=== PATIENT | male | born 1950 | race Caucasian/White ===

== ENCOUNTER 2020-02-23 13:26 | Emergency (ER) | payer MEDICARE, MEDICAID, SELFPAY ==
--- NOTE | 2020-02-23 13:36 | ECG_ITS ---
Test Reason : CHEST PAIN Blood Pressure : / mmHG Vent. Rate : 083 BPM Atrial Rate : 083 BPM P-R Int : 124 ms QRS Dur : 090 ms QT Int : 372 ms P-R-T Axes : 046 048 051 degrees QTc Int : 437 ms Normal sinus rhythm Minimal voltage criteria for LVH, may be normal variant Borderline ECG When compared with ECG of 23-OCT-2017 10:01, Aberrant conduction is no longer Present ST no longer elevated in Lateral leads T wave inversion no longer evident in Inferior leads T wave amplitude has increased in Anterior leads Referred By: Laura Parsons Electronically Signed By:MITCH PAREDES MD
[2020-02-23 13:47] VITALS: BP 125/81; PULSE 81; RESP 25; TEMP 36.5; O2SAT 96; BMI 25.4
--- NOTE | 2020-02-23 14:37 | XR_ITS ---
EXAMINATION: XR CHEST CLINICAL INFORMATION: Right PICC chest pain. COMPARISON: None TECHNIQUE: 2 views of the chest were obtained. FINDINGS: No significant abnormality is noted involving the heart, lungs, mediastinum, bony thorax or soft tissues. XR/XR chest 2V IMPRESSION: Unremarkable chest exam.
[2020-02-23 14:48] LABS: MANUAL DIFF FLAG NO
[2020-02-23] MEDS: Ketorolac Tromethamine 15 MG/ML VIAL IV (14:58)
[2020-02-23 15:03] LABS: Basophils Absolute Auto 0.1 X10*3/uL (0.0-0.2); Basophils Percent Auto 0.6 % (0-2); Eosinophils Absolute Auto 0.1 X10*3/uL (0.0-0.4); Eosinophils Percent Auto 0.9 % (0-4); Hematocrit 50.2 % (42-52); Hemoglobin 16.9 g/dl (14.0-18.0); Imm Gran Abs Auto 0.04 X10*3/uL (0.00-0.03); Imm Gran Pct Auto 0.4 % (0.0-0.4); Lymphocytes Absolute Auto 1.3 X10*3/uL (1.2-4.9); Lymphocytes Percent Auto 14.4 % (20-40); Mean Corpuscular HGB Conc 33.7 g/dl (31.0-36.0); Mean Corpuscular Hemoglobin 31.5 pg (27.0-33.0); Mean Corpuscular Volume 93.5 fL (80-98); Mean Platelet Volume 12.9 fL (9.4-12.4); Monocytes Absolute Auto 0.6 X10*3/uL (0.1-1.2); Monocytes Percent Auto 6.7 % (2-11); Neutrophils Absolute Auto 6.9 X10*3/uL (2.0-8.3); Platelet Count 182 X10*3/uL (160-400); Red Blood Count 5.37 X10*6/uL (4.60-5.80); Red Cell Distribution Width 13.2 % (11.0-16.0); White Blood Count 8.9 X10*3/uL (4.8-10.8)
[2020-02-23 15:10] LABS: Anion Gap 15 (12-20); Blood Urea Nitrogen 19 mg/dL (9-16); Calcium 8.6 mg/dL (8.4-10.2); Carbon Dioxide 23 mmol/L (22-29); Chloride 108 mmol/L (96-108); Creatinine Clr Calc Pharmacy 69.8; Estimated Glomerular Filt Rate > 60; Glucose Random 109 mg/dL (60-115); Magnesium 2.5 mg/dL (1.6-2.6); Potassium 4.2 mmol/l (3.3-5.1); Sodium 142 mmol/L (135-145)
[2020-02-23 15:13] LABS: Troponin-I High Sensitivity 3.9 ng/L (<3.5-35.0)
--- NOTE | 2020-02-23 15:47 | ED_ITS ---
HPI - Chest Pain General Chief Complaint: Chest Pain Stated Complaint: Chest pain Time Seen by Provider: 02/23/20 14:16 Source: patient and educational interpreter Mode of arrival: ambulatory Limitations: no limitations History of Present Illness HPI narrative: patient is a 69-year-old male with no significant past medical history presents complaining of a chest pain and pain with inspiration x2 days. Did admit to moving some cabinets with some friends 2 days ago. States his pain is worse with movement. Did not try any medications or ice or heat to make it better. Denied radiation of pain. denies abdominal pain. Related Data Previous Rx's Medication Instructions Recorded ibuprofen 600 mg PO Q8H PRN #30 tab 02/23/20 Allergies Allergy/AdvReac Type Severity Reaction Status Date / Time No Known Allergies Allergy Unverified 01/19/20 18:01 [No Known Allergies*] Review of Systems Review of Systems: Yes all other systems are reviewed and are negative PMFSH Past Medical History Attestation statement: The following information was validated with the patient. Social History Social History Alcohol intake: never Smoking Status: Former smoker Use of substances other than those prescribed or required for medical reasons: No Advance Directives: No Advance Directives Information Provided: Yes Physical Exam Vital Signs: Vital Signs: Vital Signs Temp Pulse Resp BP Pulse Ox 02/23/20 13:47 97.7 F 81 25 H 125/81 96 Body Mass Index 25.4 Const: General: cooperative, healthy appearing, comfortable and no acute distress Orientation/consciousness: patient oriented x3 HENMT: Head: Yes normal to inspection Eyes: General: appearance normal, both eyes and all related structures Neck: Neck: Yes normal visual inspection, Yes full ROM and Yes supple Chest: Chest palpation & inspection: tenderness ( throughout) Resp: Effort & Inspection: normal respiratory effort and able to speak in complete sentences Auscultation: clear to auscultation bilaterally Cardio: Rate: regular rate Rhythm: regular rhythm Heart sounds: S1 normal heart sound present and S2 normal heart sound present GI: Inspection: Yes normal to inspection Palpation (GI): Soft to palpation and nontender Auscultation: normal bowel sounds Skin: General skin exam: no rashes or lesions noted and other (no diaphore sis) Neuro: General: patient oriented x3 Extrem: Other: right biceps is tender to palpation, left bicep is as well General: Yes normal to inspection Course Course Course Narrative: 69-year-old male with past medical history of hypertension and hyperlipidemia complaining of chest pain and pain with inspiration x2 days. admits to helping friends move some very heavy cabinets 2 days ago. Gave Toradol for relief, will do labs, EKG and chest x-ray. MDM - Chest Pain MDM Narrative Medical decision making narrative: EKG negative, troponin negative, patient's chest pain is reproducible and he was helping a neighbor move cabinets 2 days ago. Gave patient Toradol, he states he feels much relief from it. Will discharge with his prescription for Advil Differential Diagnosis Differential diagnosis: Likely fracture of rib, pneumothorax, stable angina, unstable angina pectoris, st elevation myocardial infarction, costochondritis and biliary colic Medical Records Data Attestation: I reviewed the patient's medical records. Lab Data Attestation: I reviewed the patient's lab results. Result diagrams: 02/23/20 14:41 02/23/20 14:41 Labs: Lab Results 02/23/20 02/23/20 02/23/20 Range/Units 14:41 14:41 14:41 WBC 8.9 (4.8-10.8) X10*3/uL RBC 5.37 (4.60-5.80) X10*6/uL Hgb 16.9 (14.0-18.0) g/dl Hct 50.2 (42-52) % MCV 93.5 (80-98) fL MCH 31.5 (27.0-33.0) pg MCHC 33.7 (31.0-36.0) g/dl RDW 13.2 (11.0-16.0) % Plt Count 182 (160-400) X10*3/uL MPV 12.9 H (9.4-12.4) fL Immature Gran % (Auto) 0.4 (0.0-0.4) % Neut % (Auto) 77.0 H (45-73) % Lymph % (Auto) 14.4 L (20-40) % [place] % (Auto) 6.7 (2-11) % Eos % (Auto) 0.9 (0-4) % Baso % (Auto) 0.6 (0-2) % Lymph # (Auto) 1.3 (1.2-4.9) X10*3/uL [place] # (Auto) 0.6 (0.1-1.2) X10*3/uL Eos # (Auto) 0.1 (0.0-0.4) X10*3/uL Baso # (Auto) 0.1 (0.0-0.2) X10*3/uL Abs Immat Gran (auto) 0.04 H (0.00-0.03) X10*3/uL Absolute Neuts (auto) 6.9 (2.0-8.3) X10*3/uL Absolute Nucleated RBC 0.000 (0.0-0.012) X10*3/uL Nucleated RBC % (auto) 0.0 (0.0-0.2) /100WBC Sodium 142 (135-145) mmol/L Potassium 4.2 (3.3-5.1) mmol/l Chloride 108 (96-108) mmol/L Carbon Dioxide 23 (22-29) mmol/L Anion Gap 15 (12-20) BUN 19 H (9-16) mg/dL Creatinine 1.06 (0.5-1.4) mg/dL Estim Creat Clear Calc 69.8 Estimated GFR > 60 Random Glucose 109 (60-115) mg/dL Calcium 8.6 (8.4-10.2) mg/dL Magnesium 2.5 (1.6-2.6) mg/dL Troponin I High Sens 3.9 (<3.5-35.0) ng/L ECG Data ECG #1: Attestation: I personally reviewed and interpreted this ECG as follows: ECG interpretation date: 02/23/20 Interpretation: NSR Rate 83bpm QTc 437 Discharge Plan Discharge Clinical Impression: Acute costochondritis Patient Disposition: Home, Self-Care Instructions: Costochondritis (ED) Prescriptions: New ibuprofen 600 mg tablet 600 mg PO Q8H PRN (Reason: pain) Qty: 30 RF: 0
[2020-02-23 16:23] VITALS: BP 138/78; PULSE 64; RESP 24; TEMP 36.3; O2SAT 97
== END 2020-02-23 17:09 | disposition home or self-care (01) ==
PROVIDERS: Physician Assistant; Emergency Provider Emergency Medicine
DX: M94.0 Chondrocostal junction syndrome [Tietze] (principal); Z87.891 Personal history of nicotine dependence; Z79.899 Other long term (current) drug therapy
CPT/HCPCS: 36415; 71046; 80048; 83735; 84484; 85025; 93005; 96374; 99284; J1885

== ENCOUNTER 2020-08-15 14:41 | Emergency (ER) | payer MEDICARE, MEDICAID, SELFPAY ==
--- NOTE | ~2020-08-15 | US_ITS ---
EXAMINATION: US VENOUS ULTRASOUND WITH DOPPLER LOWER EXTREMITY, RIGHT CLINICAL INFORMATION: Right leg swelling and numbness COMPARISON: None TECHNIQUE: Ultrasound of the deep veins is performed from the hip to the calf with compression sonography and color and pulse Doppler assessment. Spectral analysis with color-flow imaging is performed. FINDINGS: There is normal venous compression and respiratory variation and augmented flow. The visualized common femoral vein, superficial femoral vein, profunda femoral vein, popliteal vein, and the trifurcation region shows no evidence of deep venous thrombosis. There is no significant popliteal fossa cyst. US/US venous duplex LE RT IMPRESSION: No DVT demonstrated in the right lower extremity.
--- NOTE | ~2020-08-15 | XR_ITS ---
EXAMINATION: XR FOOT, RIGHT CLINICAL INFORMATION: Pain COMPARISON: None TECHNIQUE: AP, lateral, and oblique views of the right foot. FINDINGS: No significant degenerative changes and I do not appreciate any acute fracture or dislocation. No bony destructive lesions or periosteal reaction. No radiopaque foreign body. No significant soft tissue swelling. XR/XR foot RT min 3V IMPRESSION: No acute fracture or dislocation.
[2020-08-15 15:56] VITALS: BP 149/85; PULSE 70; RESP 15; TEMP 36.6; O2SAT 99; BMI 25.8
--- NOTE | 2020-08-15 17:10 | ED.LOWEXIN ---
HPI - Extremity Injury (Lower) General Chief Complaint: Extremity Injury, Lower Stated Complaint: LEG PAIN Time Seen by Provider: 08/15/20 15:58 Source: patient Mode of arrival: ambulatory Limitations: no limitations History of Present Illness HPI Narrative: Right foot pain more the great toe and also callus on the bottom of the left foot. Week prior to that did not receive maderna COVID vaccination otherwise no complain of chest pain, headache, neck pain, shortness of breath. Onset (ago): day(s) Severity: moderate Context: fall Other symptoms: none Related Data Previous Rx's Medication Instructions Recorded ibuprofen 600 mg PO Q8H PRN #30 tab 02/23/20 tamsulosin 0.4 mg capsule 0.4 mg PO DAILY 90 Days #90 cap 07/30/20 naproxen 500 mg PO BID PRN #14 tab 08/15/20 prednisone 40 mg PO DAILY #10 tab 08/15/20 Allergies Allergy/AdvReac Type Severity Reaction Status Date / Time No Known Allergies Allergy Unverified 01/19/20 18:01 [No Known Allergies*] Review of Systems Review of Systems: Constitutional: No Weight loss, No Fever, No Chills, No Night Sweats, No Fatigue, No Malaise ENT/Mouth: No Hearing loss, No Ear Pain, No Nasal Congestion, No Sinus Pain, No Hoarseness, No sore throat, No Rhinorrhea, No Swallowing Difficulty Eyes: No Eye Pain, No Swelling, No Redness, No Foreign Body, No Discharge, No Vision Changes Cardiovascular: No Chest Pain, No SOB, No Dyspnea on Exertion, No Orthopnea, No Edema, No Palpitations Respiratory: No Cough, No Sputum, No Wheezing, No Smoke Exposure, No Dyspnea Gastrointestinal: No Nausea, No Vomiting, No Diarrhea, No Constipation, No abdominal Pain, No Hematochezia, No Melena Genitourinary: no irregular bleeding, No Dysuria, No Urinary Frequency, No Hematuria, No Urinary Incontinence, No Urgency, No Flank Pain, No Urinary Flow Changes, No Hesitancy Musculoskeletal: No joint pain, No Myalgias, No Joint Swelling Skin: No Skin Lesions, No rash Neuro: No Weakness, No Numbness, No Paresthesias, No Loss of Consciousness, No Dizziness, No Headache Psych: No Social Issues Heme/Lymph: No Bruising, No Bleeding,No Lymphadenopathy Endocrine: No Polyuria, No Polydipsia, No Temperature Intolerance Yes all other systems are reviewed and are negative [facility] Past Medical History Medical History High cholesterol HTN (hypertension) Surgical History History of prostate surgery Social History Social History Alcohol intake: never Smoking Status: Former smoker Smoked in Last 30 Days: No Use of substances other than those prescribed or required for medical reasons: No Advance Directives: No Advance Directives Information Provided: No Physical Exam Vital Signs: Vital Signs: Last Vital Signs Temp 97.7 F 08/15/20 18:58 Pulse 61 08/15/20 18:58 Resp 16 08/15/20 18:58 BP 147/83 H 08/15/20 18:58 Pulse Ox 98 08/15/20 18:58 Body Mass Index 25.8 Reviewed Const: General: cooperative and healthy appearing; No acute distress or intoxicated appearing Nutritional Appearance: average body habitus Orientation/consciousness: patient oriented x3 HENMT: Head: Yes normal to inspection Ears: hearing grossly normal bilaterally Eyes: General: appearance normal, both eyes and all related structures Visual Correia: normal visual correia by confrontation Neck: Neck: Yes normal visual inspection, No positive Brudzinski's sign, No positive Kernig's sign and No tender Thyroid: Thyroid normal Chest: Chest palpation & inspection: normal inspection of the chest Resp: Effort & Inspection: normal respiratory effort Auscultation: clear to auscultation bilaterally Cardio: Jugular venous distension: no JVD Rhythm: regular rhythm Heart sounds: S1 normal heart sound present and S2 normal heart sound present GI: Inspection: Yes normal to inspection Percussion: Yes normal to percussion Auscultation: normal bowel sounds : General: Yes no CVA tenderness Back/Spine/Pelvis: Back: no CVA tenderness Skin: General skin exam: no rashes or lesions noted Neuro: General: patient oriented x3 Extrem: Other: Slightly erythematous at the great toe no signs of infection otherwise, tender palpation over the great toe and dorsum foot. Consistent with gout. General: Yes normal to inspection Ankle/foot/toe images: 1. Skin callus, no signs of infection. MDM - Extremity Injury (Lower) Medical Records Attestation: I reviewed the patient's medical records. Lab Data Attestation: I reviewed the patient's lab results. Imaging Data Right lower extremity ultrasound: Radiologist's impression: [address] [id number] ReportSigned Patient: Quincy Aviles AM[facility]#: [id number]: 1950cct:[id number]/Sex: 70 / MADM Date: 08/15/20Loc: HO.EDAttending Dr: Ordering Physician: DAMIÁN MAYEN Date of Service: 08/15/20 Procedure(s): US venous duplex LE RT Accession Number(s): [id number] cc: DAMIÁN MAYEN~ EXAMINATION: US VENOUS ULTRASOUND WITH DOPPLER LOWER EXTREMITY, RIGHT CLINICAL INFORMATION: Right leg swelling and numbness COMPARISON: None TECHNIQUE: Ultrasound of the deep veins is performed from the hip to the calf with compression sonography and color and pulse Doppler assessment. Spectral analysis with color-flow imaging is performed. FINDINGS: There is normal venous compression and respiratory variation and augmented flow. The visualized common femoral vein, superficial femoral vein, profunda femoral vein, popliteal vein, and the trifurcation region shows no evidence of deep venous thrombosis. There is no significant popliteal fossa cyst. US/US venous duplex LE RT IMPRESSION: No DVT demonstrated in the right lower extremity. Dictated By:LANG LOWRY MDSigned By:<Electronically signed by LANG LOWRY MD in OV>08/15/20 1704 DD/ 1613TD/TT: Sound Art Instructor: DEVIN Right foot x-ray: Radiologist's impression: [address] [id number] ReportSigned Patient: Quincy Aviles [facility]#: [id number]: 1950cct:[id number]/Sex: 70 / MADM Date: 08/15/20Loc: HO.EDAttending Dr: Ordering Physician: Jassi Goff NP Date of Service: 08/15/20 Procedure(s): XR foot RT min 3V Accession Number(s): [id number] cc: Jassi Goff ACCOUNT EXECUTIVE~ EXAMINATION: XR FOOT, RIGHT CLINICAL INFORMATION: Pain COMPARISON: None TECHNIQUE: AP, lateral, and oblique views of the right foot. FINDINGS: No significant degenerative changes and I do not appreciate any acute fracture or dislocation. No bony destructive lesions or periosteal reaction. No radiopaque foreign body. No significant soft tissue swelling. XR/XR foot RT min 3V IMPRESSION: No acute fracture or dislocation. Dictated By:WILIAM GORDON MDSigned By:<Electronically signed by WILIAM GORDON MD in OV>08/15/205 DD/ 1722TD/TT: Sound Art Instructor: MO Discharge Plan Discharge Clinical Impression: Arthralgia, Callus of foot Patient Disposition: Home, Self-Care Instructions: Arthralgia (ED) Additional Instructions: Supportive cares discussed Return if any concerns or symptoms including worsening foot pain, swelling, chest pain, shortness of breath, abdominal pain, nausea, vomiting, headache, neck pain Otherwise follow up with her primary care doctor/sound effects person as discussed Thank you Prescriptions: New naproxen 500 mg tablet 500 mg PO BID PRN (Reason: pain) Qty: 14 RF: 0 prednisone 20 mg tablet 40 mg PO DAILY Qty: 10 RF: 0 No Action tamsulosin 0.4 mg capsule 0.4 mg PO DAILY 90 Days Qty: 90 RF: 1 ibuprofen 600 mg tablet 600 mg PO Q8H PRN (Reason: pain) Qty: 30 RF: 0 Referrals: Jose Alba [Physician] - 1 week Interventions: ED Discharge Assessment Last Done: 08/15/20 19:26 Discharge Date/Time: 08/15/20 19:28
[2020-08-15 18:58] VITALS: BP 147/83; PULSE 61; RESP 16; TEMP 36.5; O2SAT 98
== END 2020-08-15 19:28 | disposition home or self-care (01) ==
PROVIDERS: Emergency Provider Emergency Medicine; PCP Family Medicine
DX: M79.671 Pain in right foot (principal); L84 Corns and callosities; I10 Essential (primary) hypertension; E78.5 Hyperlipidemia, unspecified
CPT/HCPCS: 73630; 93971; 99284

== ENCOUNTER 2021-02-26 23:37 | Inpatient (IN) | payer MEDICARE, MEDICAID, SELFPAY ==
--- NOTE | ~2021-02-26 | CT_ITS ---
EXAMINATION: CT ANGIOGRAM ABDOMEN AND PELVIS CLINICAL INFORMATION: Severe abdominal pain COMPARISON: CT abdomen pelvis 04/11/2019 TECHNIQUE: Multiple axial images were obtained through the abdomen and pelvis following the administration of 85 mL of Omnipaque 350 intravenous contrast. Images were reviewed on a dedicated 3-D workstation. This CT examination was performed using dose optimization techniques as appropriate, variously including the following: *Automated exposure control *Adjustment of mA and/or kV according to patient size (this includes techniques or standardized protocols for targeted exams where dose is matched to indication/reason for exam; i.e. extremities or head) *Use of iterative reconstruction technique DLP: 418 mGy-cm VASCULAR FINDINGS: The distal descending thoracic aorta appears normal. The abdominal aorta is unremarkable. Aortic bifurcation is patent. Common iliac arteries appear unremarkable aside from some calcified and noncalcified plaque. Iliac bifurcations are patent. Internal iliac arteries are diseased but patent. The external iliac arteries are free of significant disease. Common femoral arteries are widely patent as are the femoral bifurcations. The profunda femoris and superficial femoral arteries appear patent proximally. A tight celiac arcuate stenosis is present. The SMA is widely patent. A mild ostial ROGRE stenosis is present. There is a single widely patent renal artery on the right and 2 widely patent renal arteries on the left with a small accessory upper pole branch. No mesenteric emboli are seen. NONVASCULAR FINDINGS: LUNG BASES: Nonspecific groundglass changes present at the lung bases. No pleural effusions, consolidations or lung masses seen. LIVER, GALLBLADDER, AND BILIARY TREE: The liver is normal in size, shape, and attenuation. A cluster of calcifications is present in the right lobe of the liver. No focal hepatic lesion or biliary ductal dilatation is present. The gallbladder is unremarkable with no evidence of radiopaque gallstones, gallbladder wall thickening, or obvious pericholecystic inflammatory changes. PANCREAS: Unremarkable. SPLEEN: Unremarkable. ADRENAL GLANDS: Unremarkable. KIDNEYS AND URETERS: The kidneys are normal in size, shape, and attenuation. A 1.4 cm right Bosniak class I renal cyst is present with a smaller 0.9 cm cyst on the left. No solid renal masses are seen. No hydronephrosis, hydroureter, or calculi seen. No perinephric stranding. BLADDER: Unremarkable. GASTROINTESTINAL TRACT: The descending colon is markedly abnormal with a thickened wall and pericolonic inflammatory changes extending towards the lateral conal fascia and anterior pararenal fascia. No pneumatosis is seen. Findings are highly suspicious for colitis, possibly due to ischemia. No diverticula are seen. The small and large bowel are otherwise unremarkable. The appendix is unremarkable. ABDOMINAL WALL: No significant hernia is appreciated. LYMPH NODES: Normal. VASCULAR: Unremarkable. PELVIC VISCERA: The prostate is mildly enlarged. Seminal vesicles are generous in size but symmetric. A small free pelvic fluid is present. OSSEOUS STRUCTURES: Degenerative changes in the spine most marked at L4-L5 and L5-S1. No bony destructive lesions. CT/CT angio abdomen pelvis IMPRESSION: 1. 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 2. Grossly abnormal descending colon mucosal thickening and pericolonic inflammatory changes suspicious for colitis, possibly ischemic. 3. Incidental note made of hepatic granulomas, benign renal cysts, mildly enlarged prostate, degenerative changes in the spine
[2021-02-26 23:45] VITALS: BMI 26.6
--- NOTE | 2021-02-26 23:51 | ECG_ITS ---
Test Reason : ABD PAIN Blood Pressure : / mmHG Vent. Rate : 088 BPM Atrial Rate : 088 BPM P-R Int : 134 ms QRS Dur : 088 ms QT Int : 366 ms P-R-T Axes : 047 052 032 degrees QTc Int : 442 ms Normal sinus rhythm Nonspecific ST abnormality Abnormal ECG When compared with ECG of 23-FEB-2020 13:36, No significant change was found Referred By: Chanda Martinez Electronically Signed By:MITCH PAREDES MD
--- NOTE | 2021-02-26 23:58 | ED.ABDPAIN ---
HPI - Abdominal Pain General Chief Complaint: Abdominal Pain Stated Complaint: lower abd pain Time Seen by Provider: 02/26/21 23:39 Source: patient and public housing interviewer Mode of arrival: EMS Limitations: other (poor historian) History of Present Illness MD elicited complaint: abdominal pain Pertinent past history: none Onset (ago): day(s) (yesterday 6pm) Pain Consistency: constant Location: periumbilical Severity: severe Quality: stabbing Radiation: none Migration to: no migration Exacerbating factors: movement Relieving factors: nothing Associated symptoms: nausea and vomiting Related Data Previous Rx's Medication Instructions Recorded ibuprofen 600 mg tablet 600 mg PO Q8H PRN #30 tab 02/23/20 tamsulosin 0.4 mg capsule 0.4 mg PO DAILY 90 Days #90 cap 07/30/20 naproxen 500 mg tablet 500 mg PO BID PRN #14 tab 08/15/20 prednisone 20 mg tablet 40 mg PO DAILY #10 tab 08/15/20 Allergies Allergy/AdvReac Type Severity Reaction Status Date / Time No Known Allergies Allergy Verified 02/27/21 00:02 [No Known Allergies*] Review of Systems Review of Systems Constitutional : No Weight loss, No Fever, No Chills ENT/Mouth : No sore throat, No Rhinorrhea Eyes: No Swelling, No Redness Cardiovascular : No Chest Pain, No SOB, NoEdema Respiratory : No Cough, No Sputum, No Wheezing Gastrointestinal : Positive Nausea, Positive Vomiting, no Diarrhea, positive abdominal Pain, No Hematochezia, No Melena Genitourinary : No Dysuria, No Urinary Frequency, No Hematuria, No Urgency Musculoskeletal : No joint pain, No Myalgias, No Joint Swelling Skin : No Skin Lesions, No rash Neuro : No Weakness, No Numbness, No Dizziness, No Headache Psych : No Anxiety/Panic, No Depression Heme/Lymph: No Bruising, No Lymphadenopathy Endocrine : No Polyuria, No Polydipsia All other systems reviewed and are negative. Physical Exam Vital Signs: Vital Signs: Last Vital Signs Temp 97.6 F 02/27/21 00:47 Pulse 89 02/27/21 02:27 Resp 16 02/27/21 03:25 BP 134/78 02/27/21 02:27 Pulse Ox 98 02/27/21 02:27 Body Mass Index 26.6 Appearance: Alert. Oriented X3. in pain moderate acute distress. Eyes: Pupils equal, round and reactive to light. ENT: Pharynx dry MM Neck: Normal inspection. Neck supple. CVS: Normal heart rate and rhythm. Pulses normal. Respiratory: No respiratory distress. Breath sounds normal. Abdomen: Soft distended with severe ttp diffusely pos guarding Skin: Skin warm and dry. pale skin color. Normal skin turgor. Extremities: No lower extremity edema. No calf ttp Neuro: Oriented X 3. No motor deficit. No sensory deficit. Course Course Course Narrative: message sent to Dr. Riddle 1am given findings on CT Scan for ischemic colitis and concerning exam with significant pain, empiric zosyn ordered plan to admit, discussed degree of pain the patient is in and need for repeat narcotics with surgery MDM - Abdominal Pain MDM Narrative Medical decision making narrative: 70 yo male with hx of HTN, BPH, HLD takes NSAIDs frequently for abdominal pain - at this time c/o severe periumbilical pain starting yesterday given his degree of pain and presentation STAT CTA for aneurysm/dissection ordered along with 2 IVF, IVF, IV fentanyl for pain. Possible SBO, aneurysm, dissection or perforation given his chronic NSAID use. Dispo per results and findings. Lab Data Result diagrams: 02/27/21 00:32 02/27/21 00:32 Labs: Lab Results 02/26/21 02/27/21 02/27/21 Range/Units 23:54 00:32 00:32 WBC 25.7 H (4.8-10.8) X10*3/uL RBC 5.44 (4.60-5.80) X10*6/uL Hgb 17.1 (14.0-18.0) g/dl Hct 51.9 (42-52) % MCV 95.4 (80-98) fL MCH 31.4 (27.0-33.0) pg MCHC 32.9 (31.0-36.0) g/dl RDW 13.5 (11.0-16.0) % Plt Count 49 L D (160-400) X10*3/uL MPV 12.9 H (9.4-12.4) fL Immature Gran % (Auto) 0.5 H (0.0-0.4) % Neut % (Auto) 93.2 H (45-73) % Lymph % (Auto) 1.4 L (20-40) % [place] % (Auto) 4.7 (2-11) % Eos % (Auto) 0.0 (0-4) % Baso % (Auto) 0.2 (0-2) % Lymph # (Auto) 0.4 L (1.2-4.9) X10*3/uL [place] # (Auto) 1.2 (0.1-1.2) X10*3/uL Eos # (Auto) 0.0 (0.0-0.4) X10*3/uL Baso # (Auto) 0.1 (0.0-0.2) X10*3/uL Abs Immat Gran (auto) 0.14 H (0.00-0.03) X10*3/uL Absolute Neuts (auto) 24.0 H (2.0-8.3) X10*3/uL Absolute Nucleated RBC 0.000 (0.0-0.012) X10*3/uL Nucleated RBC % (auto) 0.0 (0.0-0.2) /100WBC Smear Tech's Comments VERIFIED PT (9.9-13.0) SEC INR (0.9-1.1) APTT (24.1-38.0) SEC Sodium 141 (135-145) mmol/L Potassium 3.8 (3.3-5.1) mmol/L Chloride 112 H (96-108) mmol/L Carbon Dioxide 16 L (22-29) mmol/L Anion Gap 17 (12-20) BUN 31 H D (9-16) mg/dL Creatinine 0.99 (0.5-1.4) mg/dL Estim Creat Clear Calc 64.4 Estimated GFR > 60 Random Glucose 124 H (60-115) mg/dL Lactic Acid (0.5-2.0) mmol/L Calcium 7.9 L D (8.4-10.2) mg/dL Magnesium 2.1 (1.6-2.6) mg/dL Total Bilirubin 1.4 H (0.0-1.0) mg/dL Direct Bilirubin 0.7 H (0.0-0.5) mg/dL AST 15 (5-37) U/L ALT 12 (0-40) U/L Alkaline Phosphatase 113 (39-117) U/L Troponin I High Sens (<3.5-35.0) ng/L Total Protein 5.8 L (6.5-8.0) g/dL Albumin 3.6 (3.5-5.0) g/dL Lipase 8 (8-78) U/L Urine Color Urine Appearance Urine pH (5.0-8.0) Ur Specific [place] (1.005-1.025) Urine Protein (NEG-TRACE) MG/DL Urine Glucose (UA) (NEG) MG/DL Urine Ketones (NEG) MG/DL Urine Blood (NEG) Urine Nitrite (NEG) Ur Leukocyte Esterase (NEG) Urine RBC (0) /HPF Urine WBC (0-4) /HPF Ur Squamous Epith Cells /LPF Urine Bacteria /LPF Urine Mucus /LPF COVID-19 ([facility]) Negative (Negative) COVID-19 Clin Com See Note Blood Type Antibody Screen 02/27/21 02/27/21 02/27/21 Range/Units 00:42 00:45 00:45 WBC (4.8-10.8) X10*3/uL RBC (4.60-5.80) X10*6/uL Hgb (14.0-18.0) g/dl Hct (42-52) % MCV (80-98) fL MCH (27.0-33.0) pg MCHC (31.0-36.0) g/dl RDW (11.0-16.0) % Plt Count (160-400) X10*3/uL MPV (9.4-12.4) fL Immature Gran % (Auto) (0.0-0.4) % Neut % (Auto) (45-73) % Lymph % (Auto) (20-40) % [place] % (Auto) (2-11) % Eos % (Auto) (0-4) % Baso % (Auto) (0-2) % Lymph # (Auto) (1.2-4.9) X10*3/uL [place] # (Auto) (0.1-1.2) X10*3/uL Eos # (Auto) (0.0-0.4) X10*3/uL Baso # (Auto) (0.0-0.2) X10*3/uL Abs Immat Gran (auto) (0.00-0.03) X10*3/uL Absolute Neuts (auto) (2.0-8.3) X10*3/uL Absolute Nucleated RBC (0.0-0.012) X10*3/uL Nucleated RBC % (auto) (0.0-0.2) /100WBC Smear Tech's Comments PT 11.3 (9.9-13.0) SEC INR 1.0 (0.9-1.1) APTT 34.2 (24.1-38.0) SEC Sodium (135-145) mmol/L Potassium (3.3-5.1) mmol/L Chloride (96-108) mmol/L Carbon Dioxide (22-29) mmol/L Anion Gap (12-20) BUN (9-16) mg/dL Creatinine (0.5-1.4) mg/dL Estim Creat Clear Calc Estimated GFR Random Glucose (60-115) mg/dL Lactic Acid 1.8 (0.5-2.0) mmol/L Calcium (8.4-10.2) mg/dL Magnesium (1.6-2.6) mg/dL Total Bilirubin (0.0-1.0) mg/dL Direct Bilirubin (0.0-0.5) mg/dL AST (5-37) U/L ALT (0-40) U/L Alkaline Phosphatase (39-117) U/L Troponin I High Sens (<3.5-35.0) ng/L Total Protein (6.5-8.0) g/dL Albumin (3.5-5.0) g/dL Lipase (8-78) U/L Urine Color Urine Appearance Urine pH (5.0-8.0) Ur Specific [place] (1.005-1.025) Urine Protein (NEG-TRACE) MG/DL Urine Glucose (UA) (NEG) MG/DL Urine Ketones (NEG) MG/DL Urine Blood (NEG) Urine Nitrite (NEG) Ur Leukocyte Esterase (NEG) Urine RBC (0) /HPF Urine WBC (0-4) /HPF Ur Squamous Epith Cells /LPF Urine Bacteria /LPF Urine Mucus /LPF COVID-19 ([facility]) (Negative) COVID-19 Clin Com Blood Type O Positive Antibody Screen NEGATIVE 02/27/21 02/27/21 Range/Units 01:18 01:25 WBC (4.8-10.8) X10*3/uL RBC (4.60-5.80) X10*6/uL Hgb (14.0-18.0) g/dl Hct (42-52) % MCV (80-98) fL MCH (27.0-33.0) pg MCHC (31.0-36.0) g/dl RDW (11.0-16.0) % Plt Count (160-400) X10*3/uL MPV (9.4-12.4) fL Immature Gran % (Auto) (0.0-0.4) % Neut % (Auto) (45-73) % Lymph % (Auto) (20-40) % [place] % (Auto) (2-11) % Eos % (Auto) (0-4) % Baso % (Auto) (0-2) % Lymph # (Auto) (1.2-4.9) X10*3/uL [place] # (Auto) (0.1-1.2) X10*3/uL Eos # (Auto) (0.0-0.4) X10*3/uL Baso # (Auto) (0.0-0.2) X10*3/uL Abs Immat Gran (auto) (0.00-0.03) X10*3/uL Absolute Neuts (auto) (2.0-8.3) X10*3/uL Absolute Nucleated RBC (0.0-0.012) X10*3/uL Nucleated RBC % (auto) (0.0-0.2) /100WBC Smear Tech's Comments PT (9.9-13.0) SEC INR (0.9-1.1) APTT (24.1-38.0) SEC Sodium (135-145) mmol/L Potassium (3.3-5.1) mmol/L Chloride (96-108) mmol/L Carbon Dioxide (22-29) mmol/L Anion Gap (12-20) BUN (9-16) mg/dL Creatinine (0.5-1.4) mg/dL Estim Creat Clear Calc Estimated GFR Random Glucose (60-115) mg/dL Lactic Acid (0.5-2.0) mmol/L Calcium (8.4-10.2) mg/dL Magnesium (1.6-2.6) mg/dL Total Bilirubin (0.0-1.0) mg/dL Direct Bilirubin (0.0-0.5) mg/dL AST (5-37) U/L ALT (0-40) U/L Alkaline Phosphatase (39-117) U/L Troponin I High Sens < 3.5 (<3.5-35.0) ng/L Total Protein (6.5-8.0) g/dL Albumin (3.5-5.0) g/dL Lipase (8-78) U/L Urine Color YELLOW Urine Appearance CLEAR Urine pH 5.0 (5.0-8.0) Ur Specific [place] <= 1.005 (1.005-1.025) Urine Protein NEG (NEG-TRACE) MG/DL Urine Glucose (UA) NEG (NEG) MG/DL Urine Ketones NEG (NEG) MG/DL Urine Blood 1+ H (NEG) Urine Nitrite NEG (NEG) Ur Leukocyte Esterase NEG (NEG) Urine RBC 0-2 (0) /HPF Urine WBC 0-2 (0-4) /HPF Ur Squamous Epith Cells 1+ /LPF Urine Bacteria NONE /LPF Urine Mucus TRACE /LPF COVID-19 ([facility]) (Negative) COVID-19 Clin Com Blood Type Antibody Screen ECG Data Attestation: I personally reviewed and interpreted this ECG as follows: ECG interpretation date: 02/27/21 ECG interpretation time: 00:18 Interpretation: Rate:88 Rhythm: NSR [place]: normal Normal P waves. Normal [place]OB[place]. Normal QRS complex. ST T wave : nonspecific, no CRYSTAL qTC: normal prior studies: no acute ischemia The study has been interpreted contemporaneously by me. . Critical Care Time Critical Care Time Critical Care Time: Yes Total Critical Care Time: 60 Attestation: repeat bedside assessments, medical consult, repeat IV narcotics, IVF x 2L Discharge Plan Discharge Clinical Impression: Colitis Abdominal pain Qualifiers: Abdominal location: periumbilical Qualified Code(s): R10.33 - Periumbilical pain Leukocytosis Qualifiers: Leukocytosis type: unspecified Qualified Code(s): D72.829 - Elevated white blood cell count, unspecified Patient Disposition: Admitted As Inpatient [facility] Past Medical History Attestation statement: The following information was validated with the patient. Medical History High cholesterol HTN (hypertension) Surgical History History of prostate surgery Social History Social History (Updated 02/26/21 @ 23:58 by Chanda Martinez DO) Alcohol intake: never Patient Tobacco Use Status: Never used Tobacco Advance Directives: No Advance Directives Information Provided: No
[2021-02-27] VITALS (25 sets, daily range): BP systolic 98–134; BP diastolic 57–79; PULSE 83–101; RESP 12–28; TEMP 36.3–37.9; O2SAT 91–99
[2021-02-27] MEDS: 0.9 % Sodium Chloride 1,000 ML 999 ML IVCONT (00:02)
[2021-02-27] MEDS: fentaNYL citrate/PF 100 MCG/2 ML VIAL 50 MCG IVPUSH (00:02)
[2021-02-27] MEDS: ondansetron HCL 4 MG/2 ML VIAL IVPUSH (00:04)
[2021-02-27 00:23] LABS: COVID-19 Test Negative (Negative); IDNOW Serial# 08D9AD1C
[2021-02-27] MEDS: iohexoL 350 MG/ML 100 ML INFUS..BTL 85 ML IV (00:23)
[2021-02-27 00:38] LABS: Basophils Absolute Auto 0.1 X10*3/uL (0.0-0.2); Basophils Percent Auto 0.2 % (0-2); Hemoglobin 17.1 g/dl (14.0-18.0); Imm Gran Pct Auto 0.5 % (0.0-0.4); Lymphocytes Percent Auto 1.4 % (20-40); MANUAL DIFF FLAG SCAN; Monocytes Percent Auto 4.7 % (2-11); Neutrophils Percent Auto 93.2 % (45-73); PLT ABN DIST 1; PLT CLUMP 1; SCAN SMEAR FLAG 1
[2021-02-27 00:39] LABS: Hematocrit 51.9 % (42-52); Imm Gran Abs Auto 0.14 X10*3/uL (0.00-0.03); Lymphocytes Absolute Auto 0.4 X10*3/uL (1.2-4.9); Mean Corpuscular HGB Conc 32.9 g/dl (31.0-36.0); Mean Corpuscular Hemoglobin 31.4 pg (27.0-33.0); Mean Corpuscular Volume 95.4 fL (80-98); Mean Platelet Volume 12.9 fL (9.4-12.4); Monocytes Absolute Auto 1.2 X10*3/uL (0.1-1.2); Red Blood Count 5.44 X10*6/uL (4.60-5.80); Red Cell Distribution Width 13.5 % (11.0-16.0); White Blood Count 25.7 X10*3/uL (4.8-10.8)
[2021-02-27] MEDS: Piperacillin Sodium/Tazobactam 3.375 GM in 0.9 % Sodium Chloride 50 ML IV ×4 (01:01→23:14)
[2021-02-27 01:02] LABS: Lactic Acid 1.8 mmol/L (0.5-2.0)
[2021-02-27] MEDS: 0.9 % Sodium Chloride 1,000 ML 999 ML IV (01:02)
[2021-02-27 01:07] LABS: Alanine Aminotransferase 12 U/L (0-40); Albumin Level 3.6 g/dL (3.5-5.0); Alkaline Phosphatase 113 U/L (39-117); Anion Gap 17 (12-20); Aspartate Amino Transferase 15 U/L (5-37); Bilirubin Direct 0.7 mg/dL (0.0-0.5); Bilirubin Total 1.4 mg/dL (0.0-1.0); Blood Urea Nitrogen 31 mg/dL (9-16); Calcium 7.9 mg/dL (8.4-10.2); Carbon Dioxide 16 mmol/L (22-29); Chloride 112 mmol/L (96-108); Creatinine Clr Calc Pharmacy 64.4; Estimated Glomerular Filt Rate > 60; Glucose Random 124 mg/dL (60-115); Lipase 8 U/L (8-78); Magnesium 2.1 mg/dL (1.6-2.6); Potassium 3.8 mmol/L (3.3-5.1); Sodium 141 mmol/L (135-145); Total Protein 5.8 g/dL (6.5-8.0)
[2021-02-27] MEDS: HYDROmorphone HCl 0.5 MG/0.5 ML SYRINGE IVPUSH ×6 (01:10→23:13)
[2021-02-27 01:13] LABS: Platelet Count 49 X10*3/uL (160-400); SLIDE REVIEW VERIFIED
[2021-02-27 01:13] LABS: Prothrombin Time 11.3 SEC (9.9-13.0)
[2021-02-27 01:16] LABS: Partial Thromboplastin Time 34.2 SEC (24.1-38.0)
[2021-02-27 01:29] LABS: Appearance Urine CLEAR; Color Urine YELLOW; Glucose Urine UA NEG (NEG); Leukocyte Esterase Urine NEG (NEG); Nitrite Urine NEG (NEG); Specific Gravity - Urine <= 1.005 (1.005-1.025); UACC Culture Trigger NO; Urine Blood 1+ (NEG); Urine Ketones NEG (NEG); Urine Protein NEG (NEG-TRACE)
[2021-02-27 01:44] LABS: Troponin-I High Sensitivity < 3.5 ng/L (<3.5-35.0)
[2021-02-27 01:54] LABS: Mucus Urine TRACE /LPF; RBC Urine 0-2 /HPF (0); Squamous Epithelial Cell Urine 1+ /LPF; WBC Urine 0-2 /HPF (0-4)
[2021-02-27] MEDS: Heparin Sodium,Porcine 5,000 UNIT/ML VIAL 5000 UNIT SUBCUT (02:36)
[2021-02-27] MEDS: Dextrose 5 % and Lactated Ring 1,000 ML 125 ML IVCONT ×3 (03:55→23:55)
--- NOTE | 2021-02-27 06:33 | PC.NURSE ---
pt has voided 300 ml tea colored urine.
--- NOTE | 2021-02-27 06:36 | PC.NURSE ---
urine similar im color to sample still sitting at bedside.
--- NOTE | 2021-02-27 06:39 | PC.NURSE ---
report from Ariana DOW at 03:00. pt has firm distended abdomen, tender to touch.pt belarusian speaking, awake and alert. pt was able to get some rest following IV tylenol administration. while awake, pt moans in pain with each exhalation.
--- NOTE | 2021-02-27 07:35 | PM.HPGS ---
History of Present Illness History of Present Illness Date of Service: 02/27/21 Chief complaint: Ischemic colitis Narrative: Quincy Harris is a 70 year old male presenting with complaints of diffuse abdominal pain beginning yesterday afternoon. The pain began in the periumbilical region became more diffuse throughout today. Pain is described as sharp stabbing increased with motion. Denies fever, chills, but does report nausea and vomiting. He denies a previous history of similar pain. Presented to the emergency department was noted to be diffusely tender. CT of the abdomen and pelvis revealed evidence of colitis specially on the left side suggestive of ischemic colitis. There is no evidence of free air or pneumatosis coli. Revealed a markedly elevated WBC. Lactic acid was normal at 1.8. He is admitted to the surgical service for management of probable ischemic colitis. Review of Systems Review of Systems: Yes all other systems are reviewed and are negative Constitutional: Constitutional: Denies chills, Denies fever(s) and Reports poor appetite Cardiovascular: Cardiovascular: Denies chest pain, Denies irregular heart rhythm, Denies palpitations and Reports dyspnea Respiratory: Respiratory: Denies chest congestion, Denies cough and Reports dyspnea Gastrointestinal: Gastrointestinal: Reports as per HPI, Reports abdominal pain, Reports bloating, Reports GI cramping, Reports nausea and Reports vomiting Endocrine: Endocrine: Denies palpitations Hematologic/Lymphatic: Hematologic/Lymphatic: Reports lymphadenopathy PMFSH Past Medical History Medical History High cholesterol HTN (hypertension) Surgical History Surgical History History of prostate surgery Social History Social History Alcohol intake: never Patient Tobacco Use Status: Former Tobacco user Use of substances other than those prescribed or required for medical reasons: No Advance Directives: No Advance Directives Information Provided: No Meds Allergies Allergy/AdvReac Type Severity Reaction Status Date / Time No Known Allergies Allergy Verified 02/27/21 00:02 [No Known Allergies*] Active Medications: Current Medications Heparin Sodium (Porcine) (Heparin Sodium,Porcine 5,000 Unit/Ml Vial) 5,000 unit SUBCUT Q12H PETRONA Last Admin: 02/27/21 02:36 Dose: 5,000 unit Documented by: Hydromorphone HCl (Hydromorphone Hcl 0.5 Mg/0.5 Ml Syringe) 0.5 mg IVPUSH Q2H PRN; Protocol PRN Reason: abdominal pain Last Admin: 02/27/21 06:35 Dose: 0.5 mg Documented by: Acetaminophen (Ofirmev) 1,000 mg in 100 mls @ 400 mls/hr IV Q6H [facility] Last Infusion: 02/27/21 04:42 Dose: Infused Documented by: Dextrose/Lactated Ringer's ([email or web address]) 1,000 mls @ 125 mls/hr IVCONT .Q8H [facility] Last Admin: 02/27/21 03:55 Dose: 125 mls/hr Documented by: Piperacillin Sod/Tazobactam (Sod 3.375 gm/ Sodium Chloride) 50 mls @ 100 mls/hr IV Q6H [facility] Last Admin: 02/27/21 06:35 Dose: 100 mls/hr Documented by: Ondansetron HCl (Ondansetron Hcl 4 Mg/2 Ml Vial) 4 mg IVPUSH QID PRN PRN Reason: Nausea Pharmacy Consult (Consult Rx Perform Med Rec) 1 each MISCELLANE ONCE PRN PRN Reason: Consult order Home Medications Medication Instructions Recorded Confirmed Last Taken Type amlodipine 10 mg tablet 1 tab PO DAILY 02/27/21 02/27/21 Unknown History omeprazole 40 mg capsule,delayed 1 cap PO DAILY 02/27/21 02/27/21 Unknown History release Physical Exam Vital Signs: Vital Signs: Last Vital Signs Temp 97.4 F 02/27/21 04:09 Pulse 95 02/27/21 04:09 Resp 21 H 02/27/21 04:09 BP 129/76 02/27/21 04:09 Pulse Ox 91 L 02/27/21 04:09 Body Mass Index 26.6 Const: General: well developed, acute distress and ill appearing Nutritional Appearance: well nourished Orientation/consciousness: patient oriented x3 Limitations: no limitations HENMT: Head: Yes normocephalic and Yes atraumatic Resp: Effort & Inspection: normal respiratory effort, no cough and no stridor Auscultation: clear to auscultation bilaterally Cardio: Rate: regular rate Rhythm: regular rhythm GI: Inspection: Yes distended Palpation (GI): Tenderness to palpation present (GI) in the LLQ, in the RLQ, in the LUQ and in the RUQ Percussion: Yes dullness to percussion Auscultation: Absent bowel sounds Rectal Exam - Male: Yes deferred Skin: General skin exam: no rashes or lesions noted and dry skin Neuro: General: patient oriented x3 Extrem: General: Yes no clubbing, cyanosis or edema Results Results Labs: Short CBC 02/27/21 Range/Units 00:32 WBC 25.7 H (4.8-10.8) X10*3/uL Hgb 17.1 (14.0-18.0) g/dl Hct 51.9 (42-52) % Plt Count 49 L D (160-400) X10*3/uL BMP 02/27/21 00:32 Sodium 141 Potassium 3.8 Chloride 112 H Carbon Dioxide 16 L BUN 31 H D Creatinine 0.99 Calcium 7.9 L D Liver Function 02/27/21 Range/Units 00:32 Total Bilirubin 1.4 H (0.0-1.0) mg/dL Direct Bilirubin 0.7 H (0.0-0.5) mg/dL AST 15 (5-37) U/L ALT 12 (0-40) U/L Alkaline Phosphatase 113 (39-117) U/L Albumin 3.6 (3.5-5.0) g/dL Urine 02/27/21 Range/Units 01:25 Urine Color YELLOW Urine Appearance CLEAR Urine pH 5.0 (5.0-8.0) Ur Specific [place] <= 1.005 (1.005-1.025) Urine Protein NEG (NEG-TRACE) MG/DL Urine Glucose (UA) NEG (NEG) MG/DL Abdomen CT scan report/results: image reviewed CT scan - pelvis: image reviewed Assessment and Plan (1) Ischemic colitis: Status: Acute 70-year-old male patient presenting with severe abdominal pain unrelated with pain medication and fluid hydration. Findings are suggestive of ischemic colitis possibly bowel. Lactate level is also increasing instead of improving with hydration. I recommended exploratory laparoscopy possible exploratory laparotomy possible small bowel resection. I reviewed the findings in detail with the patient through a medical data entry clerk. After discussion of the procedure, risks, and alternatives, he consents to the procedure. He has been added onto the operative schedule for today. Quality Stroke Does the patient have a stroke diagnosis?: No VTE Prior VTE?: No VTE Risk Level:: Surgical - high VTE Device Contraindication: N/A - Device Ordered VTE Drug Contraindication: N/A - Med Ordered Procedures Date of Service Date of Service: 02/27/21
--- NOTE | 2021-02-27 07:48 | PC.NURSE ---
pt resting in the stretcher, respirations slightly increased anywhere from 22-28 due to pain sating 93% on room air, pain in the left side of the abd, especially left lower, abd is hard on the left side, unable to hear bowel sounds on the left as well. regulated program manager at bedside
--- NOTE | 2021-02-27 08:04 | PC.NURSE ---
this rn reached out to dr lambert in regards to this pts pain level and lack of abd sounds on the left side
--- NOTE | 2021-02-27 08:22 | PC.NURSE ---
surgical pa at bedside, plan to go to the surgery soon
[2021-02-27 08:42] LABS: Hematocrit 48.6 % (42-52); Hemoglobin 16.3 g/dl (14.0-18.0); Mean Corpuscular HGB Conc 33.5 g/dl (31.0-36.0); Mean Corpuscular Hemoglobin 30.9 pg (27.0-33.0); Mean Platelet Volume 12.6 fL (9.4-12.4); Platelet Count 150 X10*3/uL (160-400); Red Blood Count 5.28 X10*6/uL (4.60-5.80); Red Cell Distribution Width 13.8 % (11.0-16.0)
[2021-02-27 08:47] LABS: Lactic Acid 2.5 mmol/L (0.5-2.0)
[2021-02-27 08:52] LABS: Alanine Aminotransferase 23 U/L (0-40); Albumin Level 3.4 g/dL (3.5-5.0); Alkaline Phosphatase 107 U/L (39-117); Anion Gap 14 (12-20); Aspartate Amino Transferase 29 U/L (5-37); Bilirubin Total 3.1 mg/dL (0.0-1.0); Blood Urea Nitrogen 33 mg/dL (9-16); Calcium 8.1 mg/dL (8.4-10.2); Carbon Dioxide 19 mmol/L (22-29); Chloride 113 mmol/L (96-108); Creatinine Clr Calc Pharmacy 55.4; Estimated Glomerular Filt Rate > 60; Glucose Fasting 132 mg/dL (60-99); Sodium 142 mmol/L (135-145); Total Protein 5.6 g/dL (6.5-8.0)
[2021-02-27 09:07] LABS: Band Neutrophils Percent 15 % (3-5); Lymphocytes Percent Manual 4 % (20-40); Monocytes Absolute Manual 0.8 X10*3/uL (0.0-1.2); Monocytes Percent Manual 3 % (2-11); Neutrophils Absolute Manual 23.3 X10*3/uL (2.2-7.9); Neutrophils Percent Manual 78 % (45-73)
[2021-02-27 09:08] LABS: Burr Cells 2+ (3-5) /OIF; Platelet Estimate SLIGHTLY DECREASED (NORMAL); Platelet Morphology Comment NORMAL; RBC Morphology NOTED
[2021-02-27 09:09] LABS: Acanthocytes 1+ (0-2) /OIF; Ovalocytes 1+ (5-14) /OIF
--- NOTE | 2021-02-27 09:21 | PC.NURSE ---
report given to aníbal mohan
--- NOTE | 2021-02-27 09:47 | HO.ANESPROP2 ---
[facility] Active Problems Active Problems: All Active Problems (Updated 02/27/21 @ 07:40 by Jose Riddle MD) Ischemic colitis (Acute) Abdominal pain (Acute) Colitis (Acute) Leukocytosis (Acute) Past Medical History Medical History High cholesterol HTN (hypertension) Family History Family history of problems with anesthesia: No Surgical History Surgical History History of prostate surgery History of Problems with Anesthesia: No Social History Social History Alcohol intake: never Patient Tobacco Use Status: Former Tobacco user Quit Date: 4 YRS AGO Tobacco use type: Cigarette Use of substances other than those prescribed or required for medical reasons: No Are you DNR?: No Advance Directives: No Advance Directives Information Provided: No Meds Allergies Allergy/AdvReac Type Severity Reaction Status Date / Time No Known Allergies Allergy Verified 02/27/21 00:02 [No Known Allergies*] Active Medications: Current Medications Heparin Sodium (Porcine) (Heparin Sodium,Porcine 5,000 Unit/Ml Vial) 5,000 unit SUBCUT Q12H [facility] Last Admin: 02/27/21 02:36 Dose: 5,000 unit Documented by: Hydromorphone HCl (Hydromorphone Hcl 0.5 Mg/0.5 Ml Syringe) 0.5 mg IVPUSH Q2H PRN; Protocol PRN Reason: abdominal pain Last Admin: 02/27/21 08:34 Dose: 0.5 mg Documented by: Acetaminophen (Ofirmev) 1,000 mg in 100 mls @ 400 mls/hr IV Q6H [facility] Last Infusion: 02/27/21 08:15 Dose: Infused Documented by: Dextrose/Lactated Ringer's ([email or web address]) 1,000 mls @ 125 mls/hr IVCONT .Q8H [facility] Last Admin: 02/27/21 03:55 Dose: 125 mls/hr Documented by: Piperacillin Sod/Tazobactam (Sod 3.375 gm/ Sodium Chloride) 50 mls @ 100 mls/hr IV Q6H [facility] Last Infusion: 02/27/21 07:05 Dose: Infused Documented by: Ondansetron HCl (Ondansetron Hcl 4 Mg/2 Ml Vial) 4 mg IVPUSH QID PRN PRN Reason: Nausea Pharmacy Consult (Consult Rx Perform Med Rec) 1 each MISCELLANE ONCE PRN PRN Reason: Consult order Home Medications Medication Instructions Recorded Confirmed Last Taken Type amlodipine 10 mg tablet 1 tab PO DAILY 02/27/21 02/27/21 Unknown History aspirin 81 mg tablet,delayed 1 tab PO DAILY 02/27/21 02/27/21 02/26/21 History release omeprazole 40 mg capsule,delayed 1 cap PO DAILY 02/27/21 02/27/21 Unknown History release Exam Exam Date and Time: February 27, 2021 0947 Height,Weight and Vital Signs: Height 5 ft 6 in Weight 74.9 kg Last Vital Signs Temp 97.4 F 02/27/21 04:09 Pulse 83 02/27/21 08:32 Resp 28 H 02/27/21 08:32 BP 107/66 02/27/21 08:32 Pulse Ox 95 02/27/21 08:32 Vital Signs Temp Pulse Resp BP Pulse Ox 02/27/21 10:01 98.1 F 91 20 100/68 94 02/27/21 08:32 83 28 H 107/66 95 02/27/21 07:45 91 25 H 119/71 93 02/27/21 04:09 97.4 F 95 21 H 129/76 91 L 02/27/21 03:25 16 02/27/21 02:27 89 20 134/78 98 02/27/21 00:47 97.6 F 84 24 H 117/69 98 02/27/21 00:02 15 Pertinent Lab Results Pertinent Lab Results: Laboratory Tests 02/26/21 02/27/21 02/27/21 23:54 00:32 00:32 WBC 25.7 H RBC 5.44 Hgb 17.1 Hct 51.9 MCV 95.4 MCH 31.4 MCHC 32.9 RDW 13.5 Plt Count 49 L D MPV 12.9 H Immature Gran % (Auto) 0.5 H Neut % (Auto) 93.2 H Lymph % (Auto) 1.4 L Casey % (Auto) 4.7 Eos % (Auto) 0.0 Baso % (Auto) 0.2 o Lymph # (Auto) 0.4 L Casey # (Auto) 1.2 Eos # (Auto) 0.0 Baso # (Auto) 0.1 Abs Immat Gran (auto) 0.14 H Absolute Neuts (auto) 24.0 H Absolute Nucleated RBC 0.000 Nucleated RBC % (auto) 0.0 Neutrophils % (Manual) Band Neutrophils % Lymphocytes % (Manual) Monocytes % (Manual) Abs Neuts (Manual) Lymphocytes # (Manual) Monocytes # (Manual) Platelet Estimate Plt Morphology Comment RBC Morphology Ovalocytes Dillon Cells Acanthocytes (Spur) Smear Tech's Comments VERIFIED PT INR APTT Sodium 141 Potassium 3.8 Chloride 112 H Carbon Dioxide 16 L Anion Gap 17 BUN 31 H D Creatinine 0.99 Estim Creat Clear Calc 64.4 Estimated GFR > 60 Random Glucose 124 H Fasting Glucose Lactic Acid Calcium 7.9 L D Magnesium 2.1 Total Bilirubin 1.4 H Direct Bilirubin 0.7 H AST 15 ALT 12 Alkaline Phosphatase 113 Troponin I High Sens Total Protein 5.8 L Albumin 3.6 Lipase 8 Urine Color Urine Appearance Urine pH Ur Specific Ayr Urine Protein Urine Glucose (UA) Urine Ketones Urine Blood Urine Nitrite Ur Leukocyte Esterase Urine RBC Urine WBC Ur Squamous Epith Cells Urine Bacteria Urine Mucus COVID-19 ([facility]) Negative COVID-19 Clin Com See Note Blood Type Antibody Screen 02/27/21 02/27/21 02/27/21 00:42 00:45 00:45 WBC RBC Hgb Hct MCV MCH MCHC RDW Plt Count MPV Immature Gran % (Auto) Neut % (Auto) Lymph % (Auto) Casey % (Auto) Eos % (Auto) Baso % (Auto) Lymph # (Auto) Casey # (Auto) Eos # (Auto) Baso # (Auto) Abs Immat Gran (auto) Absolute Neuts (auto) Absolute Nucleated RBC Nucleated RBC % (auto) Neutrophils % (Manual) Band Neutrophils % Lymphocytes % (Manual) Monocytes % (Manual) Abs Neuts (Manual) Lymphocytes # (Manual) Monocytes # (Manual) Platelet Estimate Plt Morphology Comment RBC Morphology Ovalocytes Dillon Cells Acanthocytes (Spur) Smear Tech's Comments PT 11.3 INR 1.0 APTT 34.2 Sodium Potassium Chloride Carbon Dioxide Anion Gap BUN Creatinine Estim Creat Clear Calc Estimated GFR Random Glucose Fasting Glucose Lactic Acid 1.8 Calcium Magnesium Total Bilirubin Direct Bilirubin AST ALT Alkaline Phosphatase Troponin I High Sens Total Protein Albumin Lipase Urine Color Urine Appearance Urine pH Ur Specific Ayr Urine Protein Urine Glucose (UA) Urine Ketones Urine Blood Urine Nitrite Ur Leukocyte Esterase Urine RBC Urine WBC Ur Squamous Epith Cells Urine Bacteria Urine Mucus COVID-19 ([facility]) COVID-19 Clin Com Blood Type O Positive Antibody Screen NEGATIVE 02/27/21 02/27/21 02/27/21 01:18 01:25 08:25 WBC 25.0 H RBC 5.28 Hgb 16.3 Hct 48.6 MCV 92.0 MCH 30.9 MCHC 33.5 RDW 13.8 Plt Count 150 L D MPV 12.6 H Immature Gran % (Auto) Cancelled Neut % (Auto) Cancelled Lymph % (Auto) Cancelled Casey % (Auto) Cancelled Eos % (Auto) Cancelled Baso % (Auto) Cancelled Lymph # (Auto) Cancelled Casey # (Auto) Cancelled Eos # (Auto) Cancelled Baso # (Auto) Cancelled Abs Immat Gran (auto) Cancelled Absolute Neuts (auto) Cancelled Absolute Nucleated RBC 0.000 Nucleated RBC % (auto) 0.0 Neutrophils % (Manual) 78 H Band Neutrophils % 15 H Lymphocytes % (Manual) 4 L Monocytes % (Manual) 3 Abs Neuts (Manual) 23.3 H Lymphocytes # (Manual) 1.0 Monocytes # (Manual) 0.8 Platelet Estimate SLIGHTLY DECREASED Plt Morphology Comment NORMAL RBC Morphology NOTED Ovalocytes 1+ (5-14) Dillon Cells 2+ (3-5) Acanthocytes (Spur) 1+ (0-2) Smear Tech's Comments PT INR APTT Sodium Potassium Chloride Carbon Dioxide Anion Gap BUN Creatinine Estim Creat Clear Calc Estimated GFR Random Glucose Fasting Glucose Lactic Acid Calcium Magnesium Total Bilirubin Direct Bilirubin AST ALT Alkaline Phosphatase Troponin I High Sens < 3.5 Total Protein Albumin Lipase Urine Color YELLOW Urine Appearance CLEAR Urine pH 5.0 Ur Specific Ayr <= 1.005 Urine Protein NEG Urine Glucose (UA) NEG Urine Ketones NEG Urine Blood 1+ H Urine Nitrite NEG Ur Leukocyte Esterase NEG Urine RBC 0-2 Urine WBC 0-2 Ur Squamous Epith Cells 1+ Urine Bacteria NONE Urine Mucus TRACE COVID-19 ([facility]) COVID-19 Clin Com Blood Type Antibody Screen 02/27/21 02/27/21 08:25 08:25 WBC RBC Hgb Hct MCV MCH MCHC RDW Plt Count MPV Immature Gran % (Auto) Neut % (Auto) Lymph % (Auto) Casey % (Auto) Eos % (Auto) Baso % (Auto) Lymph # (Auto) Casey # (Auto) Eos # (Auto) Baso # (Auto) Abs Immat Gran (auto) Absolute Neuts (auto) Absolute Nucleated RBC Nucleated RBC % (auto) Neutrophils % (Manual) Band Neutrophils % Lymphocytes % (Manual) Monocytes % (Manual) Abs Neuts (Manual) Lymphocytes # (Manual) Monocytes # (Manual) Platelet Estimate Plt Morphology Comment RBC Morphology Ovalocytes Dillon Cells Acanthocytes (Spur) Smear Tech's Comments PT INR APTT Sodium 142 Potassium 4.0 Chloride 113 H Carbon Dioxide 19 L Anion Gap 14 BUN 33 H Creatinine 1.15 Estim Creat Clear Calc 55.4 Estimated GFR > 60 Random Glucose Fasting Glucose 132 H Lactic Acid 2.5 H* Calcium 8.1 L Magnesium Total Bilirubin 3.1 H Direct Bilirubin AST 29 D ALT 23 Alkaline Phosphatase 107 Troponin I High Sens Total Protein 5.6 L Albumin 3.4 L Lipase Urine Color Urine Appearance Urine pH Ur Specific Ayr Urine Protein Urine Glucose (UA) Urine Ketones Urine Blood Urine Nitrite Ur Leukocyte Esterase Urine RBC Urine WBC Ur Squamous Epith Cells Urine Bacteria Urine Mucus COVID-19 ([facility]) COVID-19 Clin Com Blood Type Antibody Screen Airway Mallampati Class: II TM Dist: >3cm Neck ROM: Full Loose/Missing/Broken Teeth: Yes (Some missing) Heart: RRR Lungs: CTAB Assessment and Plan Assessment Anesthesia Assessment: Anesthesia Plan Discussed and Chart Reviewed Final Anesthetic Review Family History of Problems with Anesthesia: No History of Problems with Anesthesia: No NPO: Yes ASA Class: IV and Emergency Final Preanesthetic Review: No Changes in Pt Med Stat, Meds/Allgs Chart Reviewed, Consent Obtained/Reviewed and Anes Risks/Benef Reviewed Patient Risk: High Procedure Risk: High Assessment/Block/Sedation in SS: Assess/Block/Sedation-SS Anesthetic Plan Anesthetic Plan: GA, Agree w/ Assess. and Plan and Other (Arterial line) Disposition: Standard PACU and Inp. Admit - ICU
[2021-02-27 10:29] LABS: Reflex Lactate? Lactic Acid Added
[2021-02-27] MEDS: Lactated Ringers 1,000 ML 100 ML IVCONT (10:44)
--- NOTE | 2021-02-27 13:37 | W.PM.OPN ---
Operative Note Operative Note Date of Service: 02/27/21 Narrative: Preoperative diagnosis: Ischemic colitis left colon Postoperative diagnosis: Left colon gangrenous bowel without perforation Procedure: Exploratory laparotomy, left colectomy with transverse end colostomy Surgeon: Jose Riddle MD Farm Machinery Assembler: Marlee Mixon PA-C Anesthesia: General endotracheal Indications for procedure: 70-year-old male patient presenting with diffuse abdominal pain found on CT to have thickened left colon suggestive of colitis. [place] [id number]. Initial lactate was normal however repeat lactate after several hours increased to abnormal level. Patient presents for exploratory laparotomy and possible bowel resection Operative findings: bowel involving the proximal sigmoid colon and distal descending colon. No perforation was identified although there was turbid fluid throughout the abdomen. No abscess appreciated. Remaining bowel was viable. Specimen: Left colon Estimated blood loss: 400 mL Complications: Small tear in the splenic capsule noted during mobilization of splenic flexure. Procedure details: Patient was brought to the OR placed in a supine position. After administering general anesthesia the patient's abdomen was prepped with ChloraPrep and draped in a sterile fashion. A surgical time-out was called the consent confirmed. Patient received preoperative antibiotics and Venodyne boots were in place. Local anesthesia consisting of 0.5% Sensorcaine plain was infiltrated in a periumbilical region. A 5 mm incision was then made and a Veress needle inserted while elevating the abdominal cavity with towel clips. Aspiration after insertion of the Veress needle produced a thin brownish colored turbid fluid suggestive of abscess fluid. Incision was made to convert to an open procedure rather than laparoscopy. A generous midline incision was then made with a 10. Blade. Incision was carried down through subcutaneous tissue and through linea alba. Peritoneum was then entered. The abdomen was explored and the above findings noted. Mild necrosis was noted from the proximal sigmoid colon and extending up the left colon. Transverse and splenic flexure appeared to be spared. No definite any etiology for the bowel necrosis could be identified. Beginning at the sigmoid colon the bowel was mobilized from the abdominal sidewall. This continued up along the white line of Toldt to the splenic flexure. Transverse colon was then mobilized of by elevating the omentum off the bowel and the lesser sac entered. Dissection was continued proximally up towards the splenic flexure. There was a high splenic flexure densely adherent to the splenic capsule. During the mobilization a small tear was made in the splenic capsule. This was controlled using hemostatic agents including Snow and Tisseal. An area of viable bowel was noted in the distal sigmoid colon. Mesentery was then opened using a right angle clamp just below the bowel wall. A DAWN stapler was then used to divide the bowel at this level. LigaSure was then used to divide the mesentery from distal to proximal. A similar area in the transverse colon was identified and the bowel divided using the DAWN stapler. Mesentery was then divided going from proximal to distal and around the splenic flexure. When the bowel was completely mobilized was sent to pathology for further examination. The abdomen was then irrigated thoroughly and suctioned dry. No further bleeding was noted from the splenic capsule. No undrained collections could be identified. The transverse colon was then mobilized using LigaSure to create a end-colostomy. A circular incision was made in the right lower quadrant carried down through subcutaneous tissue. A cruciate incision was made in the anterior rectus sheath. Endoclips were then used to divide the posterior sheath and peritoneum. Two fingers were used to dilate the as a colostomy incision. A protector was then placed through this incision and the transverse colon brought up as a end-colostomy. Fascia was then closed at the midline incision using a running 1 Maxon suture. Skin was then closed using skin mary. The colostomy was then matured to the skin using interrupted 4-0 Polysorb sutures this was not in a solomon fashion circumferentially. Sterile dressings were then applied an ostomy appliance applied. The patient tolerated the procedure well. Sponge, instrument, needle counts reported as correct. The patient was transferred to PACU in stable condition.
[2021-02-27] MEDS: HYDROmorphone HCl 0.5 MG/0.5 ML SYRINGE 0.25 MG IVPUSH ×2 (14:40→14:45)
[2021-02-27 15:45] LABS: ~Lactic Acid-LAB USE ONLY 3.7 mmol/L (0.5-2.0)
--- NOTE | 2021-02-27 15:58 | PM.EVENT ---
Event Note Date of Service: 02/27/21 Event Note: Patient with a Lactate of 3.7 after manipulation of the bowel during surgery. BP 102/64, HR 92, Resp 18 Awake and talking, still sleepy from anesthesia. Ostomy is pink and viable Dressings clean and intact Skin warm and dry Brisk cap refill. IV fluids running Continue Zosyn Recheck CBC in AM.
--- NOTE | 2021-02-27 16:26 | P.CONHOSP_ITS ---
History of Present Illness Data of Consult Service Date: 02/27/21 Requesting physician: Jose Riddle Primary Care Provider: DO MARK Calvillo Reason for consult: Medical management/sepsis with ischemic bowel 70-year-old gentleman with past medical history significant for hypertension presented to [facility] with diffuse abdominal pain associated with nausea,and vomiting, no fevers, no chills symptoms started day prior to presentation, denies any outside food, no recent history of travel no similar episode in the past in the emergency room CT of abdomen and pelvis revealed evidence of left-sided colitis with differential of ischemic colitis labs revealed elevated WBC count of 25,000 initial lactic acid was normal but later noted to have worsening lactic acidosis, patient underwent exploratory laparotomy by Dr. Riddle this afternoon with left colectomy and transverse end colostomy, postprocedure patient is awake feels his pain has resolved, denies nausea vomiting lightheadedness or dizziness, Peñaloza catheter draining yellow urine blood pressure is soft. Review of Systems Review of Systems: General no headache, no dizziness, no fever chills. CVS no chest pain, no palpitation. Respiratory no cough, no sob. Gastrointestinal no nausea ,no vomiting, no abdominal pain Yes all other systems are reviewed and are negative [facility] Medical History GERD (gastroesophageal reflux disease) High cholesterol HTN (hypertension) Pertinent family history: Patient denies family history of premature coronary disease Surgical History History of prostate surgery Social History Alcohol intake: never Patient Tobacco Use Status: Former Tobacco user Quit Date: 4 YRS AGO Tobacco use type: Cigarette Use of substances other than those prescribed or required for medical reasons: No Are you DNR?: No Advance Directives: No Advance Directives Information Provided: No Meds Allergies Allergy/AdvReac Type Severity Reaction Status Date / Time No Known Allergies Allergy Verified 02/27/21 00:02 [No Known Allergies*] Active Medications: Current Medications Heparin Sodium (Porcine) (Heparin Sodium,Porcine 5,000 Unit/Ml Vial) 5,000 unit SUBCUT Q12H [facility] Last Admin: 02/27/21 16:11 Dose: Not Given Documented by: Hydromorphone HCl (Hydromorphone Hcl 0.5 Mg/0.5 Ml Syringe) 0.5 mg IVPUSH Q2H PRN; Protocol PRN Reason: abdominal pain Last Admin: 02/27/21 14:31 Dose: 0.5 mg Documented by: Acetaminophen (Ofirmev) 1,000 mg in 100 mls @ 400 mls/hr IV Q6H [facility] Last Admin: 02/27/21 16:11 Dose: Not Given Documented by: Dextrose/Lactated Ringer's (D5lr) 1,000 mls @ 125 mls/hr IVCONT .Q8H [facility] Last Admin: 02/27/21 16:17 Dose: 125 mls/hr Documented by: Piperacillin Sod/Tazobactam (Sod 3.375 gm/ Sodium Chloride) 50 mls @ 100 mls/hr IV Q6H [facility] Last Admin: 02/27/21 16:10 Dose: Not Given Documented by: Sodium Chloride (Ns) 2,247 mls @ 2,247 mls/hr 30 ml/kg infuse over 1 hr (2247 ml) IV .Q1H ONE Stop: 02/27/21 16:43 Last Admin: 02/27/21 16:12 Dose: Not Given Documented by: Ondansetron HCl (Ondansetron Hcl 4 Mg/2 Ml Vial) 4 mg IVPUSH QID PRN PRN Reason: Nausea Pharmacy Consult (Consult Rx Perform Med Rec) 1 each MISCELLANE ONCE PRN PRN Reason: Consult order Home Medications Medication Instructions Recorded Confirmed Last Taken Type amlodipine 10 mg tablet 1 tab PO DAILY 02/27/21 02/27/21 Unknown History aspirin 81 mg tablet,delayed 1 tab PO DAILY 02/27/21 02/27/21 02/26/21 History release omeprazole 40 mg capsule,delayed 1 cap PO DAILY 02/27/21 02/27/21 Unknown History release Physical Exam Vital Signs and Narrative: Vital Signs: Last Vital Signs Temp 98.2 F 02/27/21 16:16 Pulse 91 02/27/21 16:16 Resp 14 02/27/21 16:16 BP 98/59 L 02/27/21 16:16 Pulse Ox 96 02/27/21 16:16 Body Mass Index 26.6 General awake alert, no acute distress. Neck supple no JVD. CVS regular rate rhythm, Respiratory lungs clear to auscultation, no respiratory distress, no wheeze, no rhonchi. Gastrointestinal abdomen soft, midline incision with dressing in place, colostomy with serosanguineous drainage, stoma pink Extremities no edema. Neuro nonfocal , speech clear. Skin no rash Psych appropriate affect Peñaloza clear urine Results Labs CBC and Chem 7: 02/27/21 08:25 02/27/21 08:25 Labs: Laboratory Results - last 24 hr 02/26/21 02/27/21 02/27/21 23:54 00:32 00:32 MCV 95.4 MCH 31.4 MCHC 32.9 RDW 13.5 Plt Count 49 L D MPV 12.9 H Immature Gran % (Auto) 0.5 H Neut % (Auto) 93.2 H Lymph % (Auto) 1.4 L [place] % (Auto) 4.7 Eos % (Auto) 0.0 Baso % (Auto) 0.2 Lymph # (Auto) 0.4 L [place] # (Auto) 1.2 Eos # (Auto) 0.0 Baso # (Auto) 0.1 Abs Immat Gran (auto) 0.14 H Absolute Neuts (auto) 24.0 H Absolute Nucleated RBC 0.000 Nucleated RBC % (auto) 0.0 Neutrophils % (Manual) Band Neutrophils % Lymphocytes % (Manual) Monocytes % (Manual) Abs Neuts (Manual) Lymphocytes # (Manual) Monocytes # (Manual) Platelet Estimate Plt Morphology Comment RBC Morphology Ovalocytes Hardy Cells Acanthocytes (Spur) Smear Tech's Comments VERIFIED PT INR APTT Anion Gap 17 Estim Creat Clear Calc 64.4 Estimated GFR > 60 Random Glucose 124 H Fasting Glucose Lactic Acid Lactic Acid Fup @ 2Hr Calcium 7.9 L D Magnesium 2.1 Total Bilirubin 1.4 H Direct Bilirubin 0.7 H AST 15 ALT 12 Alkaline Phosphatase 113 Troponin I High Sens Total Protein 5.8 L Albumin 3.6 Lipase 8 Urine Color Urine Appearance Urine pH Ur Specific [place] Urine Protein Urine Glucose (UA) Urine Ketones Urine Blood Urine Nitrite Ur Leukocyte Esterase Urine RBC Urine WBC Ur Squamous Epith Cells Urine Bacteria Urine Mucus COVID-19 ([facility]SON) Negative COVID-19 Clin Com See Note Blood Type Antibody Screen 02/27/21 02/27/21 02/27/21 00:42 00:45 00:45 MCV MCH MCHC RDW Plt Count MPV Immature Gran % (Auto) Neut % (Auto) Lymph % (Auto) [place] % (Auto) Eos % (Auto) Baso % (Auto) Lymph # (Auto) [place] # (Auto) Eos # (Auto) Baso # (Auto) Abs Immat Gran (auto) Absolute Neuts (auto) Absolute Nucleated RBC Nucleated RBC % (auto) Neutrophils % (Manual) Band Neutrophils % Lymphocytes % (Manual) Monocytes % (Manual) Abs Neuts (Manual) Lymphocytes # (Manual) Monocytes # (Manual) Platelet Estimate Plt Morphology Comment RBC Morphology Ovalocytes Hardy Cells Acanthocytes (Spur) Smear Tech's Comments PT 11.3 INR 1.0 APTT 34.2 Anion Gap Estim Creat Clear Calc Estimated GFR Random Glucose Fasting Glucose Lactic Acid 1.8 Lactic Acid Fup @ 2Hr Calcium Magnesium Total Bilirubin Direct Bilirubin AST ALT Alkaline Phosphatase Troponin I High Sens Total Protein Albumin Lipase Urine Color Urine Appearance Urine pH Ur Specific [place] Urine Protein Urine Glucose (UA) Urine Ketones Urine Blood Urine Nitrite Ur Leukocyte Esterase Urine RBC Urine WBC Ur Squamous Epith Cells Urine Bacteria Urine Mucus COVID-19 ([facility]) COVID-19 Clin Com Blood Type O Positive Antibody Screen NEGATIVE 02/27/21 02/27/21 02/27/21 01:18 01:25 08:25 MCV 92.0 MCH 30.9 MCHC 33.5 RDW 13.8 Plt Count 150 L D MPV 12.6 H Immature Gran % (Auto) Cancelled Neut % (Auto) Cancelled Lymph % (Auto) Cancelled [place] % (Auto) Cancelled Eos % (Auto) Cancelled Baso % (Auto) Cancelled Lymph # (Auto) Cancelled [place] # (Auto) Cancelled Eos # (Auto) Cancelled Baso # (Auto) Cancelled Abs Immat Gran (auto) Cancelled Absolute Neuts (auto) Cancelled Absolute Nucleated RBC 0.000 Nucleated RBC % (auto) 0.0 Neutrophils % (Manual) 78 H Band Neutrophils % 15 H Lymphocytes % (Manual) 4 L Monocytes % (Manual) 3 Abs Neuts (Manual) 23.3 H Lymphocytes # (Manual) 1.0 Monocytes # (Manual) 0.8 Platelet Estimate SLIGHTLY DECREASED Plt Morphology Comment NORMAL RBC Morphology NOTED Ovalocytes 1+ (5-14) Ada Cells 2+ (3-5) Acanthocytes (Spur) 1+ (0-2) Smear Tech's Comments PT INR APTT Anion Gap Estim Creat Clear Calc Estimated GFR Random Glucose Fasting Glucose Lactic Acid Lactic Acid Fup @ 2Hr Calcium Magnesium Total Bilirubin Direct Bilirubin AST ALT Alkaline Phosphatase Troponin I High Sens < 3.5 Total Protein Albumin Lipase Urine Color YELLOW Urine Appearance CLEAR Urine pH 5.0 Ur Specific [place] <= 1.005 Urine Protein NEG Urine Glucose (UA) NEG Urine Ketones NEG Urine Blood 1+ H Urine Nitrite NEG Ur Leukocyte Esterase NEG Urine RBC 0-2 Urine WBC 0-2 Ur Squamous Epith Cells 1+ Urine Bacteria NONE Urine Mucus TRACE COVID-19 ([facility]) COVID-19 [employer] Blood Type Antibody Screen 02/27/21 02/27/21 02/27/21 08:25 08:25 15:08 MCV MCH MCHC RDW Plt Count MPV Immature Gran % (Auto) Neut % (Auto) Lymph % (Auto) [place] % (Auto) Eos % (Auto) Baso % (Auto) Lymph # (Auto) [place] # (Auto) Eos # (Auto) Baso # (Auto) Abs Immat Gran (auto) Absolute Neuts (auto) Absolute Nucleated RBC Nucleated RBC % (auto) Neutrophils % (Manual) Band Neutrophils % Lymphocytes % (Manual) Monocytes % (Manual) Abs Neuts (Manual) Lymphocytes # (Manual) Monocytes # (Manual) Platelet Estimate Plt Morphology Comment RBC Morphology Ovalocytes Hardy Cells Acanthocytes (Spur) Smear Tech's Comments PT INR APTT Anion Gap 14 Estim Creat Clear Calc 55.4 Estimated GFR > 60 Random Glucose Fasting Glucose 132 H Lactic Acid 2.5 H* Lactic Acid Fup @ 2Hr 3.7 H* Calcium 8.1 L Magnesium Total Bilirubin 3.1 H Direct Bilirubin AST 29 D ALT 23 Alkaline Phosphatase 107 Troponin I High Sens Total Protein 5.6 L Albumin 3.4 L Lipase Urine Color Urine Appearance Urine pH Ur Specific [place] Urine Protein Urine Glucose (UA) Urine Ketones Urine Blood Urine Nitrite Ur Leukocyte Esterase Urine RBC Urine WBC Ur Squamous Epith Cells Urine Bacteria Urine Mucus COVID-19 ([facility]) COVID-19 [facility] Com Blood Type Antibody Screen Imaging Radiologist's Impressions: Impressions Abdomen/Pelvis CTA 02/26/21 23:50 IMPRESSION: 1. 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 2. Grossly abnormal descending colon mucosal thickening and pericolonic inflammatory changes suspicious for colitis, possibly ischemic. 3. Incidental note made of hepatic granulomas, benign renal cysts, mildly enlarged prostate, degenerative changes in the spine Assessment and Plan (1) Leukocytosis: Qualifiers: Leukocytosis type: unspecified Qualified Code(s): D72.829 - Elevated white blood cell count, unspecified Status: Acute (2) Ischemic colitis: Status: Acute (3) Severe sepsis: Status: Acute 70-year-old gentleman with past medical history of hypertension, hypercholesterolemia presented to [facility] 1 day history of abdominal pain and diagnosed to have ischemic colitis underwent exploratory laparotomy with left colectomy and transferred colostomy patient noted to be in severe sepsis with rising lactic acid, low platelets tachycardia and leukocytosis BP borderline low. Severe sepsis due to ischemic colitis Will treat patient with IV Zosyn, IV fluid sepsis focused examination done Follow CBC, electrolytes and renal function closely Continue NPO, Peñaloza catheter for fluid management IV morphine for pain, supportive care with antiemetics, analgesics, encourage out of bed and incentive spirometry Case discussed with general surgeon Dr. Riddel History of hypertension hold Norvasc due to low blood pressure follow BP closely Code status full code DVT prophylaxis
[2021-02-27 17:12] LABS: Reflex Lactate? 2 Y
[2021-02-27 18:07] LABS: ~Lactic Acid-LAB USE ONLY 2.9 mmol/L (0.5-2.0)
[2021-02-28] VITALS (12 sets, daily range): BP systolic 112–135; BP diastolic 58–72; PULSE 78–93; RESP 16–18; TEMP 36.6–37.2; O2SAT 92–96
[2021-02-28] MEDS: Heparin Sodium,Porcine 5,000 UNIT/ML VIAL 5000 UNIT SUBCUT ×2 (02:17→14:19)
[2021-02-28] MEDS: Piperacillin Sodium/Tazobactam 3.375 GM in 0.9 % Sodium Chloride 50 ML IV ×4 (06:11→23:32)
[2021-02-28] MEDS: Dextrose 5 % and Lactated Ring 1,000 ML 125 ML IVCONT (06:15)
[2021-02-28 06:21] LABS: Hematocrit 36.8 % (42-52); Hemoglobin 12.1 g/dl (14.0-18.0); Mean Corpuscular HGB Conc 32.9 g/dl (31.0-36.0); Mean Corpuscular Hemoglobin 30.6 pg (27.0-33.0); Mean Corpuscular Volume 92.9 fL (80-98); Platelet Count 120 X10*3/uL (160-400); Red Blood Count 3.96 X10*6/uL (4.60-5.80); Red Cell Distribution Width 14.2 % (11.0-16.0); White Blood Count 21.1 X10*3/uL (4.8-10.8)
[2021-02-28 06:43] LABS: Anion Gap 12 (12-20); Blood Urea Nitrogen 32 mg/dL (9-16); Calcium 7.4 mg/dL (8.4-10.2); Carbon Dioxide 23 mmol/L (22-29); Chloride 113 mmol/L (96-108); Creatinine Clr Calc Pharmacy 63.1; Estimated Glomerular Filt Rate > 60; Glucose Random 123 mg/dL (60-115); Potassium 4.3 mmol/L (3.3-5.1); Sodium 144 mmol/L (135-145)
[2021-02-28 06:54] LABS: Band Neutrophils Percent 19 % (3-5); Lymphocytes Absolute Manual 0.4 X10*3/uL (0.6-4.8); Lymphocytes Percent Manual 2 % (20-40); Metamyelocytes Absolute 0.2 X10*3/uL; Metamyelocytes Percent 1 %; Monocytes Absolute Manual 0.8 X10*3/uL (0.0-1.2); Monocytes Percent Manual 4 % (2-11); Neutrophils Absolute Manual 19.6 X10*3/uL (2.2-7.9); Neutrophils Percent Manual 74 % (45-73)
[2021-02-28 06:56] LABS: Acanthocytes 1+ (0-2) /OIF; Burr Cells 2+ (3-5) /OIF; Platelet Estimate SLIGHTLY DECREASED (NORMAL); Platelet Morphology Comment NORMAL; RBC Morphology NOTED; Toxic Vacuolation PRESENT
--- NOTE | 2021-02-28 07:22 | PM.PNGS ---
Subjective Subjective Date of Service: 02/28/21 Interval history: Pod 1 s/p left colectomy for necrotic bowel. End-colostomy in the right lower quadrant producing stool. Patient reports incisional pain. Physical Exam Vital Signs: Vital Signs: Last Vital Signs Temp 98.9 F 02/28/21 06:00 Pulse 80 02/28/21 06:00 Resp 16 02/28/21 06:00 BP 112/58 L 02/28/21 06:00 Pulse Ox 95 02/28/21 06:00 Body Mass Index 26.6 Const: Other: Awake in mild discomfort, alert and oriented x3 HENMT: Head: Yes normocephalic and Yes atraumatic Resp: Other: breathing comfortably on room air, no respiratory distress O2 sat 95% GI: Other: ostomy pink and pain with stool within the ostomy bag, incision clean and intact. Abdomen tender to palpation Skin: Other: warm, dry, no rash Extrem: Other: no edema, no calf tenderness Procedures Date of Service Date of Service: 02/28/21 Progress Note: A&P Assessment and plan (1) Necrosis of colon: Status: Acute Assessment and Plan: pod 1 s/p left colectomy and end-colostomy for necrotic bowel. Patient now hemodynamically stable complaining of abdominal pain related to the incision. His ostomy is functioning with stool within the bag. Plan out of bed and ambulation , DC Peñaloza catheter later today, clear liquid diet. Fall Risk Details Current Medications: Current Medications Acetaminophen (Acetaminophen 325 Mg Tablet) 650 mg PO ONCE PRN PRN Reason: Pain, Mild (Pain Scale 1-3) Fentanyl (Fentanyl Citrate/Pf 100 Mcg/2 Ml Vial) 50 mcg IVPUSH Q5M PRN; Protocol PRN Reason: Pain, Severe (Pain Scale 7-10) Heparin Sodium (Porcine) (Heparin Sodium,Porcine 5,000 Unit/Ml Vial) 5,000 unit SUBCUT Q12H [facility] Last Admin: 02/28/21 02:17 Dose: 5,000 unit Documented by: Hydromorphone HCl (Hydromorphone Hcl 0.5 Mg/0.5 Ml Syringe) 0.5 mg IVPUSH Q2H PRN; Protocol PRN Reason: abdominal pain Last Admin: 02/27/21 23:13 Dose: 0.5 mg Documented by: Hydromorphone HCl (Hydromorphone Hcl 0.5 Mg/0.5 Ml Syringe) 0.5 mg IVPUSH Q5M PRN; Protocol PRN Reason: Pain, Severe (Pain Scale 7-10) Acetaminophen (Ofirmev) 1,000 mg in 100 mls @ 400 mls/hr IV Q6H [facility] Last Infusion: 02/28/21 02:47 Dose: Infused Documented by: Dextrose/Lactated Ringer's (D5lr) 1,000 mls @ 125 mls/hr IVCONT .Q8H [facility] Last Admin: 02/28/21 06:15 Dose: 125 mls/hr Documented by: Piperacillin Sod/Tazobactam (Sod 3.375 gm/ Sodium Chloride) 50 mls @ 100 mls/hr IV Q6H [facility] Last Admin: 02/28/21 06:11 Dose: 100 mls/hr Documented by: Promethazine HCl 12.5 mg/ (Sodium Chloride) 50.5 mls @ 202 mls/hr IV Q6H PRN PRN Reason: Nausea and Vomiting Last Infusion: 02/27/21 17:06 Dose: Infused Documented by: Ondansetron HCl (Ondansetron Hcl 4 Mg/2 Ml Vial) 4 mg IVPUSH QID PRN PRN Reason: Nausea Ondansetron HCl (Ondansetron Hcl 4 Mg/2 Ml Vial) 4 mg IVPUSH ONCE PRN PRN Reason: Nausea and Vomiting Oxycodone HCl (Oxycodone Hcl Immed Release 5 Mg Tablet) 10 mg PO ONCE PRN PRN Reason: Pain, Severe (Pain Scale 7-10) Pharmacy Consult (Consult Rx Perform Med Rec) 1 each MISCELLANE ONCE PRN PRN Reason: Consult order Time Spent With Patient Time: Total time spent is greater than 50% in coordination of care (as documented) at patient's floor/unit and/or counseling patient: Time with patient: 15 - 24 minutes Quality Stroke Does the patient have a stroke diagnosis?: No VTE Prior VTE?: No VTE Risk Level:: Surgical - high VTE Device Contraindication: N/A - Device Ordered VTE Drug Contraindication: N/A - Med Ordered
[2021-02-28] MEDS: HYDROmorphone HCl 0.5 MG/0.5 ML SYRINGE IVPUSH (07:42)
[2021-02-28 07:47] LABS: Bilirubin Total 0.8 mg/dL (0.0-1.0)
--- NOTE | 2021-02-28 10:02 | PC.NURSE ---
Skin/Wound assessment completed today. Patient has a new ostomy in place, bandages C/D/I ostomy bag intact and has loose stool. No other skin issues at this time.
--- NOTE | 2021-02-28 11:16 | PC.NURSE ---
Peñaloza catheter removed 02/28 pt tolerated well. pt due to void between [id number]. will continue to monitor urine output.
--- NOTE | 2021-02-28 12:04 | HO.POSTANES ---
Post Anesthesia Evaluation Post Anesthesia Evaluation Vital Signs: Vital Signs Temp Pulse Resp BP Pulse Ox 02/28/21 12:00 98.2 F 83 16 125/72 92 02/28/21 07:45 97.8 F 87 16 116/62 94 02/28/21 07:42 18 02/28/21 06:00 98.9 F 80 16 112/58 L 95 02/28/21 04:22 98.3 F 78 16 114/59 L 02/28/21 03:59 98.3 F 82 17 122/66 96 02/28/21 03:00 98.8 F 88 17 122/60 02/28/21 02:00 98.8 F 90 16 116/60 02/28/21 01:00 98.9 F 90 16 112/60 Anesthesia: General Endotracheal-GETA Mental Status: Awake Pain Control: Satisfactory Nausea/Vomiting: None Hydration: Adequate Anesthesia-Related Issues: No Anes. Related Issues
--- NOTE | 2021-02-28 13:50 | HO.PM.IMPN ---
Subjective Subjective Date of Service: 02/28/21 Interval History: Patient feels better, complaining of mid abdominal pain worse with coughing, offers no other acute complaints, no acute events overnight. Review of Systems General no headache, no dizziness, no fever chills.? CVS no chest pain, no palpitation.? Respiratory dry cough, no sob.? Gastrointestinal no nausea ,no vomiting, mid abdominal pain Yes all other systems are reviewed and are negative Physical Exam Vital Signs: Vital Signs: Last Vital Signs Temp 98.2 F 02/28/21 12:00 Pulse 83 02/28/21 12:00 Resp 16 02/28/21 12:00 BP 125/72 02/28/21 12:00 Pulse Ox 92 02/28/21 12:00 Body Mass Index 26.6 General awake, sánchez rt, weak appearing ,no acute distress .? Neck supple, no JVD. CVS? regular rate rhythm, Resp iratory lungs angelina r to auscultation, diminished breath sound at bases, n o respiratory dist ress, no wheeze, n o rhonchi. Gastroi ntestinal abdomen soft, tenderness a t incision site, c olostomy with sero sanguineous draina ge, stoma pink And swollen Extremiti es no edema. Neuro nonfocal , speech clear. Skin no ra sh Psych appropria te affect Peñaloza cl ear urine Objective Data Active Medications Heparin Sodium (Porcine) (Heparin Sodium,Porcine 5,000 Unit/Ml Vial) 5,000 unit SUBCUT Q12H [facility] Last Admin: 02/28/21 02:17 Dose: 5,000 unit Documented by: ONEL Hydromorphone HCl (Hydromorphone Hcl 0.5 Mg/0.5 Ml Syringe) 0.5 mg IVPUSH Q2H PRN; Protocol PRN Reason: abdominal pain Last Admin: 02/28/21 07:42 Dose: 0.5 mg Documented by: JIMBO Acetaminophen (Ofirmev) 1,000 mg in 100 mls @ 400 mls/hr IV Q6H [facility] Last Infusion: 02/28/21 08:14 Dose: 0 mls/hr Documented by: JIMBO Dextrose/Lactated Ringer's (D5lr) 1,000 mls @ 100 mls/hr IVCONT .Q10H [facility] Last Infusion: 02/28/21 07:58 Dose: 100 mls/hr Documented by: JIMBO Piperacillin Sod/Tazobactam (Sod 3.375 gm/ Sodium Chloride) 50 mls @ 100 mls/hr IV Q6H [facility] Last Infusion: 02/28/21 12:29 Dose: 0 mls/hr Documented by: JIMBO Promethazine HCl 12.5 mg/ (Sodium Chloride) 50.5 mls @ 202 mls/hr IV Q6H PRN PRN Reason: Nausea and Vomiting Last Infusion: 02/27/21 17:06 Dose: 0 mls/hr Documented by: JAXSON Ondansetron HCl (Ondansetron Hcl 4 Mg/2 Ml Vial) 4 mg IVPUSH QID PRN PRN Reason: Nausea Pharmacy Consult (Consult Rx Perform Med Rec) 1 each MISCELLANE ONCE PRN PRN Reason: Consult order Labs CBC & Chem 7: 02/28/21 06:05 02/28/21 06:05 Labs: Laboratory Results - last 24 hr 02/27/21 02/27/21 02/28/21 15:08 17:33 06:05 MCV 92.9 MCH 30.6 MCHC 32.9 RDW 14.2 Plt Count 120 L MPV 13.0 H Immature Gran % (Auto) Cancelled Neut % (Auto) Cancelled Lymph % (Auto) Cancelled [place] % (Auto) Cancelled Eos % (Auto) Cancelled Baso % (Auto) Cancelled Lymph # (Auto) Cancelled [place] # (Auto) Cancelled Eos # (Auto) Cancelled Baso # (Auto) Cancelled Abs Immat Gran (auto) Cancelled Absolute Neuts (auto) Cancelled Absolute Nucleated RBC 0.000 Nucleated RBC % (auto) 0.0 Neutrophils % (Manual) 74 H Band Neutrophils % 19 H Lymphocytes % (Manual) 2 L Monocytes % (Manual) 4 Metamyelocytes % 1 Abs Neuts (Manual) 19.6 H Lymphocytes # (Manual) 0.4 L Monocytes # (Manual) 0.8 Metamyelocytes # 0.2 Toxic Vacuolation PRESENT Platelet Estimate SLIGHTLY DECREASED Plt Morphology Comment NORMAL RBC Morphology NOTED Ada Cells 2+ (3-5) Acanthocytes (Spur) 1+ (0-2) Anion Gap Estim Creat Clear Calc Estimated GFR Random Glucose Lactic Acid Fup @ 2Hr 3.7 H* Lactic Acid Fup @ 4Hr 2.9 H* Calcium Total Bilirubin 02/28/21 06:05 MCV MCH MCHC RDW Plt Count MPV Immature Gran % (Auto) Neut % (Auto) Lymph % (Auto) [place] % (Auto) Eos % (Auto) Baso % (Auto) Lymph # (Auto) [place] # (Auto) Eos # (Auto) Baso # (Auto) Abs Immat Gran (auto) Absolute Neuts (auto) Absolute Nucleated RBC Nucleated RBC % (auto) Neutrophils % (Manual) Band Neutrophils % Lymphocytes % (Manual) Monocytes % (Manual) Metamyelocytes % Abs Neuts (Manual) Lymphocytes # (Manual) Monocytes # (Manual) Metamyelocytes # Toxic Vacuolation Platelet Estimate Plt Morphology Comment RBC Morphology [place] Cells Acanthocytes (Spur) Anion Gap 12 Estim Creat Clear Calc 63.1 Estimated GFR > 60 Random Glucose 123 H Lactic Acid Fup @ 2Hr Lactic Acid Fup @ 4Hr Calcium 7.4 L D Total Bilirubin 0.8 Microbiology Microbiology Results: Microbiology 02/27/21 Unknown Gram Stain - Final Peritoneal Fluid Routine Culture - Preliminary No growth to date. Anaerobic Culture - Preliminary No growth to date. 02/27/21 00:42 Blood Culture - Preliminary Blood - Venous No growth after 24 hours. 02/27/21 00:32 Blood Culture - Preliminary Blood - Venous No growth after 24 hours. Assessment and Plan (1) Necrosis of colon: Status: Acute (2) Severe sepsis: Status: Acute (3) Abdominal pain: Status: Acute (4) Ischemic colitis: Status: Acute (5) Leukocytosis: Status: Acute Assessment and Plan: ?70-year-old gentleman with past medical history of hypertension, hypercholesterolemia presented to [facility] 1 day history of abdominal pain and diagnosed to have ischemic colitis underwent exploratory laparotomy? with left colectomy and transferred colostomy patient noted to be in severe sepsis with rising lactic acid, low platelets tachycardia and leukocytosis BP borderline low. Severe sepsis due to ischemic colitis Mild abdominal pain passing flatus tolerating clear liquid diet WBC trending down, tachycardia has resolved, lactic acid improved Continue IV Zosyn day 2, IV fluids, blood cultures x2 negative times 24 hours Follow CBC, electrolytes and renal function closely Continue IV morphine for pain, supportive care with antiemetics, analgesics, encourage out of bed and incentive spirometry Add cough medication Being managed closely by General surgery. History of hypertension hold Norvasc due to soft blood pressure follow BP closely Code status full code DVT prophylaxis Quality Stroke Does the patient have a stroke diagnosis?: No VTE Prior VTE?: No VTE Risk Level:: Surgical - high VTE Device Contraindication: N/A - Device Ordered VTE Drug Contraindication: N/A - Med Ordered
[2021-02-28] MEDS: guaiFENesin DM 100/10/5 ML 5 ML SYRUP 10 ML PO ×2 (14:18→19:04)
[2021-02-28] MEDS: Dextrose 5 % and Lactated Ring 1,000 ML 100 ML IVCONT (17:38)
[2021-03-01] MEDS: Dextrose 5 % and Lactated Ring 1,000 ML 100 ML IVCONT ×2 (02:45→11:56)
[2021-03-01] MEDS: Heparin Sodium,Porcine 5,000 UNIT/ML VIAL 5000 UNIT SUBCUT ×2 (02:45→14:23)
[2021-03-01] MEDS: guaiFENesin DM 100/10/5 ML 5 ML SYRUP 10 ML PO ×4 (02:45→21:00)
--- NOTE | 2021-03-01 02:51 | MHC.PIE ---
p; pt c/o acid stomach. i; dr borjas notifed; new order Pepcid iv now e; will cont to monitor
[2021-03-01 03:20] VITALS: BP 118/73; PULSE 83; RESP 17; TEMP 36.4; O2SAT 95
[2021-03-01] MEDS: Famotidine/PF 20 MG/2 ML VIAL IVPUSH (03:27)
[2021-03-01] MEDS: Piperacillin Sodium/Tazobactam 3.375 GM in 0.9 % Sodium Chloride 50 ML IV ×3 (05:55→17:56)
[2021-03-01 05:57] LABS: Hematocrit 34.2 % (42-52); Hemoglobin 11.2 g/dl (14.0-18.0); Mean Corpuscular HGB Conc 32.7 g/dl (31.0-36.0); Mean Corpuscular Hemoglobin 30.4 pg (27.0-33.0); Mean Corpuscular Volume 92.9 fL (80-98); Mean Platelet Volume 13.3 fL (9.4-12.4); Platelet Count 100 X10*3/uL (160-400); Red Blood Count 3.68 X10*6/uL (4.60-5.80); Red Cell Distribution Width 13.8 % (11.0-16.0); White Blood Count 14.9 X10*3/uL (4.8-10.8)
[2021-03-01 05:59] LABS: PLT ABN DIST 1
[2021-03-01 06:32] LABS: Band Neutrophils Percent 14 % (3-5); Lymphocytes Absolute Manual 0.1 X10*3/uL (0.6-4.8); Lymphocytes Percent Manual 1 % (20-40); Monocytes Absolute Manual 0.1 X10*3/uL (0.0-1.2); Monocytes Percent Manual 1 % (2-11); Neutrophils Absolute Manual 14.6 X10*3/uL (2.2-7.9); Neutrophils Percent Manual 84 % (45-73)
[2021-03-01 06:33] LABS: RBC Morphology NOTED
[2021-03-01 06:34] LABS: Burr Cells 1+ (0-2) /OIF; Large Platelet PRESENT; Ovalocytes 1+ (5-14) /OIF; Platelet Estimate SLIGHTLY DECREASED (NORMAL); Platelet Morphology Comment NORMAL
[2021-03-01 06:43] LABS: Anion Gap 10 (12-20); Blood Urea Nitrogen 17 mg/dL (9-16); Calcium 7.5 mg/dL (8.4-10.2); Carbon Dioxide 25 mmol/L (22-29); Chloride 110 mmol/L (96-108); Creatinine Clr Calc Pharmacy 89.8; Estimated Glomerular Filt Rate > 60; Glucose Random 121 mg/dL (60-115); Potassium 3.4 mmol/L (3.3-5.1); Sodium 141 mmol/L (135-145)
[2021-03-01 07:13] VITALS: BP 125/71; PULSE 84; RESP 19; TEMP 36.6; O2SAT 95
--- NOTE | 2021-03-01 08:38 | P.PNGS_ITS ---
Subjective Subjective Date of Service: 03/01/21 Interval history: Reports difficulty swallowing due to reflux. The abdominal pain is improving. Physical Exam Vital Signs: Vital Signs: Last Vital Signs Temp 97.9 F 03/01/21 07:13 Pulse 84 03/01/21 07:13 Resp 19 03/01/21 07:13 BP 125/71 03/01/21 07:13 Pulse Ox 95 03/01/21 07:13 Body Mass Index 26.6 Const: General: alert, awake and ill appearing Nutritional Appearance: well nourished Orientation/consciousness: patient oriented x3 Limitations: no limitations Resp: Effort & Inspection: normal respiratory effort, no respiratory distress and not tachypneic GI: Other: Incision is dry and clean. Ostomy is pink with some liquid stool noted. Abdomen is softer with no tympany to percussion. No rebound tenderness. Abdomen image: 1. Midline incision 2. 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 Patient complains mainly of reflux symptoms with burning when swallowing liquids. Will restart his omeprazole. Encouraged out of bed, ambulation and incentive spirometry. Fall Risk Details Current Medications: Current Medications Guaifenesin/Dextromethorphan (Guaifenesin Dm 100/10/5 Ml 5 Ml Syrup) 10 ml PO Q6H [facility] Last Admin: 03/01/21 07:19 Dose: 10 ml Documented by: Heparin Sodium (Porcine) (Heparin Sodium,Porcine 5,000 Unit/Ml Vial) 5,000 unit SUBCUT Q12H [facility] Last Admin: 03/01/21 02:45 Dose: 5,000 unit Documented by: Hydromorphone HCl (Hydromorphone Hcl 0.5 Mg/0.5 Ml Syringe) 0.5 mg IVPUSH Q2H PRN; Protocol PRN Reason: abdominal pain Last Admin: 02/28/21 07:42 Dose: 0.5 mg Documented by: Acetaminophen (Ofirmev) 1,000 mg in 100 mls @ 400 mls/hr IV Q6H [facility] Last Infusion: 03/01/21 07:47 Dose: Infused Documented by: Dextrose/Lactated Ringer's (D5lr) 1,000 mls @ 100 mls/hr IVCONT .Q10H [facility] Last Admin: 03/01/21 02:45 Dose: 100 mls/hr Documented by: Piperacillin Sod/Tazobactam (Sod 3.375 gm/ Sodium Chloride) 50 mls @ 100 mls/hr IV Q6H [facility] Last Infusion: 03/01/21 06:31 Dose: Infused Documented by: Promethazine HCl 12.5 mg/ (Sodium Chloride) 50.5 mls @ 202 mls/hr IV Q6H PRN PRN Reason: Nausea and Vomiting Last Infusion: 02/27/21 17:06 Dose: Infused Documented by: Ondansetron HCl (Ondansetron Hcl 4 Mg/2 Ml Vial) 4 mg IVPUSH QID PRN PRN Reason: Nausea Pharmacy Consult (Consult Rx Perform Med Rec) 1 each MISCELLANE ONCE PRN PRN Reason: Consult order Time Spent With Patient Time: Total time spent is greater than 50% in coordination of care (as docume nted) at patient's floor/unit and/or counseling patient: Time with patient: 15 - 24 minutes Quality Stroke Does the patient have a stroke diagnosis?: No VTE Prior VTE?: No VTE Risk Level:: Surgical - high VTE Device Contraindication: N/A - Device Ordered VTE Drug Contraindication: N/A - Med Ordered
[2021-03-01 11:28] VITALS: BP 121/72; PULSE 87; RESP 18; TEMP 36.8; O2SAT 98
--- NOTE | 2021-03-01 11:32 | MHC.CM.PN ---
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 HE USES A CANE ON OCCASION, AND ONLY OUTDOORS. HE DOES NOT DRIVE, BUT HIS BROTHER LIVES NEARBY AND PROVIDES TRANSPORT. NO VNA OR ELDER SERVICES IN THE HOME. IMM 03/01 IN CHART. CONVERSATION WAS WITH [facility].
--- NOTE | 2021-03-01 11:36 | MHC.CM.PN ---
PATIENT IS CURRENTLY ON CLEARS PLAN IS TO ATTEMPT DIET ADVANCE. NO HCP IN CHART. HE IS AWARE THAT HE CAN ASK FOR CASE MANAGEMENT AT ANYTIME DURING HIS STAY IF HE CHOOSES TO ASSIGN ONE.
--- NOTE | 2021-03-01 12:26 | HO.PM.IMPN ---
Subjective Subjective Date of Service: 03/01/21 Interval History: Being followed for abdominal pain status post left colectomy, patient complaining of abdominal pain, heartburn, and nausea, feels pain medicine is not working, denies fever chills, complaining of intermittent cough no shortness of breath. Review of Systems General no headache, no dizziness, no fever chills.? CVS no chest pain, no palpitation.? Respiratory dry cough, no sob.? Gastrointestinal pos. nausea ,no vomiting, incisional mid abdominal pain Yes all other systems are reviewed and are negative Physical Exam Vital Signs: Vital Signs: Last Vital Signs Temp 98.2 F 03/01/21 11:28 Pulse 87 03/01/21 11:28 Resp 18 03/01/21 11:28 BP 121/72 03/01/21 11:28 Pulse Ox 98 03/01/21 11:28 Body Mass Index 26.6 General awake, alert, weak appearing,no acute distress.? Neck supple, no?JVD. CVS? regular?rate rhythm, Respiratory lungs clear to auscultation,?diminished breath?sound at bases, no respiratory distress, no wheeze, no rhonchi. Gastrointestinal abdomen soft, tenderness at incision site, incision dry and clean, colostomy with liquidy stool Extremities no edema. Neuro?nonfocal , speech?clear. Skin no rash Psych appropriate affect Peñaloza clear urine Objective Data Active Medications Guaifenesin/Dextromethorphan (Guaifenesin Dm 100/10/5 Ml 5 Ml Syrup) 10 ml PO Q6H [facility] Last Admin: 03/01/21 07:19 Dose: 10 ml Documented by: JIMBO Heparin Sodium (Porcine) (Heparin Sodium,Porcine 5,000 Unit/Ml Vial) 5,000 unit SUBCUT Q12H [facility] Last Admin: 03/01/21 02:45 Dose: 5,000 unit Documented by: ODALYS Hydromorphone HCl (Hydromorphone Hcl 0.5 Mg/0.5 Ml Syringe) 0.5 mg IVPUSH Q2H PRN; Protocol PRN Reason: abdominal pain Last Admin: 02/28/21 07:42 Dose: 0.5 mg Documented by: JIMBO Acetaminophen (Ofirmev) 1,000 mg in 100 mls @ 400 mls/hr IV Q6H [facility] Last Infusion: 03/01/21 07:47 Dose: 0 mls/hr Documented by: JIMBO Dextrose/Lactated Ringer's (D5lr) 1,000 mls @ 100 mls/hr IVCONT .Q10H [facility] Last Admin: 03/01/21 11:56 Dose: 100 mls/hr Documented by: JIMBO Piperacillin Sod/Tazobactam (Sod 3.375 gm/ Sodium Chloride) 50 mls @ 100 mls/hr IV Q6H [facility] Last Admin: 03/01/21 11:52 Dose: 100 mls/hr Documented by: JIMBO Promethazine HCl 12.5 mg/ (Sodium Chloride) 50.5 mls @ 202 mls/hr IV Q6H PRN PRN Reason: Nausea and Vomiting Last Infusion: 02/27/21 17:06 Dose: 0 mls/hr Documented by: JAXSON Omeprazole (Omeprazole 20 Mg/10 Ml Susp.Recon) 20 mg PO BID@0630,1630 [facility] Last Admin: 03/01/21 08:59 Dose: 20 mg Documented by: JIMBO Ondansetron HCl (Ondansetron Hcl 4 Mg/2 Ml Vial) 4 mg IVPUSH QID PRN PRN Reason: Nausea Oxycodone HCl (Oxycodone Hcl Immed Release 5 Mg Tablet) 5 mg PO Q4H PRN PRN Reason: Pain, Moderate (Pain Scale 4-6 Pharmacy Consult (Consult Rx Perform Med Rec) 1 each MISCELLANE ONCE PRN PRN Reason: Consult order Labs CBC & Chem 7: 03/01/21 05:25 03/01/21 05:25 Labs: Laboratory Results - last 24 hr 03/01/21 03/01/21 05:25 05:25 MCV 92.9 MCH 30.4 MCHC 32.7 RDW 13.8 Plt Count 100 L MPV 13.3 H Immature Gran % (Auto) Cancelled Neut % (Auto) Cancelled Lymph % (Auto) Cancelled [place] % (Auto) Cancelled Eos % (Auto) Cancelled Baso % (Auto) Cancelled Lymph # (Auto) Cancelled [place] # (Auto) Cancelled Eos # (Auto) Cancelled Baso # (Auto) Cancelled Abs Immat Gran (auto) Cancelled Absolute Neuts (auto) Cancelled Absolute Nucleated RBC 0.000 Nucleated RBC % (auto) 0.0 Neutrophils % (Manual) 84 H Band Neutrophils % 14 H Lymphocytes % (Manual) 1 L Monocytes % (Manual) 1 L Abs Neuts (Manual) 14.6 H Lymphocytes # (Manual) 0.1 L Monocytes # (Manual) 0.1 Platelet Estimate SLIGHTLY DECREASED Large Platelets PRESENT Plt Morphology Comment NORMAL RBC Morphology NOTED Ovalocytes 1+ (5-14) Cardale Cells 1+ (0-2) Anion Gap 10 L Estim Creat Clear Calc 89.8 Estimated GFR > 60 Random Glucose 121 H Calcium 7.5 L Microbiology Microbiology Results: Microbiology 02/27/21 Unknown Gram Stain - Final Peritoneal Fluid Routine Culture - Final No growth after 2 days Anaerobic Culture - Preliminary No growth to date. 02/27/21 00:42 Blood Culture - Preliminary Blood - Venous No growth after 48 hours. 02/27/21 00:32 Blood Culture - Preliminary Blood - Venous No growth after 48 hours. Assessment and Plan (1) Severe sepsis: Status: Acute (2) Colitis: Status: Acute (3) Leukocytosis: Status: Acute (4) Ischemic colitis: Status: Acute Assessment and Plan: 70-year-old gentleman with past medical history of hypertension, hypercholesterolemia presented to [facility] 1 day history of abdominal pain and diagnosed to have ischemic colitis underwent exploratory laparotomy? with left colectomy and transferred colostomy patient noted to be in severe sepsis with rising lactic acid, low platelets tachycardia and leukocytosis BP borderline low. Severe sepsis due to ischemic colitis status post left colectomy and transverse colostomy POD #2 Complaining of nausea, abdominal pain, tolerating clear liquid diet, colostomy functional WBC trending down, tachycardia has resolved, lactic acid improved Continue IV Zosyn day 3, blood cultures x2 negative Follow CBC, electrolytes and renal function closely Due to persistent pain will add by mouth oxycodone 5 mg q.4 hours, continue IV morphine, continue antiemetics, analgesics, encourage out of bed and incentive spirometry, continue cough medicine Diet advanced to regular Will DC IV fluids History of hypertension hold Norvasc due to soft blood pressure follow BP closely Code status full code DVT prophylaxis Quality Stroke Does the patient have a stroke diagnosis?: No VTE Prior VTE?: No VTE Risk Level:: Surgical - high VTE Device Contraindication: N/A - Device Ordered VTE Drug Contraindication: N/A - Med Ordered
[2021-03-01 15:54] VITALS: BP 131/71; PULSE 81; RESP 16; TEMP 36.3; O2SAT 95
[2021-03-01 19:27] VITALS: BP 140/74; PULSE 87; RESP 19; TEMP 37.5; O2SAT 95
[2021-03-02] VITALS: BP 140/70; PULSE 76; RESP 18; TEMP 37.2; O2SAT 95
[2021-03-02] MEDS: Piperacillin Sodium/Tazobactam 3.375 GM in 0.9 % Sodium Chloride 50 ML IV ×2 (00:22→06:03)
[2021-03-02] MEDS: guaiFENesin DM 100/10/5 ML 5 ML SYRUP 10 ML PO ×4 (02:06→20:52)
[2021-03-02] MEDS: Heparin Sodium,Porcine 5,000 UNIT/ML VIAL 5000 UNIT SUBCUT ×2 (02:06→14:46)
[2021-03-02 03:57] VITALS: BP 140/73; PULSE 77; RESP 18; TEMP 36.6; O2SAT 96
[2021-03-02 06:08] LABS: MANUAL DIFF FLAG NO
[2021-03-02 06:14] LABS: Basophils Percent Auto 0.1 % (0-2); Eosinophils Absolute Auto 0.2 X10*3/uL (0.0-0.4); Eosinophils Percent Auto 1.2 % (0-4); Hematocrit 31.7 % (42-52); Hemoglobin 10.9 g/dl (14.0-18.0); Imm Gran Abs Auto 0.07 X10*3/uL (0.00-0.03); Imm Gran Pct Auto 0.6 % (0.0-0.4); Lymphocytes Absolute Auto 0.9 X10*3/uL (1.2-4.9); Lymphocytes Percent Auto 7.5 % (20-40); Mean Corpuscular HGB Conc 34.4 g/dl (31.0-36.0); Mean Corpuscular Hemoglobin 31.1 pg (27.0-33.0); Mean Corpuscular Volume 90.6 fL (80-98); Monocytes Absolute Auto 0.6 X10*3/uL (0.1-1.2); Monocytes Percent Auto 4.6 % (2-11); Neutrophils Absolute Auto 10.8 X10*3/uL (2.0-8.3); Platelet Count 120 X10*3/uL (160-400); Red Cell Distribution Width 13.4 % (11.0-16.0); White Blood Count 12.5 X10*3/uL (4.8-10.8)
[2021-03-02 06:44] LABS: Anion Gap 11 (12-20); Blood Urea Nitrogen 14 mg/dL (9-16); Calcium 7.3 mg/dL (8.4-10.2); Carbon Dioxide 26 mmol/L (22-29); Chloride 107 mmol/L (96-108); Creatinine Clr Calc Pharmacy 87.3; Estimated Glomerular Filt Rate > 60; Glucose Random 85 mg/dL (60-115); Potassium 3.1 mmol/L (3.3-5.1); Sodium 141 mmol/L (135-145)
[2021-03-02 07:53] VITALS: BP 128/70; PULSE 71; RESP 18; TEMP 37.5; O2SAT 96
[2021-03-02] MEDS: Potassium Chloride ER 20 MEQ TAB.ER.PRT 40 MEQ PO (08:02)
[2021-03-02] MEDS: Amoxicillin/Potassium Clav 875 MG TABLET PO ×2 (08:02→20:52)
--- NOTE | 2021-03-02 10:37 | P.PNGS_ITS ---
Subjective Subjective Date of Service: 03/02/21 Interval history: Says he has incisional pain specially with getting out of bed Stoma has been functioning well Describe heartburn Tolerating diet Physical Exam Vital Signs: Vital Signs: Last Vital Signs Temp 99.5 F 03/02/21 07:53 Pulse 71 03/02/21 07:53 Resp 18 03/02/21 07:53 BP 128/70 03/02/21 07:53 Pulse Ox 96 03/02/21 07:53 Body Mass Index 26.6 Chemistry 02/28/21 03/01/21 03/02/21 06:05 05:25 05:43 Sodium 144 141 141 Potassium 4.3 3.4 D 3.1 L Carbon Dioxide 23 25 26 BUN 32 H 17 H 14 Creatinine 1.01 0.71 0.73 Calcium 7.4 L D 7.5 L 7.3 L Hematology 02/28/21 03/01/21 03/02/21 06:05 05:25 05:43 WBC 21.1 H 14.9 H 12.5 H Hgb 12.1 L D 11.2 L 10.9 L Plt Count 120 L 100 L 120 L Const: Other: Appears a little anxious General: comfortable and no acute distress Resp: Effort & Inspection: normal respiratory effort Cardio: Rate: regular rate GI: Other: Stoma functioning well, dressings clean and dry Palpation (GI): Soft to palpation, not firm and no guarding Procedures Date of Service Date of Service: 03/02/21 Progress Note: A&P Assessment and plan (1) Ischemic colitis: Status: Acute Assessment and Plan: Status post left colon resection, endcolostomy from the transverse Good stoma function Pain management Continue PPI Encouraged to get out of bed Looks a little deconditioned Replace potassium Fall Risk Details Current Medications: Current Medications Amoxicillin/Clavulanate Potassium (Amoxicillin/Potassium Clav 875 Mg Tablet) 875 mg PO Q12H [facility] Last Admin: 03/02/21 08:02 Dose: 875 mg Documented by: Guaifenesin/Dextromethorphan (Guaifenesin Dm 100/10/5 Ml 5 Ml Syrup) 10 ml PO Q6H [facility] Last Admin: 03/02/21 07:35 Dose: 10 ml Documented by: Heparin Sodium (Porcine) (Heparin Sodium,Porcine 5,000 Unit/Ml Vial) 5,000 unit SUBCUT Q12H [facility] Last Admin: 03/02/21 02:06 Dose: 5,000 unit Documented by: Hydromorphone HCl (Hydromorphone Hcl 0.5 Mg/0.5 Ml Syringe) 0.5 mg IVPUSH Q2H PRN; Protocol PRN Reason: abdominal pain Last Admin: 02/28/21 07:42 Dose: 0.5 mg Documented by: Promethazine HCl 12.5 mg/ (Sodium Chloride) 50.5 mls @ 202 mls/hr IV Q6H PRN PRN Reason: Nausea and Vomiting Last Infusion: 02/27/21 17:06 Dose: Infused Documented by: Omeprazole (Omeprazole 20 Mg/10 Ml Susp.Recon) 20 mg PO BID@0630,1630 [facility] Last Admin: 03/02/21 06:04 Dose: 20 mg Documented by: Ondansetron HCl (Ondansetron Hcl 4 Mg/2 Ml Vial) 4 mg IVPUSH QID PRN PRN Reason: Nausea Oxycodone HCl (Oxycodone Hcl Immed Release 5 Mg Tablet) 5 mg PO Q4H PRN PRN Reason: Pain, Moderate (Pain Scale 4-6 Pharmacy Consult (Consult Rx Perform Med Rec) 1 each MISCELLANE ONCE PRN PRN Reason: Consult order Time Spent With Patient Time: Total time spent is greater than 50% in coordination of care (as amanda noriega) at patient's floor/unit and/or counseling patient: Time with patient: 15 - 24 minutes Quality Stroke Does the patient have a stroke diagnosis?: No VTE Prior VTE?: No VTE Risk Level:: Surgical - high VTE Device Contraindication: N/A - Device Ordered VTE Drug Contraindication: N/A - Med Ordered
[2021-03-02 11:35] VITALS: BP 139/73; PULSE 76; RESP 18; TEMP 37.4; O2SAT 96
--- NOTE | 2021-03-02 13:22 | P.PNIM_ITS ---
Subjective Subjective Date of Service: 03/02/21 Interval History: Being followed for abdominal pain status post left colectomy, patient complaining of nausea decrease po intake otherwise admitted that pain is better controlled, able to drink fluids , no other acute issues overnight. Review of Systems General no headache, no dizziness, no fever chills.? CVS no chest pain, no palpitation.? Respiratory dry cough, no sob.? Gastrointestinal pos. nausea ,no vomiting, no abdominal pain Yes all other systems are reviewed and are negative Physical Exam Vital Signs: Vital Signs: Last Vital Signs Temp 99.4 F 03/02/21 11:35 Pulse 76 03/02/21 11:35 Resp 18 03/02/21 11:35 BP 139/73 03/02/21 11:35 Pulse Ox 96 03/02/21 11:35 Body Mass Index 26.6 General awake, alert, weak appearing,no acute distress.? Neck supple, no?JVD. CVS? regular?rate rhythm, Respiratory lungs clear to auscultation,?diminished breath?sound at bases, no respiratory distress, no wheeze, no rhonchi. Gastrointestinal abdomen soft, no tenderness , incision dry and clean, colostomy with brown stool Extremities no edema. Neuro?nonfocal , speech?clear. Skin no rash Psych appropriate affect Objective Data Active Medications Amoxicillin/Clavulanate Potassium (Amoxicillin/Potassium Clav 875 Mg Tablet) 875 mg PO Q12H [facility] Last Admin: 03/02/21 08:02 Dose: 875 mg Documented by: JAXSON Guaifenesin/Dextromethorphan (Guaifenesin Dm 100/10/5 Ml 5 Ml Syrup) 10 ml PO Q6H [facility] Last Admin: 03/02/21 07:35 Dose: 10 ml Documented by: JAXSON Heparin Sodium (Porcine) (Heparin Sodium,Porcine 5,000 Unit/Ml Vial) 5,000 unit SUBCUT Q12H [facility] Last Admin: 03/02/21 02:06 Dose: 5,000 unit Documented by: TOM Hydromorphone HCl (Hydromorphone Hcl 0.5 Mg/0.5 Ml Syringe) 0.5 mg IVPUSH Q2H PRN; Protocol PRN Reason: abdominal pain Last Admin: 02/28/21 07:42 Dose: 0.5 mg Documented by: JIMBO Promethazine HCl 12.5 mg/ (Sodium Chloride) 50.5 mls @ 202 mls/hr IV Q6H PRN PRN Reason: Nausea and Vomiting Last Infusion: 02/27/21 17:06 Dose: 0 mls/hr Documented by: JAXSON Omeprazole (Omeprazole 20 Mg/10 Ml Susp.Recon) 20 mg PO BID@0630,1630 [facility] Last Admin: 03/02/21 06:04 Dose: 20 mg Documented by: TOM Ondansetron HCl (Ondansetron Hcl 4 Mg/2 Ml Vial) 4 mg IVPUSH QID PRN PRN Reason: Nausea Oxycodone HCl (Oxycodone Hcl Immed Release 5 Mg Tablet) 5 mg PO Q4H PRN PRN Reason: Pain, Moderate (Pain Scale 4-6 Pharmacy Consult (Consult Rx Perform Med Rec) 1 each MISCELLANE ONCE PRN PRN Reason: Consult order Potassium Chloride (Potassium Chloride Packet 20 Meq Packet) 40 meq PO BID [facility] Stop: 03/03/21 07:59 Last Admin: 03/02/21 12:19 Dose: Not Given Documented by: JAXSON Non-Admin Reason: Physician Held Med Labs CBC & Chem 7: 03/02/21 05:43 03/02/21 05:43 Labs: Laboratory Results - last 24 hr 03/02/21 03/02/21 05:43 05:43 MCV 90.6 MCH 31.1 MCHC 34.4 RDW 13.4 Plt Count 120 L MPV 13.0 H Immature Gran % (Auto) 0.6 H Neut % (Auto) 86.0 H Lymph % (Auto) 7.5 L [place] % (Auto) 4.6 Eos % (Auto) 1.2 Baso % (Auto) 0.1 Lymph # (Auto) 0.9 L [place] # (Auto) 0.6 Eos # (Auto) 0.2 Baso # (Auto) 0.0 Abs Immat Gran (auto) 0.07 H Absolute Neuts (auto) 10.8 H Absolute Nucleated RBC 0.000 Nucleated RBC % (auto) 0.0 Anion Gap 11 L Estim Creat Clear Calc 87.3 Estimated GFR > 60 Random Glucose 85 Calcium 7.3 L Microbiology Microbiology Results: Microbiology 02/27/21 Unknown Gram Stain - Final Peritoneal Fluid Routine Culture - Final No growth after 2 days Anaerobic Culture - Preliminary No growth to date. Assessment and Plan (1) Abdominal pain: Status: Acute (2) Colitis: Status: Acute (3) Leukocytosis: Status: Acute (4) Ischemic colitis: Status: Acute (5) Severe sepsis: Status: Acute Assessment and Plan: 70-year-old gentleman with past medical history of hypertension, hypercholesterolemia presented to [facility] 1 day history of abdominal pain and diagnosed to have ischemic colitis underwent exploratory laparotomy? with left colectomy and transferred colostomy patient noted to be in severe sepsis with rising lactic acid, low platelets tachycardia and leukocytosis BP borderline low. Severe sepsis due to ischemic colitis All symptoms of sepsis resolved status post left colectomy and transverse colostomy POD #3 Feeling better this morning good pain control complaining of nausea tolerating clear liquids, colostomy functioning with brown stools WBC trending down on IV Zosyn day 4 will transition to by mouth Augmentin blood cultures x2 negative Stable renal function Will DC IV Dilaudid likely causing nausea continue as needed oxycodone Recommend out of bed to chair and incentive spirometry Hypokalemia Likely due to poor by mouth intake will replete and follow labs at a.m. History of hypertension hold Norvasc due to soft blood pressure follow BP closely Code status full code DVT prophylaxis Quality Stroke Does the patient have a stroke diagnosis?: No VTE Prior VTE?: No VTE Risk Level:: Surgical - high VTE Device Contraindication: N/A - Device Ordered VTE Drug Contraindication: N/A - Med Ordered
[2021-03-02 19:21] VITALS: BP 136/73; PULSE 75; RESP 16; TEMP 36.7; O2SAT 96
[2021-03-02] MEDS: Potassium Chloride Packet 20 MEQ PACKET 40 MEQ PO (20:52)
[2021-03-03] VITALS (7 sets, daily range): BP systolic 133–145; BP diastolic 68–77; PULSE 67–80; RESP 16–18; TEMP 36.3–37.2; O2SAT 95–97
[2021-03-03] MEDS: Heparin Sodium,Porcine 5,000 UNIT/ML VIAL 5000 UNIT SUBCUT ×2 (02:55→14:37)
[2021-03-03] MEDS: guaiFENesin DM 100/10/5 ML 5 ML SYRUP 10 ML PO ×4 (02:55→19:37)
[2021-03-03 06:46] LABS: Anion Gap 13 (12-20); Blood Urea Nitrogen 16 mg/dL (9-16); Calcium 7.7 mg/dL (8.4-10.2); Carbon Dioxide 23 mmol/L (22-29); Chloride 108 mmol/L (96-108); Creatinine Clr Calc Pharmacy 87.3; Estimated Glomerular Filt Rate > 60; Glucose Random 80 mg/dL (60-115); Potassium 3.4 mmol/L (3.3-5.1); Sodium 141 mmol/L (135-145)
[2021-03-03] MEDS: Amoxicillin/Potassium Clav 875 MG TABLET PO ×2 (07:43→19:38)
--- NOTE | 2021-03-03 10:53 | HO.PM.IMPN ---
Subjective Subjective Date of Service: 03/03/21 Interval History: Being followed for ischemic colitis status post colectomy feeling better good pain control, tolerating regular diet, but feels weak to ambulate and to take care of the colostomy, no other acute issues overnight. Review of Systems General no headache, no dizziness, no fever chills.? CVS no chest pain, no palpitation.? Respiratory dry cough, no sob.? Gastrointestinal no nausea ,no vomiting, no abdominal pain Yes all other systems are reviewed and are negative Physical Exam Vital Signs: Vital Signs: Last Vital Signs Temp 98.4 F 03/03/21 07:57 Pulse 80 03/03/21 07:57 Resp 18 03/03/21 07:57 BP 137/76 03/03/21 07:57 Pulse Ox 95 03/03/21 07:57 Body Mass Index 26.6 General awake, alert, no acute distress.? Neck supple, no?JVD. CVS? regular?rate rhythm, Respiratory lungs clear to auscultation,?diminished breath?sound at bases, no respiratory distress, no wheeze, no rhonchi. Gastrointestinal abdomen soft, no tenderness , incision dry and clean, colostomy with brown stool Extremities no edema. Neuro?nonfocal , speech?clear. Skin no rash Psych appropriate affect ? Objective Data Active Medications Amoxicillin/Clavulanate Potassium (Amoxicillin/Potassium Clav 875 Mg Tablet) 875 mg PO Q12H [facility] Last Admin: 03/03/21 07:43 Dose: 875 mg Documented by: JAXSON Guaifenesin/Dextromethorphan (Guaifenesin Dm 100/10/5 Ml 5 Ml Syrup) 10 ml PO Q6H [facility] Last Admin: 03/03/21 07:43 Dose: 10 ml Documented by: JAXSON Heparin Sodium (Porcine) (Heparin Sodium,Porcine 5,000 Unit/Ml Vial) 5,000 unit SUBCUT Q12H [facility] Last Admin: 03/03/21 02:55 Dose: 5,000 unit Documented by: TOM Promethazine HCl 12.5 mg/ (Sodium Chloride) 50.5 mls @ 202 mls/hr IV Q6H PRN PRN Reason: Nausea and Vomiting Last Infusion: 02/27/21 17:06 Dose: 0 mls/hr Documented by: JAXSON Omeprazole (Omeprazole 20 Mg/10 Ml Susp.Recon) 20 mg PO BID@0630,1630 [facility] Last Admin: 03/03/21 05:36 Dose: 20 mg Documented by: TOM Ondansetron HCl (Ondansetron Hcl 4 Mg/2 Ml Vial) 4 mg IVPUSH QID PRN PRN Reason: Nausea Oxycodone HCl (Oxycodone Hcl Immed Release 5 Mg Tablet) 5 mg PO Q4H PRN PRN Reason: Pain, Moderate (Pain Scale 4-6 Pharmacy Consult (Consult Rx Perform Med Rec) 1 each MISCELLANE ONCE PRN PRN Reason: Consult order Labs CBC & Chem 7: 03/02/21 05:43 03/03/21 05:45 Labs: Laboratory Results - last 24 hr 03/03/21 05:45 Anion Gap 13 Estim Creat Clear Calc 87.3 Estimated GFR > 60 Random Glucose 80 Calcium 7.7 L Assessment and Plan (1) Severe sepsis: Status: Acute (2) Abdominal pain: Status: Acute (3) Colitis: Status: Acute (4) Leukocytosis: Status: Acute (5) Ischemic colitis: Status: Acute Assessment and Plan: 70-year-old gentleman with past medical history of hypertension, hypercholesterolemia presented to [facility] 1 day history of abdominal pain and diagnosed to have ischemic colitis underwent exploratory laparotomy? with left colectomy and transferred colostomy patient noted to be in severe sepsis with rising lactic acid, low platelets tachycardia and leukocytosis BP borderline low. Severe sepsis due to ischemic colitis All symptoms of sepsis resolved status post left colectomy and transverse colostomy POD #4 Feeling better this morning good pain control , no nausea no vomiting, colostomy functioning with brown stools WBC trending down s/p Zosyn x 4 day now on by mouth Augmentin day 2 , will DC Augmentin tomorrow, blood cultures x2 negative Stable renal function Recommend out of bed to chair and incentive spirometry Continue current pain medicine with Tylenol and as needed oxycodone Case discussed with Dr. Menon patient will receive colostomy teachings and will be discharged home in next 24 hours with VNA services. Hypokalemia Likely due to poor by mouth intake repleted and improved to 3.4. History of hypertension , BP trending up slowly , will resume Norvasc 5 mg daily upon discharge,( home dose Norvasc 10 mg daily ) follow BP closely Code status full code DVT prophylaxis Quality Stroke Does the patient have a stroke diagnosis?: No VTE Prior VTE?: No VTE Risk Level:: Surgical - high VTE Device Contraindication: N/A - Device Ordered VTE Drug Contraindication: N/A - Med Ordered
--- NOTE | 2021-03-03 11:04 | PM.PNGS ---
Subjective Subjective Date of Service: 03/03/21 Interval history: Says he feels much better Good pain control He does say that he feels weak and gets dizzy when he gets out of bed Stoma functioning well Good oral intake Physical Exam Vital Signs: Vital Signs: Last Vital Signs Temp 98.4 F 03/03/21 07:57 Pulse 80 03/03/21 07:57 Resp 18 03/03/21 07:57 BP 137/76 03/03/21 07:57 Pulse Ox 95 03/03/21 07:57 Body Mass Index 26.6 Const: General: comfortable and no acute distress Resp: Effort & Inspection: normal respiratory effort Cardio: Rate: regular rate GI: Other: Soft, nondistended a functioning well, edema of the stoma itself noted, incision clean and dry Procedures Date of Service Date of Service: 03/03/21 Progress Note: A&P Assessment and plan (1) Ischemic colitis: Status: Acute Assessment and Plan: Status post left colon, end colostomy from the transverse Doing well PT consult for evaluation and to decide on placement on discharge Good oral intake Stoma functioning well Encouraged to get out of bed Good pain control Fall Risk Details Current Medications: Current Medications Amoxicillin/Clavulanate Potassium (Amoxicillin/Potassium Clav 875 Mg Tablet) 875 mg PO Q12H [facility] Last Admin: 03/03/21 07:43 Dose: 875 mg Documented by: Guaifenesin/Dextromethorphan (Guaifenesin Dm 100/10/5 Ml 5 Ml Syrup) 10 ml PO Q6H [facility] Last Admin: 03/03/21 07:43 Dose: 10 ml Documented by: Heparin Sodium (Porcine) (Heparin Sodium,Porcine 5,000 Unit/Ml Vial) 5,000 unit SUBCUT Q12H [facility] Last Admin: 03/03/21 02:55 Dose: 5,000 unit Documented by: Promethazine HCl 12.5 mg/ (Sodium Chloride) 50.5 mls @ 202 mls/hr IV Q6H PRN PRN Reason: Nausea and Vomiting Last Infusion: 02/27/21 17:06 Dose: Infused Documented by: Omeprazole (Omeprazole 20 Mg/10 Ml Susp.Recon) 20 mg PO BID@0630,1630 [facility] Last Admin: 03/03/21 05:36 Dose: 20 mg Documented by: Ondansetron HCl (Ondansetron Hcl 4 Mg/2 Ml Vial) 4 mg IVPUSH QID PRN PRN Reason: Nausea Oxycodone HCl (Oxycodone Hcl Immed Release 5 Mg Tablet) 5 mg PO Q4H PRN PRN Reason: Pain, Moderate (Pain Scale 4-6 Pharmacy Consult (Consult Rx Perform Med Rec) 1 each MISCELLANE ONCE PRN PRN Reason: Consult order Time Spent With Patient Time: Total time spent is greater than 50% in coordination of care (as documented) at patient's floor/unit and/or counseling patient: Time with patient: 15 - 24 minutes Quality Stroke Does the patient have a stroke diagnosis?: No VTE Prior VTE?: No VTE Risk Level:: Surgical - high VTE Device Contraindication: N/A - Device Ordered VTE Drug Contraindication: N/A - Med Ordered
[2021-03-04] VITALS (7 sets, daily range): BP systolic 118–149; BP diastolic 63–72; PULSE 64–76; RESP 17–18; TEMP 36.2–36.8; O2SAT 96–97
[2021-03-04] MEDS: Heparin Sodium,Porcine 5,000 UNIT/ML VIAL 5000 UNIT SUBCUT ×2 (02:32→13:04)
[2021-03-04] MEDS: guaiFENesin DM 100/10/5 ML 5 ML SYRUP 10 ML PO ×4 (02:32→20:44)
[2021-03-04 05:11] LABS: Hemoglobin 11.2 g/dl (14.0-18.0); Mean Corpuscular HGB Conc 33.9 g/dl (31.0-36.0); Mean Corpuscular Hemoglobin 30.9 pg (27.0-33.0); Mean Corpuscular Volume 91.2 fL (80.0-98.0); Mean Platelet Volume 11.8 fL (9.4-12.4); Platelet Count 166 X10*3/uL (160-400); Red Blood Count 3.62 X10*6/uL (4.60-5.80); Red Cell Distribution Width 13.2 % (11.0-16.0); White Blood Count 13.2 X10*3/uL (4.8-10.8)
[2021-03-04 05:30] LABS: Anion Gap 15 (12-20); Blood Urea Nitrogen 14 mg/dL (9-16); Calcium 7.3 mg/dL (8.4-10.2); Carbon Dioxide 22 mmol/L (22-29); Chloride 106 mmol/L (96-108); Creatinine Clr Calc Pharmacy 86.2; Estimated Glomerular Filt Rate > 60; Glucose Random 99 mg/dL (60-115); Potassium 3.3 mmol/L (3.3-5.1); Sodium 140 mmol/L (135-145)
[2021-03-04] MEDS: oxyCODONE HCl Immed Release 5 MG TABLET PO ×2 (07:36→13:03)
[2021-03-04] MEDS: Amoxicillin/Potassium Clav 875 MG TABLET PO ×2 (07:36→20:44)
--- NOTE | 2021-03-04 09:33 | PM.PNGS ---
Subjective Subjective Date of Service: 03/04/21 <Marlee Mixon PA-C - Last Filed: 03/04/21 09:36> 03/04/21 <Jose Riddle MD - Last Filed: 03/04/21 09:56> Interval history: Feels ok this morning, pain comes and goes making it difficult to ambulate. Tolerating a little bit of solid food. OOB and ambulated with PT this morning. <Marlee Mixon PA-C - Last Filed: 03/04/21 09:36> Physical Exam Vital Signs: Vital Signs: Last Vital Signs Temp 98.1 F 03/04/21 07:30 Pulse 75 03/04/21 07:30 Resp 18 03/04/21 07:30 BP 132/70 03/04/21 07:30 Pulse Ox 96 03/04/21 07:30 Body Mass Index 26.6 <Marlee Mxion PA-C - Last Filed: 03/04/21 09:36> Const: General: comfortable, no acute distress and alert <Mralee Mixon PA-C - Last Filed: 03/04/21 09:36> Orientation/consciousness: patient oriented x3 <SANDRA Bryant Last Filed: 03/04/21 09:36> Resp: Effort & Inspection: normal respiratory effort <SANDRA Bryant Last Filed: 03/04/21 09:36> GI: Other: colostomy edematous, beefy red, soft brown stool in bag <Marlee Mixon PA-C - Last Filed: 03/04/21 09:36> Inspection: No distended and Yes incision (clean) <Marlee Mixon PA-C - Last Filed: 03/04/21 09:36> Palpation (GI): Soft to palpation, Tenderness to palpation present (GI) (surrounding incision), no guarding and not rigid <SANDRA Bryant Last Filed: 03/04/21 09:36> Percussion: Yes normal to percussion <SANDRA Bryant Last Filed: 03/04/21 09:36> Skin: General skin exam: no rashes or lesions noted <Marlee Mixon PA-C - Last Filed: 03/04/21 09:36> Neuro: General: patient oriented x3 <Marlee Mixon PA-C - Last Filed: 03/04/21 09:36> Procedures Date of Service Date of Service: 03/04/21 <Marlee Mixon PA-C - Last Filed: 03/04/21 09:36> Progress Note: A&P Assessment and plan (1) Necrosis of colon: Status: Acute <Marlee Mixon PA-C - Last Filed: 03/04/21 09:36> (2) Ischemic colitis: Status: Acute <Marlee Mixon PA-C - Last Filed: 03/04/21 09:36> Assessment and Plan: 70-year-old male patient presenting with acute abdominal pain found to have left colonic bowel necrosis, status post left colectomy with end transverse colostomy (POD #5).? Patient doing fairly well post operatively. Continue diet as tolerated, OOB/ambulation and IS use. Colostomy functioning well. Begin colostomy education. Dispo planning- likely discharge to [facility] tomorrow if patient agreeable. <Marlee Mixon PA-C - Last Filed: 03/04/21 09:36> 70-year-old male patient presenting with acute abdominal pain found to have left colonic bowel necrosis, status post left colectomy with end transverse colostomy (POD #5).? Patient doing fairly well post operatively. Continue diet as tolerated, OOB/ambulation and IS use. Colostomy functioning well. Begin colostomy education. Dispo planning- likely discharge to [facility] tomorrow if patient agreeable. Patient reports incisional pain but otherwise is eating and his bowels are moving daily. Abdomen is soft in the incision is clean and intact without redness or discharge. Ostomy is functioning well. Patient is weak however and is unable to function independently at this time. I agree with short-term rehab as noted above. Continue physical therapy. Pathology revealed: Colon, left, segmental resection:? Ischemic colitis with ulceration and necrosis; viable tissue at margins. <Jose Riddle MD - Last Filed: 03/04/21 09:56> Fall Risk Details Current Medications: Current Medications Amoxicillin/Clavulanate Potassium (Amoxicillin/Potassium Clav 875 Mg Tablet) 875 mg PO Q12H [facility] Last Admin: 03/04/21 07:36 Dose: 875 mg Documented by: Guaifenesin/Dextromethorphan (Guaifenesin Dm 100/10/5 Ml 5 Ml Syrup) 10 ml PO Q6H [facility] Last Admin: 03/04/21 07:36 Dose: 10 ml Documented by: Heparin Sodium (Porcine) (Heparin Sodium,Porcine 5,000 Unit/Ml Vial) 5,000 unit SUBCUT Q12H [facility] Last Admin: 03/04/21 02:32 Dose: 5,000 unit Documented by: Promethazine HCl 12.5 mg/ (Sodium Chloride) 50.5 mls @ 202 mls/hr IV Q6H PRN PRN Reason: Nausea and Vomiting Last Infusion: 02/27/21 17:06 Dose: Infused Documented by: Omeprazole (Omeprazole 20 Mg/10 Ml Susp.Recon) 20 mg PO BID@0630,1630 [facility] Last Admin: 03/04/21 05:56 Dose: Not Given Documented by: Ondansetron HCl (Ondansetron Hcl 4 Mg/2 Ml Vial) 4 mg IVPUSH QID PRN PRN Reason: Nausea Oxycodone HCl (Oxycodone Hcl Immed Release 5 Mg Tablet) 5 mg PO Q4H PRN PRN Reason: Pain, Moderate (Pain Scale 4-6 Last Admin: 03/04/21 07:36 Dose: 5 mg Documented by: Pharmacy Consult (Consult Rx Perform Med Rec) 1 each MISCELLANE ONCE PRN PRN Reason: Consult order <Marlee Mixon PA-C - Last Filed: 03/04/21 09:36> Time Spent With Patient Time: Total time spent is greater than 50% in coordination of care (as documented) at patient's floor/unit and/or counseling patient: <SANDRA Bryant Last Filed: 03/04/21 09:36> Time with patient: 15 - 24 minutes <SANDRA Bryant Last Filed: 03/04/21 09:36> Quality Stroke Does the patient have a stroke diagnosis?: No <SANDRA Bryant Last Filed: 03/04/21 09:36> VTE Prior VTE?: No <Marlee Mixon PA-C - Last Filed: 03/04/21 09:36> VTE Risk Level:: Surgical - high <Marlee Mixon PA-C - Last Filed: 03/04/21 09:36> VTE Device Contraindication: N/A - Device Ordered <Marlee Mixon PA-C - Last Filed: 03/04/21 09:36> VTE Drug Contraindication: N/A - Med Ordered <Marlee Mixon PA-C - Last Filed: 03/04/21 09:36>
--- NOTE | 2021-03-04 09:48 | MHC.CM.PN ---
nurse cRE BENCH LATHE OPERATOR NOTE ELECTRONIC MEDICl record reviewed , per notes patient with ischemic coitis s/p left colon end colostomy. , continues with iv abx, iv analgeics oral ppi and antiemetic., [patient evaluated by physicL THEprpy and is recommend short term rehB AND ROLLING WALKER. PLAN CONTINUE TO FOLLOW [facility] WORK[facility] TO SPEAK WITH PATIENT ABOUT SHORT TERM REHAB FACILITIES.
[2021-03-04] MEDS: Acetaminophen 325 MG TABLET 650 MG PO (13:03)
--- NOTE | 2021-03-04 15:21 | MHC.CM.PN ---
CM MET WITH PT AND FRIEND/CERTIFIED LACTATION EDUCATOR WHO WAS AT BEDSIDE. PT WILL NEED STR AND THEY REQUEST A REFERRAL TO [facility] HIS CAREGIVERS EX AND SON ARE THERE. SHE ALSO REPORTS SHE SIGNED THE PT UP FOR [facility] AND PLANS TO BECOME HIS ANALYTICS LEAD. CM INFORMED HER SHE SHOULD DISCUSS ANY NEEDED ORDERS FROM THE PCP OFFICE. REFERRAL PLACED.
--- NOTE | 2021-03-04 16:37 | P.PNIM_ITS ---
Subjective Subjective Date of Service: 03/04/21 Interval History: No acute issues overnight Review of Systems Via makeup artist denies chest pain Denies shortness of breath Denies nausea vomiting diarrhea Physical Exam Vital Signs: Vital Signs: Last Vital Signs Temp 97.8 F 03/04/21 15:19 Pulse 66 03/04/21 15:19 Resp 18 03/04/21 15:19 BP 118/66 03/04/21 15:19 Pulse Ox 97 03/04/21 15:19 Body Mass Index 26.6 Const: Other: No acute distress HENMT: Other: Membranes moist oropharynx clear Resp: Other: Clear to auscultation bilaterally no rales rhonchi wheezes Cardio: Other: No S4; positive S1-S2; no S3 murmur so she gallops GI: Other: Soft nontender nondistended normoactive bowel sounds. Function clots pain right-sided abdomen Neuro: Other: Cranial nerves 2-12 grossly intact as tested. Motor 5/5 all extremities sensation intact Extrem: Other: No edema bilateral Objective Data Active Medications Acetaminophen (Acetaminophen 325 Mg Tablet) 650 mg PO Q6H PRN PRN Reason: Pain, Moderate (Pain Scale 4-6 Last Admin: 03/04/21 13:03 Dose: 650 mg Documented by: KIERSTEN Amoxicillin/Clavulanate Potassium (Amoxicillin/Potassium Clav 875 Mg Tablet) 875 mg PO Q12H [facility] Last Admin: 03/04/21 07:36 Dose: 875 mg Documented by: KIERSTEN Guaifenesin/Dextromethorphan (Guaifenesin Dm 100/10/5 Ml 5 Ml Syrup) 10 ml PO Q6H [facility] Last Admin: 03/04/21 13:04 Dose: 10 ml Documented by: KIERSTEN Heparin Sodium (Porcine) (Heparin Sodium,Porcine 5,000 Unit/Ml Vial) 5,000 unit SUBCUT Q12H [facility] Last Admin: 03/04/21 13:04 Dose: 5,000 unit Documented by: KIERSTEN Promethazine HCl 12.5 mg/ (Sodium Chloride) 50.5 mls @ 202 mls/hr IV Q6H PRN PRN Reason: Nausea and Vomiting Last Infusion: 02/27/21 17:06 Dose: 0 mls/hr Documented by: JAXSON Omeprazole (Omeprazole 20 Mg/10 Ml Susp.Recon) 20 mg PO BID@0630,1630 [facility] Last Admin: 03/04/21 16:36 Dose: 20 mg Documented by: ANITHA Ondansetron HCl (Ondansetron Hcl 4 Mg/2 Ml Vial) 4 mg IVPUSH QID PRN PRN Reason: Nausea Oxycodone HCl (Oxycodone Hcl Immed Release 5 Mg Tablet) 5 mg PO Q4H PRN PRN Reason: Pain, Moderate (Pain Scale 4-6 Last Admin: 03/04/21 13:03 Dose: 5 mg Documented by: KIERSTEN Pharmacy Consult (Consult Rx Perform Med Rec) 1 each MISCELLANE ONCE PRN PRN Reason: Consult order Labs CBC & Chem 7: 03/04/21 04:59 03/04/21 04:59 Labs: Laboratory Results - last 24 hr 03/04/21 03/04/21 04:59 04:59 MCV 91.2 MCH 30.9 MCHC 33.9 RDW 13.2 Plt Count 166 MPV 11.8 Absolute Nucleated RBC 0.000 Nucleated RBC % (auto) 0.0 Anion Gap 15 Estim Creat Clear Calc 86.2 Estimated GFR > 60 Random Glucose 99 Calcium 7.3 L Microbiology Microbiology Results: Microbiology 02/27/21 00:42 Blood Culture - Final Blood - Venous No growth after 5 days. 02/27/21 00:32 Blood Culture - Final Blood - Venous No growth after 5 days. Assessment and Plan (1) Ischemic colitis: Status: Acute Assessment and Plan: 70-year-old gentleman with past medical history of hypertension, hyp ercholesterolemia presented to [facility] 1 day history of abdominal pain and diagnosed to have ischemic colitis underwent exploratory laparotomy? with left colectomy and transverse ; doing well from medical standpoint and surgical standpoint 1. Ischemic colitis Doing well post resection. Further plans as per surgery 2. Hypertension Acceptable control on calcium channel david continue the same titrate as indicated 3. GERD Continue PPI as ordered. Full code/heparin Quality Stroke Does the patient have a stroke diagnosis?: No VTE Prior VTE?: No VTE Risk Level:: Surgical - high VTE Device Contraindication: N/A - Device Ordered VTE Drug Contraindication: N/A - Med Ordered
[2021-03-05 03:12] VITALS: BP 112/70; PULSE 76; RESP 17; TEMP 36.6; O2SAT 97
[2021-03-05] MEDS: Heparin Sodium,Porcine 5,000 UNIT/ML VIAL 5000 UNIT SUBCUT ×2 (03:54→16:42)
[2021-03-05 07:12] VITALS: BP 119/67; PULSE 71; RESP 16; TEMP 36.8; O2SAT 98
--- NOTE | 2021-03-05 08:16 | PM.DS ---
DS: Providers Provider Date of Service: 03/06/21 Date of admission: 02/27/21 06:37 Primary care physician: Ida Eisenberg DO Attending physician on admission: Jose Riddle Consults: 02/27/21 01:34 Consult to Hospitalist Routine Consulting Provider: Hospitalist Reason For Exam: Ischemic colitis, abdominal pain, medical manag DS: Transfer Hospital Acceptance Reason for Transfer: Weakness Name of Facility: [facility] DS: Diagnosis Discharge Diagnosis (1) Ischemic colitis: Status: Acute DS: Summary Hospital Course Hospital Course: BRIEF HPI: Quincy Harris is a 70 year old male presenting with complaints of diffuse abdominal pain beginning yesterday afternoon.? The pain began in the periumbilical region became more diffuse throughout today.? Pain is described as sharp stabbing increased with motion.? Denies fever, chills, but does report nausea and vomiting.? He denies a previous history of similar pain.? Presented to the emergency department was noted to be diffusely tender.? CT of the abdomen and pelvis revealed evidence of colitis specially on the left side suggestive of ischemic colitis.? There is no evidence of free air or pneumatosis coli.? Revealed a markedly elevated WBC.? Lactic acid was normal at 1.8.? HOSPITAL COURSE: He was admitted to the surgical service for management of probable ischemic colitis, possibly bowel.? Lactate level was also increasing instead of improving with hydration.? It was recommended to proceed with exploratory laparoscopy possible exploratory laparotomy possible bowel resection.?He was added onto the operative schedule emergently for that day. He was kept NPO, on IVF and started on IV zosyn empirically. On 02/27/21, a exploratory laparotomy, left colectomy with end transverse colostomy was performed by Dr. Riddle without complication. Intraoperative findings included bowel involving the proximal sigmoid colon and distal descending colon. No perforation or abscess was identified although there was turbid fluid throughout the abdomen. The patient tolerated the procedure well, completed routine recovery in PACU and was admitted to the medical/surgical floor for observation. His lactate did continue to trend up initially post operatively, likely secondary to the ischemic bowel and/or hypovolemia. He was bolused 30cc/kg of NS and it began to downtrend with further hydration. His vitals remained stable. A medicine consult was obtained for assistance in management of the patient. The patient had an uncomplicated but slow recovery course. On POD #1, he was doing fairly well with only incisional pain controlled by IV analgesics. His colostomy was functioning with stool output. He was advanced to a clear liquid diet. He was OOB to the chair. His cuevas was removed. Over the next few post operative days, he was tolerating a clear liquid diet and advanced to low residue. His WBC continued to downtrend and almost normalized. He completed 3 days of IV zosyn and was transitioned to PO Augmentin. He was ambulated. His pain became better controlled on PO analgesics. His abdomen remained benign with a clean incision and a viable appearing ostomy that had good output. Colostomy care and education was performed. He however continued to feel weak overall and a PT consult was obtained for evaluation and dispo planning. They recommended discharge to [facility] and this was planned. On the day of discharge, he was tolerating a solid diet, his pain was controlled and his ostomy functioning well. His incision was clean. He was transferred to [facility] on 03/06/21 in stable condition. He is to follow up with Dr. Riddle in 1 week in office. Of note, the patient had good BP control without any antihypertensive medications. The patient's home norvasc dose of 10mg PO daily was changed to 5mg PO daily upon discharge due to this. He is to follow up with his PCP upon discharge for further hypertension management. Status at Discharge Functional status at discharge: uses cane/walker Overall status at discharge: patient is not back to baseline Time Spent with Patient Time attestation: Total time spent providing and/or coordinating discharge services: Discharge coordination time: Greater than 30 minutes Quality: Stroke Does the patient have a stroke diagnosis?: No Physical Exam Vital Signs: Vital Signs: Last Vital Signs Temp 98.3 F 03/05/21 07:12 Pulse 71 03/05/21 07:12 Resp 16 03/05/21 07:12 BP 119/67 03/05/21 07:12 Pulse Ox 98 03/05/21 07:12 Body Mass Index 26.6 Const: General: comfortable, no acute distress and alert Orientation/consciousness: patient oriented x3 Resp: Effort & Inspection: normal respiratory effort GI: Other: transverse colostomy pink and edematous, soft stool in appliance Inspection: No distended and Yes incision (clean) Palpation (GI): Soft to palpation and Tenderness to palpation present (GI) (incisional) Skin: General skin exam: no rashes or lesions noted Neuro: General: patient oriented x3 Extrem: General: Yes no clubbing, cyanosis or edema DS: Data Data Completed and Pending Completed studies during hospitalization [Text1]: 02/27/21 12:47 Surgical [PTH] Routine Colon, left, segmental resection:? Ischemic colitis with ulceration and necrosis; viable tissue at margins. Labs on day of discharge: Preliminary micro results at discharge 02/27/21 Unknown Anaerobic Culture - Preliminary Peritoneal Fluid No growth to date. Discharge Plan Discharge Patient Disposition: [facility] Discharge Diagnosis: ischemic colitis, necrosis of colon Referrals: Ida Eisenberg DO [Primary Care Provider] - 1 Week Jose Riddle MD [Physician] - 1 Week Discharge Medications: New amlodipine [Norvasc] 5 mg tablet 5 mg PO DAILY Qty: 30 RF: 0 Continued omeprazole 40 mg capsule,delayed release(DR/EC) 1 cap PO DAILY RF: 0 aspirin 81 mg tablet,delayed release (DR/EC) 1 tab PO DAILY RF: 0 Discontinued amlodipine 10 mg tablet 1 tab PO DAILY RF: 0 Discharge Orders: Discharge Order (Routine); Ordered 03/06/21 Ordered By: Marlee Mixon Diet: advance to usual diet Activity on Discharge: No heavy lifting Stand Alone Forms: Patient Portal Discharge page Activity Restrictions/Additional Instructions: If the incision area is tender, you may apply an ice pack for short intervals (No more than 20 minutes on, followed by at least 20 minutes off). Do not apply heat. Do not use creams, lotions, or topical antibiotics unless instructed to do so by your surgeon. These can cause infection or allergic reaction. Ok to shower. You have mary closing your incision and these will be removed approximately 10-14 days after surgery. NO HEAVY LIFTING (>10lbs). Follow up in office [address] Riddle. ([phone]) COLOSTOMY APPLIANCE: [facility]LAST #[id number] Paper script provided for: Oxycodone 5mg PO every 4-6 hours PRN pain. Call Your Doctor If: -Your temperature exceeds 101.5? F -You experience excessive pain or swelling -You have an unexpected reaction to medication -You have excessive bleeding -You experience continued vomiting/nausea -Your incision begins to separate -Your incision shows signs of infection such as increased redness, swelling, excessive pain, drainage (light blood or clear fluid is normal) or heat Care Plan Goals: Return to baseline health and gradual return to activity following recovery period. Health Concerns: Ischemic colitis, necrosis of left colon, sepsis; s/p left colectomy with transverse end colostomy Plan of Treatment: Colostomy education, pain control Assessment: Doing well post op
[2021-03-05] MEDS: Amoxicillin/Potassium Clav 875 MG TABLET PO ×2 (09:11→20:34)
[2021-03-05 09:12] VITALS: BP 119/67; PULSE 71; O2SAT 98
[2021-03-05] MEDS: guaiFENesin DM 100/10/5 ML 5 ML SYRUP 10 ML PO ×2 (09:12→20:33)
[2021-03-05 11:09] VITALS: BP 109/59; PULSE 69; RESP 16; TEMP 36.8; O2SAT 98
--- NOTE | 2021-03-05 14:37 | MHC.CM.PN ---
nurse rn intensive care unit note electronic medical record reviewed alonhg with case discussedwith surgeon , met with patient (french speaking only , questions i asked he referred me to danika hinton. (patient hS BEEN VACINATED WITH PFIZER OCTOBER 08 AND THEN SECOND VACCINE IN NOVEMBER , and clinicals up to dateCOVID ON ADMISSION WAS NEGATIVE AND ASKED PHYSICIAN FOR RE[PEAT TO BE DRwn before going to the short term rehab. anticipating discharge tomorrow. will need health care proxy dis harge plan to str f\irst choice the [facility] (accepted) will need repeat covid and health care proxy will need [employer] [facility] for transport
--- NOTE | 2021-03-05 15:19 | MHC.CM.PN ---
NURSE BOTTLE BLOWING MACHINE TENDER NOTE with [facility] cypriot interperter discussed health care proxy to patient , with his understanding he chose danika hinton as his agent five copies given to him with original and cypriot copy given to him , copy uloaded in allscripts and put into hard cover chart also sent to [facility] discharge plan accepted at the [facility] planning for discharge tomorrow am , requested covid test before going to short term rehab reasses for transportation [facility] vs action wheelchair van medicare imm updated explained by me and [facility] cypriot interperter
[2021-03-05 16:00] VITALS: BP 118/61; PULSE 67; RESP 18; TEMP 36.9; O2SAT 98
[2021-03-05 19:24] VITALS: BP 127/69; PULSE 76; RESP 18; TEMP 37; O2SAT 98
[2021-03-06] VITALS: PULSE 65; RESP 18; TEMP 37.1; O2SAT 95
[2021-03-06 03:54] VITALS: BP 123/72; PULSE 70; RESP 18; TEMP 36.5; O2SAT 98
[2021-03-06] MEDS: Heparin Sodium,Porcine 5,000 UNIT/ML VIAL 5000 UNIT SUBCUT (03:59)
[2021-03-06 07:19] VITALS: BP 110/65; PULSE 62; RESP 16; TEMP 36.6; O2SAT 98
[2021-03-06 08:00] LABS: COVID-19 Test Negative (Negative)
[2021-03-06] MEDS: Amoxicillin/Potassium Clav 875 MG TABLET PO (09:49)
[2021-03-06] MEDS: guaiFENesin DM 100/10/5 ML 5 ML SYRUP 10 ML PO (09:49)
[2021-03-06 10:00] VITALS: BP 110/65; PULSE 62; O2SAT 98
--- NOTE | 2021-03-06 11:02 | PM.PNGS ---
Subjective Subjective Date of Service: 03/06/21 <Marlee Mixon PA-C - Last Filed: 03/06/21 11:06> 03/06/21 <Jose Dove MD - Last Filed: 03/06/21 12:43> Interval history: Feels much better. Pain is better controlled. Tolerating solid diet and PO intake increasing. Colostomy functioning well. OOB with PT this am. <Marlee Mixon PA-C - Last Filed: 03/06/21 11:06> Physical Exam Vital Signs: Vital Signs: Last Vital Signs Temp 97.8 F 03/06/21 07:19 Pulse 62 03/06/21 10:00 Resp 16 03/06/21 07:19 BP 110/65 03/06/21 10:00 Pulse Ox 98 03/06/21 10:00 Body Mass Index 26.6 <Marlee Mixon PA-C - Last Filed: 03/06/21 11:06> Const: General: comfortable, no acute distress and alert <Marlee Mixon PA-C - Last Filed: 03/06/21 11:06> Orientation/consciousness: patient oriented x3 <Marlee Mixon PA-C - Last Filed: 03/06/21 11:06> Resp: Effort & Inspection: normal respiratory effort <Marlee Mixon PA-C - Last Filed: 03/06/21 11:06> GI: Other: colostomy edematous & pink- small amt of soft stool in appliance <Marlee Mixon PA-C - Last Filed: 03/06/21 11:06> Inspection: Yes incision (clean) <Marlee Mixon PA-C - Last Filed: 03/06/21 11:06> Palpation (GI): Soft to palpation, Tenderness to palpation present (GI) (mild, incisional) and no guarding <SANDRA Bryant Last Filed: 03/06/21 11:06> Skin: General skin exam: no rashes or lesions noted <SANDRA Bryant Last Filed: 03/06/21 11:06> Neuro: General: patient oriented x3 <Marlee Mixon PA-C - Last Filed: 03/06/21 11:06> Extrem: General: Yes no clubbing, cyanosis or edema <Marlee Mixon PA-C - Last Filed: 03/06/21 11:06> Procedures Date of Service Date of Service: 03/06/21 <Marlee Mixon PA-C - Last Filed: 03/06/21 11:06> Progress Note: A&P Assessment and plan (1) Necrosis of colon: Status: Acute <SANDRA Bryant Last Filed: 03/06/21 11:06> (2) Ischemic colitis: Status: Acute <SANDRA Bryant Last Filed: 03/06/21 11:06> Assessment and Plan: s/p ex lap, left colectomy with end transverse colostomy for ischemic colitis and necrotic left colon. The patient is doing well post op. His pain is well controlled, tolerating solid diet. VSS. Abd exam benign- soft, incision clean, appropriate post op tenderness with viable colostomy that is functioning well. He is stable for discharge to [facility] today. F/u in office with Dr. Dove in 1 week in office. <Marlee Mixon PA-C - Last Filed: 03/06/21 11:06> Fall Risk Details Current Medications: Current Medications Acetaminophen (Acetaminophen 325 Mg Tablet) 650 mg PO Q6H PRN PRN Reason: Pain, Moderate (Pain Scale 4-6 Last Admin: 03/04/21 13:03 Dose: 650 mg Documented by: Amoxicillin/Clavulanate Potassium (Amoxicillin/Potassium Clav 875 Mg Tablet) 875 mg PO Q12H [facility] Last Admin: 03/06/21 09:49 Dose: 875 mg Documented by: Guaifenesin/Dextromethorphan (Guaifenesin Dm 100/10/5 Ml 5 Ml Syrup) 10 ml PO Q6H [facility] Last Admin: 03/06/21 09:49 Dose: 10 ml Documented by: Heparin Sodium (Porcine) (Heparin Sodium,Porcine 5,000 Unit/Ml Vial) 5,000 unit SUBCUT Q12H [facility] Last Admin: 03/06/21 03:59 Dose: 5,000 unit Documented by: Promethazine HCl 12.5 mg/ (Sodium Chloride) 50.5 mls @ 202 mls/hr IV Q6H PRN PRN Reason: Nausea and Vomiting Last Infusion: 02/27/21 17:06 Dose: Infused Documented by: Omeprazole (Omeprazole 20 Mg/10 Ml Susp.Recon) 20 mg PO BID@0630,1630 [facility] Last Admin: 03/06/21 06:23 Dose: 20 mg Documented by: Ondansetron HCl (Ondansetron Hcl 4 Mg/2 Ml Vial) 4 mg IVPUSH QID PRN PRN Reason: Nausea Oxycodone HCl (Oxycodone Hcl Immed Release 5 Mg Tablet) 5 mg PO Q4H PRN PRN Reason: Pain, Moderate (Pain Scale 4-6 Last Admin: 03/04/21 13:03 Dose: 5 mg Documented by: Pharmacy Consult (Consult Rx Perform Med Rec) 1 each MISCELLANE ONCE PRN PRN Reason: Consult order <Marlee Mixon PA-C - Last Filed: 03/06/21 11:06> Time Spent With Patient Time: Total time spent is greater than 50% in coordination of care (as documented) at patient's floor/unit and/or counseling patient: <Marlee Mixon PA-C - Last Filed: 03/06/21 11:06> Time with patient: 15 - 24 minutes <Marlee Mixon PA-C - Last Filed: 03/06/21 11:06> Quality Stroke Does the patient have a stroke diagnosis?: No <Marlee Mixon PA-C - Last Filed: 03/06/21 11:06> VTE Prior VTE?: No <Marlee Mixon PA-C - Last Filed: 03/06/21 11:06> VTE Risk Level:: Surgical - high <SANDRA Bryant Last Filed: 03/06/21 11:06> VTE Device Contraindication: N/A - Device Ordered <Marlee Mixon PA-C - Last Filed: 03/06/21 11:06> VTE Drug Contraindication: N/A - Med Ordered <SANDRA Bryant Last Filed: 03/06/21 11:06>
[2021-03-06] MEDS: oxyCODONE HCl Immed Release 5 MG TABLET PO (11:40)
[2021-03-06 11:48] VITALS: BP 116/68; PULSE 77; RESP 20; TEMP 35.3; O2SAT 99
--- NOTE | 2021-03-06 13:21 | PC.NURSE ---
Nurse to nurse report given to Sergio at [facility]. All of her questions answered, supplied given for colostomy.
--- NOTE | 2021-03-06 13:30 | MHC.CM.PN ---
nurse direct care specialist ntoe electronicmedical record reviewed along with case discussed with surgeon and staff nurse , patient will be discharged today to [facility] tc to reyna hinton significant other [phone] to inform her of patients discharge today and going via action [facility]ED BY RU BE GOING AT 13;30-14;00 REPEST COVID TEST NEGATTIVE DISCHARGE PLAN [facility] FOR STR MEDICARE IMM SIGHNED 03/05/21 ACTION WHEELCHAIR VAN TRANSPORT AT 13\;30 COPIES OF NEW HCP GIVEN TO PATIENT NURSING TO GIVE SOME EXTRA SUPPLIES FOR COLOCTOMY CARE TO FACILITY
== END 2021-03-06 13:20 | disposition skilled nursing facility (03) | DRG 853 ==
LOC: HO.ED 02-27 01:22 → HO.EDOVER 02-27 06:41 → HO.S3 02-27 15:10
PROVIDERS: Hospitalist; Physician Assistant Medical; Admitting Provider Surgery; Emergency Provider Emergency Medicine; PCP Family Medicine; Visit Provider Surgery
PROC: 0DBM0ZZ Excision of Descending Colon, Open Approach (ICD-10-PCS; CPT 49000; principal; 2021-02-27 10:40)
DX: A41.9 Sepsis, unspecified organism (principal); K55.049 Acute infarction of large intestine, extent unspecified; K55.9 Vascular disorder of intestine, unspecified; D78.12 Accidental puncture and laceration of the spleen during other procedure; R65.20 Severe sepsis without septic shock; K21.9 Gastro-esophageal reflux disease without esophagitis; I10 Essential (primary) hypertension; D72.829 Elevated white blood cell count, unspecified; Z20.822 Contact with and (suspected) exposure to COVID-19; Z79.82 Long term (current) use of aspirin; Z79.899 Other long term (current) drug therapy
CPT/HCPCS: 36415; 74174; 80048; 80053; 80076; 81001; 82247; 83605; 83690; 83735; 84484; 85007; 85025; 85027; 85610; 85730; 86850; 86900; 86901; 87040; 87071; 87073; 87205; 87635; 88307; 93005; 96361; 96374; 96375; 97110; 97116; 97162; 99024; 99285; 99291; J0131; J1170; J2370; J2405; J2543; J2550; J3010; Q9967

== ENCOUNTER → 2021-03-19 12:42 | Outpatient (BNVA) | payer MEDICARE, MEDICAID, SELFPAY | PROVIDERS: PCP Family Medicine; Referring Provider Family Medicine; Visit Provider Surgery | DX: Z48.00 Encounter for change or removal of nonsurgical wound dressing (principal) | CPT/HCPCS: 99212 ==

== ENCOUNTER → 2021-04-05 11:09 | Outpatient (BNVA) | payer MEDICARE, MEDICAID, SELFPAY | PROVIDERS: PCP Family Medicine; Referring Provider Family Medicine; Visit Provider Nurse Practitioner | DX: K55.9 Vascular disorder of intestine, unspecified (principal); K55.049 Acute infarction of large intestine, extent unspecified | CPT/HCPCS: 99202 ==

== ENCOUNTER → 2021-05-02 13:12 | Outpatient (BNVA) | payer MEDICARE, MEDICAID, SELFPAY | PROVIDERS: PCP Family Medicine; Referring Provider Family Medicine; Visit Provider Surgery | DX: Z48.815 Encounter for surgical aftercare following surgery on the digestive system (principal); Z87.19 Personal history of other diseases of the digestive system | CPT/HCPCS: 99212 ==

== ENCOUNTER 2021-06-03 07:19 | Inpatient (IN) | payer MEDICARE, SELFPAY ==
--- NOTE | 2021-05-29 13:34 | HO.ANESPROP2 ---
Documented by User: Annette Gallardo NP 05/29/21 13:35 HPI - Anesthesia Eval Consult details Narrative: 71yo M for Colostomy Closure s/p ex lap, hemicolectomy, colostomy 02/2021 with GA-ETT 8 PMFSH Active Problems Active Problems: All Active Problems (Updated 05/27/21 @ 08:42 by Juliana Laboy, PALOMA) Abdominal pain (Acute) Colitis (Acute) Leukocytosis (Acute) Ischemic colitis (Acute) Severe sepsis (Acute) Necrosis of colon (Acute) Past Medical History Medical History Acute COVID-19 Allergic rhinitis Arthritis Chronic low back pain GERD (gastroesophageal reflux disease) High cholesterol History of alcohol abuse HTN (hypertension) Illiterate Necrosis of colon Family History Family history of problems with anesthesia: No Surgical History Surgical History Colostomy in place History of cystoscopy History of prostate surgery Hx of colonoscopy S/P left colectomy (~02/27/21) History of Problems with Anesthesia: No Social History Social History Alcohol intake: never Patient Tobacco Use Status: Former Tobacco user Quit Date: 4 YRS AGO Tobacco use type: Cigarette Use of substances other than those prescribed or required for medical reasons: No Are you DNR?: No Advance Directives: Yes Advance Directives on File: Yes Advance Directives Date on File: 06/03/21 service: No Current occupational status: unemployed Meds Allergies Allergy/AdvReac Type Severity Reaction Status Date / Time No Known Allergies Allergy Verified 05/27/21 08:32 [No Known Allergies*] Home Medications Medication Instructions Recorded Confirmed Last Taken Type aspirin 81 mg tablet,delayed 1 tab PO DAILY 02/27/21 05/23/21 02/26/21 History release omeprazole 40 mg capsule,delayed 1 cap PO DAILY 02/27/21 05/23/21 Unknown History release acetaminophen 325 mg tablet 650 mg PO Q4H PRN 05/27/21 05/27/21 Unknown History amlodipine 2.5 mg tablet 2.5 mg PO DAILY 05/27/21 05/27/21 Unknown History oxycodone 5 mg tablet 5 mg PO Q6H PRN 05/27/21 05/27/21 Unknown History Exam Exam Date and Time: May 29, 2021 1334 Pertinent Lab Results Pertinent Lab Results: Laboratory Tests 03/04/21 03/04/21 04:59 04:59 WBC 13.2 H Hgb 11.2 L Hct 33.0 L Plt Count 166 Sodium 140 Potassium 3.3 Chloride 106 Carbon Dioxide 22 BUN 14 Creatinine 0.74 Narrative Narrative: EKG 02/2021 Vent. Rate : 088 BPM ? ? Atrial Rate : 088 BPM ?? P-R Int : 134 ms? QRS Dur : 088 ms ? ? QT Int : 366 ms ? ? ? P-R-T Axes : 047 052 032 degrees ?? QTc Int : 442 ms ? Normal sinus rhythm Nonspecific ST abnormality Abnormal ECG When compared with ECG of 23-FEB-2020 13:36, No significant change was found Assessment and Plan Assessment Anesthesia Assessment: Chart Reviewed Final Anesthetic Review Family History of Problems with Anesthesia: No History of Problems with Anesthesia: No Documented by User: Samantha Agrawal MD 06/03/21 07:53 PMFSH Past Medical History Medical History Acute COVID-19 Allergic rhinitis Arthritis Chronic low back pain GERD (gastroesophageal reflux disease) High cholesterol History of alcohol abuse HTN (hypertension) Illiterate Necrosis of colon Surgical History Surgical History Colostomy in place History of cystoscopy History of prostate surgery Hx of colonoscopy S/P left colectomy (~02/27/21) Social History Social History Alcohol intake: never Patient Tobacco Use Status: Former Tobacco user Quit Date: 4 YRS AGO Tobacco use type: Cigarette Use of substances other than those prescribed or required for medical reasons: No Are you DNR?: No Advance Directives: Yes Advance Directives on File: Yes Advance Directives Date on File: 06/03/21 service: No Current occupational status: unemployed Meds Allergies Allergy/AdvReac Type Severity Reaction Status Date / Time No Known Allergies Allergy Verified 05/27/21 08:32 [No Known Allergies*] Home Medications Medication Instructions Recorded Confirmed Last Taken Type aspirin 81 mg tablet,delayed 1 tab PO DAILY 02/27/21 05/23/21 02/26/21 History release omeprazole 40 mg capsule,delayed 1 cap PO DAILY 02/27/21 05/23/21 Unknown History release acetaminophen 325 mg tablet 650 mg PO Q4H PRN 05/27/21 05/27/21 Unknown History amlodipine 2.5 mg tablet 2.5 mg PO DAILY 05/27/21 05/27/21 Unknown History oxycodone 5 mg tablet 5 mg PO Q6H PRN 05/27/21 05/27/21 Unknown History Exam Height,Weight and Vital Signs: Height 5 ft 10 in Weight 83.915 kg Vital Signs Temp Pulse Resp BP Pulse Ox 06/03/21 06:35 97.3 F 73 18 131/83 97 Pertinent Lab Results Pertinent Lab Results: Laboratory Tests 03/04/21 03/04/21 04:59 04:59 WBC 13.2 H Hgb 11.2 L Hct 33.0 L Plt Count 166 Sodium 140 Potassium 3.3 Chloride 106 Carbon Dioxide 22 BUN 14 Creatinine 0.74 Lab Results 06/03/21 Range/Units 05:58 COVID-19 ([facility]) Negative (Negative) COVID-19 Clin Com See Note 05/24/21 03/04/21 11:53 11:53 WBC 8.1 Hgb 14.8 Hct 46.3 Plt Count 244 Sodium 145 Potassium 5.2 (Slightly hemolyzed) Chloride 112 Carbon Dioxide 24 BUN 14 Creatinine 0.89 Glucose 94 GFR >60 Airway Mallampati Class: II TM Dist: >3cm Neck ROM: Full Loose/Missing/Broken Teeth: Yes (Many missing) Heart: RRR Lungs: CTAB Assessment and Plan Assessment Anesthesia Assessment: Anesthesia Plan Discussed Final Anesthetic Review NPO: Yes ASA Class: III Final Preanesthetic Review: No Changes in Pt Med Stat, Meds/Allgs Chart Reviewed, Consent Obtained/Reviewed (Alert but not oriented.Patient not sure why he is here. Does not know date or President. Anesthetic plan discussed with patient and HCP. Consent obtained from HCP) and Anes Risks/Benef Reviewed Patient Risk: Intermediate Procedure Risk: Intermediate Assessment/Block/Sedation in SS: Assess/Block/Sedation-SS Anesthetic Plan Anesthetic Plan: GA Disposition: Standard PACU and Inp. Admit - Standard Bed
[2021-05-30 16:02] VITALS: BMI 26.5
[2021-06-03] VITALS (23 sets, daily range): BP systolic 126–156; BP diastolic 66–94; PULSE 73–90; RESP 16–20; TEMP 36.1–36.4; O2SAT 93–99
[2021-06-03 06:20] LABS: COVID-19 Test Negative (Negative); IDNOW Serial# 9DD0AD1C
[2021-06-03] MEDS: Lactated Ringers 1,000 ML 100 ML IVCONT (06:50)
--- NOTE | 2021-06-03 07:19 | MHC.SHP ---
Pre-Procedural Eval Section A Date of Service: 06/03/21 The patient is an INPATIENT: No Changes since office visit: Yes Patient answered all questions; No Cold of Flu in the past 2 weeks, No New Medical Problems and No Changes in Medication The History & Physical has been completed within 30 days and I have reviewed it.: No Section B Chief Complaint: Necrosis of colon Details of Present Illness: Previous ischemic colitis presenting for closure of colostomy Relevant Family History (Specify if Yes): No Relevant Social History: None Present Medications: see Short Stay Collaborative assessment Medical History: Significant History (colitis) History of Previous Operations: Relevant previous surgery/procedure and date(s) (left colectomy) Allergies: Allergies Allergy/AdvReac Type Severity Reaction Status Date / Time No Known Allergies Allergy Verified 05/27/21 08:32 [No Known Allergies*] Review of Systems Sugical H&P ROS: Negative: Constitution, Cardiovascular, Respiratory, Neurological, Psychiatric, Hem-Onc, Allergic/Immunologic, Gastrointestinal, Genitourinary, Musculoskeletal, Integumentary, Endocrine and Eyes/Ears/Nose/Throat Exam Surgical H&P Exam: Normal: HEENT, Normal: Heart, Normal: Lungs, Normal: Extremities, Normal: Abdomen, Normal: Skin and Normal: Neurological Plan Diagnosis/Plan: Unchanged I have reviewed the history and physical and performed a pertinent physical examination on my patient. No changes have occurred unless specified.
--- NOTE | 2021-06-03 09:55 | W.PM.OPN ---
Operative Note Operative Note Date of Service: 06/03/21 Narrative: Preoperative diagnosis:Necrotic bowel, colostomy in place Postoperative diagnosis:same Procedure:Colostomy closure Surgeon: Jose Riddle MD [place] Presser: Marlee Mixon PA-C Anesthesia: general endotracheal Indications for procedure: 71-year-old male patient with a previous history of ischemic and necrotic bowel status post left colectomy and ostomy in the right upper quadrant. He presents now for closure of colostomy. Operative findings: Patient was found to have a patent ostomy connected to the transverse colon. He underwent any functional end-to-end anastomosis with the sigmoid colon<del>.</del> Specimen: Colostomy bud Estimated blood loss: 20 mL Complications: none Procedure details: patient was brought to the OR and placed in a supine position. Colostomy was closed using a running 3-0 Prolene suture. After administering general anesthesia the patient's abdomen was prepped with ChloraPrep and draped in a sterile fashion. A surgical time-out was called the consent confirmed. Patient received preoperative antibiotics and Venodyne boots were in place. an elliptical incision was made around the colostomy oriented transversely. The incision was carried out through subcutaneous tissue down to fascia. The ostomy was completely mobilized circumferentially and reduced into the abdomen. Attention was then directed to the midline incision. A lower midline incision was then created at the site of the previous incision. This was carried out through subcutaneous tissue through linea alba and in through the peritoneum. The abdomen was explored and the transverse colon brought up through the incision. A Bookwalter retractor was placed at this time. The sigmoid colon was identified and mobilized along the abdominal sidewall. This was done using electrocautery and LigaSure. The omentum was then dissected off of the transverse colon and a large segment freed to allow a functional end-to-end anastomosis. The 2 segments of colon were lined up using 3-0 Surgilon sutures. Colotomy was made in both the transverse colon and sigmoid colon and a DAWN stapler fired along the anti mesenteric border. The colotomy was then closed 1st with Allis clamps followed by a staple closure using a TA stapler. The crotch was closed using a 3-0 Surgilon pop-off. The TA staple line was reinforced using Lembert 3-0 Surgilon sutures. The anastomosis was returned to the abdominal cavity. The abdomen was then irrigated thoroughly and suctioned dry. No bleeding was identified at this time. a colostomy site was closed using 0 Polysorb sutures to close peritoneum, reapproximate the rectus muscle again using 0 Polysorb suture. Anterior rectus sheath was then closed using interrupted [id number] 0 Polysorb sutures. Attention was then directed to the midline incision which was closed using 1 Maxon sutures in fascia. Subcutaneous tissue was then reapproximated using interrupted 3-0 Polysorb sutures. Skin was closed using skin mary. Sterile dressings were then applied. Patient tolerated the procedure well. Sponge, instrument, and needle counts reported as correct patient was transferred to PACU in stable condition.
[2021-06-03] MEDS: fentaNYL citrate/PF 100 MCG/2 ML VIAL 25 MCG IVPUSH (11:08)
[2021-06-03] MEDS: HYDROmorphone HCl 0.5 MG/0.5 ML SYRINGE 0.25 MG IVPUSH ×2 (12:23→13:38)
--- NOTE | 2021-06-03 15:35 | PHA.MEDREC ---
Pharmacy Consult ? Medication Reconciliation Pharmacy has completed the medication reconciliation. Double checked with claim history.
[2021-06-03] MEDS: ondansetron HCL 4 MG/2 ML VIAL IVPUSH (16:33)
[2021-06-03] MEDS: 0.9 % Sodium Chloride Flush 3 ML SYRINGE IVFLUSH (16:34)
[2021-06-03] MEDS: Dextrose 5 % and Lactated Ring 1,000 ML 125 ML IVCONT (16:34)
[2021-06-04] VITALS (7 sets, daily range): BP systolic 119–157; BP diastolic 67–78; PULSE 63–76; RESP 16–18; TEMP 36.2–36.9; O2SAT 95–98
[2021-06-04] MEDS: Dextrose 5 % and Lactated Ring 1,000 ML 125 ML IVCONT ×4 (00:18→23:19)
[2021-06-04] MEDS: Omeprazole 40 MG CAPSULE.DR PO (06:03)
[2021-06-04] MEDS: HYDROmorphone HCl 1 MG/ML SYRINGE 0.5 MG IVPUSH ×5 (06:09→23:18)
[2021-06-04 06:11] LABS: Anion Gap 12 (12-20); Blood Urea Nitrogen 16 mg/dL (9-16); Calcium 8.6 mg/dL (8.4-10.2); Carbon Dioxide 26 mmol/L (22-29); Chloride 107 mmol/L (96-108); Creatinine Clr Calc Pharmacy 71.9; Estimated Glomerular Filt Rate > 60; Glucose Random 124 mg/dL (60-115); Potassium 4.6 mmol/L (3.3-5.1); Sodium 140 mmol/L (135-145)
[2021-06-04 06:12] LABS: Basophils Percent Auto 0.1 % (0-2); Hematocrit 41.7 % (42.0-52.0); Hemoglobin 13.1 g/dl (14.0-18.0); Imm Gran Pct Auto 0.4 % (0.0-0.4); Lymphocytes Absolute Auto 1.2 X10*3/uL (1.2-4.9); Lymphocytes Percent Auto 5.3 % (20-40); MANUAL DIFF FLAG SCAN; Mean Corpuscular HGB Conc 31.4 g/dl (31.0-36.0); Mean Corpuscular Hemoglobin 27.7 pg (27.0-33.0); Mean Corpuscular Volume 88.2 fL (80.0-98.0); Mean Platelet Volume 12.4 fL (9.4-12.4); Monocytes Percent Auto 9.1 % (2-11); Neutrophils Absolute Auto 18.9 x10*3/uL (2.0-8.3); Neutrophils Percent Auto 85.1 % (45-73); Platelet Count 217 X10*3/uL (160-400); Red Blood Count 4.73 X10*6/uL (4.60-5.80); Red Cell Distribution Width 13.9 % (11.0-16.0); SCAN SMEAR FLAG 1; White Blood Count 22.2 X10*3/uL (4.8-10.8)
[2021-06-04 06:48] LABS: SLIDE REVIEW VERIFIED
--- NOTE | 2021-06-04 07:54 | P.PNGS_ITS ---
Subjective Subjective Date of Service: 06/04/21 Interval history: Complains of incisional pain, denies nausea or vomiting. Physical Exam Verdana 4l Vital Signs: Verdana 4d Verdana 4d Vital Signs: Verdana 4d Verdana 4Bd Last Vital Signs Verdana 4d Sole Stainer New 4d Jose New 4d Temp 98.4 F 06/04/21 07:26 Sole Stainer New 4d Pulse 67 06/04/21 07:26 Sole Stainer New 4d Resp 16 06/04/21 07:26 BP 125/78 06/04/21 07:26 Pulse Ox 98 06/04/21 07:26 BMI result Body Mass Index 26.5 Const: General: cooperative, no acute distress and well developed Nutritional Appearance: well nourished Orientation/consciousness: patient oriented x3 Limitations: no limitations HENMT: Head: Yes normocephalic and Yes atraumatic Resp: Effort & Inspection: normal respiratory effort, no audible wheezes, no cough and no respiratory distress GI: Other: Midline incision and right colostomy incision is clean, dry, and intact with minimal discharge from the ostomy site. Skin: Other: Warm, dry, no rash Neuro: General: patient oriented x3 Extrem: Other: No peripheral edema Objective Data Active Medications Acetaminophen (Acetaminophen 325 Mg Tablet) 650 mg PO Q4H PRN PRN Reason: pain or fever Amlodipine Besylate (Amlodipine Besylate 2.5 Mg Tablet) 2.5 mg PO DAILY [facility]; Protocol Aspirin (Aspirin Enteric Coated 81 Mg Tablet.Dr) 81 mg PO DAILY [facility] Hydromorphone HCl (Hydromorphone Hcl 1 Mg/Ml Syringe) 0.5 mg IVPUSH Q2H PRN; Protocol PRN Reason: Pain, Severe (Pain Scale 7-10) Last Admin: 06/04/21 06:09 Dose: 0.5 mg Documented by: TOM Dextrose/Lactated Ringer's (D5lr) 1,000 mls @ 125 mls/hr IVCONT .Q8H [facility] Last Admin: 06/04/21 07:08 Dose: 125 mls/hr Documented by: SABRINA Acetaminophen (Ofirmev) 1,000 mg in 100 mls @ 400 mls/hr IV Q6H [facility] Stop: 06/04/21 11:14 Last Infusion: 06/04/21 06:23 Dose: 0 mls/hr Documented by: TOM Omeprazole (Omeprazole 40 Mg Capsule.Dr) 40 mg PO DAILY@0630 [facility] Last Admin: 06/04/21 06:03 Dose: 40 mg Documented by: TOM Ondansetron HCl (Ondansetron Hcl 4 Mg/2 Ml Vial) 4 mg IVPUSH QID PRN PRN Reason: Nausea Last Admin: 06/03/21 16:33 Dose: 4 mg Documented by: ANDERS Pharmacy Consult (Consult Rx Perform Med Rec) 1 each MISCELLANE ONCE PRN PRN Reason: Consult order Sodium Chloride (0.9 % Sodium Chloride Flush 3 Ml Syringe) 3 ml IVFLUSH QSHIFT [facility] Last Admin: 06/04/21 07:08 Dose: Not Given Documented by: SABRINA Non-Admin Reason: IV Running Zolpidem Tartrate (Zolpidem Tartrate 5 Mg Tablet) 5 mg PO BEDTIME PRN PRN Reason: Insomnia Labs CBC & Chem 7: 06/04/21 05:28 06/04/21 05:28 Labs: Laboratory Results - last 24 hr 06/04/21 06/04/21 05:28 05:28 MCV 88.2 MCH 27.7 MCHC 31.4 RDW 13.9 Plt Count 217 D MPV 12.4 Immature Gran % (Auto) 0.4 Neut % (Auto) 85.1 H Lymph % (Auto) 5.3 L Morgan % (Auto) 9.1 Eos % (Auto) 0.0 Baso % (Auto) 0.1 Lymph # (Auto) 1.2 Morgan # (Auto) 2.0 H Eos # (Auto) 0.0 Baso # (Auto) 0.0 Abs Immat Gran (auto) 0.10 H Absolute Neuts (auto) 18.9 H Absolute Nucleated RBC 0.000 Nucleated RBC % (auto) 0.0 Smear Tech's Comments VERIFIED Anion Gap 12 Estim Creat Clear Calc 71.9 Estimated GFR > 60 Random Glucose 124 H Calcium 8.6 D Microbiology Microbiology Results: Microbiology 06/03/21 Unknown Gram Stain - Final Incision Procedures Date of Service Date of Service: 06/04/21 Progress Note: A&P Assessment and plan (1) Necrosis of colon: Status: Acute Plan 71-year-old male patient with previous history of necrotic transverse and descending colon, status post extended left colectomy with transverse colostomy. He is now pod 1 following closure of colostomy. He remains hemodynamically stable but does report incisional pain. He is currently on clear liquids. No bowel movement or flatus yet. Encouraged ambulation and deep breathing. Peñaloza catheter out today. WBC elevated, recheck in a.m. Fall Risk Details Current Medications: Current Medications Acetaminophen (Acetaminophen 325 Mg Tablet) 650 mg PO Q4H PRN PRN Reason: pain or fever Amlodipine Besylate (Amlodipine Besylate 2.5 Mg Tablet) 2.5 mg PO DAILY [facility]; Protocol Aspirin (Aspirin Enteric Coated 81 Mg Tablet.) 81 mg PO DAILY [facility] Hydromorphone HCl (Hydromorphone Hcl 1 Mg/Ml Syringe) 0.5 mg IVPUSH Q2H PRN; Protocol PRN Reason: Pain, Severe (Pain Scale 7-10) Last Admin: 06/04/21 06:09 Dose: 0.5 mg Documented by: Dextrose/Lactated Ringer's (D5lr) 1,000 mls @ 125 mls/hr IVCONT .Q8H [facility] Last Admin: 06/04/21 07:08 Dose: 125 mls/hr Documented by: Acetaminophen (Ofirmev) 1,000 mg in 100 mls @ 400 mls/hr IV Q6H [facility] Stop: 06/04/21 11:14 Last Infusion: 06/04/21 06:23 Dose: Infused Documented by: Omeprazole (Omeprazole 40 Mg Capsule.) 40 mg PO DAILY@0630 [facility] Last Admin: 06/04/21 06:03 Dose: 40 mg Documented by: Ondansetron HCl (Ondansetron Hcl 4 Mg/2 Ml Vial) 4 mg IVPUSH QID PRN PRN Reason: Nausea Last Admin: 06/03/21 16:33 Dose: 4 mg Documented by: Pharmacy Consult (Consult Rx Perform Med Rec) 1 each MISCELLANE ONCE PRN PRN Reason: Consult order Sodium Chloride (0.9 % Sodium Chloride Flush 3 Ml Syringe) 3 ml IVFLUSH QSHIFT [facility] Last Admin: 06/04/21 07:08 Dose: Not Given Documented by: Zolpidem Tartrate (Zolpidem Tartrate 5 Mg Tablet) 5 mg PO BEDTIME PRN PRN Reason: Insomnia Time Spent With Patient Time: Total time spent is greater than 50% in coordination of care (as documented) at patient's floor/unit and/or counseling patient: Time with patient: 15 - 24 minutes Quality Stroke Does the patient have a stroke diagnosis?: No VTE Prior VTE?: No VTE Risk Level:: Surgical - high VTE Device Contraindication: N/A - Device Ordered VTE Drug Contraindication: N/A - Med Ordered
[2021-06-04] MEDS: Aspirin Enteric Coated 81 MG TABLET.DR PO (08:22)
[2021-06-04] MEDS: amLODIPine Besylate 2.5 MG TABLET PO (08:22)
[2021-06-04] MEDS: Enoxaparin Sodium 40 MG/0.4 ML SYRINGE SUBCUT (08:23)
--- NOTE | 2021-06-04 09:27 | PC.NURSE ---
Peñaloza Cath removed at 0900 Pt DTV #1 at 1500
--- NOTE | 2021-06-04 13:01 | MHC.CM.PN ---
Addendum entered by Elyse Knowles 06/05/21 08:38: [facility] RETURNED CALL AND IN AGREEMENT WITH PLAN FOR PATIENT TO RETURN TO [facility] UPON DISCHARGE. Original Note: MESSAGE LEFT FOR JUANPABLO TRAN RN AT [facility] CALL PLACED A REQUEST FOR THIS PURCHASING ANALYST. [phone] CASE MANAGEMENT TO ADD TO THIS NOTE ONCE RETURN CALL IS RECEIVED
--- NOTE | 2021-06-04 13:55 | MHC.CM.PN ---
PATIENT IS IN FROM [facility], WHERE HE IS A BED HOLD. FACILITY ADDED TO [facility] AND UPDATED. HCP FOUND IN [facility] PREVIOUS ADMISSION AND ADDED TO FRONT OF CHART. PLAN WILL BE FOR PATIENT TO RETURN AT DISCHARGE. IMM 2/ IN CHART (COMPLETED WITH ASSIST OF VOLLEYBALL COACH)
--- NOTE | 2021-06-04 13:59 | HO.POSTANES ---
Post Anesthesia Evaluation Post Anesthesia Evaluation Vital Signs: Vital Signs Temp Pulse Resp BP Pulse Ox 06/04/21 11:43 98.2 F 67 18 129/76 98 06/04/21 07:26 98.4 F 67 16 125/78 98 06/04/21 04:00 97.4 F 69 17 126/70 95 Anesthesia: General Mental Status: Awake Pain Control: Satisfactory Nausea/Vomiting: None Hydration: Adequate Anesthesia-Related Issues: No Anes. Related Issues
[2021-06-04] MEDS: 0.9 % Sodium Chloride Flush 3 ML SYRINGE IVFLUSH (20:07)
[2021-06-04] MEDS: Zolpidem Tartrate 5 MG TABLET PO (21:13)
[2021-06-05 03:57] VITALS: BP 148/81; PULSE 71; RESP 18; TEMP 36.6; O2SAT 95
[2021-06-05] MEDS: HYDROmorphone HCl 1 MG/ML SYRINGE 0.5 MG IVPUSH ×2 (05:59→08:06)
[2021-06-05] MEDS: Omeprazole 40 MG CAPSULE.DR PO (05:59)
[2021-06-05] MEDS: Dextrose 5 % and Lactated Ring 1,000 ML 125 ML IVCONT ×2 (06:02→14:34)
[2021-06-05 06:19] LABS: MANUAL DIFF FLAG NO
[2021-06-05 06:25] LABS: Basophils Percent Auto 0.2 % (0-2); Eosinophils Absolute Auto 0.1 X10*3/uL (0.0-0.4); Eosinophils Percent Auto 0.9 % (0-4); Hematocrit 39.8 % (42.0-52.0); Hemoglobin 12.6 g/dl (14.0-18.0); Imm Gran Abs Auto 0.05 X10*3/uL (0.00-0.03); Imm Gran Pct Auto 0.4 % (0.0-0.4); Lymphocytes Absolute Auto 1.4 X10*3/uL (1.2-4.9); Lymphocytes Percent Auto 10.2 % (20-40); Mean Corpuscular HGB Conc 31.7 g/dl (31.0-36.0); Mean Corpuscular Hemoglobin 27.9 pg (27.0-33.0); Mean Corpuscular Volume 88.1 fL (80.0-98.0); Mean Platelet Volume 12.2 fL (9.4-12.4); Monocytes Absolute Auto 1.4 X10*3/uL (0.1-1.2); Monocytes Percent Auto 10.6 % (2-11); Neutrophils Absolute Auto 10.6 x10*3/uL (2.0-8.3); Neutrophils Percent Auto 77.7 % (45-73); Platelet Count 185 X10*3/uL (160-400); Red Blood Count 4.52 X10*6/uL (4.60-5.80); Red Cell Distribution Width 14.1 % (11.0-16.0); White Blood Count 13.6 X10*3/uL (4.8-10.8)
[2021-06-05 07:32] VITALS: BP 145/85; PULSE 77; RESP 18; TEMP 36.5; O2SAT 96
[2021-06-05] MEDS: amLODIPine Besylate 2.5 MG TABLET PO (07:39)
[2021-06-05] MEDS: Enoxaparin Sodium 40 MG/0.4 ML SYRINGE SUBCUT (07:40)
[2021-06-05] MEDS: Aspirin Enteric Coated 81 MG TABLET.DR PO (07:40)
[2021-06-05] MEDS: oxyCODONE HCl Immed Release 5 MG TABLET 10 MG PO ×2 (09:43→21:57)
[2021-06-05 11:56] VITALS: BP 145/78; PULSE 75; RESP 18; TEMP 37; O2SAT 96
[2021-06-05] MEDS: HYDROmorphone HCl 1 MG/ML SYRINGE IVPUSH (12:53)
--- NOTE | 2021-06-05 14:02 | P.PNGS_ITS ---
Subjective Subjective Date of Service: 06/05/21 Interval history: Continues to report abdominal pain at the incision. No BM or flatus yet. Physical Exam Verdana 4l Vital Signs: Verdana 4d Verdana 4d Vital Signs: Verdana 4d Verdana 4Bd Last Vital Signs Verdana 4d Cupola Man New 4d Cupola Man New 4d Temp 98.6 F 06/05/21 11:56 Cupola Man New 4d Pulse 75 06/05/21 11:56 Cupola Man New 4d Resp 18 06/05/21 11:56 BP 145/78 H 06/05/21 11:56 Pulse Ox 96 06/05/21 11:56 BMI result Body Mass Index 26.5 Const: General: comfortable and alert Nutritional Appearance: well nourished Limitations: no limitations HENMT: Head: Yes normocephalic and Yes atraumatic Resp: Effort & Inspection: normal respiratory effort GI: Inspection: Yes incision (Midline and right upper quadrant incision is clean, dry, and intact) Palpation (GI): Firmness to palpation present (GI), Tenderness to palpation present (GI), no guarding and not rigid Percussion: Yes normal to percussion Rectal Exam - Male: Yes deferred Skin: Other: Warm, dry, no rash Extrem: General: Yes no clubbing, cyanosis or edema Objective Data Active Medications Amlodipine Besylate (Amlodipine Besylate 2.5 Mg Tablet) 2.5 mg PO DAILY [facility]; Protocol Last Admin: 06/05/21 07:39 Dose: 2.5 mg Documented by: SABRINA Aspirin (Aspirin Enteric Coated 81 Mg Tablet.) 81 mg PO DAILY [facility] Last Admin: 06/05/21 07:40 Dose: 81 mg Documented by: SABRINA Enoxaparin Sodium (Enoxaparin Sodium 40 Mg/0.4 Ml Syringe) 40 mg SUBCUT Q24H [facility] Last Admin: 06/05/21 07:40 Dose: 40 mg Documented by: SABRINA Hydromorphone HCl (Hydromorphone Hcl 1 Mg/Ml Syringe) 1 mg IVPUSH Q2H PRN; Protocol PRN Reason: Pain, Severe (Pain Scale 7-10) Last Admin: 06/05/21 12:53 Dose: 1 mg Documented by: SABRINA Dextrose/Lactated Ringer's (D5lr) 1,000 mls @ 125 mls/hr IVCONT .Q8H [facility] Last Admin: 06/05/21 06:02 Dose: 125 mls/hr Documented by: RA Acetaminophen (Ofirmev) 1,000 mg in 100 mls @ 400 mls/hr IV Q6H [facility] Last Infusion: 06/05/21 10:03 Dose: 0 mls/hr Documented by: SABRINA Omeprazole (Omeprazole 40 Mg Capsule.Dr) 40 mg PO DAILY@0630 [facility] Last Admin: 06/05/21 05:59 Dose: 40 mg Documented by: RA Ondansetron HCl (Ondansetron Hcl 4 Mg/2 Ml Vial) 4 mg IVPUSH QID PRN PRN Reason: Nausea Last Admin: 06/03/21 16:33 Dose: 4 mg Documented by: ANDERS Oxycodone HCl (Oxycodone Hcl Immed Release 5 Mg Tablet) 10 mg PO Q4H PRN PRN Reason: Pain, Moderate (Pain Scale 4-6 Last Admin: 06/05/21 09:43 Dose: 10 mg Documented by: MARIANNA Pharmacy Consult (Consult Rx Perform Med Rec) 1 each MISCELLANE ONCE PRN PRN Reason: Consult order Sodium Chloride (0.9 % Sodium Chloride Flush 3 Ml Syringe) 3 ml IVFLUSH QSHIFT [facility] Last Admin: 06/05/21 07:42 Dose: Not Given Documented by: SABRINA Non-Admin Reason: IV Running Zolpidem Tartrate (Zolpidem Tartrate 5 Mg Tablet) 5 mg PO BEDTIME PRN PRN Reason: Insomnia Last Admin: 06/04/21 21:13 Dose: 5 mg Documented by: RA Labs CBC & Chem 7: 06/05/21 05:47 06/04/21 05:28 Labs: Laboratory Results - last 24 hr 06/05/21 05:47 MCV 88.1 MCH 27.9 MCHC 31.7 RDW 14.1 Plt Count 185 MPV 12.2 Immature Gran % (Auto) 0.4 Neut % (Auto) 77.7 H Lymph % (Auto) 10.2 L [place] % (Auto) 10.6 Eos % (Auto) 0.9 Baso % (Auto) 0.2 Lymph # (Auto) 1.4 [place] # (Auto) 1.4 H Eos # (Auto) 0.1 Baso # (Auto) 0.0 Abs Immat Gran (auto) 0.05 H Absolute Neuts (auto) 10.6 H Absolute Nucleated RBC 0.000 Nucleated RBC % (auto) 0.0 Microbiology Microbiology Results: Microbiology 06/03/21 Unknown Gram Stain - Final Incision Routine Culture - Preliminary No growth to date. Procedures Date of Service Date of Service: 06/05/21 Progress Note: A&P Assessment and plan (1) Ischemic colitis: Status: Acute (2) History of colostomy reversal: Status: Acute Plan 71-year-old male patient with history of ischemic colitis and a previous left colectomy with transverse colostomy now returning status post closure of colostomy on 06/03/2021. He continues to report incisional pain and examination is noted to be distended. Incision is clean and intact. WBC is improved today. Will restart IV Tylenol and change pain medications. Patient may have a post operative ileus. Will continue to monitor; encouraged ambulation and deep breathing exercises. Fall Risk Details Current Medications: Current Medications Amlodipine Besylate (Amlodipine Besylate 2.5 Mg Tablet) 2.5 mg PO DAILY [facility]; Protocol Last Admin: 06/05/21 07:39 Dose: 2.5 mg Documented by: Aspirin (Aspirin Enteric Coated 81 Mg Tablet.) 81 mg PO DAILY [facility] Last Admin: 06/05/21 07:40 Dose: 81 mg Documented by: Enoxaparin Sodium (Enoxaparin Sodium 40 Mg/0.4 Ml Syringe) 40 mg SUBCUT Q24H [facility] Last Admin: 06/05/21 07:40 Dose: 40 mg Documented by: Hydromorphone HCl (Hydromorphone Hcl 1 Mg/Ml Syringe) 1 mg IVPUSH Q2H PRN; Protocol PRN Reason: Pain, Severe (Pain Scale 7-10) Last Admin: 06/05/21 12:53 Dose: 1 mg Documented by: Dextrose/Lactated Ringer's (D5lr) 1,000 mls @ 125 mls/hr IVCONT .Q8H [facility] Last Admin: 06/05/21 06:02 Dose: 125 mls/hr Documented by: Acetaminophen (Ofirmev) 1,000 mg in 100 mls @ 400 mls/hr IV Q6H [facility] Last Infusion: 06/05/21 10:03 Dose: Infused Documented by: Omeprazole (Omeprazole 40 Mg Capsule.Dr) 40 mg PO DAILY@0630 [facility] Last Admin: 06/05/21 05:59 Dose: 40 mg Documented by: Ondansetron HCl (Ondansetron Hcl 4 Mg/2 Ml Vial) 4 mg IVPUSH QID PRN PRN Reason: Nausea Last Admin: 06/03/21 16:33 Dose: 4 mg Documented by: Oxycodone HCl (Oxycodone Hcl Immed Release 5 Mg Tablet) 10 mg PO Q4H PRN PRN Reason: Pain, Moderate (Pain Scale 4-6 Last Admin: 06/05/21 09:43 Dose: 10 mg Documented by: Pharmacy Consult (Consult Rx Perform Med Rec) 1 each MISCELLANE ONCE PRN PRN Reason: Consult order Sodium Chloride (0.9 % Sodium Chloride Flush 3 Ml Syringe) 3 ml IVFLUSH QSHIFT [facility] Last Admin: 06/05/21 07:42 Dose: Not Given Documented by: Zolpidem Tartrate (Zolpidem Tartrate 5 Mg Tablet) 5 mg PO BEDTIME PRN PRN Reason: Insomnia Last Admin: 06/04/21 21:13 Dose: 5 mg Documented by: Time Spent With Patient Time: Total time spent is greater than 50% in coordination of care (as documented) at patient's floor/unit and/or counseling patient: Time with patient: 15 - 24 minutes Quality Stroke Does the patient have a stroke diagnosis?: No VTE Prior VTE?: No VTE Risk Level:: Surgical - high VTE Device Contraindication: N/A - Device Ordered VTE Drug Contraindication: N/A - Med Ordered
[2021-06-05 15:20] VITALS: BP 139/65; PULSE 79; RESP 18; TEMP 36.5; O2SAT 96
[2021-06-05 20:00] VITALS: BP 138/60; PULSE 75; RESP 18; TEMP 36.3; O2SAT 96
[2021-06-05] MEDS: Zolpidem Tartrate 5 MG TABLET PO (21:58)
[2021-06-05 23:34] VITALS: BP 137/74; PULSE 63; RESP 18; TEMP 36.6; O2SAT 97
[2021-06-06] MEDS: Dextrose 5 % and Lactated Ring 1,000 ML 80 ML IVCONT ×2 (01:11→15:40)
[2021-06-06 03:21] VITALS: BP 140/77; PULSE 82; RESP 18; TEMP 36.8; O2SAT 95
[2021-06-06] MEDS: Omeprazole 40 MG CAPSULE.DR PO (05:35)
[2021-06-06 07:56] VITALS: BP 148/83; PULSE 76; RESP 18; TEMP 36.5; O2SAT 97
[2021-06-06] MEDS: amLODIPine Besylate 2.5 MG TABLET PO (08:08)
[2021-06-06] MEDS: Enoxaparin Sodium 40 MG/0.4 ML SYRINGE SUBCUT (08:08)
[2021-06-06] MEDS: Aspirin Enteric Coated 81 MG TABLET.DR PO (08:09)
[2021-06-06] MEDS: Docusate Sodium 100 MG CAPSULE PO ×2 (08:09→20:06)
[2021-06-06] MEDS: polyethylene glycoL 3350 17 GM POWD.PACK PO (08:09)
[2021-06-06 11:53] VITALS: BP 138/80; PULSE 82; RESP 18; TEMP 36.7; O2SAT 97
[2021-06-06] MEDS: oxyCODONE HCl Immed Release 5 MG TABLET 10 MG PO ×2 (13:03→20:06)
--- NOTE | 2021-06-06 13:12 | MHC.CM.PN ---
per electronicmedical documentsiton patient with ischemic colitis hx left colectomy with transverse colostomy now with s/pclosure of colostomy on 06/03/2021 reports continuation of incisional pain abdomen is documentated as being distended plan per documentation restart iv tylenol, and change pain medication monitor for post op ileus, encouraging ambulation and deep breathing exercises discharge plan to return back to the [facility] when medically/surgicall stable , updated clinical to [facility] .
[2021-06-06 15:19] VITALS: BP 137/77; PULSE 95; RESP 18; TEMP 37; O2SAT 95
[2021-06-06 19:34] VITALS: BP 129/76; PULSE 78; RESP 18; TEMP 36.3; O2SAT 96
[2021-06-06] MEDS: Zolpidem Tartrate 5 MG TABLET PO (20:06)
[2021-06-06 23:33] VITALS: BP 138/68; PULSE 71; RESP 16; TEMP 36.5; O2SAT 95
[2021-06-07] VITALS (8 sets, daily range): BP systolic 139–169; BP diastolic 81–92; PULSE 69–89; RESP 16–18; TEMP 36.4–37.2; O2SAT 95–98
[2021-06-07] MEDS: oxyCODONE HCl Immed Release 5 MG TABLET 10 MG PO ×4 (01:27→17:42)
[2021-06-07] MEDS: Dextrose 5 % and Lactated Ring 1,000 ML 80 ML IVCONT ×2 (04:33→17:36)
--- NOTE | 2021-06-07 05:28 | PM.PNGS ---
Subjective Subjective Date of Service: 06/06/21 Interval history: Late entry: Patient reports passing flatus, feels abdomen is softer and less painful. He was able to ambulate yesterday which helped. Physical Exam Vital Signs: Vital Signs: Last Vital Signs Temp 99.0 F 06/07/21 03:51 Pulse 78 06/07/21 03:51 Resp 16 06/07/21 03:51 BP 139/84 06/07/21 03:51 Pulse Ox 95 06/07/21 03:51 BMI result Body Mass Index 26.5 Const: General: comfortable and no acute distress Nutritional Appearance: well nourished Orientation/consciousness: patient oriented x3 Limitations: no limitations Resp: Effort & Inspection: normal respiratory effort GI: Inspection: Yes incision (clean, dry, no discharge) Palpation (GI): Soft to palpation, nontender, no guarding and not rigid Neuro: General: patient oriented x3 Extrem: General: No edema Objective Data Active Medications Amlodipine Besylate (Amlodipine Besylate 2.5 Mg Tablet) 2.5 mg PO DAILY [facility]; Protocol Last Admin: 06/06/21 08:08 Dose: 2.5 mg Documented by: SABRINA Aspirin (Aspirin Enteric Coated 81 Mg Tablet.Dr) 81 mg PO DAILY [facility] Last Admin: 06/06/21 08:09 Dose: 81 mg Documented by: SABRINA Docusate Sodium (Docusate Sodium 100 Mg Capsule) 100 mg PO BID [facility] Last Admin: 06/06/21 20:06 Dose: 100 mg Documented by: RA Enoxaparin Sodium (Enoxaparin Sodium 40 Mg/0.4 Ml Syringe) 40 mg SUBCUT Q24H [facility] Last Admin: 06/06/21 08:08 Dose: 40 mg Documented by: SABRINA Hydromorphone HCl (Hydromorphone Hcl 1 Mg/Ml Syringe) 1 mg IVPUSH Q2H PRN; Protocol PRN Reason: Pain, Severe (Pain Scale 7-10) Last Admin: 06/05/21 12:53 Dose: 1 mg Documented by: SABRINA Dextrose/Lactated Ringer's (D5lr) 1,000 mls @ 80 mls/hr IVCONT .[id number] [facility] Last Admin: 06/07/21 04:33 Dose: 80 mls/hr Documented by: RA Acetaminophen (Ofirmev) 1,000 mg in 100 mls @ 400 mls/hr IV Q6H [facility] Last Infusion: 06/07/21 03:48 Dose: 0 mls/hr Documented by: RA Omeprazole (Omeprazole 40 Mg Capsule.Dr) 40 mg PO DAILY@0630 [facility] Last Admin: 06/06/21 05:35 Dose: 40 mg Documented by: RA Ondansetron HCl (Ondansetron Hcl 4 Mg/2 Ml Vial) 4 mg IVPUSH QID PRN PRN Reason: Nausea Last Admin: 06/03/21 16:33 Dose: 4 mg Documented by: ANDERS Oxycodone HCl (Oxycodone Hcl Immed Release 5 Mg Tablet) 10 mg PO Q4H PRN PRN Reason: Pain, Moderate (Pain Scale 4-6 Last Admin: 06/07/21 01:27 Dose: 10 mg Documented by: RA Pharmacy Consult (Consult Rx Perform Med Rec) 1 each MISCELLANE ONCE PRN PRN Reason: Consult order Polyethylene Glycol (Polyethylene Glycol 3350 17 Gm Powd.Pack) 17 gm PO DAILY [facility] Last Admin: 06/06/21 08:09 Dose: 17 gm Documented by: SABRINA Sodium Chloride (0.9 % Sodium Chloride Flush 3 Ml Syringe) 3 ml IVFLUSH QSHIFT [facility] Last Admin: 06/06/21 22:58 Dose: Not Given Documented by: RA Non-Admin Reason: IV Running Zolpidem Tartrate (Zolpidem Tartrate 5 Mg Tablet) 5 mg PO BEDTIME PRN PRN Reason: Insomnia Last Admin: 06/06/21 20:06 Dose: 5 mg Documented by: RA Labs CBC & Chem 7: 06/05/21 05:47 06/04/21 05:28 Microbiology Microbiology Results: Microbiology 06/03/21 Unknown Gram Stain - Final Incision Routine Culture - Final Coag negative Staphylococcus Procedures Date of Service Date of Service: 06/06/21 Progress Note: A&P Assessment and plan (1) History of colostomy reversal: Status: Acute (2) Ischemic colitis: Status: Acute Plan POD#3 s/p closure of colostomy, patient feels improved today and is passing flatus. No BM yet. Continue to encourage OOB and ambulation, IS. Plan d/c home once passing BM. Fall Risk Details Current Medications: Current Medications Amlodipine Besylate (Amlodipine Besylate 2.5 Mg Tablet) 2.5 mg PO DAILY [facility]; Protocol Last Admin: 06/06/21 08:08 Dose: 2.5 mg Documented by: Aspirin (Aspirin Enteric Coated 81 Mg Tablet.) 81 mg PO DAILY [facility] Last Admin: 06/06/21 08:09 Dose: 81 mg Documented by: Docusate Sodium (Docusate Sodium 100 Mg Capsule) 100 mg PO BID [facility] Last Admin: 06/06/21 20:06 Dose: 100 mg Documented by: Enoxaparin Sodium (Enoxaparin Sodium 40 Mg/0.4 Ml Syringe) 40 mg SUBCUT Q24H [facility] Last Admin: 06/06/21 08:08 Dose: 40 mg Documented by: Hydromorphone HCl (Hydromorphone Hcl 1 Mg/Ml Syringe) 1 mg IVPUSH Q2H PRN; Protocol PRN Reason: Pain, Severe (Pain Scale 7-10) Last Admin: 06/05/21 12:53 Dose: 1 mg Documented by: Dextrose/Lactated Ringer's (D5lr) 1,000 mls @ 80 mls/hr IVCONT .[id number] [facility] Last Admin: 06/07/21 04:33 Dose: 80 mls/hr Documented by: Acetaminophen (Ofirmev) 1,000 mg in 100 mls @ 400 mls/hr IV Q6H [facility] Last Infusion: 06/07/21 03:48 Dose: Infused Documented by: Omeprazole (Omeprazole 40 Mg Capsule.) 40 mg PO DAILY@0630 [facility] Last Admin: 06/06/21 05:35 Dose: 40 mg Documented by: Ondansetron HCl (Ondansetron Hcl 4 Mg/2 Ml Vial) 4 mg IVPUSH QID PRN PRN Reason: Nausea Last Admin: 06/03/21 16:33 Dose: 4 mg Documented by: Oxycodone HCl (Oxycodone Hcl Immed Release 5 Mg Tablet) 10 mg PO Q4H PRN PRN Reason: Pain, Moderate (Pain Scale 4-6 Last Admin: 06/07/21 01:27 Dose: 10 mg Documented by: Pharmacy Consult (Consult Rx Perform Med Rec) 1 each MISCELLANE ONCE PRN PRN Reason: Consult order Polyethylene Glycol (Polyethylene Glycol 3350 17 Gm Powd.Pack) 17 gm PO DAILY [facility] Last Admin: 06/06/21 08:09 Dose: 17 gm Documented by: Sodium Chloride (0.9 % Sodium Chloride Flush 3 Ml Syringe) 3 ml IVFLUSH QSHIFT [facility] Last Admin: 06/06/21 22:58 Dose: Not Given Documented by: Zolpidem Tartrate (Zolpidem Tartrate 5 Mg Tablet) 5 mg PO BEDTIME PRN PRN Reason: Insomnia Last Admin: 06/06/21 20:06 Dose: 5 mg Documented by: Time Spent With Patient Time: Total time spent is greater than 50% in coordination of care (as documented) at patient's floor/unit and/or counseling patient: Time with patient: 15 - 24 minutes Quality Stroke Does the patient have a stroke diagnosis?: No VTE Prior VTE?: No VTE Risk Level:: Surgical - high VTE Device Contraindication: N/A - Device Ordered VTE Drug Contraindication: N/A - Med Ordered
[2021-06-07] MEDS: Omeprazole 40 MG CAPSULE.DR PO (06:10)
[2021-06-07] MEDS: Enoxaparin Sodium 40 MG/0.4 ML SYRINGE SUBCUT (07:32)
[2021-06-07] MEDS: Docusate Sodium 100 MG CAPSULE PO ×2 (07:32→20:58)
[2021-06-07] MEDS: polyethylene glycoL 3350 17 GM POWD.PACK PO (07:32)
[2021-06-07] MEDS: amLODIPine Besylate 2.5 MG TABLET PO (07:33)
[2021-06-07] MEDS: 0.9 % Sodium Chloride Flush 3 ML SYRINGE IVFLUSH (07:34)
[2021-06-07] MEDS: Aspirin Enteric Coated 81 MG TABLET.DR PO (07:37)
--- NOTE | 2021-06-07 08:18 | PM.PNGS ---
Subjective Subjective Date of Service: 06/07/21 Interval history: Increased pain during the night, better today. Passing lots of flatus but no BM Physical Exam Vital Signs: Vital Signs: Last Vital Signs Temp 99.0 F 06/07/21 03:51 Pulse 78 06/07/21 03:51 Resp 16 06/07/21 03:51 BP 139/84 06/07/21 03:51 Pulse Ox 95 06/07/21 03:51 BMI result Body Mass Index 26.5 Const: General: no acute distress Nutritional Appearance: well nourished Orientation/consciousness: patient oriented x3 Limitations: no limitations Resp: Effort & Inspection: normal respiratory effort GI: Other: distended, positive BS, incision clean and intact. No tympany. Neuro: General: patient oriented x3 Extrem: General: No edema Objective Data Active Medications Amlodipine Besylate (Amlodipine Besylate 2.5 Mg Tablet) 2.5 mg PO DAILY [facility]; Protocol Last Admin: 06/07/21 07:33 Dose: 2.5 mg Documented by: YOMAIRA Comments: BP 140/81 HR 69 Aspirin (Aspirin Enteric Coated 81 Mg Tablet.) 81 mg PO DAILY [facility] Last Admin: 06/07/21 07:37 Dose: 81 mg Documented by: YOMAIRA Docusate Sodium (Docusate Sodium 100 Mg Capsule) 100 mg PO BID [facility] Last Admin: 06/07/21 07:32 Dose: 100 mg Documented by: YOMAIRA Enoxaparin Sodium (Enoxaparin Sodium 40 Mg/0.4 Ml Syringe) 40 mg SUBCUT Q24H [facility] Last Admin: 06/07/21 07:32 Dose: 40 mg Documented by: YOMAIRA Hydromorphone HCl (Hydromorphone Hcl 1 Mg/Ml Syringe) 1 mg IVPUSH Q2H PRN; Protocol PRN Reason: Pain, Severe (Pain Scale 7-10) Last Admin: 06/05/21 12:53 Dose: 1 mg Documented by: SABRINA Dextrose/Lactated Ringer's (D5lr) 1,000 mls @ 80 mls/hr IVCONT .[id number] [facility] Last Admin: 06/07/21 04:33 Dose: 80 mls/hr Documented by: RA Acetaminophen (Ofirmev) 1,000 mg in 100 mls @ 400 mls/hr IV Q6H [facility] Last Infusion: 06/07/21 03:48 Dose: 0 mls/hr Documented by: RA Omeprazole (Omeprazole 40 Mg Capsule.Dr) 40 mg PO DAILY@0630 [facility] Last Admin: 06/07/21 06:10 Dose: 40 mg Documented by: RA Ondansetron HCl (Ondansetron Hcl 4 Mg/2 Ml Vial) 4 mg IVPUSH QID PRN PRN Reason: Nausea Last Admin: 06/03/21 16:33 Dose: 4 mg Documented by: ANDERS Oxycodone HCl (Oxycodone Hcl Immed Release 5 Mg Tablet) 10 mg PO Q4H PRN PRN Reason: Pain, Moderate (Pain Scale 4-6 Last Admin: 06/07/21 06:10 Dose: 10 mg Documented by: RA Pharmacy Consult (Consult Rx Perform Med Rec) 1 each MISCELLANE ONCE PRN PRN Reason: Consult order Polyethylene Glycol (Polyethylene Glycol 3350 17 Gm Powd.Pack) 17 gm PO DAILY [facility] Last Admin: 06/07/21 07:32 Dose: 17 gm Documented by: YOMAIRA Sodium Biphosphate/Sodium Phosphate (Sodium Phosphate,[place]-Dibasic 133 Ml Enema) 133 ml [place] ONCE PRN PRN Reason: constipation Sodium Chloride (0.9 % Sodium Chloride Flush 3 Ml Syringe) 3 ml IVFLUSH QSHIFT [facility] Last Admin: 06/07/21 07:34 Dose: 3 ml Documented by: YOMAIRA Zolpidem Tartrate (Zolpidem Tartrate 5 Mg Tablet) 5 mg PO BEDTIME PRN PRN Reason: Insomnia Last Admin: 06/06/21 20:06 Dose: 5 mg Documented by: RA Labs CBC & Chem 7: 06/05/21 05:47 06/04/21 05:28 Microbiology Microbiology Results: Microbiology 06/03/21 Unknown Gram Stain - Final Incision Routine Culture - Final Coag negative Staphylococcus Procedures Date of Service Date of Service: 06/07/21 Progress Note: A&P Assessment and plan (1) History of colostomy reversal: Status: Acute (2) Necrosis of colon: Status: Acute Plan Patient making slow improvement following closure of ostomy. Has hard stool in sigmoid colon and rectum noted at surgery. Will need enema today to help clear. Continue ambulation. Fall Risk Details Current Medications: Current Medications Amlodipine Besylate (Amlodipine Besylate 2.5 Mg Tablet) 2.5 mg PO DAILY [facility]; Protocol Last Admin: 06/07/21 07:33 Dose: 2.5 mg Documented by: Aspirin (Aspirin Enteric Coated 81 Mg Tablet.) 81 mg PO DAILY [facility] Last Admin: 06/07/21 07:37 Dose: 81 mg Documented by: Docusate Sodium (Docusate Sodium 100 Mg Capsule) 100 mg PO BID [facility] Last Admin: 06/07/21 07:32 Dose: 100 mg Documented by: Enoxaparin Sodium (Enoxaparin Sodium 40 Mg/0.4 Ml Syringe) 40 mg SUBCUT Q24H [facility] Last Admin: 06/07/21 07:32 Dose: 40 mg Documented by: Hydromorphone HCl (Hydromorphone Hcl 1 Mg/Ml Syringe) 1 mg IVPUSH Q2H PRN; Protocol PRN Reason: Pain, Severe (Pain Scale 7-10) Last Admin: 06/05/21 12:53 Dose: 1 mg Documented by: Dextrose/Lactated Ringer's (D5lr) 1,000 mls @ 80 mls/hr IVCONT .[id number] [facility] Last Admin: 06/07/21 04:33 Dose: 80 mls/hr Documented by: Acetaminophen (Ofirmev) 1,000 mg in 100 mls @ 400 mls/hr IV Q6H [facility] Last Infusion: 06/07/21 03:48 Dose: Infused Documented by: Omeprazole (Omeprazole 40 Mg Capsule.) 40 mg PO DAILY@0630 [facility] Last Admin: 06/07/21 06:10 Dose: 40 mg Documented by: Ondansetron HCl (Ondansetron Hcl 4 Mg/2 Ml Vial) 4 mg IVPUSH QID PRN PRN Reason: Nausea Last Admin: 06/03/21 16:33 Dose: 4 mg Documented by: Oxycodone HCl (Oxycodone Hcl Immed Release 5 Mg Tablet) 10 mg PO Q4H PRN PRN Reason: Pain, Moderate (Pain Scale 4-6 Last Admin: 06/07/21 06:10 Dose: 10 mg Documented by: Pharmacy Consult (Consult Rx Perform Med Rec) 1 each MISCELLANE ONCE PRN PRN Reason: Consult order Polyethylene Glycol (Polyethylene Glycol 3350 17 Gm Powd.Pack) 17 gm PO DAILY [facility] Last Admin: 06/07/21 07:32 Dose: 17 gm Documented by: Sodium Biphosphate/Sodium Phosphate (Sodium Phosphate,[place]-Dibasic 133 Ml Enema) 133 ml [place] ONCE PRN PRN Reason: constipation Sodium Chloride (0.9 % Sodium Chloride Flush 3 Ml Syringe) 3 ml IVFLUSH QSHIFT [facility] Last Admin: 06/07/21 07:34 Dose: 3 ml Documented by: Zolpidem Tartrate (Zolpidem Tartrate 5 Mg Tablet) 5 mg PO BEDTIME PRN PRN Reason: Insomnia Last Admin: 06/06/21 20:06 Dose: 5 mg Documented by: Time Spent With Patient Time: Total time spent is greater than 50% in coordination of care (as documented) at patient's floor/unit and/or counseling patient: Time with patient: 15 - 24 minutes Quality Stroke Does the patient have a stroke diagnosis?: No VTE Prior VTE?: No VTE Risk Level:: Surgical - high VTE Device Contraindication: N/A - Device Ordered VTE Drug Contraindication: N/A - Med Ordered
[2021-06-07] MEDS: Sodium Phosphate,Mono-Dibasic 133 ML ENEMA PR (10:33)
--- NOTE | 2021-06-07 14:37 | P.DS_ITS ---
DS: Providers Provider Date of Service: 06/08/21 <Marlee Mixon PA-C - Last Filed: 06/10/21 10:34> Date of admission: 06/03/21 07:19 <SANDRA Bryant Last Filed: 06/10/21 10:34> Primary care physician: Ida Eisenberg DO <SANDRA Bryant Last Filed: 06/10/21 10:34> Attending physician on admission: Jose Riddle <Marlee Mixon PA-C - Last Filed: 06/10/21 10:34> DS: Transfer Hospital Acceptance Name of Facility: 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 He presents now for closure of colostomy. HOSPITAL COURSE: On 06/03/21, a colostomy closure was performed by Dr. Riddle without complication. Patient was found to have a patent ostomy connected to the transverse colon. He underwent any functional end-to-end anastomosis with the sigmoid colon. He tolerated the procedure well, completed routine recovery in PACU and was admitted for observation post operatively. He had an uncomplicated recovery course. He had difficulty with pain control for the initial first few post op days but became better controlled with the use of IV and PO analgesics. He was ambulated. His cuevas was removed on POD #1. He was tolerating clear liquids. His abdomen was benign with appropriate post op tenderness. His diet was advanced to solid on POD #2. He began to pass flatus but had no BM for several days post operatively. His activity was increased. He was started on colace and miralax without results and therefore given a fleets enema as he was noted to have hard stool in the sigmoid colon during the procedure. He began to move his bowels. His pain was well controlled on PO analgesics. He was tolerating a solid diet. His abdomen remained benign with clean incisions. He felt ready for discharge. He was transferred back to the [facility] on 06/09/21 in stable condition. He is to follow up with Dr. Riddle in 1 week for a wound check and his PCP upon discharge. <Marlee Mixon PA-C - Last Filed: 06/10/21 10:34> Status at Discharge Overall status at discharge: patient is progressing back to baseline <SANDRA Bryant Last Filed: 06/10/21 10:34> Time Spent with Patient Time attestation: Total time spent providing and/or coordinating discharge services: <SANDRA Bryant Last Filed: 06/10/21 10:34> Discharge coordination time: Greater than 30 minutes <SANDRA Bryant Last Filed: 06/10/21 10:34> Quality: Stroke Does the patient have a stroke diagnosis?: No <SANDRA Bryant Last Filed: 06/10/21 10:34> Physical Exam Verdana 4l Vital Signs: Verdana 4d Verdana 4d Vital Signs: Verdana 4d Verdana 4Bd Last Vital Signs Verdana 4d Bleach Chlorinator New 4d Bleach Chlorinator New 4d Temp 97.5 F 06/07/21 11:33 Bleach Chlorinator New 4d Pulse 73 06/07/21 11:33 Bleach Chlorinator New 4d Resp 18 06/07/21 11:33 BP 142/82 H 06/07/21 11:33 Pulse Ox 95 06/07/21 11:33 BMI result Body Mass Index 26.5 <SANDRA Bryant Last Filed: 06/10/21 10:34> Const: General: comfortable, no acute distress, well developed and alert <SANDRA Bryant Last Filed: 06/10/21 10:34> Orientation/consciousness: patient oriented x3 <SANDRA Bryant Last Filed: 06/10/21 10:34> GI: Inspection: Yes incision (clean) <SANDRA Bryant Last Filed: 06/10/21 10:34> Palpation (GI): Soft to palpation, Tenderness to palpation present (GI) (minimal, incisional), no guarding and not rigid <SANDRA Bryant Last Filed: 06/10/21 10:34> Skin: General skin exam: no rashes or lesions noted <SANDRA Bryant Last Filed: 06/10/21 10:34> Neuro: General: patient oriented x3 <SANDRA Bryant Last Filed: 06/10/21 10:34> Extrem: General: Yes no clubbing, cyanosis or edema <Marlee Mixon PA-C Last Filed: 06/10/21 10:34> DS: Data Data Completed and Pending Completed studies during hospitalization [Text1]: 06/03/21 09:49 Surgical [PTH] Routine Colostomy, excision: 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 Procedures Bypass Transverse Colon to Cutaneous, Open Approach (02/27/21) Excision of Descending Colon, Open Approach (02/27/21) Excision of Sigmoid Colon, Open Approach (02/27/21) <Marlee Mixon PA-C Last Filed: 06/10/21 10:34> Discharge Plan Discharge Patient Disposition: Xfer SNF <SANDRA Bryant Last Filed: 06/10/21 10:34> Discharge Diagnosis: s/p colostomy reversal <Marlee Mixon PA-C Last Filed: 06/10/21 10:34> Referrals: [facility] [Outside] - 1 Week Ida Eisenberg DO [Primary Care Provider] - 1 Week Jose Riddle MD [Physician] - 1 Week <SANDRA Bryant Last Filed: 06/10/21 10:34> Discharge Medications: New oxycodone 5 mg tablet 5 mg PO Q4H PRN (Reason: pain, severe) Qty: 30 0RF Continued amlodipine 2.5 mg Tablet 2.5 mg PO DAILY 0RF acetaminophen 325 mg Tablet 650 mg PO Q4H PRN (Reason: pain or fever) 0RF omeprazole 40 mg capsule,delayed release(DR/EC) 1 cap PO DAILY 0RF aspirin 81 mg tablet,delayed release (DR/EC) 1 tab PO DAILY 0RF <Marlee Mixon PA-C - Last Filed: 06/10/21 10:34> Discharge Orders: Discharge Order (Routine); Ordered 06/09/21 Ordered By: Isaiah Menon <SANDRA Bryant Last Filed: 06/10/21 10:34> Diet: advance to usual diet <SANDRA Bryant Last Filed: 06/10/21 10:34> Activity on Discharge: No heavy lifting <Marlee Mixon PA-C - Last Filed: 06/10/21 10:34> Stand Alone Forms: Patient Portal Discharge page <SANDRA Bryant Last Filed: 06/10/21 10:34> Activity Restrictions/Additional Instructions: If the incision area is tender, you may apply an ice pack for short intervals (No more than 20 minutes on, followed by at least 20 minutes off). Do not apply heat. Do not use creams, lotions, or topical antibiotics unless instructed to do so by your surgeon. These can cause infection or allergic reaction. Ok to shower. You have mary closing your incision and these will be removed approximately 10-14 days after surgery. NO HEAVY LIFTING (>10lbs). Follow up in office. ([phone]) Call Your Doctor If: -Your temperature exceeds 101.5? F -You experience excessive pain or swelling -You have an unexpected reaction to medication -You have excessive bleeding -You experience continued vomiting/nausea -Your incision begins to separate -Your incision shows signs of infection such as increased redness, swelling, excessive pain, drainage (light blood or clear fluid is normal) or heat <Marlee Mixon PA-C - Last Filed: 06/10/21 10:34> Care Plan Goals: Return to baseline health and gradual return to activity following recovery period. 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 F/u in office with Dr. Riddle and PCP in 1 week. <Marlee Mixon PA-C - Last Filed: 06/10/21 10:34> Assessment: Doing well post op. <Marlee Mixon PA-C - Last Filed: 06/10/21 10:34> Discharge Date/Time: 06/09/21 17:13 <Marlee Mixon PA-C - Last Filed: 06/10/21 10:34>
[2021-06-07 15:59] LABS: COVID-19 Test Negative (Negative)
[2021-06-07] MEDS: Mineral OiL enema 133 ML ENEMA PR (16:09)
--- NOTE | 2021-06-07 19:13 | PC.NURSE ---
Pt complains of constipation , fleet enema given at 10:33am. Pt held for about 15 minuets and went on the commode, liquid stool with small flecks of stool. 15:49 pt complains of pain 10/10 due to constipation. notified. Mineral oil enema given at 16:09. Pt held for about 5 minuets and went to the commode again, having liquid stool with small flecks of stool. He states pain decreased.
[2021-06-07] MEDS: HYDROmorphone HCl 1 MG/ML SYRINGE IVPUSH (19:50)
[2021-06-08] MEDS: oxyCODONE HCl Immed Release 5 MG TABLET 10 MG PO ×2 (01:26→05:58)
[2021-06-08 04:00] VITALS: BP 153/83; PULSE 59; RESP 18; TEMP 36.5; O2SAT 96
[2021-06-08] MEDS: Dextrose 5 % and Lactated Ring 1,000 ML 80 ML IVCONT ×3 (05:52→21:39)
[2021-06-08] MEDS: Omeprazole 40 MG CAPSULE.DR PO (05:58)
[2021-06-08 06:20] LABS: MANUAL DIFF FLAG NO
[2021-06-08 06:28] LABS: Basophils Percent Auto 0.4 % (0-2); Eosinophils Absolute Auto 0.4 X10*3/uL (0.0-0.4); Hematocrit 37.3 % (42.0-52.0); Hemoglobin 12.1 g/dl (14.0-18.0); Imm Gran Abs Auto 0.03 X10*3/uL (0.00-0.03); Imm Gran Pct Auto 0.4 % (0.0-0.4); Lymphocytes Absolute Auto 1.3 X10*3/uL (1.2-4.9); Lymphocytes Percent Auto 17.8 % (20-40); Mean Corpuscular HGB Conc 32.4 g/dl (31.0-36.0); Mean Corpuscular Hemoglobin 27.6 pg (27.0-33.0); Mean Platelet Volume 11.5 fL (9.4-12.4); Monocytes Absolute Auto 0.7 X10*3/uL (0.1-1.2); Monocytes Percent Auto 10.1 % (2-11); Neutrophils Absolute Auto 4.7 x10*3/uL (2.0-8.3); Neutrophils Percent Auto 66.3 % (45-73); Platelet Count 174 X10*3/uL (160-400); Red Blood Count 4.39 X10*6/uL (4.60-5.80); Red Cell Distribution Width 13.7 % (11.0-16.0); White Blood Count 7.2 X10*3/uL (4.8-10.8)
[2021-06-08 08:00] VITALS: BP 153/79; PULSE 67; RESP 18; TEMP 37.2; O2SAT 94
[2021-06-08] MEDS: Docusate Sodium 100 MG CAPSULE PO ×2 (08:02→21:32)
[2021-06-08] MEDS: Enoxaparin Sodium 40 MG/0.4 ML SYRINGE SUBCUT (08:02)
[2021-06-08] MEDS: Aspirin Enteric Coated 81 MG TABLET.DR PO (08:02)
[2021-06-08] MEDS: amLODIPine Besylate 2.5 MG TABLET PO (08:02)
[2021-06-08] MEDS: polyethylene glycoL 3350 17 GM POWD.PACK PO (08:02)
[2021-06-08] MEDS: 0.9 % Sodium Chloride Flush 3 ML SYRINGE IVFLUSH ×2 (08:03→16:34)
--- NOTE | 2021-06-08 09:50 | PM.PNGS ---
Subjective Subjective Date of Service: 06/08/21 Interval history: c/o pain on upper part of midline incision passing flatus had BMs yesterday no events reported Physical Exam Vital Signs: Vital Signs: Last Vital Signs Temp 98.9 F 06/08/21 08:00 Pulse 67 06/08/21 08:00 Resp 18 06/08/21 08:00 BP 153/79 H 06/08/21 08:00 Pulse Ox 94 06/08/21 08:00 BMI result Body Mass Index 26.5 Const: General: no acute distress Resp: Effort & Inspection: normal respiratory effort Cardio: Rate: regular rate GI: Other: soft, vague induration on uppermost part of midline incision, no fluctuance or drainage, incisions dry, healing well Palpation (GI): no guarding Objective Data Active Medications Amlodipine Besylate (Amlodipine Besylate 2.5 Mg Tablet) 2.5 mg PO DAILY [facility]; Protocol Last Admin: 06/08/21 08:02 Dose: 2.5 mg Documented by: DANIEL Aspirin (Aspirin Enteric Coated 81 Mg Tablet.) 81 mg PO DAILY [facility] Last Admin: 06/08/21 08:02 Dose: 81 mg Documented by: DANIEL Docusate Sodium (Docusate Sodium 100 Mg Capsule) 100 mg PO BID [facility] Last Admin: 06/08/21 08:02 Dose: 100 mg Documented by: DANIEL Enoxaparin Sodium (Enoxaparin Sodium 40 Mg/0.4 Ml Syringe) 40 mg SUBCUT Q24H [facility] Last Admin: 06/08/21 08:02 Dose: 40 mg Documented by: DANIEL Hydromorphone HCl (Hydromorphone Hcl 1 Mg/Ml Syringe) 1 mg IVPUSH Q2H PRN; Protocol PRN Reason: Pain, Severe (Pain Scale 7-10) Last Admin: 06/07/21 19:50 Dose: 1 mg Documented by: DANIEL Dextrose/Lactated Ringer's (D5lr) 1,000 mls @ 80 mls/hr IVCONT .[id number] [facility] Last Admin: 06/08/21 05:52 Dose: 80 mls/hr Documented by: DANIEL Acetaminophen (Ofirmev) 1,000 mg in 100 mls @ 400 mls/hr IV Q6H [facility] Last Infusion: 06/08/21 08:49 Dose: 0 mls/hr Documented by: CUCO Omeprazole (Omeprazole 40 Mg Capsule.Dr) 40 mg PO DAILY@0630 [facility] Last Admin: 06/08/21 05:58 Dose: 40 mg Documented by: DANIEL Ondansetron HCl (Ondansetron Hcl 4 Mg/2 Ml Vial) 4 mg IVPUSH QID PRN PRN Reason: Nausea Last Admin: 06/03/21 16:33 Dose: 4 mg Documented by: ANDERS Oxycodone HCl (Oxycodone Hcl Immed Release 5 Mg Tablet) 10 mg PO Q4H PRN PRN Reason: Pain, Moderate (Pain Scale 4-6 Last Admin: 06/08/21 05:58 Dose: 10 mg Documented by: DANIEL Pharmacy Consult (Consult Rx Perform Med Rec) 1 each MISCELLANE ONCE PRN PRN Reason: Consult order Polyethylene Glycol (Polyethylene Glycol 3350 17 Gm Powd.Pack) 17 gm PO DAILY [facility] Last Admin: 06/08/21 08:02 Dose: 17 gm Documented by: DANIEL Sodium Biphosphate/Sodium Phosphate (Sodium Phosphate,[place]-Dibasic 133 Ml Enema) 133 ml [place] ONCE PRN PRN Reason: constipation Last Admin: 06/07/21 10:33 Dose: 133 ml Documented by: YOMAIRA Sodium Chloride (0.9 % Sodium Chloride Flush 3 Ml Syringe) 3 ml IVFLUSH QSHIFT [facility] Last Admin: 06/08/21 08:03 Dose: 3 ml Documented by: DANIEL Zolpidem Tartrate (Zolpidem Tartrate 5 Mg Tablet) 5 mg PO BEDTIME PRN PRN Reason: Insomnia Last Admin: 06/06/21 20:06 Dose: 5 mg Documented by: LUIS MANUELQC Labs CBC & Chem 7: 06/08/21 05:51 06/04/21 05:28 Labs: Laboratory Results - last 24 hr 06/07/21 06/08/21 15:15 05:51 MCV 85.0 MCH 27.6 MCHC 32.4 RDW 13.7 Plt Count 174 MPV 11.5 Immature Gran % (Auto) 0.4 Neut % (Auto) 66.3 Lymph % (Auto) 17.8 L [place] % (Auto) 10.1 Eos % (Auto) 5.0 H Baso % (Auto) 0.4 Lymph # (Auto) 1.3 [place] # (Auto) 0.7 Eos # (Auto) 0.4 Baso # (Auto) 0.0 Abs Immat Gran (auto) 0.03 Absolute Neuts (auto) 4.7 Absolute Nucleated RBC 0.000 Nucleated RBC % (auto) 0.0 COVID-19 ([facility]) Negative COVID-19 Clin Com See Note Procedures Date of Service Date of Service: 06/08/21 Progress Note: A&P Assessment and plan (1) History of colostomy reversal: Status: Acute Assessment and Plan: s/p reversal of stoma has had GI function looks well c/o pain on upper pert of incision - appears to have a hematoma pain mgt says he is not ready to go to [place] today encourage ambulation Fall Risk Details Current Medications: Current Medications Amlodipine Besylate (Amlodipine Besylate 2.5 Mg Tablet) 2.5 mg PO DAILY [facility]; Protocol Last Admin: 06/08/21 08:02 Dose: 2.5 mg Documented by: Aspirin (Aspirin Enteric Coated 81 Mg Tablet.) 81 mg PO DAILY [facility] Last Admin: 06/08/21 08:02 Dose: 81 mg Documented by: Docusate Sodium (Docusate Sodium 100 Mg Capsule) 100 mg PO BID [facility] Last Admin: 06/08/21 08:02 Dose: 100 mg Documented by: Enoxaparin Sodium (Enoxaparin Sodium 40 Mg/0.4 Ml Syringe) 40 mg SUBCUT Q24H [facility] Last Admin: 06/08/21 08:02 Dose: 40 mg Documented by: Hydromorphone HCl (Hydromorphone Hcl 1 Mg/Ml Syringe) 1 mg IVPUSH Q2H PRN; Protocol PRN Reason: Pain, Severe (Pain Scale 7-10) Last Admin: 06/07/21 19:50 Dose: 1 mg Documented by: Dextrose/Lactated Ringer's (D5lr) 1,000 mls @ 80 mls/hr IVCONT .[id number] [facility] Last Admin: 06/08/21 05:52 Dose: 80 mls/hr Documented by: Acetaminophen (Ofirmev) 1,000 mg in 100 mls @ 400 mls/hr IV Q6H [facility] Last Infusion: 06/08/21 08:49 Dose: Infused Documented by: Omeprazole (Omeprazole 40 Mg Capsule.Dr) 40 mg PO DAILY@0630 [facility] Last Admin: 06/08/21 05:58 Dose: 40 mg Documented by: Ondansetron HCl (Ondansetron Hcl 4 Mg/2 Ml Vial) 4 mg IVPUSH QID PRN PRN Reason: Nausea Last Admin: 06/03/21 16:33 Dose: 4 mg Documented by: Oxycodone HCl (Oxycodone Hcl Immed Release 5 Mg Tablet) 10 mg PO Q4H PRN PRN Reason: Pain, Moderate (Pain Scale 4-6 Last Admin: 06/08/21 05:58 Dose: 10 mg Documented by: Pharmacy Consult (Consult Rx Perform Med Rec) 1 each MISCELLANE ONCE PRN PRN Reason: Consult order Polyethylene Glycol (Polyethylene Glycol 3350 17 Gm Powd.Pack) 17 gm PO DAILY [facility] Last Admin: 06/08/21 08:02 Dose: 17 gm Documented by: Sodium Biphosphate/Sodium Phosphate (Sodium Phosphate,[place]-Dibasic 133 Ml Enema) 133 ml [place] ONCE PRN PRN Reason: constipation Last Admin: 06/07/21 10:33 Dose: 133 ml Documented by: Sodium Chloride (0.9 % Sodium Chloride Flush 3 Ml Syringe) 3 ml IVFLUSH QSHIFT [facility] Last Admin: 06/08/21 08:03 Dose: 3 ml Documented by: Zolpidem Tartrate (Zolpidem Tartrate 5 Mg Tablet) 5 mg PO BEDTIME PRN PRN Reason: Insomnia Last Admin: 06/06/21 20:06 Dose: 5 mg Documented by: Time Spent With Patient Time: Total time spent is greater than 50% in coordination of care (as documented) at patient's floor/unit and/or counseling patient: Time with patient: 15 - 24 minutes Quality Stroke Does the patient have a stroke diagnosis?: No VTE Prior VTE?: No VTE Risk Level:: Surgical - high VTE Device Contraindication: N/A - Device Ordered VTE Drug Contraindication: N/A - Med Ordered
--- NOTE | 2021-06-08 10:13 | MHC.CM.PN ---
PLAN IS RETURN TO [facility] ON THURSDAY (ACCORDING TO SURGICAL) FACILITY UPDATED IN [facility] IMM 06/08 IN CHART
[2021-06-08 12:00] VITALS: BP 147/79; PULSE 62; RESP 18; TEMP 36.7; O2SAT 93
[2021-06-08 16:00] VITALS: BP 152/76; PULSE 72; RESP 16; TEMP 37.6; O2SAT 96
--- NOTE | 2021-06-08 17:51 | PC.NURSE ---
Pt alert and oriented x3 but is [place]ian speaking. Pt C/O ABD pain and tenderness. On assesment, righ ABD surgical site wound is slightly edematous and painful. notified via [facility]. and was at bedside to assess pt. Pt received his scheduled IV Tylenol and stated that that helped. Pt also continues on IV ABT therapy. pt did have a BM today.
[2021-06-08 19:32] VITALS: BP 157/77; PULSE 73; RESP 16; TEMP 37.2; O2SAT 96
[2021-06-09] VITALS: BP 142/83; PULSE 70; RESP 18; TEMP 36.8; O2SAT 96
[2021-06-09] MEDS: oxyCODONE HCl Immed Release 5 MG TABLET 10 MG PO ×3 (02:46→17:10)
[2021-06-09 04:00] VITALS: BP 140/87; PULSE 68; RESP 18; TEMP 36.3; O2SAT 96
[2021-06-09] MEDS: Omeprazole 40 MG CAPSULE.DR PO (05:49)
[2021-06-09] MEDS: Enoxaparin Sodium 40 MG/0.4 ML SYRINGE SUBCUT (07:33)
[2021-06-09] MEDS: polyethylene glycoL 3350 17 GM POWD.PACK PO (07:33)
[2021-06-09] MEDS: Docusate Sodium 100 MG CAPSULE PO (07:34)
[2021-06-09] MEDS: Aspirin Enteric Coated 81 MG TABLET.DR PO (07:34)
[2021-06-09] MEDS: amLODIPine Besylate 2.5 MG TABLET PO (07:34)
[2021-06-09] MEDS: 0.9 % Sodium Chloride Flush 3 ML SYRINGE IVFLUSH ×2 (07:35→15:21)
[2021-06-09 07:38] VITALS: BP 170/85; PULSE 63; RESP 18; TEMP 37; O2SAT 96
--- NOTE | 2021-06-09 10:08 | PM.PNGS ---
Subjective Subjective Date of Service: 06/09/21 Interval history: feels much better pain on incision much improved good PO intake ambulating - seen by PT has BMs, flatus Physical Exam Vital Signs: Vital Signs: Last Vital Signs Temp 98.6 F 06/09/21 07:38 Pulse 63 06/09/21 07:38 Resp 18 06/09/21 07:38 BP 170/85 H 06/09/21 07:38 Pulse Ox 96 06/09/21 07:38 BMI result Body Mass Index 26.5 Const: Other: seen ambulating with assistance General: comfortable and no acute distress Resp: Effort & Inspection: normal respiratory effort Cardio: Rhythm: regular rhythm GI: Other: soft, incision clean, no fluctuance, no drainage, tenderness appropriate, small induration on superior aspect of incision without redness suggestive of hematoma Objective Data Active Medications Amlodipine Besylate (Amlodipine Besylate 2.5 Mg Tablet) 2.5 mg PO DAILY [facility]; Protocol Last Admin: 06/09/21 07:34 Dose: 2.5 mg Documented by: CUCO Aspirin (Aspirin Enteric Coated 81 Mg Tablet.) 81 mg PO DAILY [facility] Last Admin: 06/09/21 07:34 Dose: 81 mg Documented by: CUCO Docusate Sodium (Docusate Sodium 100 Mg Capsule) 100 mg PO BID [facility] Last Admin: 06/09/21 07:34 Dose: 100 mg Documented by: CUCO Enoxaparin Sodium (Enoxaparin Sodium 40 Mg/0.4 Ml Syringe) 40 mg SUBCUT Q24H [facility] Last Admin: 06/09/21 07:33 Dose: 40 mg Documented by: CUCO Hydromorphone HCl (Hydromorphone Hcl 1 Mg/Ml Syringe) 1 mg IVPUSH Q2H PRN; Protocol PRN Reason: Pain, Severe (Pain Scale 7-10) Last Admin: 06/07/21 19:50 Dose: 1 mg Documented by: LYDIARISZane Dextrose/Lactated Ringer's (D5lr) 1,000 mls @ 80 mls/hr IVCONT .[id number] [facility] Last Infusion: 06/09/21 08:53 Dose: 0 mls/hr Documented by: CUCO Acetaminophen (Ofirmev) 1,000 mg in 100 mls @ 400 mls/hr IV Q6H [facility] Last Infusion: 06/09/21 08:35 Dose: 0 mls/hr Documented by: CUCO Omeprazole (Omeprazole 40 Mg Maye.) 40 mg PO DAILY@0630 [facility] Last Admin: 06/09/21 05:49 Dose: 40 mg Documented by: DANIEL Ondansetron HCl (Ondansetron Hcl 4 Mg/2 Ml Vial) 4 mg IVPUSH QID PRN PRN Reason: Nausea Last Admin: 06/03/21 16:33 Dose: 4 mg Documented by: ANDERS Oxycodone HCl (Oxycodone Hcl Immed Release 5 Mg Tablet) 10 mg PO Q4H PRN PRN Reason: Pain, Moderate (Pain Scale 4-6 Last Admin: 06/09/21 02:46 Dose: 10 mg Documented by: DANIEL Pharmacy Consult (Consult Rx Perform Med Rec) 1 each MISCELLANE ONCE PRN PRN Reason: Consult order Polyethylene Glycol (Polyethylene Glycol 3350 17 Gm Powd.Pack) 17 gm PO DAILY [facility] Last Admin: 06/09/21 07:33 Dose: 17 gm Documented by: CUCO Sodium Biphosphate/Sodium Phosphate (Sodium Phosphate,[place]-Dibasic 133 Ml Enema) 133 ml [place] ONCE PRN PRN Reason: constipation Last Admin: 06/07/21 10:33 Dose: 133 ml Documented by: YOMAIRA Sodium Chloride (0.9 % Sodium Chloride Flush 3 Ml Syringe) 3 ml IVFLUSH QSHIFT [facility] Last Admin: 06/09/21 07:35 Dose: 3 ml Documented by: CUCO Zolpidem Tartrate (Zolpidem Tartrate 5 Mg Tablet) 5 mg PO BEDTIME PRN PRN Reason: Insomnia Last Admin: 06/06/21 20:06 Dose: 5 mg Documented by: RA Labs CBC & Chem 7: 06/08/21 05:51 06/04/21 05:28 Procedures Date of Service Date of Service: 06/09/21 Progress Note: A&P Assessment and plan (1) History of colostomy reversal: Status: Acute Plan s/p reversal good GI function abd soft incision clean and dry good PO intake says he is ok to return to [place] seen by PT yesterday ffup with Dr. Riddle instructions given to pt; official court interpreter used Fall Risk Details Current Medications: Current Medications Amlodipine Besylate (Amlodipine Besylate 2.5 Mg Tablet) 2.5 mg PO DAILY [facility]; Protocol Last Admin: 06/09/21 07:34 Dose: 2.5 mg Documented by: Aspirin (Aspirin Enteric Coated 81 Mg Tablet.) 81 mg PO DAILY [facility] Last Admin: 06/09/21 07:34 Dose: 81 mg Documented by: Docusate Sodium (Docusate Sodium 100 Mg Capsule) 100 mg PO BID [facility] Last Admin: 06/09/21 07:34 Dose: 100 mg Documented by: Enoxaparin Sodium (Enoxaparin Sodium 40 Mg/0.4 Ml Syringe) 40 mg SUBCUT Q24H [facility] Last Admin: 06/09/21 07:33 Dose: 40 mg Documented by: Hydromorphone HCl (Hydromorphone Hcl 1 Mg/Ml Syringe) 1 mg IVPUSH Q2H PRN; Protocol PRN Reason: Pain, Severe (Pain Scale 7-10) Last Admin: 06/07/21 19:50 Dose: 1 mg Documented by: Dextrose/Lactated Ringer's (D5lr) 1,000 mls @ 80 mls/hr IVCONT .[id number] [facility] Last Infusion: 06/09/21 08:53 Dose: Infused Documented by: Acetaminophen (Ofirmev) 1,000 mg in 100 mls @ 400 mls/hr IV Q6H [facility] Last Infusion: 06/09/21 08:35 Dose: Infused Documented by: Omeprazole (Omeprazole 40 Mg Capsule.) 40 mg PO DAILY@0630 [facility] Last Admin: 06/09/21 05:49 Dose: 40 mg Documented by: Ondansetron HCl (Ondansetron Hcl 4 Mg/2 Ml Vial) 4 mg IVPUSH QID PRN PRN Reason: Nausea Last Admin: 06/03/21 16:33 Dose: 4 mg Documented by: Oxycodone HCl (Oxycodone Hcl Immed Release 5 Mg Tablet) 10 mg PO Q4H PRN PRN Reason: Pain, Moderate (Pain Scale 4-6 Last Admin: 06/09/21 02:46 Dose: 10 mg Documented by: Pharmacy Consult (Consult Rx Perform Med Rec) 1 each MISCELLANE ONCE PRN PRN Reason: Consult order Polyethylene Glycol (Polyethylene Glycol 3350 17 Gm Powd.Pack) 17 gm PO DAILY [facility] Last Admin: 06/09/21 07:33 Dose: 17 gm Documented by: Sodium Biphosphate/Sodium Phosphate (Sodium Phosphate,[place]-Dibasic 133 Ml Enema) 133 ml [place] ONCE PRN PRN Reason: constipation Last Admin: 06/07/21 10:33 Dose: 133 ml Documented by: Sodium Chloride (0.9 % Sodium Chloride Flush 3 Ml Syringe) 3 ml IVFLUSH QSHIFT [facility] Last Admin: 06/09/21 07:35 Dose: 3 ml Documented by: Zolpidem Tartrate (Zolpidem Tartrate 5 Mg Tablet) 5 mg PO BEDTIME PRN PRN Reason: Insomnia Last Admin: 06/06/21 20:06 Dose: 5 mg Documented by: Time Spent With Patient Time: Total time spent is greater than 50% in coordination of care (as documented) at patient's floor/unit and/or counseling patient: Time with patient: 15 - 24 minutes Quality Stroke Does the patient have a stroke diagnosis?: No VTE Prior VTE?: No VTE Risk Level:: Surgical - high VTE Device Contraindication: N/A - Device Ordered VTE Drug Contraindication: N/A - Med Ordered
--- NOTE | 2021-06-09 10:35 | P.DS_ITS ---
DS: Providers Provider Date of Service: 06/09/21 Date of admission: 06/03/21 07:19 Primary care physician: Ida Eisenberg DO DS: Diagnosis Discharge Diagnosis (1) History of colostomy reversal: Status: Acute DS: Summary Hospital Course Hospital Course: BRIEF HPI: 71-year-old male patient with a previous history of ischemic and necrotic bowel status post left colectomy and ostomy in the right upper quadrant. He presents now for closure of colostomy. HOSPITAL COURSE: On 06/03/21, a colostomy closure was performed by Dr. Riddle without complication. Patient was found to have a patent ostomy connected to the transverse colon. He underwent any functional end-to-end anastomosis with the sigmoid colon. He tolerated the procedure well, completed routine recovery in PACU and was admitted for observation post operatively. He had an uncomplicated recovery course. He had difficulty with pain control for the initial first few post op days but became better controlled with the use of IV and PO analgesics. He was ambulated. His cuevas was removed on POD #1. He was tolerating clear liquids. His abdomen was benign with appropriate post op tenderness. His diet was advanced to solid on POD #2. He began to pass flatus but had no BM for several days post operatively. His activity was increased. He was started on colace and miralax without results and therefore given a fleets enema as he was noted to have hard stool in the sigmoid colon during the procedure. He began to move his bowels. His pain was well controlled on PO analgesics. He was tolerating a solid diet. His abdomen remained benign with clean incisions. He felt ready for discharge. He was transferred back to the [facility] on 06/09/21 in stable condition. He is to follow up with Dr. Riddle in 1 week for a wound check and his PCP upon discharge. Time Spent with Patient Time attestation: Total time spent providing and/or coordinating discharge services: Discharge coordination time: Greater than 30 minutes Quality: Stroke Does the patient have a stroke diagnosis?: No Physical Exam Verdana 4l Vital Signs: Verdana 4d Verdana 4d Vital Signs: Verdana 4d Verdana 4Bd Last Vital Signs Verdana 4d Chief Supply Chain Officer New 4d Chief Supply Chain Officer New 4d Temp 98.6 F 06/09/21 07:38 Chief Supply Chain Officer New 4d Pulse 63 06/09/21 07:38 Chief Supply Chain Officer New 4d Resp 18 06/09/21 07:38 BP 170/85 H 06/09/21 07:38 Pulse Ox 96 06/09/21 07:38 BMI result Body Mass Index 26.5 DS: Data Data Completed and Pending Completed studies during hospitalization [Text1]: Pending at discharge 06/03/21 09:49 Surgical [PTH] Routine Procedures Bypass Transverse Colon to Cutaneous, Open Approach (02/27/21) Excision of Descending Colon, Open Approach (02/27/21) Excision of Sigmoid Colon, Open Approach (02/27/21) Discharge Plan Discharge Patient Disposition: [facility] Discharge Diagnosis: s/p colostomy reversal Referrals: [facility] [Outside] - 1 Week Ida Eisenberg DO [Primary Care Provider] - 1 Week Jose Riddle MD [Physician] - 1 Week Discharge Medications: New oxycodone 5 mg tablet 5 mg PO Q4H PRN (Reason: pain, severe) Qty: 30 0RF Continued amlodipine 2.5 mg Tablet 2.5 mg PO DAILY 0RF acetaminophen 325 mg Tablet 650 mg PO Q4H PRN (Reason: pain or fever) 0RF omeprazole 40 mg capsule,delayed release(DR/EC) 1 cap PO DAILY 0RF aspirin 81 mg tablet,delayed release (DR/EC) 1 tab PO DAILY 0RF Discharge Orders: Discharge Order (Routine); Ordered 06/09/21 Ordered By: Isaiah Menon Diet: advance to usual diet Activity on Discharge: No heavy lifting Stand Alone Forms: Patient Portal Discharge page Activity Restrictions/Additional Instructions: If the incision area is tender, you may apply an ice pack for short intervals (No more than 20 minutes on, followed by at least 20 minutes off). Do not apply heat. Do not use creams, lotions, or topical antibiotics unless instructed to do so by your surgeon. These can cause infection or allergic reaction. Ok to shower. You have mary closing your incision and these will be removed approximately 10-14 days after surgery. NO HEAVY LIFTING (>10lbs). Follow up in office. ([phone]) Call Your Doctor If: -Your temperature exceeds 101.5? F -You experience excessive pain or swelling -You have an unexpected reaction to medication -You have excessive bleeding -You experience continued vomiting/nausea -Your incision begins to separate -Your incision shows signs of infection such as increased redness, swelling, excessive pain, drainage (light blood or clear fluid is normal) or heat Care Plan Goals: Return to baseline health and gradual return to activity following recovery period. 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 Riddle and PCP in 1 week. Assessment: Doing well post op.
--- NOTE | 2021-06-09 11:47 | MHC.CM.PN ---
Addendum entered by Arlene Desir 06/09/21 15:37: CM CONTACTED SNF, PTS INSURANCE HAS PROVIDED AUTH. PT SET TO GO AROUND 1600 DEPENDING ON AMBULANCE AVAILABILITY Original Note: PT TO RETURN TO [facility] TODAY PENDING INSURANCE AUTH TRANSPORT [facility]IA [facility] VAN HAS BEEN TENTATIVELY SET FOR 1600 HOURS.
[2021-06-09 12:00] VITALS: BP 160/78; PULSE 80; RESP 18; TEMP 37.2; O2SAT 97
--- NOTE | 2021-06-09 12:59 | PC.NURSE ---
Pt alert andorientedx3.Pt C/O5/10paintothe ABD surgical site area especially with activity. Scheduled Tylenol and PRN Oxycodone given with good effect. Dry dressing applied to ABD wound due to minimal drainage. ABD surgical to the RUQ is slightlt warm to touch and slightly edematous. Pt ambulated with supervision.
[2021-06-09 15:46] VITALS: BP 139/79; PULSE 76; RESP 17; TEMP 37.5; O2SAT 96
== END 2021-06-09 17:13 | disposition skilled nursing facility (03) | DRG 331 ==
LOC: HO.SSSA 07:39 → HO.S3 13:20
PROVIDERS: Nurse Practitioner; Admitting Provider Surgery; PCP Family Medicine; Visit Provider Surgery
PROC: 0DQN0ZZ Repair Sigmoid Colon, Open Approach (ICD-10-PCS; CPT 44620; principal; 2021-06-03 07:30)
DX: Z43.3 Encounter for attention to colostomy (principal); Z87.891 Personal history of nicotine dependence; Z79.899 Other long term (current) drug therapy
CPT/HCPCS: 36415; 80048; 85025; 87071; 87205; 87635; 88304; 97162; 99024; J0131; J1100; J1170; J1650; J2250; J2405; J3010

== ENCOUNTER → 2021-06-14 09:48 | Outpatient (BNVA) | payer MEDICARE, SELFPAY | PROVIDERS: PCP Family Medicine; Referring Provider Family Medicine; Visit Provider Surgery | DX: Z98.890 Other specified postprocedural states (principal) | CPT/HCPCS: 99212 ==

== ENCOUNTER → 2021-07-12 11:02 | Outpatient (BNVA) | payer MEDICARE, SELFPAY | PROVIDERS: PCP Family Medicine; Referring Provider Family Medicine; Visit Provider Surgery | DX: Z48.815 Encounter for surgical aftercare following surgery on the digestive system (principal); Z98.890 Other specified postprocedural states | CPT/HCPCS: 99212 ==

== ENCOUNTER 2021-08-26 14:35 | Outpatient (REF) | payer OTHER, SELFPAY ==
[2021-08-26 16:04] LABS: Alanine Aminotransferase 11 U/L (0-40); Albumin Level 4.2 g/dL (3.5-5.0); Alkaline Phosphatase 120 U/L (39-117); Aspartate Amino Transferase 15 U/L (5-37); Bilirubin Direct 0.2 mg/dL (0.0-0.5); Bilirubin Total 0.6 mg/dL (0.0-1.0); Total Protein 7.2 g/dL (6.5-8.0)
[2021-08-26 16:24] LABS: Syphilis Screen Nonreactive (Nonreactive)
[2021-08-26 16:30] LABS: Vitamin B12 234 pg/mL (200-900)
== END 2021-08-26 14:36 | disposition home or self-care (01) ==
LOC: HO.LAB 14:35
PROVIDERS: PCP Internal Medicine; Visit Provider Psychiatry & Neurology Neurology
DX: F10.27 Alcohol dependence with alcohol-induced persisting dementia (principal)
CPT/HCPCS: 36415; 80076; 82607; 86780

== ENCOUNTER 2022-12-12 13:20 | Outpatient (AMB) | payer OTHER, SELFPAY ==
--- NOTE | 2022-12-12 13:27 | MHC.OFFVIS ---
Intake Vital Signs 12/12/22 13:33 Weight 170 lb Intake Visit Reasons: f/u Intake Note: Patient presents to in office visit today in follow up of abdominal pain. CC: Patient c/o epigastric abdominal pain. Solid Waste Collection Worker Required: Yes Allergies No Known Allergies [No Known Allergies*] Allergy (Verified 06/14/21 09:52) HPI f/u HPI Details Assessment & Plan (1) Ischemic colitis: ?Code(s): K55.9 - Vascular disorder of intestine, unspecified ?Plan: Pakistani #[id number] [place] Patient was seen by Dr. Riddle after presenting to the emergency room and had a partial colectomy with colostomy bag by Dr. Riddle.?? Whether this occurred after the referral to our services. He is here today in a wheelchair. He tells me that the pain he used to have in his abdomen went away. He says the only problem? he is having now is with his chronic back pain. He denies any trouble with eating or moving his bowels. He feels much stronger now that I did before, He is only in a w/c because of his back problems and says I can't bend over to tie my shoes. He is waiting to see if his colostomy will be reversed in 2 months. At this point I really do not think he needs a GI consult I tell him that he has a welcome to return if any other problems arise but for now he should continue to follow with Dr. Riddle.? (2) Necrosis of colon: ?Code(s): K55.049 - Acute infarction of large intestine, extent unspecified TODAY'S VISIT Pakistani #HalleyJm HE says that he is very bothered because of frequent diarrhea since his colostomy was re attached. He will rarely have more solid stools but they are still very soft at best and in small pieces. He will have liquid stools tid or more. He shows me his surgery. 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 He had ischemia of the left colon and transverse colostomy which was later reversed. It does not appear that any specific reason for this occurrence was able to be uncovered for example: infection versus thrombus verses vasoconstrictive medications verses inherited hypercoagulability/cardiac causes. . ROV 2 weeks, start carafate 1 tab qhs and titrate as needed. [facility] Medical History (Updated 12/12/22 @ 14:07 by NETTIE Nielsen) Acute COVID-19 Allergic rhinitis Arthritis Chronic low back pain GERD (gastroesophageal reflux disease) High cholesterol History of alcohol abuse HTN (hypertension) Illiterate Necrosis of colon Surgical History Colostomy in place History of colostomy reversal (06/03/21) History of cystoscopy History of prostate surgery Hx of colonoscopy S/P left colectomy (~02/27/21) Social History Household Members: Unknown / Unable to assess Housing: Unknown / Unable to assess Do you presently have visiting nurse or other home services: No (from [facility]) Unable to assess alcohol history related to: Unknown Alcohol intake: never Patient Tobacco Use Status: Former Tobacco user Quit Date: 4 YRS AGO Tobacco use type: Cigarette Advance Directives Date on File: 06/03/21 service: No Current occupational status: unemployed Review of Systems Const Denies fatigue, Denies fever(s), Denies night sweats, Denies poor appetite and Denies weight loss ENT Reports Normal hearing present, Denies dysphagia, Denies odynophagia, Denies throat swelling and Denies tongue swelling Card Reports no additional complaints Resp Reports no additional complaints GI Denies abdominal pain, Denies melena, Denies bloating, Denies hematochezia, Denies constipation, Reports GI cramping, Denies dysphagia, Denies excessive flatus, Denies early satiety, Denies heartburn, Reports diarrhea, Denies nausea, Denies odynophagia, Denies vomiting and Denies hematemesis Skin/Breast Denies pruritus, Denies lesions, Denies rash and Denies jaundice Neuro Reports Normal hearing present and Denies Abnormal speech present Endo Denies fatigue Aller/Immun Denies throat swelling and Denies tongue swelling Physical Exam Const General: cooperative, no acute distress, well developed and well groomed Nutritional Appearance: average body habitus and well nourished Orientation/consciousness: oriented to person, oriented to place and oriented to time Limitations: language barrier HEENT Head: Yes normocephalic and Yes atraumatic Eyes General: appearance normal, both eyes and all related structures Pupils: Equal, round and reactive pupils present Neck Neck: Yes normal visual inspection and Yes no lymphadenopathy Thyroid: Thyroid normal Resp Effort & Inspection: normal respiratory effort and able to speak in complete sentences Auscultation: clear to auscultation bilaterally Cardio Rate: regular rate Rhythm: regular rhythm Heart sounds: Normal, physiologic split S2 sound present Peripheral pulses: radial pulses present and posterior tibial pulses present GI Inspection: No distended, No Abdominal panniculus present and Yes scar Palpation (GI): Soft to palpation, nontender, no guarding, not rigid and No hepatosplenomegaly present Percussion: Yes normal to percussion Auscultation: normal bowel sounds Rectal Exam - Male: Yes deferred Abdomen image: 1. umbilical hernia 2. well healed surgical scars 3. Skin General skin exam: no rashes or lesions noted, turgor normal, skin not dry, no jaundice, No spider nevi and no striae Rashes: no rashes Nails: normal Neuro General: oriented to person, oriented to place and oriented to time Cranial nerves: Yes Equal, round and reactive pupils present and Yes Normal hearing present Speech: No Abnormal speech present Extrem General: Yes normal to inspection, No clubbing, No cyanosis and No edema Psych Appearance: grossly normal and well kempt Mental Status: mental status grossly normal Speech and movement: Normal speech and movement present Affect: normal affect Attitude: cooperative Thought process: Normal thought process present and not confabulating Thought content: Normal thought content present Insight: Limited insight present (Psych) Judgement: Limited judgement present (Psych) Assessment & Plan Assessment & Plan (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 He will rarely have more solid stools but they are still very soft at best and in small pieces. He will have liquid stools tid or more. He shows me his surgery. 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 He had ischemia of the left colon and transverse colostomy which was later reversed. It does not appear that any specific reason for this occurrence was able to be uncovered for example: infection versus thrombus verses vasoconstrictive medications verses inherited hypercoagulability/cardiac causes. . ROV 2 weeks, start carafate 1 tab qhs and titrate as needed. (2) History of colostomy reversal: Onset Date: 06/03/21 Code(s): Z98.890 - Other specified postprocedural states Medications: New sucralfate (Carafate) 1 g PO BEDTIME 30 tabs 3RF K91.2 - Postsurgical malabsorption, not elsewhere classified, Z98.890 - Other specified postprocedural states Coding Level of Care Code Est Pt Level 3 (48856) Diagnoses Short bowel syndrome K91.2 History of colostomy reversal Z98.890
== END 2022-12-12 14:37 | disposition home or self-care (01) ==
PROVIDERS: PCP Internal Medicine; Visit Provider Nurse Practitioner
DX: K91.2 Postsurgical malabsorption, not elsewhere classified (principal); Z98.890 Other specified postprocedural states
CPT/HCPCS: 99213

== ENCOUNTER → 2022-12-12 13:20 | Outpatient (BNVA) | payer OTHER, SELFPAY | PROVIDERS: PCP Internal Medicine; Visit Provider Nurse Practitioner | DX: K55.9 Vascular disorder of intestine, unspecified (principal); K91.2 Postsurgical malabsorption, not elsewhere classified; Z90.49 Acquired absence of other specified parts of digestive tract; Z93.3 Colostomy status | CPT/HCPCS: 99212 ==

== ENCOUNTER 2023-08-12 08:49 | Outpatient (REF) | payer OTHER, SELFPAY ==
[2023-08-12 11:35] LABS: MANUAL DIFF FLAG NO
[2023-08-12 11:53] LABS: Basophils Absolute Auto 0.1 X10*3/uL (0.0-0.2); Basophils Percent Auto 0.5 % (0-2); Eosinophils Absolute Auto 0.3 X10*3/uL (0.0-0.4); Eosinophils Percent Auto 2.8 % (0-4); Hematocrit 44.8 % (42.0-52.0); Hemoglobin 14.2 g/dl (14.0-18.0); Imm Gran Abs Auto 0.05 X10*3/uL (0.00-0.03); Imm Gran Pct Auto 0.4 % (0.0-0.4); Lymphocytes Absolute Auto 1.7 X10*3/uL (1.2-4.9); Lymphocytes Percent Auto 14.3 % (20-40); Mean Corpuscular HGB Conc 31.7 g/dl (31.0-36.0); Mean Corpuscular Hemoglobin 28.1 pg (27.0-33.0); Mean Corpuscular Volume 88.7 fL (80.0-98.0); Mean Platelet Volume 12.9 fL (9.4-12.4); Monocytes Absolute Auto 0.9 X10*3/uL (0.1-1.2); Monocytes Percent Auto 7.7 % (2-11); Neutrophils Absolute Auto 8.6 x10*3/uL (2.0-8.3); Neutrophils Percent Auto 74.3 % (45-73); Platelet Count 198 X10*3/uL (160-400); Red Blood Count 5.05 X10*6/uL (4.60-5.80); Red Cell Distribution Width 15.3 % (11.0-16.0); White Blood Count 11.6 X10*3/uL (4.8-10.8)
[2023-08-12 12:22] LABS: Alanine Aminotransferase 11 U/L (0-40); Albumin Level 4.1 g/dL (3.5-5.0); Alkaline Phosphatase 172 U/L (39-117); Anion Gap 14 (12-20); Aspartate Amino Transferase 19 U/L (5-37); Bilirubin Direct 0.3 mg/dL (0.0-0.5); Bilirubin Total 0.9 mg/dL (0.0-1.0); Blood Urea Nitrogen 18 mg/dL (9-16); Calcium 8.8 mg/dL (8.4-10.2); Carbon Dioxide 26 mmol/L (22-29); Chloride 109 mmol/L (96-108); Cholesterol 147 mg/dL (<200); Estimated Glomerular Filt Rate > 60; Glucose Random 102 mg/dL (60-115); HDL Cholesterol 35 mg/dL (>40); LDL Cholesterol Calculated 93 mg/dL (<100); Potassium 5.2 mmol/L (3.3-5.1); Sodium 144 mmol/L (135-145); Total Protein 7.1 g/dL (6.5-8.0); Triglycerides 98 mg/dL (<150)
[2023-08-12 12:24] LABS: Estimated Average Glucose 114 mg/dL; Hemoglobin A1c % 5.6 % (<6.0)
== END 2023-08-12 08:50 | disposition home or self-care (01) ==
LOC: HO.HHCL 08:49
PROVIDERS: Visit Provider Internal Medicine
DX: I10 Essential (primary) hypertension (principal); R73.03 Prediabetes
CPT/HCPCS: 36415; 80048; 80061; 80076; 83036; 85025

== ENCOUNTER 2024-03-10 13:34 | Emergency (ER) | payer OTHER, SELFPAY ==
--- NOTE | ~2024-03-10 | XR_ITS ---
EXAMINATION: XR ANKLE, LEFT CLINICAL INFORMATION: Pain COMPARISON: None available. TECHNIQUE: AP, lateral, and mortise views of the left ankle. FINDINGS: No acute cortical disruption or malalignment. No lytic or blastic lesions. No subcutaneous emphysema. XR/XR ankle LT min 3V IMPRESSION: No acute fracture or dislocation. Electronically signed by: Vasile Carpenter MD 03/10/2024 03:26 PM EST
--- NOTE | ~2024-03-10 | XR_ITS ---
EXAMINATION: XR FOOT, LEFT CLINICAL INFORMATION: Pain. COMPARISON: None available. TECHNIQUE: AP, lateral, and oblique views of the left foot. FINDINGS: No acute cortical disruption or malalignment. No lytic or blastic lesions. No subcutaneous emphysema. XR/XR foot LT min 3V IMPRESSION: No acute fracture or dislocation. Electronically signed by: Vasile Carpenter MD 03/10/2024 03:29 PM [facility]
[2024-03-10 13:43] VITALS: BP 144/71; PULSE 84; RESP 16; TEMP 37.1; O2SAT 98; BMI 27.8
--- NOTE | 2024-03-10 13:44 | ED.GENADULT ---
HPI - General Adult General Chief complaint: Extremity Problem Stated complaint: L foot pain Time Seen by Provider: 03/10/24 16:04 Source: patient, RN notes reviewed and old records reviewed Mode of arrival: ambulatory History of Present Illness ED Provider: Shanthi Leger PA-C HPI narrative: 73-year-old male with a past medical history of ETOH abuse, arthritis, GERD, HLD, HTN, presenting to the ED complaining of acute on chronic left foot pain x months. Admits to previously having area shaved. Denies recent injury, trauma, fall, numbness/tingling Related Data Home Medications ?Medication ?Instructions ?Recorded ?Confirmed aspirin 81 mg tablet,delayed 1 tab PO DAILY 02/27/21 06/14/21 release omeprazole 40 mg capsule,delayed 1 cap PO DAILY 02/27/21 07/12/21 release acetaminophen 325 mg tablet 650 mg PO Q4H PRN pain or fever 05/27/21 07/12/21 amlodipine 2.5 mg tablet 2.5 mg PO DAILY 05/27/21 07/12/21 tamsulosin 0.4 mg capsule 0.4 mg PO DAILY 07/12/21 07/12/21 tramadol 50 mg tablet 50 mg PO Q8H PRN 07/12/21 07/12/21 Previous Rx's ?Medication ?Instructions ?Recorded oxycodone 5 mg tablet 5 mg PO Q4H PRN pain, severe #30 07/18/21 tabs sucralfate 1 gram tablet (Carafate) 1 g PO BEDTIME #30 tabs 12/12/22 Allergies Allergy/AdvReac Type Severity Reaction Status Date / Time No Known Allergies Allergy Verified 03/10/24 13:44 [No Known Allergies*] Review of Systems Review of Systems: Yes all other systems are reviewed and are negative Constitutional: Constitutional: Reports as per [facility] Past Medical History Attestation statement: The following information was validated with the patient. Source: old records reviewed Medical History Acute COVID-19 History of alcohol abuse Illiterate Chronic low back pain Arthritis Allergic rhinitis Necrosis of colon GERD (gastroesophageal reflux disease) High cholesterol HTN (hypertension) Surgical History History of colostomy reversal (06/03/21) History of cystoscopy Hx of colonoscopy Colostomy in place S/P left colectomy (~02/27/21) History of prostate surgery Social History Social History Household Members: Unknown / Unable to assess Housing: Unknown / Unable to assess Do you presently have visiting nurse or other home services: No (from [facility]) Unable to assess alcohol history related to: Unknown Alcohol intake: never Patient Tobacco Use Status: Former Tobacco user Tobacco use type: Cigarette Advance Directives: No Advance Directives Information Provided: Yes Advance Directives Date on File: 06/03/21 service: No Current occupational status: unemployed Physical Exam ED Vital Signs: Vital Signs - 24 hr 03/10/24 13:43 03/10/24 16:19 03/10/24 17:20 Temperature 98.7 F 98.2 F Pulse Rate 84 60 60 Respiratory Rate 16 16 16 Blood Pressure 144/71 H 135/67 135/67 Pulse Oximetry 98 98 98 Oxygen Delivery Method Room Air Room Air Room Air BMI result Body Mass Index 27.8 Const General: cooperative, healthy appearing and no acute distress Orientation/consciousness: patient oriented x3 Limitations: no limitations HENMT Head: Yes normal to inspection and Yes atraumatic Ears: hearing grossly normal bilaterally General nose exam: Normal external nose present Face and sinus: Yes normal facial exam Eyes General: appearance normal, both eyes and all related structures EOM: EOMs intact bilaterally Neck Neck: Yes normal visual inspection and Yes no meningeal signs Resp Effort & Inspection: normal respiratory effort and no respiratory distress Cardio Rate: regular rate Skin Other: + plantar corn appreciated to left foot. Tender to palpation. No surrounding erythema. No fluctuance or induration Rashes: no rashes Wounds: no wounds Neuro General: patient oriented x3, tone normal and no meningeal signs Cranial nerves: Yes CN's II-XII intact bilaterally Gait exam (Neuro): Normal gait present Extrem General: Yes normal to inspection Course Course Course Narrative: This is an RME: Additional HPI, ROS, PE not included below will be deferred to primary provider. RME assessment and note performed by: Amber Segura PA-C This is a 53-gaaa-hvb-mauritanian speaking male, with a hx of GERD, HTN, who presents to the ER with complaints of left foot pain x several weeks. No trauma or injury. Plan: xrays, further ER eval needed XR foot LT min 3V IMPRESSION: No acute fracture or dislocation. XR ankle LT min 3V IMPRESSION: No acute fracture or dislocation. Results discussed with patient including worrisome signs and symptoms and strict return precautions, and when to return to the emergency department. They verbalized understanding and feel safe for discharge at this time. Medical Decision Making Medical Decision Making MDM Narrative: 73-year-old male with a past medical history of ETOH abuse, arthritis, GERD, HLD, HTN, presenting to the ED complaining of acute on chronic left foot pain x months. On exam vital signs stable, NAD, nontoxic appearing, physical exam as noted above. [place] appreciated to plantar aspect of left foot without surrounding infection/cellulitis or abscess formation Discussed with patient with medical interpreter needs to follow-up with podiatry for proper treatment. Please refer to course for remaining clinical decision making, interpretation of labs/imaging results, and discussions with consultants and/or family members. Results discussed with patient including worrisome signs and symptoms and strict return precautions, and when to return to the emergency department. They verbalized understanding and feel safe for discharge at this time. Differential Diagnosis Differential Diagnoses: The differential diagnosis associated with the presentation includes As above Independent Interpretation I performed an independent interpretation of an: Plain X-Ray External Record Review External record reviewed: Inpatient record, Office record, Outpatient record, Prior outpatient labs, Prior outpatient radiology, Primary care record and Outside ED record Tests considered The following testing was considered but not selected: As above Prescription Management I considered prescription management with: Pain Medication Chronic Conditions Patient?s care impacted by: Other Social Determinants Patient?s care significantly limited by Social Determinants of Health including: Other Social Determinant of Health Discharge Plan Discharge Clinical Impression: [place] of foot Patient Disposition: Home, Self-Care Additional Instructions: Please follow-up with Podiatry Call to make an appointment Take Tylenol and Motrin as needed for pain If area begins to look infected, is red, there is drainage return to the ED Prescriptions: No Action oxycodone 5 mg tablet 5 mg PO Q4H PRN (Reason: pain, severe) Qty: 30 0RF amlodipine 2.5 mg Tablet 2.5 mg PO DAILY acetaminophen 325 mg Tablet 650 mg PO Q4H PRN (Reason: pain or fever) omeprazole 40 mg capsule,delayed release(/EC) 1 cap PO DAILY aspirin 81 mg tablet,delayed release (DR/EC) 1 tab PO DAILY tamsulosin 0.4 mg capsule 0.4 mg PO DAILY tramadol 50 mg tablet 50 mg PO Q8H PRN sucralfate [Carafate] 1 gram tablet 1 g PO BEDTIME Qty: 30 3RF Referrals: [facility] [Outside] [facility] [Outside] Tanvir Samuel MD [Physician] - Tucker Samuel DPM [Physician] - Interventions: ED Discharge Assessment Last Done: 03/10/24 17:20 Discharge Date/Time: 03/10/24 17:20 Print Language: Luxembourgish
[2024-03-10 16:19] VITALS: BP 135/67; PULSE 60; RESP 16; O2SAT 98
[2024-03-10 17:20] VITALS: BP 135/67; PULSE 60; RESP 16; TEMP 36.8; O2SAT 98
== END 2024-03-10 17:20 | disposition home or self-care (01) ==
PROVIDERS: Emergency Provider Emergency Medicine; PCP Nurse Practitioner Adult Health
DX: L84 Corns and callosities (principal); M79.672 Pain in left foot; M25.572 Pain in left ankle and joints of left foot
CPT/HCPCS: 73610; 73630; 99283

== ENCOUNTER → 2024-03-10 13:46 | Outpatient (BNV) | payer OTHER, SELFPAY | PROVIDERS: Visit Provider Radiology Diagnostic Radiology | DX: M25.572 Pain in left ankle and joints of left foot (principal); M79.672 Pain in left foot | CPT/HCPCS: 73610; 73630 ==

== ENCOUNTER 2024-07-07 15:07 | Outpatient (REF) | payer OTHER, SELFPAY ==
--- NOTE | ~2024-07-07 | XR_ITS ---
EXAMINATION: XR LUMBOSACRAL SPINE CLINICAL INFORMATION: pain COMPARISON: None available. TECHNIQUE: Three views of the lumbosacral spine. FINDINGS: There is normal lumbar lordosis. The vertebral heights and alignment is normal. There is loss of disc height virtually at every disc level without visible acute fracture, dislocation or lytic process. Mild left lateral spondylosis seen at the L4-5 disc level. The paravertebral soft tissues are normal. There is moderate stool seen throughout the right colon. XR/XR lumbar spine 2-3V IMPRESSION: Degenerative disc changes throughout the lumbar spine. Moderate left lateral spondylosis L4-5 disc level. Electronically signed by: Uriel Garza MD 07/07/2024 04:37 PM EST
--- OUTSIDE RECORDS SUMMARY | 2024-07-07 18:39 | XMS_ITS | Encounter Summary ---
Author Organization [employer] Address [address] [place] [address] Care Team Providers Care Highway Worker Name Role Phone Nadia Cortes MD Primary Care Provide r Encounter Details Date Type Department Care Team ([facility] st Contact Info) Description 07/22/2023 Telephone [facility] [address] [place], [place] [phone] Nadia Cortes MD [address] [place], [place] [phone] Social History Tobacco Use Types Packs/Day Years Used Date Smoking Tobacco: Every Day Cigarettes Passive Smoke Exposure: Past Smokeless Tobacco: Never Depression Answer Date Recorded Patient Health Questionnaire-9 Score 0 12/15/2022 Housing Stability Answer Date Recorded What is your housing situation today? I have gageem[place]a hay 03/05/[address] you li ve. Do you have problems with any of the following? None of the above 03/05/2023 Food Insecurity Answer Date Recorded Within the past 12 months, y ou worried that your food would run out before you got money to buy more: Never True 03/05/2023 Within the past 12 months,th e food you bought just didn't last and you didn't have enough money to get more: Never True 06/2022 Transportation Answer Date Recorded In the past 12 months, has l ack of transportation kept you from medical appts, meetings, work or from getting things needed for daily living? No 03/05/2023 Utilities Answer Date Recorded In the past 12 months, has t he electric, gas, oil or water company threatened to shut off services in your home? No 03/05/2023 Depression Answer Date Recorded Patient Health Questionnaire-2 Score 0 12/15/2022 Sex and Gender Information Value Date Recorded Sex Assigned at Male 03/03/2022 10:21 AM EDT Legal Sex Male 10:21 AM EDT Gender Identity Male 03/03/2022 10:21 AM EDT Sexual Orientation Straight 03/03/2022 10 :21 AM EDT documented as of this encounter Plan of Treatment Not on file documented as of this encounter Visit Diagnoses Not on filedocumented in this encounter Additional Health Concerns Assessment Noted Time PHQ-9 Depression Total Score: 0 12/16/19 23 2:03 PM EDT documented as of this encounter Care Teams Highway Worker Relationship Specialty Start Date End Date Nadia Cortes MD [address] [place] [address] PCP - General Family Medicine 02/08/19 documented as of this encounter
--- OUTSIDE RECORDS SUMMARY | 2024-07-07 18:39 | XMS_ITS | Encounter Summary ---
Author Organization [employer] Address [address] [facility] [address] [place] [address] Care Team Providers Care Mixing Machine Tender Name Role Phone Nadia Cortes MD Primary Care Provide r Reason for Referral * Consultation (Routine) - Closed Specialty Diagnoses / Procedures Referred By Contac t Referred To Contact Optometry Diagnoses Decreased visual acuity Nadia Cortes MD [address] [place] [address] Phone: tel: fax: [facility] OPT[facility] [address] [place] [address] Phone: tel: fax: Referral ID Status Reason Start Date Expiration Date V isits Requested Visits Authorized [id number] Closed Consult and Treat 07/06/2024 07/06/2025 1 1 Reason for Visit * Reason Onset Date Comments Referral 07/06/2024 Encounter Details Date Type Department Care Team ([facility] st Contact Info) Description 07/06/2024 Telephone [facility] MEDIC[facility] [address] [place], [place] [phone] Nadia Cortes MD [address] [place] [address] Referral Social History Tobacco Use Types Packs/Day Years Used Date Smoking Tobacco: Every Day Cigarettes Passive Smoke Exposure: Past Smokeless Tobacco: Never Alcohol Use Standard Drinks/Week Comments Never 0 (1 standard drink = 0.6 oz pur e alcohol) Depression Answer Date Recorded Patient Health Questionnaire-9 Score 0 12/15/2022 Housing Stability Answer Date Recorded What is your housing situation today? I have gage hay 02/04/[address] you li ve. Do you have problems with any of the following? None of the above 02/04/2024 Food Insecurity Answer Date Recorded Within the past 12 months, y ou worried that your food would run out before you got money to buy more: Never True 02/04/2024 Within the past 12 months,th e food you bought just didn't last and you didn't have enough money to get more: Never True 07/2023 Transportation Answer Date Recorded In the past 12 months, has l ack of transportation kept you from medical appts, meetings, work or from getting things needed for daily living? No 02/04/2024 Utilities Answer Date Recorded In the past 12 months, has t he electric, gas, oil or water company threatened to shut off services in your home? No 02/04/2024 Depression Answer Date Recorded Patient Health Questionnaire-2 Score 0 02/04/2024 Internet Access Answer Date Recorded Internet Access Q1 No 02/04/2024 Internet Access Q2 I do not want or need it 07/2023 Sex and Gender Information Value Date Recorded Sex Assigned at Male 03/03/2022 10:21 AM EDT Legal Sex Male 10:21 AM EDT Gender Identity Male 03/03/2022 10:21 AM EDT Sexual Orientation Straight 03/03/2022 10 :21 AM EDT documented as of this encounter Miscellaneous Notes * Telephone Encounter - Tiffanie Adorno RN - 07/06/2024 4:47 PM EST TC placed to patient [phone] in regards to below message via [employer] interpreters (Chuy #[id number]). Patient reports he currently wear glasses however has not had an eye exam in 2 years. Patient needs updated RX. RN will place referral to [facility] eyecare and they will reach out to patient for appointment scheduling. Patient to f/u PRN. * Telephone Encounter - Beata Diop - 07/06/2024 2:12 PM EST Tc from PERIOPERATIVE EDUCATOR requesting referral for eye exam. [facility] documented in this encounter Plan of Treatment Scheduled Referrals Name Type Priority Associated Diagnoses Orde r Schedule Referral to [facility] Eye Care Outpatient Referral Routine Decreased visual acuity Expected: 07/06/2024 (Approximate), Expires: 07/06/2025 documented as of this encounter Visit Diagnoses Diagnosis Decreased visual acuity documented in this encounter Additional Health Concerns Assessment Noted Time PHQ-9 Depression Total Score: 0 12/16/19 23 2:03 PM EDT documented as of this encounter Care Teams Mixing Machine Tender Relationship Specialty Start Date End Date Nadia Cortes MD [address] [place] [phone] PCP - General Family Medicine 02/08/19 documented as of this encounter
--- OUTSIDE RECORDS SUMMARY | 2024-07-07 18:39 | XMS_ITS | Clinical Summary ---
Author Organization [employer] Address [address] [facility] [address] [place] [address] Care Team Providers Care Bath Design Sales Consultant Name Role Phone Nadia Cortes MD Primary Care Provide r Allergies No known active allergies Medications Blood Pressure Monitoring (Omron 3 Series BP Monitor) device USE TO CHECK BLOOD PRESSURE 1-2 TIMES EVERY DAY 2 Active SUMAtriptan (Imitrex) 25 MG tabletIndication s:Cluster headache, not intractable, unspecified chronicity pattern TAKE 1 TABLET BY MOUTH AT ONSET OF MIGRAINE. MAY REPEAT ONCE AFTER 2 HOURS IF NEEDED. NO MORE THAN 2 TABLETS DAILY 9 tablet 3 Active fluticasone (Flonase) 50 MCG/ACT nasal sprayIndications :COVID-19,Viral URI USE 1 SPRAY IN EACH NOSTRIL EVERY MORNING 16 g 3 Active sucralfate (Carafate) 1 g tablet Take 1 g by mouth at bedtime. 3 Active gabapentin (Neurontin) 100 MG capsuleIndicatio ns:Chronic bilateral low back pain with sciatica, sciatica laterality unspecified TAKE 1 CAPSULE BY MOUTH THREE TIMES DAILY 270 capsule 1 4 Active polyethylene glycol, PEG, 3350 (MiraLax) 17 GM/SCOOP powder 17 grams in 8-12 oz fluid like water at bedtime prn constipation 527 g 2 4 Active Nirmatrelvir&Rit onavir 300/100 (Paxlovid, 300/100,) 20 x 150 MG & 10 x 100MG tablet therapy packIndications: Infection caused by 2019 Novel Coronavirus Take 3 tablets by mouth 2 times daily. Take 2 tabs (300mg of nirmatrelvir) and 1 tab (100mg of ritonavir) PO BID for 5 days. No renal failure. Possible medication interactions reviewed. 30 each 4 Active atorvastatin (Lipitor) 40 MG tabletIndication s:Primary hypertension Take 1 tablet (40 mg) by mouth Once per day. 30 tablet 11 4 025 Active docusate sodium (Colace) 100 MG capsule TAKE 1 TABLET BY MOUTH TWICE DAILY NEEDED FOR CONSTIPATION 180 capsule 3 4 Active Aspirin Low Dose 81 MG EC tablet TAKE 1 TABLET BY MOUTH EVERY MORNING 90 tablet 3 4 Active tamsulosin (Flomax) 0.4 MG 24 hr capsuleIndicatio ns:Benign prostatic hyperplasia, unspecified whether lower urinary tract symptoms present TAKE 1 CAPSULE BY MOUTH EVERY MORNING 90 capsule 3 4 Active loratadine (Claritin) 10 MG tabletIndication s:Seasonal allergies TAKE 1 TABLET BY MOUTH EVERY MORNING NEEDED FOR ALLERGIES 90 tablet 1 4 Active omeprazole (PriLOSEC) [address] capsule TAKE 1 CAPSULE BY MOUTH EVERY MORNING BEFORE BREAKFAST 90 capsule 1 4 Active lisinopril 20 MG tabletIndication s:Primary hypertension TAKE 1 TABLET BY MOUTH EVERY MORNING 90 tablet 1 4 Active Multiple Vitamins-Mineral s (PreserVision AREDS 2) capsuleIndicatio ns:Intermediate stage nonexudative age-related macular degeneration of both eyes TAKE 1 CAPSULE BY MOUTH TWICE DAILY IN THE MORNING AND IN THE EVENING 180 capsule 1 4 Active amLODIPine (Norvasc) 10 MG tablet TAKE 1 TABLET BY MOUTH EVERY MORNING 90 tablet 1 4 Active acetaminophen (Tylenol 8 Hour) 650 MG ER tabletIndication s:Chronic bilateral low back pain, unspecified whether sciatica present Take 2 tablets (1,300 mg) by mouth every 8 (eight) hours if needed for mild pain for up to 13 days. Do not crush, chew, or split. 40 tablet 1 5 025 Active dextran 70-hypromellose (artificial tears) 0.1-0.3 % ophthalmic solutionIndicati ons:Dry eye Administer 1 drop into both eyes if needed in the morning, at noon, and at bedtime for dry eyes. 30 mL 1 5 026 Active Active Problems Problem Noted Date Diagnosed Date Chronic bilateral low back pain 07/07/2024 Assessment & Plan (07/07/2024 4:13 PM EST): Apply heat on affected area I will prescribe acetaminophen arthritis as needed X-ray ordered Patient referred to pain management and physical therapy Diminished vision 07/07/2024 Dry eye 07/07/2024 Callus of foot 02/04/2024 Forgetfulness 02/04/2024 Bilateral leg pain 08/25/2023 Assessment & Plan (08/25/2023 3:45 PM EDT): Apply heat on affected area Alternate acetaminophen and ibuprofen PRN Colon cancer screening 08/07/2023 COVID-19 01/02/2023 Assessment & Plan (01/02/2023 10:58 AM EDT): Given patient's age + RF + Onset of sxs, mild sxs, I will rx Paxlovid on a regular dose. Last creat in file is >60, he doesn't report any recent event that could be suspicious of worsening RF. Risk/benefit or not treating Covid are discussed with him, he agrees won't take the med as prescribed BID. I gave him med list to take AMLODIPINE and FLOMAX out of med boxes every other day due to potentially increased concentrations when taking Paxlovid. He understood and agreeed with POC. Rx Ibuprofen/Tylenol alternated q8h Flonase daily + Nasal saline prn Self-care measures: Rest (sleep at least 8 hours a night). Hydrate with plenty of water (avoid caffeine and alcohol). Use saline/ nose drops to loosen mucus Take Acetaminophen (Tylenol??)or Ibuprofen as needed to reduce fever or discomfort Gargle with salt water and use throat sprays/lozenges for throat pain. Use heated, humidified air. If you do not have a humidifier, take hot showers. Limit spread to others: Wash hands frequently. Cover coughs and sneezes using the crook of your elbow. If you have a fever, stay home and away from others (self isolation) until fever-free for 72 hours (temperature should be less than 100??F without medication). Chronic diarrhea 12/15/2022 Venous insufficiency 12/15/2022 Assessment & Plan (07/07/2024 4:12 PM EST): Follow-up with vascular Assessment & Plan (08/25/2023 3:44 PM EDT): Compression stockings below the knee prescribed Elevate legs at he end of the day Assessment & Plan (12/16/2022 3:07 PM EDT): Compression stockings prescription will be generated I advise to elevate legs at the end of the day Viral URI 10/21/2022 Assessment & Plan (01/02/2023 10:59 AM EDT): Has covid Assessment & Plan (10/21/2022 1:33 PM EDT): Reassurance, FU PCR results. Self-care measures: Rest (sleep at least 8 hours a night). Hydrate with plenty of water (avoid caffeine and alcohol). Use saline nose drops to loosen mucus Take Acetaminophen (Tylenol??)or Ibuprofen as needed to reduce fever or discomfort Gargle with salt water and use throat sprays/lozenges for throat pain. Use heated, humidified air. If you do not have a humidifier, take hot showers. Limit spread to others: Wash hands frequently. Cover coughs and sneezes using the crook of your elbow. Contact/droplets precautions. Use Fluticasone nasal spray daily x 1w Abnormal gait 08/05/2022 Benign prostatic hyperplasia with urinary freque ncy 08/05/2022 Bilateral hearing loss 08/05/2022 BPH associated with nocturia 08/05/2022 Functional diarrhea 08/05/2022 Generalized abdominal pain 08/05/2022 Impaired cognition 08/05/2022 Onycholysis 08/05/2022 Prediabetes 08/05/2022 Assessment & Plan (08/07/2023 5:12 PM EDT): Today extensive discussion was done about life style modifications I advise healthy diet (low calorie) and cardiovascular exercise A1c to be check with labs Assessment & Plan (04/20/2023 3:59 PM EST): Today extensive discussion was done about life style modifications I advise healthy diet (low calorie) and cardiovascular exercise Assessment & Plan (12/16/2022 3:08 PM EDT): Today extensive discussion was done about life style modifications I advise healthy diet (low calorie) and cardiovascular exercise Vascular insufficiency of intestine 08/05/2022 Visual impairment 08/05/2022 Microscopic hematuria 09/11/2017 Illiteracy 09/10/2017 Chronic low back pain 07/21/2017 Assessment & Plan (12/16/2022 3:09 PM EDT): I already refer patient before to PT I will try today with gabapentin 100mg Q 8hrs Polyp of colon 07/21/2017 Hyperlipidemia 09/24/2016 Gastroesophageal reflux disease 09/18/2016 Alcohol abuse 10/10/2014 Helicobacter pylori gastrointestinal tract infec tion 10/10/2014 Hypertension 07/20/2013 Assessment & Plan (02/04/2024 4:36 PM EDT): Maintenance: BMP: up to date Lipid Panel: up to date ASCVD Risk: 24.1 I will prescribed atorvastatin 40mg daily c/w asa 81mg daiy - Aerobic exercise to reduce BP. Initial goal of 30 min walk 3-5x/week. Increase as tolerated. - low-sodium diet (goal: <2g/day) and heart healthy diet such as DASH to reduce BP and prevent ASCVD. - Home BP monitoring 1-2 x day with goal of <140/90. - Seek immediate medical attention for chest pain, palpitations, SOB, syncope, or sudden changes in mental status. - Do not change or discontinue current prescriptions without first consulting health care provider Assessment & Plan (08/07/2023 5:12 PM EDT): - Aerobic exercise to reduce BP. Initial goal of 30 min walk 3-5x/week. Increase as tolerated. - low-sodium diet (goal: <2g/day) and heart healthy diet such as DASH to reduce BP and prevent ASCVD. - Home BP monitoring 1-2 x day with goal of <140/90. - Seek immediate medical attention for chest pain, palpitations, SOB, syncope, or sudden changes in mental status. - Do not change or discontinue current prescriptions without first consulting health care provider Assessment & Plan (04/20/2023 4:00 PM EST): Maintenance: BMP: up to date Lipid Panel: up to date ASCVD Risk: Calculate pending updated labs -I went up on lisinopril to 20mg daily - Aerobic exercise to reduce BP. Initial goal of 30 min walk 3-5x/week. Increase as tolerated. - low-sodium diet (goal: <2g/day) and heart healthy diet such as DASH to reduce BP and prevent ASCVD. - Home BP monitoring 1-2 x day with goal of <140/90. - Seek immediate medical attention for chest pain, palpitations, SOB, syncope, or sudden changes in mental status. - Do not change or discontinue current prescriptions without first consulting health care provider Assessment & Plan (12/16/2022 3:07 PM EDT): - Aerobic exercise to reduce BP. Initial goal of 30 min walk 3-5x/week. Increase as tolerated. - low-sodium diet (goal: <2g/day) and heart healthy diet such as DASH to reduce BP and prevent ASCVD. - Home BP monitoring 1-2 x day with goal of <140/90. - Seek immediate medical attention for chest pain, palpitations, SOB, syncope, or sudden changes in mental status. - Do not change or discontinue current prescriptions without first consulting health care provider Arthritis 04/25/2013 Allergic rhinitis 01/28/2013 Erectile dysfunction 01/28/2013 Encounters Date Type Department Care Team Description 07/07/2024 2:00 PM EST Office Visit [facility] MEDICINE [address] [place] [address] Nadia Cortes MD Chronic bilateral low back pain, unspecified whether sciatica present (Primary Dx); Venous insufficiency; Diminished vision; Dry eye 07/07/[address] [facility] OPTOMETRY [address] [place] [address] Nelsy Capellan OD 07/07/2024 Travel 07/06/[address] [facility] MEDICINE [address] [place] [address] Nadia Cortes MD Referral 07/06/[address] [facility] MED[facility]INE [address] [place] [address] Nadia Cortes MD Nurse Triage 04/08/[address] [facility] MED[facility] [address] [place] [address] Gwendolyn Boss MD from Last 3 Months Immunizations Name Administration Dates Next Due Influenza High-dose Quadrivalent Preservative Fr ee 01/31/2022,02/08/2021 Influenza injectable quadriv alent IIV4 with preservative 03/18/2017 Influenza, High Dose Seasonal, Preservative Free 02/04/2024,02/24/2018 Influenza, IIV3, injectable 01/27/2011 Influenza, Split (incl. purified surface antigen ) 02/09/2013 Pfizer Covid-19 Vaccine 12+ 02/04/2024 Pneumococcal Conjugate PCV 20 12/15/2022 Pneumococcal Polysaccharide PPSV23 11/13/2016, TD (adult), 2 Lf tetanus tox oid, preservative free, adsorbed 02/26/2010 Tdap 07/20/2013 Zoster, live 09/18/2016 Family History Medical History Relation Name Comments Coronary artery disease Brother Stroke Brother Relation Name Status Comments Brother Social History Tobacco Use Types Packs/Day Years Used Date Smoking Tobacco: Every Day Cigarettes Passive Smoke Exposure: Past Smokeless Tobacco: Never Tobacco Cessation:Ready to Q uit: Not Asked; Counseling Given: Not Answered Alcohol Use Standard Drinks/Week Comments Never 0 [...] Orientation Straight 03/03/2022 10 :21 AM EDT Last Filed Vital Signs Vital Sign Reading Time Taken Comments Blood Pressure 132/77 07/07/2024 2:25 PM EST Pulse 70 07/07/2024 2:25 PM EST Temperature 36.6 ??C (97.8 ??F) 07/07/2024 2:25 PM ES T Respiratory Rate 16 07/07/2024 2:25 PM EST Oxygen Saturation 98% 02/04/2024 3:32 PM EDT Inhaled Oxygen Concentration - - Weight 79.4 kg (175 lb) 07/07/2024 2:25 PM EST Height 175.3 cm (5' 9 ) 07/07/2024 2:25 PM EST Body Mass Index 25.84 07/07/2024 2:25 PM EST Plan of Treatment Health Maintenance Due Date Last Done Comments CT Colonography 1952 Colonoscopy 1950 Colorectal Cancer Screening 1950 FIT DNA/Cologuard 1952 FIT 1950 FOBT 1950 Sigmoidoscopy 1952 Alcohol/Substance Use Screening 1964 Hepatitis C Screening 1970 Hepatitis A Vaccines (1 of 2 - Risk 2-dose series) 1971 Zoster Vaccines (2 of 3) 11/13/2016 09/18/2016 DTaP/Tdap/Td Vaccines (2 - Td or Tdap) 07/21/2023 07/20/2013, 02/26/2010 Diabetes: Hemoglobin A1C 08/11/2024 024, 12/15/2022, 11/14/2020 Depression Screening 02/03/2025 02/04/2024, 12/16/19 23 SDOH Screening 02/03/2025 02/04/2024 Tobacco Screening 07/07/2025 07/07/2024 RSV Patients and Patients Aged 60 years or older (1 - 1-dose 75+ series) 2027 Lipid Panel 08/11/2028 08/12/2023, 11/14/2020 Pneumococcal Vaccine: 50+ Years Completed 12/15/2022, 11/13/2016, 02/26/2010 COVID-19 Vaccine Completed 02/04/2024, 11/2020, 08/10/2020 Influenza Vaccine Completed 02/04/2024, , 02/08/2021, Additional history exists HIB Vaccines Aged Out No longer eligi ble based on patient's age to complete this topic HPV Vaccines Aged Out No longer eligi ble based on patient's age to complete this topic Hepatitis B Vaccines Aged Out No long er eligible based on patient's age to complete this topic IPV Vaccines Aged Out No longer eligi ble based on patient's age to complete this topic Meningococcal Vaccine Aged Out No thiago jeovany eligible based on patient's age to complete this topic RSV under 20 months Aged Out No longe r eligible based on patient's age to complete this topic Rotavirus Vaccines Aged Out No longer eligible based on patient's age to complete this topic Procedures Procedure Name Priority Date/Time Associated Diagnosis Comments XR LUMBAR SPINE 2-3 VIEWS Routine 07/07/2024 3:07 PM EST Chronic bilateral low back pain, unspecified whether sciatica present HEMOGLOBIN A1C Routine 08/12/2023 8:51 AM EDT Primary hypertension Prediabetes LIPID PANEL, STANDARD Routine 08/12/2023 8:51 AM EDT Primary hypertension Prediabetes from Last 3 Months or Most Recently Relevant to Health Maintenance Results * XR Lumbar Spine 2-3 Views (07/07/2024 3:07 PM EST) Anatomical Region Laterality Modality Spine, L-spine Radiographic Felipa ging 07/07/2024 3:07 PM EST Narrative 07/07/2024 4:40 PM EST ?[facility] ?[address] ?[place] [address] ?XRay Report ? Signed ? Patient: Quincy Aviles ?MR#: [id number] ?? [id number] ? : 1950 ?Acct:[id number] ? Age/Sex: 74 / M ?ADM Date: 07/07/24 ? Loc: HO.HHCX ? Attending Dr: Nadia Hedrick MD ? Ordering Physician: Nadia Cortes MD ?? Date of Service: 07/07/24 ?? Procedure(s): XR lumbar spine 2-3V ?? Accession Number(s): [id number] ? cc: Nadia Cortes MD ? EXAMINATION: ?? XR LUMBOSACRAL SPINE ? CLINICAL INFORMATION: ?? pain ? COMPARISON: ?? None available. ? TECHNIQUE: ?? Three views of the lumbosacral spine. ? FINDINGS: ?? There is normal lumbar lordosis. The vertebral heights and alignment is ?? normal. There is loss of disc height virtually at every disc level ?? without visible acute fracture, dislocation or lytic process. Mild left ?? lateral spondylosis seen at the L4-5 disc level. The paravertebral soft ?? tissues are normal. There is moderate stool seen throughout the right ?? colon. ? XR/XR lumbar spine 2-3V ?? IMPRESSION: ?? Degenerative disc changes throughout the lumbar spine. ? Moderate left lateral spondylosis L4-5 disc level. ? Electronically signed by: ??Uriel Kayla MD ??07/07/2024 04:37 PM EST RP ? Dictated By: ?Kayla,Uriel S MD ? Signed By: ?<Electronically signed by Uriel S Kayla, MD in OV> ?07/07/24 1637 ? DD/ 1507 ? TD/TT: 07/07/24 1540 ? Batcher Operator: MSM ? Procedure Note Donotuseinterpreter, Image - 07/07/2024 [facility] [address] [place] [address] XRay Report Signed Patient: Quincy Aviles AMR#: [id number] : 3Acct:[id number] Age/Sex: 74 / MADM Date: 07/07/24 Loc: HO.HHCX Attending Dr: Nadia Hedrick MD Ordering Physician: Nadia Cortes MD Date of Service: 07/07/24 Procedure(s): XR lumbar spine 2-3V Accession Number(s): [id number] cc: Nadia Cortes MD EXAMINATION: XR LUMBOSACRAL SPINE CLINICAL INFORMATION: pain COMPARISON: None available. TECHNIQUE: Three views of the lumbosacral spine. FINDINGS: There is normal lumbar lordosis. The vertebral heights and alignment is normal. There is loss of disc height virtually at every disc level without visible acute fracture, dislocation or lytic process. Mild left lateral spondylosis seen at the L4-5 disc level. The paravertebral soft tissues are normal. There is moderate stool seen throughout the right colon. XR/XR lumbar spine 2-3V IMPRESSION: Degenerative disc changes throughout the lumbar spine. Moderate left lateral spondylosis L4-5 disc level. Electronically signed by: Uriel Garza MD 07/07/2024 04:37 PM [facility] [place]ict[place] By: Uriel Garza MD Signed By: <Electronically signed by Uriel Garza MD in OV> 07/07/24 1637 DD/ 1507 TD/TT: 07/07/24 1540 Batcher Operator: TABITHA us Nadia Hedrick MD IMG XR PROCEDURES Fin al Result * Hemoglobin A1c (08/12/2023 8:51 AM EDT) Hemoglobin A1c 5.6 <6.0 % [facility] Comment:Hemoglobin A1C Refer ence Range Adults: 4.8 - 6.0 % Non diabetic: < 6.0 % Goal: < 7.0 %Additional Action Suggested: > 8.0 %Note: Hemoglobin A1c results are invalid for patients with abnormal amounts of HbF. Blood transfusions may impact the HbA1c concentration in the patient sample. Estimated Average Glucose 114 mg/dL [facility] Comment:eAG = Estimated ave rage glucose which is %A1C expressed asaverage glucose, using the formula of the [id number] Glucose study (ADAG), Diabetes Care, Vol.31,#8,Dec. 2007 Blood Venous blood specimen / Unknown 08/12/2023 8:51 AM EDT 08/12/2023 11:30 AM EDT us Nadia Hedrick MD LAB BLOOD ORDERABLES Final Result [facility] [address] [place] [phone] * (ABNORMAL) Lipid Panel, Standard (08/12/2023 8:51 AM EDT) Triglycerides 98 <150 mg/dL [facility] Comment:Desirable Triglyceri de: less than 150 mg/dLBorderline High Triglyceride 150-199 mg/dLHigh Triglyceride: 200-499 mg/dLVery High Triglyceride: greater than or equal to 5OO mg/dL Cholesterol 147 <200 mg/dL [facility] Comment:Desirable Cholestero l: less than 200 mg/dLBorderline High Cholesterol: 200-239 mg/dLHigh Cholesterol: greater than 239 mg/dL LDL Cholesterol Calculated 93 <100 mg/dL [facility] Comment:Desirable LDL: less than 100 mg/dLNear Optimal/Above Optimal LDL: 110- 129 mg/dLBorderline High LDL: 130-159 mg/dLHigh LDL: 160-189 mg/dLVery High LDL: greater than or equal to 190 mg/dL HDL Cholesterol 35(L) >40 mg/dL [facility] Comment:Desirable HDL: great er than 40 mg/dL Note: This HDL assay may give artificially low results in patients with liver disease. Blood Venous blood specimen / Unknown 08/12/2023 8:51 AM EDT 08/12/2023 11:34 AM EDT us Nadia Hedrick MD LAB BLOOD ORDERABLES Final Result [facility] [address] [place] [address] [phone] from Last 3 Months or Most Recently Relevant to Health Maintenance Insurance [facility] * Guarantor: Quincy Aviles Account Type Relation to Patient Date of Phone Billing Address Personal/Family Self [address] [place] [address] Care Teams Bath Design Sales Consultant Relationship Specialty Start Date End Date Nadia Cortes MD [address] [place] [address] PCP - General Family Medicine 02/08/19
--- OUTSIDE RECORDS SUMMARY | 2024-07-07 18:39 | XMS_ITS | Encounter Summary ---
Author Organization [employer] Address [address] [facility] [address] 7t [place] [address] Care Team Providers Care Disc Pad Knockout Worker Name Role Phone Nadia Cortes MD Primary Care Provide r Encounter Details Date Type Department Care Team ([facility] st Contact Info) Description 07/07/2024 Telephone C OPTOMETRY [address] [place] [address] TimiNelsy jimenez, OD [address] [place] [address] Social History Tobacco Use Types Packs/Day Years [...] t he electric, gas, oil or water [employer] threatened to shut off services in your [...] encounter Miscellaneous Notes * Telephone Encounter - Elyse Landry - 07/07/2024 2:47 PM EST 07-07-24 9:22 pt mom: refused recall/ref appt due to be in October on our available days. He wants a sooner appt. Pt ask for other place to go. Reference letter will be sent home. documented in this encounter Plan of Treatment Not on file documented as of this encounter Visit Diagnoses Not on filedocumented in this encounter Additional Health Concerns Assessment Noted Time PHQ-9 Depression Total Score: 0 12/16/19 23 2:03 PM EDT documented as of this encounter Care Teams Disc Pad Knockout Worker Relationship Specialty Start Date End Date Nadia Cortes MD [address] [place] [address] PCP - General Family Medicine 02/08/19 documented as of this encounter
--- OUTSIDE RECORDS SUMMARY | 2024-07-07 18:39 | XMS_ITS | Clinical Summary ---
Author Organization [address] [facility] Address [address] [place] [address] Phone Care Team Providers Care Piling Cutter Name Role Phone Nadia Cortes MD Primary Care Provide r Allergies No known active allergies Encounters Date Type Department Care Team Description 05/16/2024 3:00 PM EST Office Visit Orthopedic Surgery [facility] [address] [facility] [address] [place] [address] Oscar Huffman DPM Pain in both feet (Primary Dx); Arthritis of both feet; Metatarsalgia of left foot; PVD (peripheral vascular disease) (CMS/[facility]) from Last 3 Months Social History Tobacco Use Types Packs/Day Years Used Date Smoking Tobacco: Never Assessed Sex and Gender Information Value Date Recorded Sex Assigned at Not on file Legal Sex Male 4:38 PM EDT Gender Identity Not on file Sexual Orientation Not on file Last Filed Vital Signs Vital Sign Reading Time Taken Comments Blood Pressure - - Pulse - - Temperature - - Respiratory Rate - - Oxygen Saturation - - Inhaled Oxygen Concentration - - Weight - - Height 172.7 cm (5' 8 ) 05/16/2024 3:00 PM EST Body Mass Index - - Plan of Treatment Upcoming Encounters Date Type Department Care Team (Late st Contact Info) Description 07/11/2024 2:30 PM EDT Consult Vascular Surgery [facility] [address] [facility] [address] [place] [address] Yue Sidhu PA [address] [facility] [address] [place] [address] Health Maintenance Due Date Last Done Comments Hepatitis A Vaccines (1 of 2 - Risk 2-dose series) 1971 Zoster Vaccines (2 of 3) 11/13/2016 09/18/2016 DTaP,Tdap,and Td Vaccines (3 - Td or Tdap) 07/21/2023 07/20/2013, 02/26/2010 Abdominal Aortic Aneurysm (AAA) Screen 02/28/2024 Colorectal Cancer Screening: Colonoscopy 02/28/2024 Depression Screening 02/28/2024 12/15/2022 Falls Risk Assessment 02/28/2024 Hepatitis C Screening 02/28/2024 Medicare Annual Wellness Visit 02/28/2024 Social Influencers of Health Screening 02/28/2024 Hypertension/CHF/CAD Annual BMP Blood Test 05/16/2024 RSV Immunization Patients 60+ Years Old (1 - 1-dose 75+ series) 2027 Cholesterol Screening (Lipid Panel) 08/11/2028 08/12/2023 Pneumococcal Vaccine: 50+ Years Completed 12/15/2022, 11/13/2016, [...] on patient's age to complete this topic MMR Vaccines Aged Out No longer eligi ble based on patient's age to complete this topic Meningococcal ACWY Vaccine Aged Out N o longer eligible based on patient's age to complete this topic Meningococcal B Vacine Aged Out No lo nger eligible based on patient's age to complete this topic RSV Immunization Patients Under 20 months Aged Out No longer eligible based on patient's age to complete this topic Varicella Vaccines Aged Out No longer eligible based on patient's age to complete this topic [place] [address] [place] [address] MEDICARE Member Subscriber Plan / Payer (Ef fective 2021-Present) Name:Quincy Aviles Relation to Subscriber:Self Name:Quincy Aviles Payer ID:[id number] Group ID:[id number] Type:Not on file Address: [place] [address] [id number] Care Teams Piling Cutter Relationship Specialty Start Date End Date Nadia Cortes MD [address] [place] [phone] PCP - General 02/08/24
--- OUTSIDE RECORDS SUMMARY | 2024-07-07 18:39 | XMS_ITS | Encounter Summary ---
Author Organization [employer] Address [address] [facility] [address] 7[address] [place] [address] Care Team Providers Care Managing Supervisor Name Role Phone Nadia Cortes MD Primary Care Provide r Reason for Visit * Reason Onset Date Comments Nurse Triage 01/15/2023 Encounter Details Date Type Department Care Team (Late st Contact Info) Description 01/15/2023 Telephone [facility] MEDICINE [address] [place], [place] [phone] Nadia Cortes MD 230 [place] [address] Nurse Triage Social History Tobacco Use Types Packs/Day Years Used Date Smoking Tobacco: Every Day Cigarettes Passive Smoke Exposure: Past Smokeless Tobacco: Never Depression Answer Date Recorded Patient Health Questionnaire-9 Score 0 12/15/2022 Depression Answer Date Recorded Patient Health Questionnaire-2 Score 0 12/15/2022 Sex and Gender Information Value Date Recorded Sex Assigned at Male 03/03/2022 10:21 AM EDT Legal Sex Male 10:21 AM EDT Gender Identity Male 03/03/2022 10:21 AM EDT Sexual Orientation Straight 03/03/2022 10 :21 AM EDT documented as of this encounter Miscellaneous Notes * Telephone Encounter - Mimi Vigil RN - 01/15/2023 2:30 PM EDT Triage call , Pt reports will come to [facility] in the morning to be seen. No triage at this call. * Telephone Encounter - Margaret Diaz - 01/15/2023 2:00 PM EDT Symptom: Eye - Pus or Discharge Outcome: Schedule a same-day appointment or talk to a nurse or provider today Reason: Caller denied all higher acuity questions The caller accepted this outcome Patient speaks slovenian Patient walked in reports having left eye discharge, discomfort and itchiness since yesterday. Patient missed 01/15/23 [facility] appt at 1:40 pm. documented in this encounter Plan of Treatment Not on file documented as of this encounter Visit Diagnoses Not on filedocumented in this encounter Additional Health Concerns Assessment Noted Time PHQ-9 Depression Total Score: 0 12/16/19 2:03 PM EDT documented as of this encounter Care Teams Managing Supervisor Relationship Specialty Start Date End Date Nadia Cortes MD [address] [place] [phone] PCP - General Family Medicine 02/08/19 documented as of this encounter
--- OUTSIDE RECORDS SUMMARY | 2024-07-07 18:39 | XMS_ITS | Encounter Summary ---
Author Organization [employer] Address [address] [facility] 7t [place] [address] Care Team Providers Care Broadband Installer Name Role Phone Nadia Cortes MD Primary Care Provide r Reason for Visit * Reason Onset Date Comments PCP change 11/17/2022 Encounter Details Date Type Department Care Team (Late st Contact Info) Description 11/17/2022 Telephone [facility] MEDICINE [address] [place], [place] [phone] Nadia Cortes MD [address] [place] [address] PCP change Social History Tobacco Use Types Packs/Day Years Used Date Smoking Tobacco: Every Day Cigarettes Passive Smoke Exposure: Past Smokeless Tobacco: Never Sex and Gender Information Value Date Recorded Sex Assigned at Male 03/03/2022 10:21 AM EDT Legal Sex Male 10:21 AM EDT Gender Identity Male 03/03/2022 10:21 AM EDT Sexual Orientation Straight 03/03/2022 10 :21 AM EDT COVID-19 Exposure Response Date Recorded In the last 10 days, have yo u been in contact with someone who was confirmed or suspected to have Coronavirus/COVID-19? No / Unsure 10/21/2022 12:20 PM EDT documented as of this encounter Miscellaneous Notes * Telephone Encounter - Cristina Das - 11/17/2022 12:50 PM EDT Tc from pt requesting a PCP change to Dr. Stubbs. documented in this encounter Plan of Treatment Not on file documented as of this encounter Visit Diagnoses Not on filedocumented in this encounter Care Teams Broadband Installer Relationship Specialty Start Date End Date Nadia Cortes MD [address] [place] [address] PCP - General Family Medicine 02/08/19 documented as of this encounter
--- OUTSIDE RECORDS SUMMARY | 2024-07-07 18:39 | XMS_ITS | Encounter Summary ---
Author Organization [employer] Address [address] [place] [address] 7t [place] [address] Care Team Providers Care Diabetologist Name Role Phone Nadia Cortes MD Primary Care Provide r Reason for Referral * Consultation (Routine) - Pending Review Specialty Diagnoses / Procedures Referred By Contac t Referred To Contact Physical Therapy Diagnoses Chronic bilateral low back pain, unspecified whether sciatica present Nadia Cortes MD [address] [place] [address] Phone: tel: fax: Referral ID Status Reason Start Date Expiration Date Visits Requested Visits Authorized [id number] Pending Review Specialty Services Required 07/07/2024 07/07/2025 1 1 * Consultation (Routine) - Pending Review Specialty Diagnoses / Procedures Referred By Contac t Referred To Contact Optometry Diagnoses Diminished vision Nadia Cortes MD [address] [place] [address] Phone: tel: fax: Referral ID Status Reason Start Date Expiration Date Visits Requested Visits Authorized [id number] Pending Review Specialty Services Required 07/07/2024 07/07/2025 1 1 * Consultation (Routine) - Pending Review Specialty Diagnoses / Procedures Referred By Contac t Referred To Contact Pain Medicine Diagnoses Chronic bilateral low back pain, unspecified whether sciatica present Nadia Cortes MD [address] [place] [address] Phone: tel: fax: Referral ID Status Reason Start Date Expiration Date Visits Requested Visits Authorized [id number] Pending Review Specialty Services Required 07/07/2024 07/07/2025 1 1 Encounter Details Date Type Department Care Team (Late st Contact Info) Description 07/07/2024 2:00 PM EST Office Visit [facility] MEDICINE [address] [place] [phone] Nadia Cortes MD [address] [place] [address] Chronic bilateral low back pain, unspecified whether sciatica present (Primary Dx); Venous insufficiency; Diminished vision; Dry eye Social History Tobacco Use Types Packs/Day Years [...] I do not want or need it 1007/2023 Sex and Gender Information Value Date Recorded Sex Assigned at Male 03/03/2022 10:21 AM EDT Legal Sex Male 10:21 AM EDT Gender Identity Male 03/03/2022 10:21 AM EDT Sexual Orientation Straight 03/03/2022 10 :21 AM EDT documented as of this encounter Last Filed Vital Signs Vital Sign Reading Time Taken Comments Blood Pressure 132/77 07/07/2024 2:25 PM EST Pulse 70 07/07/2024 2:25 PM EST Temperature 36.6 ??C (97.8 ??F) 07/07/2024 2:25 PM ES T Respiratory Rate 16 07/07/2024 2:25 PM EST Oxygen Saturation - - Inhaled Oxygen Concentration - - Weight 79.4 kg (175 lb) 07/07/2024 2:25 PM EST Height 175.3 cm (5' 9 ) 07/07/2024 2:25 PM EST Body Mass Index 25.84 07/07/2024 2:25 PM EST documented in this encounter Progress Notes * Nadia Hedrick MD - 07/07/2024 2:00 PM EST SUBJECTIVE: Quincy Harris is a 74 y.o. year old male who presents for sick visit . Acute Concerns: Patient reports he has been having for the past few days acute on chronic lower back pain that sometimes radiates to his legs He also has lower extremity edema he it is known that he has venous insufficiency, he did not tolerate compression stockings he has a follow-up appointment with vascular Patient reports diminished vision and itchy eyes, he was referred to eye care unit at the [facility] but stated appointment was too far away he would like to be referred to optometry in 2 hospital [facility] Social History Social History Narrative Not on file Patient Active Problem List Diagnosis Abnormal gait Alcohol abuse Allergic rhinitis Arthritis Benign prostatic hyperplasia with urinary frequency Bilateral hearing loss BPH associated with nocturia Chronic low back pain Erectile dysfunction Hypertension Functional diarrhea Gastroesophageal reflux disease Generalized abdominal pain Helicobacter pylori gastrointestinal tract infection Hyperlipidemia Illiteracy Impaired cognition Microscopic hematuria Onycholysis Polyp of colon Prediabetes Vascular insufficiency of intestine (CMS/HCC) Visual impairment Viral URI Chronic diarrhea Venous insufficiency COVID-19 Colon cancer screening Bilateral leg pain Callus of foot Forgetfulness Chronic bilateral low back pain Diminished vision Dry eye Family History Problem Relation Name Age of Onset Stroke Brother Coronary artery disease Brother Review of Systems Constitutional: Negative. HENT: Negative. Eyes: Positive for itching and visual disturbance. Negative for photophobia, pain, discharge and redness. Respiratory: Negative. Cardiovascular: Negative. Musculoskeletal: Positive for arthralgias, back pain and myalgias. OBJECTIVE: Vitals: 07/07/24 1425 BP: 132/77 BP Location: Left arm Patient Position: Sitting BP Cuff Size: Adult Pulse: 70 Resp: 16 Temp: 97.8 ??F (36.6 ??C) TempSrc: Oral Weight: 175 lb (79.4 kg) Height: 5' 9 (1.753 m) Physical Exam Constitutional: Appearance: Normal appearance. Cardiovascular: Rate and Rhythm: Normal rate and regular rhythm. Pulmonary: Effort: Pulmonary effort is normal. Breath sounds: Normal breath sounds. Abdominal: General: Abdomen is flat. Palpations: Abdomen is soft. Musculoskeletal: Lumbar back: Spasms and tenderness present. Neurological: Mental Status: He is alert. Follow Up: No follow-ups on file. Current Outpatient Medications on File Prior to Visit Medication Sig Dispense Refill amLODIPine (Norvasc) 10 MG tablet TAKE 1 TABLET BY MOUTH EVERY MORNING 90 tablet 1 Aspirin Low Dose 81 MG EC tablet TAKE 1 TABLET BY MOUTH EVERY MORNING 90 tablet 3 atorvastatin (Lipitor) 40 MG tablet Take 1 tablet (40 mg) by mouth Once per day. 30 tablet 11 Blood Pressure Monitoring (Omron 3 Series BP Monitor) device USE TO CHECK BLOOD PRESSURE 1-2 TIMES EVERY DAY docusate sodium (Colace) 100 MG capsule TAKE 1 TABLET BY MOUTH TWICE DAILY NEEDED FOR CONSTIPATION 180 capsule 3 fluticasone (Flonase) 50 MCG/ACT nasal spray USE 1 SPRAY IN EACH NOSTRIL EVERY MORNING 16 g 0 gabapentin (Neurontin) 100 MG capsule TAKE 1 CAPSULE BY MOUTH THREE TIMES DAILY 270 capsule 1 lisinopril 20 MG tablet TAKE 1 TABLET BY MOUTH EVERY MORNING 90 tablet 1 loratadine (Claritin) 10 MG tablet TAKE 1 TABLET BY MOUTH EVERY MORNING NEEDED FOR ALLERGIES 90 tablet 1 Multiple Vitamins-Minerals (PreserVision AREDS 2) capsule TAKE 1 CAPSULE BY MOUTH TWICE DAILY IN THE MORNING AND IN THE EVENING 180 capsule 1 Nirmatrelvir&Ritonavir 300/100 (Paxlovid, 300/100,) 20 x 150 MG & 10 x 100MG tablet therapypack Take 3 tablets by mouth 2 times daily. Take 2 tabs (300mg of nirmatrelvir) and 1 tab (100mg ofritonavir) PO BID for 5 days. No renal failure. Possible medication interactions reviewed. 30 each 0 omeprazole (PriLOSEC) [address] capsule TAKE 1 CAPSULE BY MOUTH EVERY MORNING BEFORE BREAKFAST 90 capsule 1 polyethylene glycol, PEG, 3350 (MiraLax) 17 GM/SCOOP powder 17 grams in 8-12 oz fluid like water atbedtime prn constipation 527 g 2 sucralfate (Carafate) 1 g tablet Take 1 g by mouth at bedtime. SUMAtriptan (Imitrex) 25 MG tablet TAKE 1 TABLET BY MOUTH AT ONSET OF MIGRAINE. MAY REPEAT ONCE AFTER 2 HOURS IF NEEDED. NO MORE THAN 2 TABLETS DAILY 9 tablet 0 tamsulosin (Flomax) 0.4 MG 24 hr capsule TAKE 1 CAPSULE BY MOUTH EVERY MORNING 90 capsule 3 No current facility-administered medications on file prior to visit. Problem List Items Addressed This Visit Chronic bilateral low back pain - Primary Apply heat on affected area I will prescribe acetaminophen arthritis as needed X-ray ordered Patient referred to pain management and physical therapy Relevant Medications acetaminophen (Tylenol 8 Hour) 650 MG ER tablet Other Relevant Orders XR Lumbar Spine 2-3 Views Referral to Pain Medicine Referral to Physical Therapy Venous insufficiency Follow-up with vascular Diminished vision Relevant Orders Referral to Optometry Dry eye Relevant Medications dextran 70-hypromellose (artificial tears) 0.1-0.3 % ophthalmic solution documented in this encounter Miscellaneous Notes * Assessment & Plan Note - Nadia Hedrick MD - 07/07/2024 4:13 PM EST Associated Problem(s): Chronic bilateral low back pain Apply heat on affected area I will prescribe acetaminophen arthritis as needed X-ray ordered Patient referred to pain management and physical therapy * Assessment & Plan Note - Nadia Hedrick MD - 07/07/2024 4:12 PM EST Associated Problem(s): Venous insufficiency Follow-up with vascular documented in this encounter Plan of Treatment Scheduled Referrals Name Type Priority Associated Diagnoses Orde r Schedule Referral to Pain Medicine Outpatient Referral Routine Chronic bilateral low back pain, unspecified whether sciatica present Expected: 07/07/2024 (Approximate), Expires: 07/07/2025 Referral to Optometry Outpatient Referral Routine Diminished vision Expected: 07/07/2024 (Approximate), Expires: 07/07/2025 Referral to Physical Therapy Outpatient Referral Routine Chronic bilateral low back pain, unspecified whether sciatica present Expected: 07/07/2024 (Approximate), Expires: 07/07/2025 documented as of this encounter Procedures Procedure Name Priority Date/Time Associated Diagnosis Comments XR LUMBAR SPINE 2-3 VIEWS Routine 07/07/2024 3:07 PM EST Chronic bilateral low back pain, unspecified whether sciatica present documented in this encounter Results * XR Lumbar Spine 2-3 Views (07/07/2024 3:07 PM EST) Anatomical Region Laterality Modality Spine, L-spine Radiographic Felipa ging 07/07/2024 3:07 PM EST Narrative 07/07/2024 4:40 PM EST ?[facility] ?[address] ?[place] [address] ?XRay Report ? Signed ? Patient: Quincy Aviles ?MR#: [id number] ?? [id number] ? : 1950 ?Acct:[id number] ? Age/Sex: 74 / M ?ADM Date: 03/06/25 ? Loc: HO.HHCX ? Attending Dr: Nadia Hedrick MD ? Ordering Physician: Nadia Cortes MD ?? Date of Service: 07/07/24 ?? Procedure(s): XR lumbar spine 2-3V ?? Accession Number(s): [id number] ? cc: Nadia Cortes MD ? EXAMINATION: [...] disc level. ? Electronically signed by: ??Uriel Garza MD ??07/07/2024 04:37 PM EST RP ? Dictated By: ?Uriel Garza MD ? Signed By: ?<Electronically signed by Uriel Garza MD in OV> ?07/07/24 1637 ? DD/ 1507 ? TD/TT: 07/07/24 1540 ? Central Supply Nurse: MSM ? Procedure Note Patrica Santiago - 07/07/[address] [address] XRay Report Signed Patient: Quincy Aviles BANNER#: [id number] : 3Acct:[id number] Age/Sex: 74 / MADM Date: 07/07/24 Loc: HO.HHCX Attending Dr: Nadia Hedrikc MD Ordering Physician: Nadia Cortes MD Date of Service: 07/07/24 Procedure(s): XR lumbar spine 2-3V Accession Number(s): [id number] cc: Nadia Cortes MD EXAMINATION: XR LUMBOSACRAL [...] by: Uriel Garza MD 07/07/2024 04:37 PM EST RP Dictated By: Uriel Garza MD Signed By: <Electronically signed by Uriel Garza MD in OV> 07/07/24 1637 DD/ 1507 TD/TT: 07/07/24 1540 Central Supply Nurse: TABITHA Nadia Hedrick MD IMG XR PROCEDURES Fin al Result documented in this encounter Visit Diagnoses Diagnosis Chronic bilateral low back pain, unspecified whether sciatica present- Primary Venous insufficiency Unspecified venous (peripheral) insufficiency Diminished vision Unspecified visual loss Dry eye documented in this encounter Additional Health Concerns Assessment Noted Time PHQ-9 Depression Total Score: 0 12/16/19 23 2:03 PM EDT documented as of this encounter Care Teams Diabetologist Relationship Specialty Start Date End Date Nadia Cortes MD [address] [place] [address] PCP - General Family Medicine 02/08/19 documented as of this encounter
--- OUTSIDE RECORDS SUMMARY | 2024-07-07 18:39 | XMS_ITS | Encounter Summary ---
Author Organization [employer] Address [address] [facility] 7t [place] [address] Care Team Providers Care Quality Control Inspector Name Role Phone Nadia Cortes MD Primary Care Provide r Reason for Visit * Reason Comments Med Refill Encounter Details Date Type Department Care Team (Late st Contact Info) Description 01/05/2023 Refill [facility] MEDICINE [address] [place], [place] [phone] Ida Eisenberg DO [address] [place], [place] [phone] Essential hypertension Social History Tobacco Use Types Packs/Day Years [...] as of this encounter Visit Diagnoses Diagnosis Essential hypertension Unspecified essential hypertension documented in this encounter Additional Health Concerns Assessment Noted Time PHQ-9 Depression Total Score: 0 12/16/19 23 2:03 PM EDT documented as of this encounter Care Teams Quality Control Inspector Relationship Specialty Start Date End Date Nadia Cortes MD [address] [place], [place] [phone] PCP - General Family Medicine 02/08/19 documented as of this encounter
--- OUTSIDE RECORDS SUMMARY | 2024-07-07 18:39 | XMS_ITS | Encounter Summary ---
Author Organization [employer] Address [address] [facility] [address]t [place] [address] Care Team Providers Care Shell Core And Molding Supervisor Name Role Phone Nadia Cortes MD Primary Care Provide r Reason for Visit * Reason Onset Date Comments ER Follow-up 03/11/2024 Encounter Details Date Type Department Care Team ([facility] st Contact Info) Description 03/11/2024 Telephone [facility] MEDICINE [address] [place], [place] [phone] Nadia Cortes MD [address] [place], [place] [phone] ER Follow-up Social History Tobacco Use Types Packs/Day Years [...] Telephone Encounter - Mimi Vigil RN - 03/11/2024 12:28 PM EST Triage call regarding message below [place] [id number] [address]ei. Call made x2 to [phone], with call being dropped no connection made. Call to Juani x1 [phone] without answer. Juani with [facility] calling to report ED visit on: Date: 03/10/24 Hospital: [facility] Seen for: Left foot pain Symptom: Foot or Ankle Pain - Not From Injury Outcome: Schedule an appointment to be seen within 24 hours Reason: Caller denied all higher acuity questions Juani requested to contact pt directly at [phone]. * Telephone Encounter - Jong Sharma - 03/11/2024 12:05 PM EST Juani with [facility] calling to report ED visit on: Date: 03/10/24 Hospital: [facility] Seen for: Left foot pain Symptom: Foot or Ankle Pain - Not From Injury Outcome: Schedule an appointment to be seen within 24 hours Reason: Caller denied all higher acuity questions Juani requested to contact pt directly at [phone]. documented in this encounter Plan of Treatment Not on file documented as of this encounter Visit Diagnoses Not on filedocumented in this encounter Additional Health Concerns Assessment Noted Time PHQ-9 Depression Total Score: 0 12/16/19 23 2:03 PM EDT documented as of this encounter Care Teams Shell Core And Molding Supervisor Relationship Specialty Start Date End Date Nadia Cortes MD [address] [place] [address] PCP - General Family Medicine 02/08/19 documented as of this encounter
--- OUTSIDE RECORDS SUMMARY | 2024-07-07 18:39 | XMS_ITS | Encounter Summary ---
Author Organization [employer] Address [address] [facility] [address] [place] [address] Care Team Providers Care Lacing Operator Name Role Phone Nadia Cortes MD Primary Care Provide r Encounter Details Date Type Department Care Team (Latest Contact Info) Description 04/13/2020 Abstract [facility] CONVERSIONS Dental, Provider, DDS Social History Tobacco Use Types Packs/Day Years [...] on filedocumented in this encounter Care Teams Lacing Operator Relationship Specialty Start Date End Date Nadia Cortes MD [address] [place] [address] PCP - General Family Medicine 02/08/19 documented as of this encounter
--- OUTSIDE RECORDS SUMMARY | 2024-07-07 18:39 | XMS_ITS | Encounter Summary ---
Author Organization [employer] Address [address] [facility] [address] [place] [address] Care Team Providers Care Phd Intern Name Role Phone Nadia Cortes MD Primary Care Provide r Reason for Visit * Reason Comments Med Refill Encounter Details Date Type Department Care Team (Late st Contact Info) Description 11/19/2023 Refill [facility] [address] [place], [place] [phone] Nadia Cortes MD 230 [place], [place] [phone] Chronic bilateral low back pain with sciatica, sciatica laterality unspecified Social History Tobacco Use Types Packs/Day Years Used Date Smoking Tobacco: Every Day Cigarettes Passive Smoke Exposure: Past Smokeless Tobacco: Never Depression Answer Date Recorded Patient Health Questionnaire-9 Score 0 12/15/2022 Housing Stability Answer Date Recorded What is your housing situation today? I have gage hay 03/05/[address] you [...] as of this encounter Visit Diagnoses Diagnosis Chronic bilateral low back pain with sciatica, sciatica laterality unspecified documented in this encounter Additional Health Concerns Assessment Noted Time PHQ-9 Depression Total Score: 0 12/16/19 23 2:03 PM EDT documented as of this encounter Care Teams Phd Intern Relationship Specialty Start Date End Date Nadia Cortse MD [address] [place] [address] PCP - General Family Medicine 02/08/19 documented as of this encounter
--- OUTSIDE RECORDS SUMMARY | 2024-07-07 18:39 | XMS_ITS | Encounter Summary ---
Author Organization [employer] Address [address] [facility] [address] 7[address] [place] [address] Care Team Providers Care Breadman Name Role Phone Nadia Cortes MD Primary Care Provide r Encounter Details Date Type Department Care Team (Latest Contact Info) Description 07/07/2024 Travel Social History Tobacco Use Types Packs/Day Years Used Date Smoking Tobacco: Every Day Cigarettes Passive Smoke Exposure: Past Smokeless Tobacco: Never Alcohol Use Standard Drinks/Week Comments Never 0 (1 standard drink = 0.6 oz pur e alcohol) Depression Answer Date Recorded Patient Health Questionnaire-9 Score 0 12/15/2022 Housing Stability Answer Date Recorded What is your housing situation today? I have gageemeka hay 02/04/[address] you [...] documented as of this encounter Care Teams Breadman Relationship Specialty Start Date End Date Nadia Cortes MD [address] [place] [phone] PCP - General Family Medicine 02/08/19 documented as of this encounter
--- OUTSIDE RECORDS SUMMARY | 2024-07-07 18:39 | XMS_ITS | Encounter Summary ---
Author Organization [employer] Address [address] [facility] [address] 7[address] [place] [address] Care Team Providers Care Design Engineer Marine Equipment Name Role Phone Nadia Cortes MD Primary Care Provide r Reason for Visit * Reason Onset Date Comments Nurse Triage 07/06/2024 Encounter Details Date Type Department Care Team ([facility] st Contact Info) Description 07/06/2024 Telephone [facility] MEDICINE 230 [place], [place] [phone] Nadia Cortes MD 230 [place], [place] [phone] Nurse Triage Social History Tobacco Use Types [...] encounter Miscellaneous Notes * Telephone Encounter - Kelsi Ivory RN - 07/06/2024 3:20 PM EST called pt to triage, spoke to REPAIRER ART OBJECTS with pt. pt states low back pain, radiating to bilateral legs with intermittent flashes of numbness. pt denies recent injury, inability to stand or walk, fevers, illness symptoms. or other associated symptoms. pt also requesting referral for eye care due to gradualvision changes. pt denies headaches, floaters, or other associated symptoms. given appt tomorrow with PCP at 2:00 for exam. advised home care: rest, fluids, ice, heat, OTC pain reliever and call backif worsening or new concerns. pt understands and agrees with plan. insurance verified. Protocol Used: Back Pain (Adult) Protocol-Based Disposition: See in Office or Video Visit within 3 Days Video visit offer not recorded Positive Triage Questions: * Moderate back pain (e.g., interferes with normal activities) and present > 3 days * Pain radiates into the thigh or further down the leg * Patient wants to be seen * All higher-acuity triage questions were negative Care Advice Discussed: * Reassurance and Education - Back Pain * Cold or Heat * Sleep * Continue Activity * Pain Medicines * Reasons To Call Back - Fever occurs - Numbness or weakness occurs - Loss of control of your bladder or bowel - Severe pain not better after taking pain medicines - Pain begins to shoot into the leg - Pain lasts over 2 weeks - Pain becomes worse - You become worse * Telephone Encounter - Beata Micah Diop - 07/06/2024 2:02 PM EST Symptoms: Leg Pain - Not From Injury, Back Pain - Not From Injury, Vision Loss or Change Outcome: Schedule an urgent appointment (within 1 hour) or talk to a nurse or provider soon Reason: Numbness of the leg The caller accepted this outcome. [phone] vietnamese documented in this encounter Plan of Treatment Not on file documented as of this encounter Visit Diagnoses Not on filedocumented in this encounter Additional Health Concerns Assessment Noted Time PHQ-9 Depression Total Score: 0 12/16/19 23 2:03 PM EDT documented as of this encounter Care Teams Design Engineer Marine Equipment Relationship Specialty Start Date End Date Nadia Cortes MD [address] [place] [id number] PCP - General Family Medicine 02/08/19 documented as of this encounter
--- OUTSIDE RECORDS SUMMARY | 2024-07-07 18:39 | XMS_ITS | Encounter Summary ---
Author Organization [employer] Address [address] [place] [address] Care Team Providers Care Supervisor Operations Name Role Phone Nadia Cortes MD Primary Care Provide r Reason for Visit * Reason Onset Date Comments Nurse Triage 10/26/2023 Encounter Details Date Type Department Care Team ([facility] st Contact Info) Description 10/26/2023 Telephone [facility] MEDICINE 230 [place], [place] [phone] Nadia Cortes MD 230 [place], [place] [phone] Nurse Triage Social History Tobacco Use Types [...] t he electric, gas, oil or water [employer] threatened to shut off services in your [...] Telephone Encounter - Mimi Vigil RN - 10/26/2023 10:19 AM EDT Triage call with [employer] Starter [place] [id number]. Pt guardian , Deb, answers call and reports that Pt hasn't had BM for 4 days, Pt was straining to go this morning and had some slight bleeding. Pt has had intestinal surgery and has a bag . Pt abdomen is large with pain present. Pt is advised to seek evaluation at [facility]. Deb reports Pt is unable to get there. Pt is advised to call for ambul ance or Pt insurance has [facility] Call is dropped. Call is returned and busy. Another room worker is obtained, [employer] St[employer] [place] [id number]. Call is resumed and Deb reportsthat Pt has decided to go to [facility] at [facility]. Pt is on the way there at time of second call. Triage is ended. Pt insurance is verified as active. Protocol Used: Constipation (Adult) Protocol-Based Disposition: See in Office or Video Visit Today Video visit not offered Positive Triage Questions: * Abdomen is more swollen than usual * Last bowel movement (BM) > 4 days ago * All higher-acuity triage questions were negative Care Advice Discussed: * Reassurance and Education - Constipation * Reasons To Call Back - Constipation lasts more than 1 week after using Care Advice - Abdomen swelling, vomiting or fever occur - Constant or increasing abdomen pain - You think you need to be seen - You become worse * Telephone Encounter - Aliyah Kebede - 10/26/2023 9:27 AM EDT Symptoms: Constipation, Rectal Bleeding Outcome: Schedule an urgent appointment (within 1 hour) or talk to a nurse or provider soon Reason: Constant stomach pain The caller accepted this outcome Lao speaker documented in this encounter Plan of Treatment Not on file documented as of this encounter Visit Diagnoses Not on filedocumented in this encounter Additional Health Concerns Assessment Noted Time PHQ-9 Depression Total Score: 0 12/16/19 23 2:03 PM EDT documented as of this encounter Care Teams Supervisor Operations Relationship Specialty Start Date End Date Nadia Cortes MD 230 [place] [address] PCP - General Family Medicine 02/08/19 documented as of this encounter
== END 2024-07-07 15:08 | disposition home or self-care (01) ==
LOC: HO.HHCX 15:07
PROVIDERS: Visit Provider Internal Medicine
DX: M54.50 Low back pain, unspecified (principal); G89.29 Other chronic pain
CPT/HCPCS: 72100

== ENCOUNTER → 2024-07-07 15:07 | Outpatient (BNV) | payer OTHER, SELFPAY | PROVIDERS: Visit Provider Radiology Diagnostic Radiology | DX: M51.360 Other intervertebral disc degeneration, lumbar region with discogenic back pain only (principal); M47.816 Spondylosis without myelopathy or radiculopathy, lumbar region | CPT/HCPCS: 72100 ==

== ENCOUNTER 2024-07-28 14:09 | Outpatient (AMB) | payer OTHER, SELFPAY ==
--- NOTE | 2024-07-28 14:10 | A.OFFVIS_ITS ---
Intake Visit Reasons: Chronic bilateral low back pain Intake Note: Pain today 02/10 Agricultural Produce Packer Required: Yes Agricultural Produce Packer Language: Outside Sales Account Executive Name: Leah Accompanied by: Self / Same As Patient Allergies No Known Allergies [No Known Allergies*] Allergy (Verified 07/28/24 14:16) HPI Comments Details: Ukrainian interpretation with Leah Nunn. The patient is a 74-year-old male presenting with chronic back pain for the past three months. The pain, with no clear inciting event, originates in the back and radiates down the right leg, resembling electrical sensations. He reports associated numbness, this symptom is new and distinct. Tenderness is noted, exacerbated by twisting motions. He has used Tylenol 650 mg without other anti- inflammatory medications. Additionally, the patient has experienced recent urinary incontinence but hasn't reported it to his doctor. States there have been a few times over the last several months where he will urinate without feeling the sensation, this has occured while walking around. An X-ray revealed arthritis. - Onset: Approximately 3 months ago. - Quality and Character: Electric, zapping sensation. - Primary Location: Central back extending to the right side. - Radiation: Down the right leg to the foot. - Exacerbating Factors: Putting on socks, twisting, stretching. - Activities or Functions Interference: Difficulty with twisting motions like putting on a jacket, tenderness behind the knee. - Relieving Factors: Tylenol 650 mg used with some relief. - Affect: Pain impacts mobility and causes discomfort - Analgesia: Tylenol 650 mg used; Pain today 02/10 - Adverse Effects: None reported from Tylenol; other medication use not attempted. - Activities of Daily Living: Pain interferes with basic functional tasks such as dressing. - Aberrant Drug-Related Behaviors: None reported. [facility] Medical History Acute COVID-19 History of alcohol abuse Illiterate Chronic low back pain Arthritis Allergic rhinitis Necrosis of colon GERD (gastroesophageal reflux disease) High cholesterol HTN (hypertension) Surgical History History of colostomy reversal (06/03/21) History of cystoscopy Hx of colonoscopy Colostomy in place S/P left colectomy (~02/27/21) History of prostate surgery Social History Household Members: Unknown / Unable to assess Housing: Unknown / Unable to assess Do you presently have visiting nurse or other home services: No (from [facility]) Unable to assess alcohol history related to: Unknown Alcohol intake: never Patient Tobacco Use Status: Former Tobacco user Tobacco use type: Cigarette Advance Directives Date on File: 06/03/21 service: No Current occupational status: unemployed Review of Systems Const Details: - Neurological: Reports numbness in right leg. - Genitourinary: Reports urinary incontinence while walking around. - Musculoskeletal: Reports chronic back pain, pain in movements such as putting on socks, and twisting activities. Physical Exam General: awake, alert, oriented. Answers questions appropriately. Fully engaged in examination. Skin: warm, dry, intact HEENT: Normocephalic. Hearing intact. Cardiac: External chest normal in appearance. Respiratory: No cough, audible wheezing or stridor. Abdomen: without gross distension. MS: No obvious swelling or deformities. Able to transition from sit to stand unassisted. Tenderness in mid-back; BLE leg strength 5/5, Neg foot drop, neg Clonus Nontender over bilateral PSIS Facet loading positive SLR positive right Weakness noted when standing on right toes and heels, assessment through toe and heel walking. Neurological: Oriented to person, place, time and situation. Thought process intact. Psychiatric: Appropriate mood and affect. Good judgment and insight. Results Reviewed Results Reviewed: 07/07/24 XR/XR lumbar spine 2-3V FINDINGS: There is normal lumbar lordosis. The vertebral heights and alignment is normal. There is loss of disc height virtually at every disc level without visible acute fracture, dislocation or lytic process. Mild left lateral spondylosis seen at the L4-5 disc level. The paravertebral soft tissues are normal. There is moderate stool seen throughout the right colon. IMPRESSION: Degenerative disc changes throughout the lumbar spine. Moderate left lateral spondylosis L4-5 disc level. Assessment & Plan Assessment & Plan (1) Lumbar radiculopathy: Code(s): M54.16 - Radiculopathy, lumbar region Category: Medical (2) Urinary incontinence without sensory awareness: Code(s): N39.42 - Incontinence without sensory awareness Category: Medical (3) Lumbar spondylosis: Code(s): M47.816 - Spondylosis without myelopathy or radiculopathy, lumbar region Category: Medical (4) Neurogenic bladder: Code(s): N31.9 - Neuromuscular dysfunction of bladder, unspecified Category: Medical Plan Urgent MRI ordered, concern for Spinal Stenosis given reported pelvic organ dysfunction/urinary incontinence without sensory awareness. For the management of chronic back pain with suspected radiculopathy, I will pre scribe an anti-inflammatory cream for topical application and initiate physical therapy to improve functionality and reduce symptoms pending review of MRI. Continuing current analgesia with Tylenol. Follow-up will be scheduled after MRI findings to reassess and refine management strategies. During this visit, I discussed with the patient the differentiation of his symptoms including chronic back pain with radiating characteristics suggestive of radiculopathy, local arthritis indicated by prior X-ray, and new onset of urinary incontinence concerning for spinal stenosis. I reviewed the potential treatment steps, highlighting the use of an anti-inflammatory cream and the initiation of physical therapy as initial non-invasive strategies pending Urgent MRI review. We discussed the use of NSAIDs versus Tylenol, noting the patient's current regimen. Given the complexity and potential implications of his symptoms, I emphasized the importance of pursuing an Urgent MRI. I reassured the patient regarding follow-up plans, addressing concerns around urinary incontinence as an indication for expedited imaging. Consent for all discussed plans was acquired, and I explained any risks and benefits associated with the outlined management. - Urgent MRI ordered - Use the anti-inflammatory cream as prescribed on the back. - Continue taking Tylenol 650 mg as needed, but do not exceed the recommended dose. - Be aware of any changes in urinary symptoms, and report worsening or new symptoms immediately. - Red flag symtpoms reviewed and when to seek treatment in the ER. - Follow up post MRI Patient was informed and verbally consented to the use of an ambient scribe for clinic note documentation during this visit. Orders: Orders MR lumbar spine wo con Today M47.816 - Spondylosis without myelopathy or radiculopathy, lumbar region, M54.16 - Radiculopathy, lumbar region, N31.9 - Flex romuscular dysfunction of bladder, unspecified, N39.42 - Incontinence without sensory awareness Medications: New diclofenac sodium 3% apply to most painful area twice daily as needed for pain 1 appl topical BID 100 grams 0RF Coding Level of Care Code New Pt Level 4 (03076) Complex EM visit Add On G2211 Diagnoses Lumbar radiculopathy M54.16 Urinary incontinence without sensory awareness N39.42 Lumbar spondylosis M47.816 Neurogenic bladder N31.9
--- OUTSIDE RECORDS SUMMARY | 2024-07-28 17:47 | XMS_ITS | Encounter Summary ---
Author Organization [employer] Address [address] [facility] 7t [place] [address] Care Team Providers Care Experience Specialist Name Role Phone Nadia Cortes MD Primary Care Provide r Reason for Visit * Reason Onset Date Comments ER Follow-up 03/11/2024 Encounter Details Date Type Department Care Team ([facility] st Contact Info) Description 03/11/2024 Telephone [facility] MEDICINE [address] [place], [place] [phone] Nadia Cortes MD [address] [place], [place] [phone] ER Follow-up Social History Tobacco Use Types [...] EST Triage call regarding message below [place] [employer] [place] [id number] Alexei. Call made x2 to [phone], with call being dropped no connection made. Call to Juani x1 [phone] without answer. Juani with [facility] calling to report ED visit on: Date: 03/10/24 Hospital: [facility] Seen for: Left foot pain Symptom: Foot or Ankle Pain - Not From Injury Outcome: Schedule an appointment to be seen within 24 hours Reason: Caller denied all higher acuity questions Juani requested to contact pt directly at [phone]. * Telephone Encounter - Jong Sharma - 03/11/2024 12:05 PM EST Juani with [facility] calling to report ED visit on: Date: 03/10/24 Hospital: [facility] Seen for: Left foot pain Symptom: Foot or Ankle Pain - Not From Injury Outcome: Schedule an appointment to be seen within 24 hours Reason: Caller denied all higher acuity questions Juani requested to contact pt directly at [phone]. documented in this encounter Plan of Treatment Not on file documented as of this encounter Visit Diagnoses Not on filedocumented in this encounter Additional Health Concerns Assessment Noted Time PHQ-9 Depression Total Score: 0 12/16/19 23 2:03 PM EDT documented as of this encounter Care Teams Experience Specialist Relationship Specialty Start Date End Date Nadia Cortes MD [address] [place] [address] PCP - General Family Medicine 02/08/19 documented as of this encounter
--- OUTSIDE RECORDS SUMMARY | 2024-07-28 17:47 | XMS_ITS | Encounter Summary ---
Author Organization [employer] Address [address] [facility] [address] [place] [address] Care Team Providers Care Crab Meat Processor Name Role Phone Nadia Cortes MD Primary Care Provide r Reason for Visit * Reason Onset Date Comments Nurse Triage 10/26/2023 Encounter Details Date Type Department Care Team ([facility] st Contact Info) Description 10/26/2023 Telephone [facility] MEDICINE 230 [place], [place] [phone] Nadia Cortes MD [address] [place], [place] [phone] Nurse Triage Social History Tobacco Use Types [...] t he electric, gas, oil or water [employer] threatened to shut off services in your [...] 10/26/2023 10:19 AM EDT Triage call with [employer] Inside Sales Supervisor ID [id number]. Pt guardian , Deb, answers call and [...] or Pt insurance [facility] Call is dropped. Call is returned and busy. Another scraper loader operator is obtained, [employer] Inside Sales Supervisor [place] [id number]. Call is resumed and Deb reportsthat Pt has decided to go to [facility] at [facility]. Pt is on the way there [...] stomach pain The caller accepted this outcome Macedonian speaker documented in this encounter Plan of Treatment Not on file documented as of this encounter Visit Diagnoses Not on filedocumented in this encounter Additional Health Concerns Assessment Noted Time PHQ-9 Depression Total Score: 0 12/16/19 23 2:03 PM EDT documented as of this encounter Care Teams Crab Meat Processor Relationship Specialty Start Date End Date Nadia Cortes MD [address] [place] [address] PCP - General Family Medicine 02/08/19 documented as of this encounter
--- OUTSIDE RECORDS SUMMARY | 2024-07-28 17:47 | XMS_ITS | Encounter Summary ---
Author Organization [employer] Address [address] [place] [address] Care Team Providers Care Fish Salter Name Role Phone Nadia Cortes MD Primary Care Provide r Encounter Details Date Type Department Care Team ([facility] st Contact Info) Description 07/22/2023 Telephone [facility] MEDICINE 230 [place], [place] [phone] Nadia Cortes MD 230 [place], [place] [phone] Social History Tobacco Use Types Packs/Day Years [...] documented as of this encounter Care Teams Fish Salter Relationship Specialty Start Date End Date Nadia Cortes MD [address] [place] [address] PCP - General Family Medicine 02/08/19 documented as of this encounter
--- OUTSIDE RECORDS SUMMARY | 2024-07-28 17:47 | XMS_ITS | Encounter Summary ---
Author Organization [employer] Address [address] [place] [address] Care Team Providers Care Securities Analyst Name Role Phone Nadia Cortes MD Primary Care Provide r Reason for Visit * Reason Onset Date Comments Nurse Triage 01/15/2023 Encounter Details Date Type Department Care Team (Late st Contact Info) Description 01/15/2023 Telephone [facility] MEDICINE 230 [place], [place] [phone] Nadia Cortes MD 230 [place] [address] Nurse Triage Social History Tobacco Use Types [...] call , Pt reports will come to [facility] in the morning to be seen. No triage at this call. * Telephone Encounter - Margaret Diaz - 01/15/2023 2:00 PM EDT Symptom: Eye - Pus or Discharge Outcome: Schedule a same-day appointment or talk to a nurse or provider today Reason: Caller denied all higher acuity questions The caller accepted this outcome Patient speaks indonesian Patient walked in reports having left eye discharge, discomfort and itchiness since yesterday. Patient missed 01/15/23 [facility] appt at 1:40 pm. documented in this encounter Plan of Treatment Not on file documented as of this encounter Visit Diagnoses Not on filedocumented in this encounter Additional Health Concerns Assessment Noted Time PHQ-9 Depression Total Score: 0 12/16/19 2:03 PM EDT documented as of this encounter Care Teams Securities Analyst Relationship Specialty Start Date End Date Nadia Cortes MD [address] [place] [id number] PCP - General Family Medicine 02/08/19 documented as of this encounter
--- OUTSIDE RECORDS SUMMARY | 2024-07-28 17:47 | XMS_ITS | Encounter Summary ---
Author Organization [employer] Address [address] [facility] [address] [place] [address] Care Team Providers Care Coke Burner Name Role Phone Nadia Cortes MD Primary Care Provide r Reason for Visit * Reason Comments Med Refill Encounter Details Date Type Department Care Team (Late st Contact Info) Description 01/05/2023 Refill [facility] MEDICINE 230 [place], [place] [phone] Ida Eisenberg DO 230 [place], [place] [phone] Essential hypertension Social History Tobacco Use Types [...] documented as of this encounter Care Teams Coke Burner Relationship Specialty Start Date End Date Nadia Cortes MD 230 [place], [place] [phone] PCP - General Family Medicine 02/08/19 documented as of this encounter
--- OUTSIDE RECORDS SUMMARY | 2024-07-28 17:47 | XMS_ITS | Encounter Summary ---
Author Organization [employer] Address [address] 7[address] [place] [address] Care Team Providers Care Waterproofer Helper Name Role Phone Nadia Cortes MD Primary Care Provide r Encounter Details Date Type Department Care Team ([facility] st Contact Info) Description 07/07/2024 Telephone C OPTOMETRY [address] [place] [address] TimiNelsy jimenez, OD [address] [place] [address] Social History Tobacco Use Types Packs/Day Years [...] t he electric, gas, oil or water [employer] threatened to shut off services in your [...] documented as of this encounter Care Teams Waterproofer Helper Relationship Specialty Start Date End Date Ndaia Cortes MD [address] [place] [address] PCP - General Family Medicine 02/08/19 documented as of this encounter
--- OUTSIDE RECORDS SUMMARY | 2024-07-28 17:47 | XMS_ITS | Encounter Summary ---
Author Organization [facility] Address [address] [place] [address] Care Team Providers Care Sql Database Administrator Name Role Phone Nadia Cortes MD Primary Care Provide r Reason for Referral * Imaging (Routine) - Authorized Specialty Diagnoses / Procedures Referred By Contac t Referred To Contact Diagnoses PVD (peripheral vascular disease) ([facility]/HCC) Procedures Vascular US duplex lower extremity arteries bilateral with LAUREN Yue Sidhu PA [address] [place] [address] Phone: tel: fax: [facility] Referral ID Status Reason Start Date Expiration Date V isits Requested Visits Authorized [id number] Authorized 07/11/2024 07/11/2025 1 1 * Imaging (Routine) - Authorized Specialty Diagnoses / Procedures Referred By Contac t Referred To Contact Diagnoses Leg swelling Procedures Vascular US duplex lower extremity venous insufficiency bilateral Yue Sidhu PA [address] [place] [address] Phone: tel: fax: [facility] Referral ID Status Reason Start Date Expiration Date V isits Requested Visits Authorized [id number] Authorized 07/11/2024 07/11/2025 1 1 Reason for Visit * Reason Comments Consult * Consultation (Routine) - Closed Specialty Diagnoses / Procedures Referred By Contac t Referred To Contact Vascular Surgery Diagnoses PVD (peripheral vascular disease) (CMS/HCC) Oscar Huffman DPM [address] [facility] [address] [facility] [address] [place] [address] Phone: tel: fax: Cholo Underwood MD [address] [place] [address] Phone: tel: fax: Referral ID Status Reason Start Date Expiration Date V isits Requested Visits Authorized [id number] Closed Specialty Services Required 05/16/2024 05/16/2025 1 1 Encounter Details Date Type Department Care Team (Late st Contact Info) Description 07/11/2024 2:30 PM EDT Consult Vascular Surgery - [place] [address] [place] [address] Yue Sidhu PA [address] [place] [address] Leg swelling (Primary Dx); PVD (peripheral vascular disease) (CMS/HCC); Polyneuropathy associated with underlying disease (CMS/HCC); Chronic bilateral low back pain, unspecified whether sciatica present Social History Tobacco Use Types Packs/Day Years Used Date Smoking Tobacco: Never Assessed Sex and Gender Information Value Date Recorded Sex Assigned at Not on file Legal Sex Male 4:38 PM EDT Gender Identity Not on file Sexual Orientation Not on file documented as of this encounter Last Filed Vital Signs Vital Sign Reading Time Taken Comments Blood Pressure 111/64 07/11/2024 2:47 PM EDT Pulse 74 07/11/2024 2:47 PM EDT Temperature - - Respiratory Rate - - Oxygen Saturation - - Inhaled Oxygen Concentration - - Weight 78.9 kg (174 lb) 07/11/2024 2:47 PM EDT Height - - Body Mass Index 26.46 05/16/2024 3:00 PM EST documented in this encounter Progress Notes * CB Koehler - 07/11/2024 2:30 PM EDT PATIENT: Quincy Harris ENCOUNTER: 07/11/2024 EMRN: [id number] : 1950 PCP: Nadia Hedrick MD CHIEF COMPLAINT: Consult AN interpreters #[id number] and #[id number] utilized during this visit. HPI: This 74 y.o. male presents for evaluation of leg pain. Pt presents with his . Patient reports bilateral foot pain for the past 2 years. Pt describes pain as burning and achy. He says the pain radiates up into his calf/thigh region. Pain occurs at rest when he is lying down and with ambulation. He also reports calf fatigue and pain with minimal ambulation. He reports edema and leg varicositiesbilaterally. He ambulates with a cane. He is relatively inactive and does not exercise or work, mainly stays around his home. If he does leave the home, he needs to take breaks when he walks due to pain in his legs. Symptoms are equal on both legs. He has no history of ulcers. He will take tylenol PRN for discomfort which does not help significantly. He has tried using compression in the past without success and felt they were too tight. Denies history of DVT. He denies prior arterial or venousprocedures. He was a heavy cigarette smoker and alcohol drinker but quit both ~3-4 years ago. Accoridng to his med list from his PCP, he takes a baby aspirin and a statin. PAST MEDICAL HISTORY: Patient Active Problem List Diagnosis Abnormal gait Alcohol abuse Allergic rhinitis Arthritis Benign prostatic hyperplasia with urinary frequency Bilateral hearing loss Bilateral leg pain Chronic bilateral low back pain Diminished vision Erectile dysfunction Forgetfulness Gastroesophageal reflux disease Hyperlipidemia Helicobacter pylori gastrointestinal tract infection Hypertension Illiteracy Impaired cognition Microscopic hematuria Prediabetes Polyp of colon Venous insufficiency PAST SURGICAL HISTORY: No past surgical history on file. MEDICATIONS: Outpatient Medications Marked as Taking for the 07/11/24 encounter (Consult) with CB Koehler Medication Sig Dispense Refill lisinopriL (PRINIVIL,ZESTRIL) 20 mg tablet Take 1 tablet (20 mg total) by mouth 1 (one) time each day in the morning. polyethylene glycol (PEG) 17 gram/dose oral powder Take 17 g by mouth 1 (one) time each day if needed for constipation. PreserVision AREDS-2 250-90-40-1 mg capsule Take 1 capsule by mouth 2 (two) times a day. amLODIPine (NORVASC) 10 mg tablet Take 1 tablet (10 mg total) by mouth 1 (one) time each day in themorning. aspirin 81 mg EC tablet Take 1 tablet (81 mg total) by mouth 1 (one) time each day in the morning. atorvastatin (LIPITOR) 40 mg tablet Take 1 tablet (40 mg total) by mouth at bedtime. docusate sodium (COLACE) 100 mg capsule Take 1 capsule (100 mg total) by mouth 2 (two) times a day if needed. for constipation gabapentin (NEURONTIN) 100 mg capsule Take 1 capsule (100 mg total) by mouth 3 (three) times a day. loratadine (CLARITIN) 10 mg tablet Take 1 tablet (10 mg total) by mouth 1 (one) time each day. omeprazole (PriLOSEC) [address] capsule Take 1 capsule (40 mg total) by mouth 1 (one) time each day in the morning. tamsulosin (FLOMAX) 0.4 mg 24 hr capsule Take 1 capsule (0.4 mg total) by mouth 1 (one) time each day in the morning. ALLERGIES: No Known Allergies SOCIAL HISTORY: FAMILY HISTORY: No family history on file. ROS: GENERAL: No malaise, significant weight loss or fever NECK: No lumps, goiter, pain or significant neck swelling RESPIRATORY: No cough, wheezing or shortness of breath CARDIAC: No chest pain or palpitations GI: No abdominal discomfort MUSCULOSKELETAL: SEE HPI SKIN: No lesions, rash or itching NEURO: No persistent headache, syncope, seizures, weakness or numbness VASCULAR: SEE HPI PHYSICAL EXAM: Vitals: 07/11/24 1447 BP: 111/64 BP Location: Right arm Patient Position: Sitting Pulse: 74 Weight: 78.9 kg (174 lb) General: Alert and oriented x 3, no acute distress, well-nourished HEENT: Normocephalic atraumatic Neck: No JVD Chest: Respiratory effort normal Cardiac: Regular rate rhythm Abdomen: Soft, nontender, nondistended, no widened aortic pulse Extremities: -Right upper extremity: 2+ radial artery pulses palpable. -Left upper extremity: 2+ radial artery pulses palpable. -Right lower extremity: 2+ femoral artery pulse palpable. No palpable popliteal artery pulse. 2+ PT. No DP. Hair loss at mid calf. No ulcers or gangrene. No major varicosities but he has reticular veins on the calf and thigh. No hyperpigmentation. No induration or inflammation. No edema. -Left lower extremity: 2+ femoral artery pulse palpable. No palpable popliteal artery pulse. 2+ PT.No DP. Hair loss at mid calf. No ulcers or gangrene. No major varicosities but he has reticular veins on the calf and thigh. No hyperpigmentation. No induration or inflammation. No edema. Neuro: Grossly intact DIAGNOSTIC TESTING: N/a ASSESSMENT: 1. Leg swelling 2. PVD (peripheral vascular disease) ([facility]/HCC) 3. Polyneuropathy associated with underlying disease (CMS/HCC) 4. Chronic bilateral low back pain, unspecified whether sciatica present PLAN: 74 y.o. male with leg pain described as burning and numbness in the feet at rest, as well as calf fatigue and aching with minimal ambulation. Discussed that his pain may be at least in part neuropathic given history of chronic low back pain however we will obtain arterial duplex and venous reflux studies and see him back in 3 months. Pt is on gabapentin at a low dose which could be titrated up ifpain is neuropathic. Patient is difficult to obtain a history from which may be related to the language barrier. Two different interpreters had a difficult time understanding the patient and vice versa. Ideally patient would be allotted an extended appointment time to review his imaging but this may be difficult due to current scheduling issues. At minimum patient requires a 30 min visit. We discussed the natural pathophysiology of PAD and venous insufficiency. I spent 65 minutes in an encounter with this patient, including time spent with patient, chart review, ordering diagnostic studies, and documentation. documented in this encounter Plan of Treatment Upcoming Encounters Date Type Department Care Team (Late st Contact Info) Description 08/04/2024 1:30 PM EDT Ancillary Procedure [facility] Cardiology [facility] [address] [facility] [address] [place] [address] 08/11/2024 1:30 PM EDT Ancillary Procedure [facility] Cardiology [facility] [address] [place] [address] 10/18/2024 2:00 PM EDT Office Visit Vascular Surgery - [place] [address] [place] [address] Yue Sidhu PA [address] [facility] [address] [place] [address] Scheduled Orders Name Type Priority Associated Diagnoses Order Schedule Vascular US duplex lower extremity venous insufficiency bilateral Vascular Ultrasound Routine Leg swelling Expected: 07/11/2024, Expires: 07/11/2025 Vascular US duplex lower extremity arteries bilateral with LAUREN Vascular Ultrasound Routine PVD (peripheral vascular disease) (CMS/HCC) Expected: 07/11/2024, Expires: 07/11/2025 documented as of this encounter Visit Diagnoses Diagnosis Leg swelling- Primary Swelling of limb PVD (peripheral vascular disease) (CMS/HCC) Unspecified peripheral vascular disease Polyneuropathy associated with underlying disease Chronic bilateral low back pain, unspecified whether sciatica present documented in this encounter Historical Medications * This list may reflect changes made after this encounter. PreserVision AREDS-2 250-90-40-1 mg capsule Take 1 capsule by mouth 2 (two) times a day. 07/01/2024 tamsulosin (FLOMAX) 0.4 mg 24 hr capsule Take 1 capsule (0.4 mg total) by mouth 1 (one) time each day in the morning. polyethylene glycol (PEG) 17 gram/dose oral powder Take 17 g by mouth 1 (one) time each day if needed for constipation. 10/26/2023 omeprazole (PriLOSEC) [address] capsule Take 1 capsule (40 mg total) by mouth 1 (one) time each day in the morning. loratadine (CLARITIN) 10 mg tablet Take 1 tablet (10 mg total) by mouth 1 (one) time each day. lisinopriL (PRINIVIL,ZESTRI L) 20 mg tablet Take 1 tablet (20 mg total) by mouth 1 (one) time each day in the morning. 04/05/2024 gabapentin (NEURONTIN) 100 mg capsule Take 1 capsule (100 mg total) by mouth 3 (three) times a day. docusate sodium (COLACE) 100 mg capsule Take 1 capsule (100 mg total) by mouth 2 (two) times a day if needed. for constipation atorvastatin (LIPITOR) 40 mg tablet Take 1 tablet (40 mg total) by mouth at bedtime. aspirin 81 mg EC tablet Take 1 tablet (81 mg total) by mouth 1 (one) time each day in the morning. amLODIPine (NORVASC) 10 mg tablet Take 1 tablet (10 mg total) by mouth 1 (one) time each day in the morning. added in this encounter Orders Outpatient Referral Count Last Ordered Date Fir st Ordered Date AMB REFERRAL TO VASCULAR SURGERY 1 07/12/19 25 documented in this encounter Care Teams Sql Database Administrator Relationship Specialty Start Date End Date Nadia Cortes MD [address] [address] PCP - General 02/08/24 documented as of this encounter
--- OUTSIDE RECORDS SUMMARY | 2024-07-28 17:47 | XMS_ITS | Encounter Summary ---
Author Organization [employer] Address [address] [facility] [place] [address] Care Team Providers Care Rn Surgical Name Role Phone Nadia Cortes MD Primary Care Provide r Encounter Details Date Type Department Care Team (Latest Contact Info) Description 04/13/2020 Abstract [facility] CONVERSIONS Dental, Provider, DDS Social History Tobacco [...] on filedocumented in this encounter Care Teams Rn Surgical Relationship Specialty Start Date End Date Nadia Cortes MD [address] [place] [id number] PCP - General Family Medicine 02/08/19 documented as of this encounter
--- OUTSIDE RECORDS SUMMARY | 2024-07-28 17:47 | XMS_ITS | Encounter Summary ---
Author Organization [address] [facility] [employer] Address [address] [facility] 7t [place] [address] Care Team Providers Care Educational Recruiter Name Role Phone Nadia Cortes MD Primary Care Provide r Reason for Visit * Reason Onset Date Comments PCP change 11/17/2022 Encounter Details Date Type Department Care Team (Late st Contact Info) Description 11/17/2022 Telephone [facility] MEDICINE [address] [place], [place] [phone] Nadia Cortes MD [address] [place] [address] PCP change Social History Tobacco Use Types [...] on filedocumented in this encounter Care Teams Educational Recruiter Relationship Specialty Start Date End Date Nadia Cortes MD [address] [place] [address] PCP - General Family Medicine 02/08/19 documented as of this encounter
--- OUTSIDE RECORDS SUMMARY | 2024-07-28 17:47 | XMS_ITS | Encounter Summary ---
Author Organization [employer] Address [address] [facility] 7t [place] [address] Care Team Providers Care Svp Marketing Name Role Phone Nadia Cortes MD Primary Care Provide r Reason for Referral * Consultation (Routine) - Closed Specialty Diagnoses / Procedures Referred By Contarmani t Referred To Contact Optometry Diagnoses Decreased visual acuity Nadia Cortes MD [address] [place] [address] Phone: tel: fax: [facility] OPTOMETRY [address] [place] [address] Phone: tel: fax: Referral ID Status Reason Start Date Expiration Date V isits Requested Visits Authorized [id number] Closed Consult and Treat 07/06/2024 07/06/2025 1 1 Reason for Visit * Reason Onset Date Comments Referral 07/06/2024 Encounter Details Date Type Department Care Team ([facility] st Contact Info) Description 07/06/2024 Telephone [facility] MEDICINE [address] [place], [place] [phone] Ndaia Cortes MD [address] [place] [address] Referral Social History Tobacco Use Types Packs/Day [...] 4:47 PM EST TC placed to patient [phone] in regards to below message via [employer] interpreters (Chuy #[id number]). Patient reports he currently wear glasses however has not had an eye exam in 2 years. Patient needs updated RX. RN will place referral to [facility] eyecare and they will reach out to patient for appointment scheduling. Patient to f/u PRN. * Telephone Encounter - Beata Diop - 07/06/2024 2:12 PM EST Tc from REGISTERED NURSING PROFESSOR requesting referral for eye exam. [facility] documented in this encounter Plan of Treatment Scheduled Referrals Name Type Priority Associated Diagnoses Orde r Schedule Referral to [facility] Eye Care Outpatient Referral Routine Decreased visual acuity Expected: 07/06/2024 (Approximate), Expires: 07/06/2025 documented as of this encounter Visit Diagnoses Diagnosis Decreased visual acuity documented in this encounter Additional Health Concerns Assessment Noted Time PHQ-9 Depression Total Score: 0 12/16/19 23 2:03 PM EDT documented as of this encounter Care Teams Svp Marketing Relationship Specialty Start Date End Date Nadia Cortes MD [address] [place] [address] PCP - General Family Medicine 02/08/19 documented as of this encounter
--- OUTSIDE RECORDS SUMMARY | 2024-07-28 17:47 | XMS_ITS | Encounter Summary ---
Author Organization [employer] Address [address] 7[address] [place] [address] Care Team Providers Care Stone And Plate Preparer Apprentice Name Role Phone Nadia Cortes MD Primary Care Provide r Reason for Visit * Reason Comments Med Refill Encounter Details Date Type Department Care Team (Late st Contact Info) Description 11/19/2023 Refill [facility] MEDICINE [address] [place], [place] [phone] Nadia Cortes MD [address] [place], [place] [phone] Chronic bilateral low back pain with sciatica, [...] documented as of this encounter Care Teams Stone And Plate Preparer Apprentice Relationship Specialty Start Date End Date Nadia Cortes MD [address] [place] [address] PCP - General Family Medicine 02/08/19 documented as of this encounter
--- OUTSIDE RECORDS SUMMARY | 2024-07-28 17:47 | XMS_ITS | Clinical Summary ---
Author Organization [address] [facility] Address [address] [place] [address] Phone Care Team Providers Care Equipment Validation Specialist Name Role Phone Nadia Cortes MD Primary Care Provide r Allergies No known active allergies Medications amLODIPine (NORVASC) 10 mg tablet Take 1 tablet (10 mg total) by mouth 1 (one) time each day in the morning. Active aspirin 81 mg EC tablet Take 1 tablet (81 mg total) by mouth 1 (one) time each day in the morning. Active atorvastatin (LIPITOR) 40 mg tablet Take 1 tablet (40 mg total) by mouth at bedtime. Active docusate sodium (COLACE) 100 mg capsule Take 1 capsule (100 mg total) by mouth 2 (two) times a day if needed. for constipation Active gabapentin (NEURONTIN) 100 mg capsule Take 1 capsule (100 mg total) by mouth 3 (three) times a day. Active lisinopriL (PRINIVIL,ZESTR IL) 20 mg tablet Take 1 tablet (20 mg total) by mouth 1 (one) time each day in the morning. 4 Active loratadine (CLARITIN) 10 mg tablet Take 1 tablet (10 mg total) by mouth 1 (one) time each day. Active omeprazole (PriLOSEC) [address] capsule Take 1 capsule (40 mg total) by mouth 1 (one) time each day in the morning. Active polyethylene glycol (PEG) 17 gram/dose oral powder Take 17 g by mouth 1 (one) time each day if needed for constipation. 4 Active tamsulosin (FLOMAX) 0.4 mg 24 hr capsule Take 1 capsule (0.4 mg total) by mouth 1 (one) time each day in the morning. Active PreserVision AREDS-2 250-90-40-1 mg capsule Take 1 capsule by mouth 2 (two) times a day. Active Active Problems Problem Noted Date Diagnosed Date Forgetfulness 02/04/2024 Bilateral leg pain 08/25/2023 Venous insufficiency 12/15/2022 Abnormal gait 08/05/2022 Benign prostatic hyperplasia with urinary freque ncy 08/05/2022 Bilateral hearing loss 08/05/2022 Diminished vision 08/05/2022 Impaired cognition 08/05/2022 Prediabetes 08/05/2022 Microscopic hematuria 09/11/2017 Illiteracy 09/10/2017 Chronic bilateral low back pain 07/21/2017 Polyp of colon 07/21/2017 Hyperlipidemia 09/24/2016 Gastroesophageal reflux disease 09/18/2016 Alcohol abuse 10/10/2014 Helicobacter pylori gastrointestinal tract infec tion 10/10/2014 Hypertension 07/20/2013 Arthritis 04/25/2013 Allergic rhinitis 01/28/2013 Erectile dysfunction 01/28/2013 Encounters Date Type Department Care Team Description 07/11/2024 2:30 PM EDT Consult Vascular Surgery - [place] [address] [place] [phone] Yue Sidhu PA Leg swelling (Primary Dx); PVD (peripheral vascular disease) (CMS/HCC); Polyneuropathy associated with underlying disease (CMS/HCC); Chronic bilateral low back pain, unspecified whether sciatica present 05/16/2024 3:00 PM EST Office Visit Orthopedic Surgery [facility] [address] [place] [address] [address] [place] [phone] Oscar Huffman DPM Pain in both feet (Primary Dx); Arthritis of both feet; Metatarsalgia of left foot; PVD (peripheral vascular disease) (CMS/HCC) from Last 3 Months Social History Tobacco [...] (174 lb) 07/11/2024 2:47 PM EDT Height 172.7 cm (5' 8 ) 05/16/2024 3:00 PM EST Body Mass Index 26.46 05/16/2024 3:00 PM EST Plan of Treatment Upcoming Encounters Date Type Department Care Team (Late st Contact Info) Description 08/04/2024 1:30 PM EDT Ancillary Procedure [facility] [address] [facility] [address] [place] [address] 08/11/2024 1:30 PM EDT Ancillary Procedure [facility] Cardiology [facility] [address] [facility] 101 [place] [address] 10/18/2024 2:00 PM EDT Office Visit Vascular Surgery - [place] [address] [facility] [address] [place] [address] Yue Sidhu PA [address] [place] [address] Health Maintenance Due Date Last Done Comments Zoster Vaccines (2 of 3) 11/13/2016 09/18/2016 [...] patient's age to complete this topic Hepatitis A Vaccines Aged Out No long er eligible [...] patient's age to complete this topic Insurance [employer] MEDICARE Member Subscriber Plan / Payer (Ef fective 2021-Present) Name:Quincy Avilesio Relation to Subscriber:Self Name:Titalashonda HarrisQuincy Payer ID:[id number] Group ID:[id number] Type:Not on file Address: [facility] [address] [address] Care Teams Equipment Validation Specialist Relationship Specialty Start Date End Date Nadia Cortes MD [address] [place] [phone] PCP - General 02/08/24
--- OUTSIDE RECORDS SUMMARY | 2024-07-28 17:47 | XMS_ITS | Encounter Summary ---
Author Organization [employer] Address [address] 7[address] [place] [address] Care Team Providers Care Program Engineer Name Role Phone Nadia Cortes MD Primary [...] documented as of this encounter Care Teams Program Engineer Relationship Specialty Start Date End Date Nadia Cortes MD [address] [place] [address] PCP - General Family Medicine 02/08/19 documented as of this encounter
--- OUTSIDE RECORDS SUMMARY | 2024-07-28 17:47 | XMS_ITS | Clinical Summary ---
Author Organization [employer] Address [address] [facility] 7t [place] [address] Care Team Providers Care Pizza Cook Name Role Phone Nadia Cortes MD Primary Care Provide r Allergies No known active allergies Medications Blood Pressure Monitoring (Omron 3 Series BP Monitor) device USE TO CHECK BLOOD PRESSURE 1-2 TIMES EVERY DAY 08/16/19 22 Active SUMAtriptan (Imitrex) 25 MG tabletIndication s:Cluster headache, not intractable, unspecified chronicity pattern TAKE 1 TABLET BY MOUTH AT ONSET OF MIGRAINE. MAY REPEAT ONCE AFTER 2 HOURS IF NEEDED. NO MORE THAN 2 TABLETS DAILY 9 tablet 11/08/19 23 Active fluticasone (Flonase) 50 MCG/ACT nasal sprayIndications :COVID-19,Viral URI USE 1 SPRAY IN EACH NOSTRIL EVERY MORNING 16 g 01/03/20 23 Active sucralfate (Carafate) 1 g tablet Take 1 g by mouth at bedtime. 12/13/19 23 Active gabapentin (Neurontin) 100 MG capsuleIndicatio ns:Chronic bilateral low back pain with sciatica, sciatica laterality unspecified TAKE 1 CAPSULE BY MOUTH THREE TIMES DAILY 270 capsule 1 06/02/19 24 Active polyethylene glycol, PEG, 3350 (MiraLax) 17 GM/SCOOP powder 17 grams in 8-12 oz fluid like water at bedtime prn constipation 527 g 2 10/26/19 24 Active Nirmatrelvir&Rit onavir 300/100 (Paxlovid, 300/100,) 20 x 150 MG & 10 x 100MG tablet therapy packIndications: Infection caused by 2019 Novel Coronavirus Take 3 tablets by mouth 2 times daily. Take 2 tabs (300mg of nirmatrelvir) and 1 tab (100mg of ritonavir) PO BID for 5 days. No renal failure. Possible medication interactions reviewed. 30 each 12/22/19 24 Active atorvastatin (Lipitor) 40 MG tabletIndication s:Primary hypertension Take 1 tablet (40 mg) by mouth Once per day. 30 tablet 11 02/04/20 24 025 Active docusate sodium (Colace) 100 MG capsule TAKE 1 TABLET BY MOUTH TWICE DAILY NEEDED FOR CONSTIPATION 180 capsule 3 02/29/20 24 Active Aspirin Low Dose 81 MG EC tablet TAKE 1 TABLET BY MOUTH EVERY MORNING 90 tablet 3 03/03/20 24 Active tamsulosin (Flomax) 0.4 MG 24 hr capsuleIndicatio ns:Benign prostatic hyperplasia, unspecified whether lower urinary tract symptoms present TAKE 1 CAPSULE BY MOUTH EVERY MORNING 90 capsule 3 03/03/20 24 Active loratadine (Claritin) 10 MG tabletIndication s:Seasonal allergies TAKE 1 TABLET BY MOUTH EVERY MORNING NEEDED FOR ALLERGIES 90 tablet 1 03/04/20 24 Active omeprazole (PriLOSEC) [address] capsule TAKE 1 CAPSULE BY MOUTH EVERY MORNING BEFORE BREAKFAST 90 capsule 1 04/05/20 24 Active lisinopril 20 MG tabletIndication s:Primary hypertension TAKE 1 TABLET BY MOUTH EVERY MORNING 90 tablet 1 04/05/20 24 Active Multiple Vitamins-Mineral s (PreserVision AREDS 2) capsuleIndicatio ns:Intermediate stage nonexudative age-related macular degeneration of both eyes TAKE 1 CAPSULE BY MOUTH TWICE DAILY IN THE MORNING AND IN THE EVENING 180 capsule 1 04/05/20 24 Active amLODIPine (Norvasc) 10 MG tablet TAKE 1 TABLET BY MOUTH EVERY MORNING 90 tablet 1 04/08/20 24 Active dextran 70-hypromellose (artificial tears) 0.1-0.3 % ophthalmic solutionIndicati ons:Dry eye Administer 1 drop into both eyes if needed in the morning, at noon, and at bedtime for dry eyes. 30 mL 1 07/08/19 25 026 Active acetaminophen (Tylenol 8 Hour) 650 MG ER tabletIndication s:Chronic bilateral low back pain, unspecified whether sciatica present Take 2 tablets (1,300 mg) by mouth every 8 (eight) hours if needed for mild pain for up to 13 days. Do not crush, chew, or split. 40 tablet 1 07/08/19 25 025 Active Problems Problem Noted Date Diagnosed Date [...] Encounters Date Type Department Care Team Description 07/14/2024 Orders Only [address] [address] Nadia Cortes MD Diminished vision (Primary Dx); Dry eye 07/08/[address] [address] Nadia Cortes MD Results 07/07/2024 2:00 PM EST Office Visit [facility] [address] [place] [address] Nadia Cortes MD Chronic bilateral low back pain, unspecified whether sciatica present (Primary Dx); Venous insufficiency; Diminished vision; Dry eye 07/07/2024 Telephone [facility] [address] [place] [address] Nelsy Capellan, OD 07/07/2024 Travel 07/06/2024 Telephone [facility] [address] [place] [address] Nadia Cortes MD Referral 07/06/2024 Telephone [facility] [address] [place] [address] Nadia Cortes MD Nurse Triage from Last 3 Months Immunizations Name Administration [...] Use Screening 1964 Hepatitis C Screening 1970 Zoster Vaccines (2 of 3) 11/13/2016 09/18/2016 [...] PM EST Narrative 07/07/2024 4:40 PM EST ?[facility] ?[address] ?[place] [address] ?XRay Report ? Signed ? Patient: Quincy Aviles ?MR#: [id number] ?? [id number] ? : 1950 ?Acct:[id number] ? Age/Sex: 74 / M ?ADM Date: 07/07/24 ? Loc: HO.HHCX ? Attending Dr: Nadia Hedrick MD ? Ordering Physician: Nadia Cortes MD ?? Date of Service: 07/07/24 ?? Procedure(s): XR lumbar spine 2-3V ?? Accession Number(s): [id number] ? cc: Nadia Cortes MD ? EXAMINATION: [...] PM EST RP ? Dictated By: ?Kayla,Uriel Leyva MD ? Signed By: ?<Electronically signed by Uriel Garza MD in OV> ?07/07/24 1637 ? DD/ 1507 ? TD/TT: 07/07/24 1540 ? Roving Changer: MSM ? Procedure Note Donotuseinterpreter, Image - 07/07/[address] [address] XRay Report Signed Patient: Quincy Aviles AMR#: [id number] : 1950cct:[id number] Age/Sex: 74 / MADM Date: 07/07/24 Loc: .HHCX Attending Dr: Nadia Hedrick MD Ordering Physician: Nadia Cortes MD Date of Service: 07/07/24 Procedure(s): XR lumbar spine 2-3V Accession Number(s): [id number] cc: Nadia Cortes MD EXAMINATION: XR LUMBOSACRAL [...] Uriel Garza MD 07/07/2024 04:37 PM EST Dictated By: Uriel Garza MD Signed By: <Electronically signed by Uriel Garza MD in OV> 07/07/24 1637 DD/ 1507 TD/TT: 07/07/24 1540 Roving Changer: MSM us Nadia Hedrick MD IMG XR PROCEDURES Fin al Result * Hemoglobin A1c (08/12/2023 8:51 AM EDT) Hemoglobin A1c 5.6 <6.0 % [facility] Comment:Hemoglobin A1C Refer ence Range Adults: 4.8 - 6.0 % Non diabetic: < 6.0 % Goal: < 7.0 %Additional Action Suggested: > 8.0 %Note: Hemoglobin A1c results are invalid for patients with abnormal amounts of HbF. Blood transfusions may impact the HbA1c concentration in the patient sample. Estimated Average Glucose 114 mg/dL [facility] Comment:eAG = Estimated ave rage glucose which is %A1C expressed asaverage glucose, using the formula of the P8W-[id number] Glucose study (ADAG), Diabetes Care, Vol.31,#8,Dec. 2007 Blood Venous blood specimen / Unknown 08/12/2023 8:51 AM EDT 08/12/2023 11:30 AM EDT Nadia Hedrick MD LAB BLOOD ORDERABLES Final Result [facility] [address] [place] [phone] * (ABNORMAL) Lipid Panel, Standard (08/12/2023 8:51 AM EDT) Triglycerides 98 <150 mg/dL [facility] Comment:Desirable Triglyceri de: less than 150 mg/dLBorderline High Triglyceride 150-199 mg/dLHigh Triglyceride: 200-499 mg/dLVery High Triglyceride: greater than or equal to 5OO mg/dL Cholesterol 147 <200 mg/dL [facility] Comment:Desirable Cholestero l: less than 200 mg/dLBorderline High Cholesterol: 200-239 mg/dLHigh Cholesterol: greater than 239 mg/dL LDL Cholesterol Calculated 93 <100 mg/dL [facility] Comment:Desirable LDL: less than 100 mg/dLNear Optimal/Above Optimal LDL: 110- 129 mg/dLBorderline High LDL: 130-159 mg/dLHigh LDL: 160-189 mg/dLVery High LDL: greater than or equal to 190 mg/dL HDL Cholesterol 35(L) >40 mg/dL [facility] Comment:Desirable HDL: great er than 40 mg/dL Note: This HDL assay may give artificially low results in patients with liver disease. Blood Venous blood specimen / Unknown 08/12/2023 8:51 AM EDT 08/12/2023 11:34 AM EDT us Nadia Hedrick MD LAB BLOOD ORDERABLES Final Result [facility] [address] [place] [address] [phone] from Last 3 Months or Most Recently Relevant to Health Maintenance Insurance * Guarantor: Quincy Aviles Account Type Relation to Patient Date of Phone Billing Address Personal/Family Self [address] [place] [address] [facility] * Guarantor: Quincy Aviles Account Type Relation to Patient Date of Phone Billing Address Personal/Family Self [address] [place] [address] * Guarantor: Quincy Aviles Account Type Relation to Patient Date of Phone Billing Address Personal/Family Self [address] [place] [address] * Guarantor: Quincy Aviles Account Type Relation to Patient Date of Phone Billing Address Personal/Family Self [address] [place] [address] Care Teams Pizza Cook Relationship Specialty Start Date End Date Nadia Cortes MD [address] [place] [phone] PCP - General Family Medicine 02/08/19
--- OUTSIDE RECORDS SUMMARY | 2024-07-28 17:47 | XMS_ITS | Encounter Summary ---
Author Organization [employer] Address [address] [facility] 7t [place] [address] Care Team Providers Care Physical Trainer Name Role Phone Nadia Cortes MD Primary Care Provide r Reason for Referral * Consultation (Routine) - Closed Specialty Diagnoses / Procedures Referred By Delvin tracey Referred To Contact Physical Therapy Diagnoses Chronic bilateral low back pain, unspecified whether sciatica present Nadia Cortes MD [address] [place] [address] Phone: tel: fax: [facility] Physical Therapy [address] [place] [address] Phone: tel: fax: Referral ID Status Reason Start Date Expiration Date V isits Requested Visits Authorized [id number] Closed Specialty Services Required 07/07/2024 07/07/2025 1 1 * Consultation (Routine) - Authorized Specialty Diagnoses / Procedures Referred By Delvin tracey Referred To Contact Optometry Diagnoses Diminished vision Nadia Cortes MD [address] [place] [address] Phone: tel: fax: [facility] [place] [address] [place] [address] Phone: tel:[phone] fax: Referral ID Status Reason Start Date Expiration Date Visits Requested Visits Authorized [id number] Authorized Specialty Services Required 07/07/2024 07/07/2025 1 1 * Consultation (Routine) - Authorized Specialty Diagnoses / Procedures Referred By Delvin tracey Referred To Contact Pain Medicine Diagnoses Chronic bilateral low back pain, unspecified whether sciatica present Nadia Cortes MD [address] [place] [address] Phone: tel: fax: [facility], [address] [place], [place] Phone: tel: fax: Referral ID Status Reason Start Date Expiration Date Visits Requested Visits Authorized [id number] Authorized Specialty Services Required 07/07/2024 07/07/2025 1 1 Encounter Details Date Type Department Care Team (Late st Contact Info) Description 07/07/2024 2:00 PM EST Office Visit [facility] [address] [place] [phone] Nadia Cortes MD [address] [place] [phone] Chronic bilateral low back pain, unspecified whether [...] referred to eye care unit at the [facility] but stated appointment was too far away he would like to be referred to optometry in [address] [place] Social History Social History Narrative Not on [...] PM EST Narrative 07/07/2024 4:40 PM EST ?[place] [facility] ?[address] ?[place] [address] ?XRay Report ? Signed ? Patient: Tita Harris,Da ?MR#: [id number] ?? [id number] ? : 1950 ?Acct:[id number] ? Age/Sex: 74 / M ?ADM Date: 07/07/24 ? Loc: HO.HHCX ? Attending Dr: Nadia Hedrick MD ? Ordering Physician: Nadia Cortes MD ?? Date of Service: 07/07/24 ?? Procedure(s): XR lumbar spine 2-3V ?? Accession Number(s): [id number] ? cc: Nadia Cortes MD ? EXAMINATION: [...] DD/ 1507 ? TD/TT: 07/07/24 1540 ? Fit Model: MSM ? Procedure Note Patrica Santiago - 07/07/[address] [address] XRay Report Signed Patient: Quincy Aviles AMR#: [id number] : 3Acct:[id number] Age/Sex: 74 / MADM Date: 07/07/24 Loc: .HHCX Attending Dr: Nadia Hedrick MD Ordering Physician: Nadia Cortes MD Date of Service: 07/07/24 Procedure(s): XR lumbar spine 2-3V Accession Number(s): [id number] cc: Nadia Cortes MD EXAMINATION: XR LUMBOSACRAL [...] by: Uriel Garza MD 07/07/2024 04:37 PM [facility] Dictated By: Uriel Garza MD Signed By: <Electronically signed by Uriel Garza MD in OV> 07/07/24 1637 DD/ 1507 TD/TT: 07/07/24 1540 Fit Model: TABITHA Nadia Hedrick MD IMG XR PROCEDURES [...] documented as of this encounter Care Teams Physical Trainer Relationship Specialty Start Date End Date Nadia Cortes MD [address] [place] [phone] PCP - General Family Medicine 02/08/19 documented as of this encounter
--- OUTSIDE RECORDS SUMMARY | 2024-07-28 17:47 | XMS_ITS | Encounter Summary ---
Author Organization [employer] Address [address] [facility] 7t [place] [address] Care Team Providers Care Tag Meter Operator Name Role Phone Nadia Cortes MD Primary Care Provide r Reason for Visit * Reason Onset Date Comments Results 07/08/2024 Encounter Details Date Type Department Care Team ([facility] st Contact Info) Description 07/08/2024 Telephone [facility] [address] [place], [place] [phone] Nadia Cortes MD [address] [place], [place] [phone] Results Social History Tobacco Use Types Packs/Day Years [...] encounter Miscellaneous Notes * Telephone Encounter - Nixon Jackson RN - 07/08/2024 11:32 AM EST Per PCP Please let patient know I reviewed his back XRAY he has arthritis on his lower back, I advise acetaminophen PRN as prescribed at visit and I do recommend for him PT , referral also done at visit TC placed to patient via uTest interpreters (Jc ) patient informed of above verbalized understanding and agrees with plan. documented in this encounter Plan of Treatment Not on file documented as of this encounter Visit Diagnoses Not on filedocumented in this encounter Additional Health Concerns Assessment Noted Time PHQ-9 Depression Total Score: 0 12/16/19 23 2:03 PM EDT documented as of this encounter Care Teams Tag Meter Operator Relationship Specialty Start Date End Date Nadia Cortes MD [address] [place] [address] PCP - General Family Medicine 02/08/19 documented as of this encounter
--- OUTSIDE RECORDS SUMMARY | 2024-07-28 17:47 | XMS_ITS | Encounter Summary ---
Author Organization [employer] Address [address] [facility] [address] [place] [address] Care Team Providers Care Body Shop Mechanic Name Role Phone Nadia Cortes MD Primary Care Provide r Reason for Visit * Reason Onset Date Comments Nurse Triage 07/06/2024 Encounter Details Date Type Department Care Team ([facility] st Contact Info) Description 07/06/2024 Telephone [facility] [address] [place], [place] [phone] Nadia Cortes MD [address] [place], [place] [phone] Nurse Triage Social History Tobacco Use Types [...] EST called pt to triage, spoke to [employer] DRIER with pt. pt states low back pain, [...] the leg The caller accepted this outcome. [phone] bulgarian documented in this encounter Plan of Treatment Not on file documented as of this encounter Visit Diagnoses Not on filedocumented in this encounter Additional Health Concerns Assessment Noted Time PHQ-9 Depression Total Score: 0 12/16/19 23 2:03 PM EDT documented as of this encounter Care Teams Body Shop Mechanic Relationship Specialty Start Date End Date Nadia Cortes MD [address] [place] [phone] PCP - General Family Medicine 02/08/19 documented as of this encounter
--- OUTSIDE RECORDS SUMMARY | 2024-07-28 17:47 | XMS_ITS | Encounter Summary ---
Author Organization [employer] Address [address] [facility] 7t [place] [address] Care Team Providers Care Mathematical Engineering Technician Name Role Phone Nadia Cortes MD Primary Care Provide r Reason for Referral * Consultation (Routine) - Authorized Specialty Diagnoses / Procedures Referred By Contarmani t Referred To Contact Optometry Diagnoses Diminished vision Dry eye Nadia Cortes MD [address] [place] [address] Phone: tel: fax: [facility] [place] [address] [place] [address] Phone: tel: fax: Referral ID Status Reason Start Date Expiration Date Visits Requested Visits Authorized [id number] Authorized Specialty Services Required 07/14/2024 07/14/2025 1 1 Encounter Details Date Type Department Care Team ([facility] st Contact Info) Description 07/14/2024 Orders Only [facility] [address] [place], [place] [phone] Nadia Cortes MD [address] [place], [place] [phone] Diminished vision (Primary Dx); Dry eye Social History Tobacco Use Types [...] as of this encounter Plan of Treatment Scheduled Referrals Name Type Priority Associated Diagnoses Orde r Schedule Referral to Optometry Outpatient Referral Routine Diminished vision Dry eye Expected: 07/14/2024 (Approximate), Expires: 07/14/2025 documented as of this encounter Visit Diagnoses Diagnosis Diminished vision- Primary Unspecified visual loss Dry eye documented in this encounter Additional Health Concerns Assessment Noted Time PHQ-9 Depression Total Score: 0 12/16/19 23 2:03 PM EDT documented as of this encounter Care Teams Mathematical Engineering Technician Relationship Specialty Start Date End Date Nadia Cortes MD [address] [place] [address] PCP - General Family Medicine 02/08/19 documented as of this encounter
== END 2024-07-28 14:43 | disposition home or self-care (01) ==
LOC: HO.PMC 14:09
PROVIDERS: PCP Internal Medicine; Referring Provider Internal Medicine; Visit Provider Registered Nurse Emergency
DX: M54.16 Radiculopathy, lumbar region (principal); N39.42 Incontinence without sensory awareness; M47.816 Spondylosis without myelopathy or radiculopathy, lumbar region; N31.9 Neuromuscular dysfunction of bladder, unspecified
CPT/HCPCS: 99204; G2211

== ENCOUNTER → 2024-07-28 14:09 | Outpatient (BNVA) | payer OTHER, SELFPAY | PROVIDERS: PCP Internal Medicine; Referring Provider Internal Medicine; Visit Provider Registered Nurse Emergency | DX: M47.26 Other spondylosis with radiculopathy, lumbar region (principal); N39.42 Incontinence without sensory awareness; N31.9 Neuromuscular dysfunction of bladder, unspecified | CPT/HCPCS: 99202 ==

== ENCOUNTER 2024-08-18 11:38 | Outpatient (REF) | payer OTHER, SELFPAY ==
--- NOTE | ~2024-08-18 | MR_ITS ---
EXAMINATION: MR LUMBAR SPINE WITHOUT CONTRAST CLINICAL INFORMATION: Lumbar radiculopathy. Low back pain radiating to both legs with weakness. COMPARISON: No prior. TECHNIQUE: Multiplanar multisequence MR imaging of the lumbar spine was done without IV contrast. Examination was performed on a 1.5 Aimee Siemens magnet, utilizing standard sequences. FINDINGS: CORONAL ALIGNMENT: -Minimal levoconvex scoliosis, possibly positional. SAGITTAL ALIGNMENT: -Normal lordosis. -No subluxations. LUMBOSACRAL JUNCTION: -Normal. There are 5 fxe-odj-pemewps lumbar-type vertebral bodies. VERTEBRAL BODIES/BONE MARROW: -There are no compression deformities. -There is minimal degenerative appearing endplate edema present at L1-2, L3-4, and L4-5. -There are a few scattered Schmorl's nodes within the endplates. -There is no suspicious abnormal infiltrating bone marrow signal. DISCS: -Severe loss of disc height and signal L5-S1. -Moderate loss of height and signal at L3-4 and L4-5. -Mild loss of disc signal and height at L2-3. SPINAL CANAL: -No abnormal developmental findings. CONUS MEDULLARIS: -Terminates at L1. Morphology and signal is normal. INTRADURAL NERVE ROOTS: - Within normal limits. Axial Disc Space Images: T12-L1: No central canal or neural foraminal narrowing. Mild facet arthropathy bilaterally. L1-L2: No significant central canal or neural foraminal narrowing. Mild facet arthropathy bilaterally. L2-L3: There is a shallow diffuse bulging disc extending into both foraminal zones. There are moderate hypertrophic degenerative facet changes, with moderate posterior ligamentous thickening/infolding. There is mild to moderate central canal stenosis, moderate right greater than left subarticular recess stenosis, with contact but no definite impingement of the traversing L3 roots. There is mild to moderate bilateral neural foraminal narrowing. L3-L4: Concentric disc bulge with a superimposed right foraminal protrusion of disc material. Moderate hypertrophic degenerative facet changes present, with posterior ligamentous thickening/infolding. There is moderate central canal stenosis, moderate to severe bilateral subarticular recess stenosis right greater than left, with probable mild impingement upon the traversing right greater than left L4 nerve roots. There is moderate to severe bilateral neural foraminal encroachment with contact and possible minimal impingement of the exiting bilateral L3 roots. L4-L5: Diffuse disc osteophytic ridge complex extending into both foraminal zones. Moderate hypertrophic degenerative facet changes bilaterally, with posterior ligamentous thickening/infolding. There is moderate to severe central canal stenosis, severe bilateral subarticular recess stenosis, with impingement of the bilateral traversing L5 roots. Moderate to severe bilateral neural foraminal encroachment with contact and possible mild impingement of the exiting L4 nerve roots. L5-S1: Shallow diffuse disc osteophytic ridge complex. There are superimposed bilateral foraminal and lateral to foramen disc osteophytic protrusions, which are broad-based. There are moderate hypertrophic facet changes bilaterally. There is mild central canal narrowing, mild bilateral subarticular recess narrowing without mass effect upon the traversing S1 roots. There is moderate to severe bilateral left greater than right neural foraminal stenosis, with mild impingement of the exiting left greater than right L5 nerve roots. In addition, there is contact and the flexion of both L5 roots in the lateral to foramen zones. IMAGED SI JOINTS: -Mild to moderate degenerative arthrosis. PARAVERTEBRAL AND INCLUDED EXTRASPINAL SOFT TISSUES: -Normal. -There is a simple exophytic small right renal cyst. -The aorta is nonaneurysmal. MR/MR lumbar spine wo con IMPRESSION: 1. Moderate multilevel lumbar spondylosis as discussed. Please see above for details. Electronically signed by: Wilbert Andrade MD 08/18/2024 01:24 PM EDT
--- OUTSIDE RECORDS SUMMARY | 2024-08-18 14:34 | XMS_ITS | Clinical Summary ---
Author Organization [employer] Address [address] [facility] 7t [place] [address] Care Team Providers Care Binding Cementer French Cord Name Role Phone Nadia Cortes MD Primary [...] Active Problems Problem Noted Date Diagnosed Date PAD (peripheral artery disease) 08/16/2024 Overview (08/16/2024): See vascular studies in media 08/11/24 from [facility] right lower extremity LAUREN borderline PAD, moderate atherosclerosis, severe stenosis of right mid SFA Chronic bilateral low back pain 07/07/2024 Assessment [...] Encounters Date Type Department Care Team Description 08/18/2024 Orders Only [facility] External Provider, [facility] 07/14/2024 Orders Only [facility] [address] [place] [address] [place] [address] Nadia Cortes MD Diminished vision (Primary Dx); Dry eye 07/08/2024 Telephone [facility] [address] [place] [address] Nadia Cortes MD Results 07/07/2024 2:00 PM EST Office Visit [facility] [address] [place] [address] Nadia Cortes MD Chronic bilateral low back pain, unspecified whether sciatica present (Primary Dx); Venous insufficiency; Diminished vision; Dry eye 07/07/2024 Telephone [facility] [address] [place] [address] TimiNelsy, OD 07/07/2024 Travel 07/06/2024 Telephone [facility] [address] [place] [address] Nadia Cortes MD Referral 07/06/2024 Telephone [facility] [address] [place] [address] Nadia Cortes MD Nurse Triage from Last [...] Procedure Name Priority Date/Time Associated Diagnosis Comments MR LUMBAR SPINE WO CONTRAST Routine 08/18/2024 12:12 PM EDT XR LUMBAR SPINE 2-3 VIEWS Routine 07/07/2024 3:07 PM EST Chronic bilateral low back pain, unspecified whether sciatica present HEMOGLOBIN A1C Routine 08/12/2023 8:51 AM EDT Primary hypertension Prediabetes LIPID PANEL, STANDARD Routine 08/12/2023 8:51 AM EDT Primary hypertension Prediabetes from Last 3 Months or Most Recently Relevant to Health Maintenance Results * MR Lumbar Spine w/o Contrast (08/18/2024 12:12 PM EDT) Anatomical Region Laterality Modality Spine, L-spine Magnetic Resonan ce 08/18/2024 12:1 2 PM EDT Narrative 08/18/2024 1:28 PM EDT ? [facility] ?[address] ?[place] [address] ? Magnetic Resonance Report ? Signed ? Patient: Quincy Aviles ?MR#: [id number] ?? [id number] ? : 1950 ?Acct:[id number] ? Age/Sex: 74 / M ?ADM Date: 08/18/24 ? Loc: HO.MRI ? Attending Dr: Iris Doan APRN, CNP ? Ordering Physician: Iris Doan APRN, CNP ?? Date of Service: 08/18/24 ?? Procedure(s): MR lumbar spine wo con ?? Accession Number(s): [id number] ? cc: Nadia Cortes MD; Iris Doan JITNEY DRIVER, SETTER HELPER ? EXAMINATION: ?? MR LUMBAR SPINE WITHOUT CONTRAST ? CLINICAL INFORMATION: ?? Lumbar radiculopathy. Low back pain radiating to both legs with ?? weakness. ? COMPARISON: ?? No prior. ? TECHNIQUE: ?? Multiplanar multisequence MR imaging of the lumbar spine was done ?? without IV contrast. Examination was performed on a 1.5 Aimee Siemens ?? magnet, utilizing standard sequences. ? FINDINGS: ? CORONAL ALIGNMENT: ?? -Minimal levoconvex scoliosis, possibly positional. ? SAGITTAL ALIGNMENT: ?? -Normal lordosis. ?? -No subluxations. ? LUMBOSACRAL JUNCTION: ?? -Normal. There are 5 ebk-fzl-rhhckml lumbar-type vertebral bodies. ? VERTEBRAL BODIES/BONE MARROW: ?? -There are no compression deformities. ?? -There is minimal degenerative appearing endplate edema present at ?? L1-2, L3-4, and L4-5. ?? -There are a few scattered Schmorl's nodes within the endplates. ?? -There is no suspicious abnormal infiltrating bone marrow signal. ? DISCS: ?? -Severe loss of disc height and signal L5-S1. ?? -Moderate loss of height and signal at L3-4 and L4-5. ?? -Mild loss of disc signal and height at L2-3. ? SPINAL CANAL: ?? -No abnormal developmental findings. ? CONUS MEDULLARIS: ?? -Terminates at L1. Morphology and signal is normal. ? INTRADURAL NERVE ROOTS: ?? - Within normal limits. ? Axial Disc Space Images: ? T12-L1: No central canal or neural foraminal narrowing. Mild facet ?? arthropathy bilaterally. ? L1-L2: No significant central canal or neural foraminal narrowing. Mild ?? facet arthropathy bilaterally. ? L2-L3: There is a shallow diffuse bulging disc extending into both ?? foraminal zones. There are moderate hypertrophic degenerative facet ?? changes, with moderate posterior ligamentous thickening/infolding. ?? There is mild to moderate central canal stenosis, moderate right ?? greater than left subarticular recess stenosis, with contact but no ?? definite impingement of the traversing L3 roots. There is mild to ?? moderate bilateral neural foraminal narrowing. ? L3-L4: Concentric disc bulge with a superimposed right foraminal ?? protrusion of disc material. Moderate hypertrophic degenerative facet ?? changes present, with posterior ligamentous thickening/infolding. There ?? is moderate central canal stenosis, moderate to severe bilateral ?? subarticular recess stenosis right greater than left, with probable ?? mild impingement upon the traversing right greater than left L4 nerve ?? roots. There is moderate to severe bilateral neural foraminal ?? encroachment with contact and possible minimal impingement of the ?? exiting bilateral L3 roots. ? L4-L5: Diffuse disc osteophytic ridge complex extending into both ?? foraminal zones. Moderate hypertrophic degenerative facet changes ?? bilaterally, with posterior ligamentous thickening/infolding. There is ?? moderate to severe central canal stenosis, severe bilateral ?? subarticular recess stenosis, with impingement of the bilateral ?? traversing L5 roots. Moderate to severe bilateral neural foraminal ?? encroachment with contact and possible mild impingement of the exiting ?? L4 nerve roots. ? L5-S1: Shallow diffuse disc osteophytic ridge complex. There are ?? superimposed bilateral foraminal and lateral to foramen disc ?? osteophytic protrusions, which are broad-based. There are moderate ?? hypertrophic facet changes bilaterally. There is mild central canal ?? narrowing, mild bilateral subarticular recess narrowing without mass ?? effect upon the traversing S1 roots. There is moderate to severe ?? bilateral left greater than right neural foraminal stenosis, with mild ?? impingement of the exiting left greater than right L5 nerve roots. In ?? addition, there is contact and the flexion of both L5 roots in the ?? lateral to foramen zones. ? IMAGED SI JOINTS: ?? -Mild to moderate degenerative arthrosis. ? PARAVERTEBRAL AND INCLUDED EXTRASPINAL SOFT TISSUES: ?? -Normal. ?? -There is a simple exophytic small right renal cyst. ?? -The aorta is nonaneurysmal. ? MR/MR lumbar spine wo con ?? IMPRESSION: ?? 1. Moderate multilevel lumbar spondylosis as discussed. Please see ?? above for details. ? Electronically signed by: ??Wilbert Andrade MD ??08/18/2024 01:24 PM EDT RP ? Dictated By: ?Wilbert Andrade MD ? Signed By: ?<Electronically signed by Wilbert Andrade MD in OV> ?08/18/24 1324 ? DD/ 1212 ? TD/TT: 08/18/24 1229 ? Shipping Clerk Packing: ? Procedure Note Donotuseinterpreter, Image - 08/18/[address] [address] Magnetic Resonance Report Signed Patient: Quincy Aviles [facility]#: [id number] : 3Acct:[id number] Age/Sex: 74 / MADM Date: 08/18/24 Loc: HO.MRI Attending Dr: Iris Doan APRN, CNP Ordering Physician: Iris Doan APRN, CNP Date of Service: 08/18/24 Procedure(s): MR lumbar spine wo con Accession Number(s): [id number] cc: Nadia Cortes MD; Iris Doan APRN, CNP EXAMINATION: MR LUMBAR SPINE WITHOUT CONTRAST CLINICAL INFORMATION: Lumbar radiculopathy. Low back pain radiating to both legs with weakness. COMPARISON: No prior. TECHNIQUE: Multiplanar multisequence MR imaging of the lumbar spine was done without IV contrast. Examination was performed on a 1.5 Aimee Siemens magnet, utilizing standard sequences. FINDINGS: CORONAL ALIGNMENT: -Minimal levoconvex scoliosis, possibly positional. SAGITTAL ALIGNMENT: -Normal lordosis. -No subluxations. LUMBOSACRAL JUNCTION: -Normal. There are 5 ucq-wuw-casquoe lumbar-type vertebral bodies. VERTEBRAL BODIES/BONE MARROW: -There are no compression deformities. -There is minimal degenerative appearing endplate edema present at L1-2, L3-4, and L4-5. -There are a few scattered Schmorl's nodes within the endplates. -There is no suspicious abnormal infiltrating bone marrow signal. DISCS: -Severe loss of disc height and signal L5-S1. -Moderate loss of height and signal at L3-4 and L4-5. -Mild loss of disc signal and height at L2-3. SPINAL CANAL: -No abnormal developmental findings. CONUS MEDULLARIS: -Terminates at L1. Morphology and signal is normal. INTRADURAL NERVE ROOTS: - Within normal limits. Axial Disc Space Images: T12-L1: No central canal or neural foraminal narrowing. Mild facet arthropathy bilaterally. L1-L2: No significant central canal or neural foraminal narrowing. Mild facet arthropathy bilaterally. L2-L3: There is a shallow diffuse bulging disc extending into both foraminal zones. There are moderate hypertrophic degenerative facet changes, with moderate posterior ligamentous thickening/infolding. There is mild to moderate central canal stenosis, moderate right greater than left subarticular recess stenosis, with contact but no definite impingement of the traversing L3 roots. There is mild to moderate bilateral neural foraminal narrowing. L3-L4: Concentric disc bulge with a superimposed right foraminal protrusion of disc material. Moderate hypertrophic degenerative facet changes present, with posterior ligamentous thickening/infolding. There is moderate central canal stenosis, moderate to severe bilateral subarticular recess stenosis right greater than left, with probable mild impingement upon the traversing right greater than left L4 nerve roots. There is moderate to severe bilateral neural foraminal encroachment with contact and possible minimal impingement of the exiting bilateral L3 roots. L4-L5: Diffuse disc osteophytic ridge complex extending into both foraminal zones. Moderate hypertrophic degenerative facet changes bilaterally, with posterior ligamentous thickening/infolding. There is moderate to severe central canal stenosis, severe bilateral subarticular recess stenosis, with impingement of the bilateral traversing L5 roots. Moderate to severe bilateral neural foraminal encroachment with contact and possible mild impingement of the exiting L4 nerve roots. L5-S1: Shallow diffuse disc osteophytic ridge complex. There are superimposed bilateral foraminal and lateral to foramen disc osteophytic protrusions, which are broad-based. There are moderate hypertrophic facet changes bilaterally. There is mild central canal narrowing, mild bilateral subarticular recess narrowing without mass effect upon the traversing S1 roots. There is moderate to severe bilateral left greater than right neural foraminal stenosis, with mild impingement of the exiting left greater than right L5 nerve roots. In addition, there is contact and the flexion of both L5 roots in the lateral to foramen zones. IMAGED SI JOINTS: -Mild to moderate degenerative arthrosis. PARAVERTEBRAL AND INCLUDED EXTRASPINAL SOFT TISSUES: -Normal. -There is a simple exophytic small right renal cyst. -The aorta is nonaneurysmal. MR/MR lumbar spine wo con IMPRESSION: 1. Moderate multilevel lumbar spondylosis as discussed. Please see above for details. Electronically signed by: Wilbert Andrade MD 08/18/2024 01:24 PM EDT RP Dictated By: Wilbert Andrade MD Signed By: <Electronically signed by Wilbert Andrade MD in OV> 08/18/24 1324 DD/ 1212 TD/TT: 08/18/24 1229 Shipping Clerk Packing: us [facility] External Provider IMG MRI PROCEDURES Final Result * XR Lumbar Spine 2-3 Views (07/07/2024 3:07 PM EST) Anatomical Region Laterality Modality Spine, L-spine Radiographic Felipa ging 07/07/2024 3:07 PM EST Narrative 07/07/2024 4:40 PM EST ?[facility] ?[address] ?[place] [address] ?XRay Report ? Signed ? Patient: Quincy Aviles ?MR#: [id number] ?? [id number] ? : 1950 ?Acct:[id number] ? Age/Sex: 74 / M ?ADM Date: 07/07/24 ? Loc: HO.HHCX ? Attending Dr: Nadia Hedrick MD ? Ordering Physician: Nadia Cortes MD ?? Date of Service: 07/07/24 ?? Procedure(s): XR lumbar spine 2-3V ?? Accession Number(s): [id number] ? cc: Nadia Cortes MD ? EXAMINATION: [...] DD/ 1507 ? TD/TT: 07/07/24 1540 ? Shipping Clerk Packing: TABITHA ? Procedure Note Donelianeelamter, Image - 07/07/[address] [address] XRay Report Signed Patient: Quincy Aviles [facility]#: [id number] : 1950cct:[id number] Age/Sex: 74 / MADM Date: 07/07/24 Loc: .HHCX Attending Dr: Nadia Hedrick MD Ordering Physician: Nadia Cortes MD Date of Service: 07/07/24 Procedure(s): XR lumbar spine 2-3V Accession Number(s): [id number] cc: Nadia Cortes MD EXAMINATION: XR LUMBOSACRAL [...] 07/07/24 1637 DD/ 1507 TD/TT: 07/07/24 1540 Shipping Clerk Packing: TABITHA us Nadia Hedrick MD IMG XR PROCEDURES Fin al Result * Hemoglobin A1c (08/12/2023 8:51 AM EDT) Hemoglobin A1c 5.6 <6.0 % [facility] Comment:Hemoglobin A1C Refer ence Range Adults: 4.8 - 6.0 % Non diabetic: < 6.0 % Goal: < 7.0 %Additional Action Suggested: > 8.0 %Note: Hemoglobin A1c results are invalid for patients with abnormal amounts of HbF. Blood transfusions may impact the HbA1c concentration in the patient sample. Estimated Average Glucose 114 mg/dL [facility] Comment:eAG = Estimated ave rage glucose which is %A1C expressed asaverage glucose, using the formula of the V1M-OpezpviQybuyqw Glucose study (ADAG), Diabetes Care, Vol.31,#8,Dec. 2007 Blood Venous blood specimen / Unknown 08/12/2023 8:51 AM EDT 08/12/2023 11:30 AM EDT us Nadia Hedrick MD LAB BLOOD ORDERABLES Final Result [facility] [address] [place] [phone] * (ABNORMAL) Lipid Panel, Standard (08/12/2023 8:51 AM EDT) Triglycerides 98 <150 mg/dL [facility] Comment:Desirable Triglyceri de: less than 150 mg/dLBorderline High Triglyceride 150-199 mg/dLHigh Triglyceride: 200-499 mg/dLVery High Triglyceride: greater than or equal to 5OO mg/dL Cholesterol 147 <200 mg/dL [facility] Comment:Desirable Cholestero l: less than 200 mg/dLBorderline High Cholesterol: 200-239 mg/dLHigh Cholesterol: greater than 239 mg/dL LDL Cholesterol Calculated 93 <100 mg/dL [facility] Comment:Desirable LDL: less than 100 mg/dLNear Optimal/Above Optimal LDL: 110- 129 mg/dLBorderline High LDL: 130-159 mg/dLHigh LDL: 160-189 mg/dLVery High LDL: greater than or equal to 190 mg/dL HDL Cholesterol 35(L) >40 mg/dL [facility] Comment:Desirable HDL: great er than 40 mg/dL Note: This HDL assay may give artificially low results in patients with liver disease. Blood Venous blood specimen / Unknown 08/12/2023 8:51 AM EDT 08/12/2023 11:34 AM EDT us Nadia Hedrick MD LAB BLOOD ORDERABLES Final Result [facility] [address] [place] [address] [phone] from Last 3 Months or Most Recently Relevant to Health Maintenance Insurance * Guarantor: Quincy Aviles Account Type Relation to Patient Date of Phone Billing Address Personal/Family Self [address] [place] [address] [facility] * Guarantor: Tita Harris Arjun Account Type Relation to Patient Date of Phone Billing Address Personal/Family Self [address] [place] [address] * Guarantor: Titalashonda Harris Arjun Account Type Relation to Patient Date of Phone Billing Address Personal/Family Self [address] [place] [address] * Guarantor: Titalashonda Harris Arjun Account Type Relation to Patient Date of Phone Billing Address Personal/Family Self [address] [place] [address] Care Teams Binding Cementer French Cord Relationship Specialty Start Date End Date Nadia Cortes MD [address] [place] [address] PCP - General Family Medicine 02/08/19
--- OUTSIDE RECORDS SUMMARY | 2024-08-18 14:34 | XMS_ITS | Encounter Summary ---
Author Organization [facility] Address [address] 7[address] [place] [address] Care Team Providers Care Housekeeping/Laundry Supervisor Name Role Phone Nadia Cortes MD Primary Care Provide r Encounter Details Date Type Department Care Team (Latest Contact Info) Description 04/13/2020 Abstract [facility] CONVERSIONS Dental, Provider, DDS Social History [...] on filedocumented in this encounter Care Teams Housekeeping/Laundry Supervisor Relationship Specialty Start Date End Date Nadia Cortes MD [address] [place] [address] PCP - General Family Medicine 02/08/19 documented as of this encounter
--- OUTSIDE RECORDS SUMMARY | 2024-08-18 14:34 | XMS_ITS | Encounter Summary ---
Author Organization [employer] Address [address] [facility] 7t [place] [address] Care Team Providers Care Income Tax Adjuster Name Role Phone Nadia Cortes MD Primary Care Provide r Reason for Visit * Reason Onset Date Comments PCP change 11/17/2022 Encounter Details Date Type Department Care Team (Late st Contact Info) Description 11/17/2022 Telephone [facility] [address] [place], [place] [phone] Nadia Cortes MD [address] [place] [address] PCP change Social History Tobacco Use Types [...] on filedocumented in this encounter Care Teams Income Tax Adjuster Relationship Specialty Start Date End Date Nadia Cortes MD [address] [place] [address] PCP - General Family Medicine 02/08/19 documented as of this encounter
--- OUTSIDE RECORDS SUMMARY | 2024-08-18 14:34 | XMS_ITS | Encounter Summary ---
Author Organization [employer] Address [address] [address] [facility] [address] [place] [address] Care Team Providers Care Insolvency Practitioner Name Role Phone Nadia Cortes MD Primary Care Provide r Reason for Visit * Reason Onset Date Comments Nurse Triage 01/15/2023 Encounter Details Date Type Department Care Team (Late st Contact Info) Description 01/15/2023 Telephone [facility] [address] [place], [place] [phone] Nadia Cortes MD [address] [place] [address] Nurse Triage Social History Tobacco Use Types [...] call , Pt reports will come to [facility] in the morning to be seen. No triage at this call. * Telephone Encounter - Margaret Diaz - 01/15/2023 2:00 PM EDT Symptom: Eye - Pus or Discharge Outcome: Schedule a same-day appointment or talk to a nurse or provider today Reason: Caller denied all higher acuity questions The caller accepted this outcome Patient speaks czech Patient walked in reports having left eye discharge, discomfort and itchiness since yesterday. Patient missed 01/15/23 [facility] appt at 1:40 pm. documented in this encounter Plan of Treatment Not on file documented as of this encounter Visit Diagnoses Not on filedocumented in this encounter Additional Health Concerns Assessment Noted Time PHQ-9 Depression Total Score: 0 12/16/19 2:03 PM EDT documented as of this encounter Care Teams Insolvency Practitioner Relationship Specialty Start Date End Date Nadia Cortes MD [address] [place] [phone] PCP - General Family Medicine 02/08/19 documented as of this encounter
--- OUTSIDE RECORDS SUMMARY | 2024-08-18 14:34 | XMS_ITS | Encounter Summary ---
Author Organization [employer] Address [address] [facility] 7t [place] [address] Care Team Providers Care It Assistant Name Role Phone Nadia Cortes MD Primary Care Provide r Reason for Visit * Reason Onset Date Comments ER Follow-up 03/11/2024 Encounter Details Date Type Department Care Team ([facility] st Contact Info) Description 03/11/2024 Telephone [facility] MEDICINE [address] [place], [place] [phone] Nadia Cortes MD [address] [place], [place] [phone] ER Follow-up Social History Tobacco Use Types [...] EST Triage call regarding message below [place] [id number] Alexei. Call made x2 to [phone], with call being dropped no connection made. Call to Juani x1 [phone] without answer. Juani with [facility] calling to report ED visit on: Date: 03/10/24 Hospital: [facility] Seen for: Left foot pain Symptom: Foot or Ankle Pain - Not From Injury Outcome: Schedule an appointment to be seen within 24 hours Reason: Caller denied all higher acuity questions Juani requested to contact pt directly at [phone]. * Telephone Encounter - Jong Sharma - 03/11/2024 12:05 PM EST Juani with [facility] calling to report ED visit on: Date: 03/10/24 Hospital: [facility] Seen for: Left foot pain Symptom: Foot or Ankle Pain - Not From Injury Outcome: Schedule an appointment to be seen within 24 hours Reason: Caller denied all higher acuity questions Junai requested to contact pt directly at [phone]. documented in this encounter Plan of Treatment Not on file documented as of this encounter Visit Diagnoses Not on filedocumented in this encounter Additional Health Concerns Assessment Noted Time PHQ-9 Depression Total Score: 0 12/16/19 23 2:03 PM EDT documented as of this encounter Care Teams It Assistant Relationship Specialty Start Date End Date Nadia Cortes MD [address] [place] [address] PCP - General Family Medicine 02/08/19 documented as of this encounter
--- OUTSIDE RECORDS SUMMARY | 2024-08-18 14:34 | XMS_ITS | Encounter Summary ---
Author Organization [employer] Address [address] [place] [address] Care Team Providers Care Customs Officer Name Role Phone Nadia Cortes MD Primary Care Provide r Encounter Details Date Type Department Care Team ([facility] st Contact Info) Description 07/22/[address] [facility] MEDICINE [address] [place], [place] [phone] Nadia Cortes MD [address] [place], [place] [phone] Social History Tobacco Use Types Packs/Day Years [...] documented as of this encounter Care Teams Customs Officer Relationship Specialty Start Date End Date Nadia Cortes MD [address] [place] [address] PCP - General Family Medicine 02/08/19 documented as of this encounter
--- OUTSIDE RECORDS SUMMARY | 2024-08-18 14:34 | XMS_ITS | Encounter Summary ---
Author Organization [employer] Address [address] [facility] 7t [place] [address] Care Team Providers Care Dental Lab Technician Name Role Phone Nadia Cortes MD Primary Care Provide r Reason for Visit * Reason Comments Med Refill Encounter Details Date Type Department Care Team (Late st Contact Info) Description 01/05/2023 Refill [facility] MEDICINE [address] [place], [place] [phone] Ida Eisenberg DO [address] [place], [place] [phone] Essential hypertension Social History Tobacco Use Types [...] documented as of this encounter Care Teams Dental Lab Technician Relationship Specialty Start Date End Date Nadia Cortes MD [address] [place], [place] [phone] PCP - General Family Medicine 02/08/19 documented as of this encounter
--- OUTSIDE RECORDS SUMMARY | 2024-08-18 14:34 | XMS_ITS | Encounter Summary ---
Author Organization [employer] Address [address] [place] [address] Care Team Providers Care Insurance Solicitor Name Role Phone Nadia Cortes MD Primary Care Provide r Reason for Visit * Reason Onset Date Comments Nurse Triage 10/26/2023 Encounter Details Date Type Department Care Team ([facility] st Contact Info) Description 10/26/2023 Telephone [facility] MEDICINE [address] [place], [place] [phone] Nadia Cortes MD [address] [place], [place] [phone] Nurse Triage Social History Tobacco Use Types [...] t he electric, gas, oil or water [employer] threatened to shut off services in your [...] 10/26/2023 10:19 AM EDT Triage call with [employer] [place] [id number]. Pt guardian , Deb, answers call and [...] or [facility] Call is dropped. Call is returned and busy. Another suction dredge dumping supervisor is obtained, [employer] ID [id number]. Call is resumed and Deb reportsthat Pt has decided to go to [facility]. Pt is on the way [...] stomach pain The caller accepted this outcome Singaporean speaker documented in this encounter Plan of Treatment Not on file documented as of this encounter Visit Diagnoses Not on filedocumented in this encounter Additional Health Concerns Assessment Noted Time PHQ-9 Depression Total Score: 0 12/16/19 23 2:03 PM EDT documented as of this encounter Care Teams Insurance Solicitor Relationship Specialty Start Date End Date Nadia Cortes MD [address] [place] [address] PCP - General Family Medicine 02/08/19 documented as of this encounter
--- OUTSIDE RECORDS SUMMARY | 2024-08-18 14:34 | XMS_ITS | Encounter Summary ---
Author Organization [employer] Address [address] [place] [address] Care Team Providers Care Legal Support Assistant Name Role Phone Nadia Cortes MD Primary Care Provide r Reason for Visit * Reason Comments Med Refill Encounter Details Date Type Department Care Team (Late st Contact Info) Description 11/19/2023 Refill [facility] MEDICINE [address] [place], [place] [phone] Nadia Cortes MD [address] [place], [place] [phone] Chronic bilateral low back pain with sciatica, [...] documented as of this encounter Care Teams Legal Support Assistant Relationship Specialty Start Date End Date Nadia Cortes MD [address] [place] [address] PCP - General Family Medicine 02/08/19 documented as of this encounter
--- OUTSIDE RECORDS SUMMARY | 2024-08-18 14:34 | XMS_ITS | Encounter Summary ---
Demographics Address [address] [place] [address] Work Phone Mobile Phone Preferred Language es Marital Status Single Mosque Affiliation Unknown Race Other Race Ethnic Group or Author Organization [email or web address] Address [address] [place] [address] Care Team Providers Care Java Consultant Name Role Phone Nadia Cortes MD Primary Care Provide r Encounter Details Date Type Department Care Team ([facility] Contact Info) Description 08/18/2024 Orders Only [facility] External Provider, [facility] Social History Tobacco Use Types Packs/Day Years [...] on file documented as of this encounter Procedures Procedure Name Priority Date/Time Associated Diagnosis Comments MR LUMBAR SPINE WO CONTRAST Routine 08/18/2024 12:12 PM EDT documented in this encounter Results * MR Lumbar Spine w/o Contrast (08/18/2024 12:12 PM EDT) Anatomical Region Laterality Modality Spine, L-spine Magnetic Resonan ce 08/18/2024 12:1 2 PM EDT Narrative 08/18/2024 1:28 PM EDT ? [facility] ?[address] ?[place] [address] ? Magnetic Resonance Report ? Signed ? Patient: Quincy Aviles ?MR#: [id number] ?? [id number] ? : 1950 ?Acct:[id number] ? Age/Sex: 74 / M ?ADM Date: 08/18/24 ? Loc: HO.MRI ? Attending Dr: Iris Doan APRN, [employer] ? Ordering Physician: Iris Doan APRN, CNP ?? Date of Service: 08/18/24 ?? Procedure(s): MR lumbar spine wo con ?? Accession Number(s): [id number] ? cc: Nadia Cortes MD; Iris Doan APRN [employer] ? EXAMINATION: ?? MR LUMBAR SPINE WITHOUT [...] LUMBOSACRAL JUNCTION: ?? -Normal. There are 5 whi-tyj-ybvhzao lumbar-type vertebral bodies. ? VERTEBRAL BODIES/BONE MARROW: [...] DD/ 1212 ? TD/TT: 08/18/24 1229 ? Hydrometer Tester: ? Procedure Note Pamela, Patrica - 04/17/[address] [address] Magnetic Resonance Report Signed Patient: Quincy Aviles [facility]#: [id number] : 3Acct:[id number] Age/Sex: 74 / MADM Date: 08/18/24 Loc: HO.MRI Attending Dr: Iris Doan APRN, CNP Ordering Physician: Iris Doan APRN, CNP Date of Service: 08/18/24 Procedure(s): MR lumbar spine wo con Accession Number(s): [id number] cc: Nadia Cortes MD; Iris Doan APRN, [...] subluxations. LUMBOSACRAL JUNCTION: -Normal. There are 5 lyd-asc-tetxjkl lumbar-type vertebral bodies. VERTEBRAL BODIES/BONE MARROW: -There [...] Wilbert Andrade MD 08/18/2024 01:24 PM EDT Dictated By: Wilbert Andrade MD Signed By: <Electronically signed by Wilbert Andrade MD in OV> 08/18/24 1324 DD/ 1212 TD/TT: 08/18/24 1229 Hydrometer Tester: [facility] External Provider IMG MRI PROCEDURES Final Result documented in this encounter Visit Diagnoses Not on filedocumented in this encounter Additional Health Concerns Assessment Noted Time PHQ-9 Depression Total Score: 0 12/16/19 23 2:03 PM EDT documented as of this encounter Care Teams Java Consultant Relationship Specialty Start Date End Date Nadia Cortes MD [address] [place] [address] PCP - General Family Medicine 02/08/19 documented as of this encounter
--- OUTSIDE RECORDS SUMMARY | 2024-08-18 14:34 | XMS_ITS | Clinical Summary ---
Author Organization [address] [facility] Address [address] [place] [address] Phone Care Team Providers Care Vp Marketing Name Role Phone Nadia Cortes MD [...] Encounters Date Type Department Care Team Description 08/11/2024 1:30 PM EDT Ancillary Procedure [facility] - [facility] [address] [facility] [address] [place] [address] PVD (peripheral vascular disease) ([facility] V24) 08/04/2024 1:30 PM EDT Ancillary Procedure [facility] Cardiology [facility] - [facility] [address] [facility] [address] [place] [address] Leg swelling 07/11/2024 2:30 PM EDT Consult [facility] [address] [facility] [address] [place] [address] Yue Sidhu PA Leg swelling (Primary Dx); PVD (peripheral vascular disease) ([facility]/HCC V24); Polyneuropathy associated with underlying disease (CMS/HCC V24); Chronic bilateral low back pain, unspecified whether sciatica present from Last 3 Months Social History Tobacco [...] Care Team (Late st Contact Info) Description 10/18/2024 2:00 PM EDT Office Visit [facility] - [facility] [address] [place] [phone] Yue Sidhu PA [address] [facility] [facility] [address] [place] [address] Health Maintenance Due Date Last Done Comments [...] 02/28/2024 Hypertension/CHF/CAD Annual BMP Blood Test 05/16/2024 COVID-19 Vaccine ( season) 2024 02/04/2024, 09/07/2020, 08/10/2020 RSV Immunization Adult Patients (1 - 1-dose 75+ series) 2027 Cholesterol Screening (Lipid Panel) 08/11/2028 08/12/2023 Pneumococcal Vaccine: 50+ Years Completed 12/15/2022, 11/13/2016, 02/26/2010 Influenza Vaccine Completed 02/04/2024, , 02/08/2021, Additional [...] age to complete this topic Meningococcal B Vaccine Aged Out No l onger eligible based on patient's age to complete this topic RSV Immunization Patients Under 20 months Aged Out No longer eligible based on patient's age to complete this topic Varicella Vaccines Aged Out No longer eligible based on patient's age to complete this topic Procedures Procedure Name Priority Date/Time Associated Diagnosis Comments VAS US DUPLEX LOWER EXT ARTERIES BILAT WITH LAUREN Routine 08/11/2024 2:04 PM EDT PVD (peripheral vascular disease) ([facility] V24) VAS US DUPLEX LOWER EXT VENOUS INSUFFICIENCY BILATERAL Routine 08/04/2024 2:11 PM EDT Leg swelling from Last 3 Months Results * Vascular US duplex lower extremity arteries bilateral with LAUREN (08/11/2024 2:04 PM EDT) Left Dist External Iliac PSV 167 cm/s CV V[facility] LAB Left Prox External Iliac PSV 240 cm/s CV V[facility] LAB Left AT dist sys PSV 67 cm/s CV VAS LAB Left AT mid sys PSV 45 cm/s CV VAS LAB Left AT prox sys PSV 53 cm/s CV VAS LAB Left SALES AND SERVICE TECHNICIAN prox sys PSV 124 cm/s CV VAS LAB Left mid peroneal sys PSV 53 cm/s CV VAS LAB Left popliteal dist sys PSV 56 cm/s CV VAS LAB Left popliteal prox sys PSV 71 cm/s CV VAS LAB Left PT dist sys PSV 91 cm/s CV VAS LAB Left PT mid sys PSV 86 cm/s CV VAS LAB Left PT prox sys PSV 59 cm/s CV VAS LAB Left profunda sys PSV 88 cm/s CV VAS LAB Left super femoral dist sys PSV 68 cm/s CV VAS LAB Left super femoral mid sys PSV 176 cm/s CV VAS LAB Left super femoral prox sys PSV 148 cm/s CV VAS LAB Right Dist External Iliac PSV 150 cm/s CV VAS LAB Right Prox External Iliac PSV 160 cm/s CV VAS LAB Right AT dist sys PSV 49 cm/s CV VAS LAB Right AT mid sys PSV 38 cm/s CV VAS LAB Right AT prox sys PSV 46 cm/s CV VAS LAB Right SALES AND SERVICE TECHNICIAN prox sys PSV 95 cm/s CV VAS LAB Right mid peroneal sys PSV 33 cm/s CV VAS LAB Right popliteal dist sys PSV 56 cm/s CV VAS LAB Right popliteal prox sys PSV 42 cm/s CV VAS LAB Right PT dist sys PSV 69 cm/s CV VAS LAB Right PT mid sys PSV 66 cm/s CV VAS LAB Right PT prox sys PSV 60 cm/s CV VAS LAB Right profunda sys PSV 141 cm/s CV VAS LAB Right super femoral dist sys PSV 67 cm/s CV VAS LAB Right super femoral mid sys PSV 432 cm/s CV VAS LAB Right super femoral prox sys PSV 65 cm/s CV VAS LAB Right arm BP 111 mmHg CV VAS LAB Left arm BP 112 mmHg CV VAS LAB Right posterior tibial 107 mmHg CV VAS LAB Right Dorsalis Pedis 107 mmHg CV VAS LAB Right LAUREN 0.96 CV VAS LAB Left posterior tibial 122 mmHg CV VAS LAB Left Dorsalis Pedis 111 mmHg CV VAS LAB Left LAUREN 1.09 CV VAS LAB Anatomical Region Laterality Modality Vascular, Abdomen Ultrasound Narrative 08/12/2024 4:53 PM EDT Right: The LAUREN is 0.96 indicating borderline PAD. Monophasic pulse volume waveform at the right ankle. Normal amplitude PPG waveform in the digit. There is moderate atherosclerotic palque in the right lower extremity arteries. There is severe (50-99%) stenosis of right mid SFA, close to 50% considering multiphasic waveform distally. 3-vessel runoff is noted in the right calf. Left: The LAUREN is 1.09 which is normal. Normal pulse volume waveform at the left ankle. Normal amplitude PPG waveform in the digit. There is mild atherosclerotic palque in the left lower extremity arteries. There is no significant stenosis. 3-vessel runoff is noted in the left calf. Right LAUREN Right BP= 111/51 Left LAUREN Left BP= 112/61 Right Lower Arterial Duplex The distal external iliac artery has triphasic flow. The common femoral artery has triphasic flow. The profunda femoris artery has triphasic flow. The superficial femoral artery has triphasic flow. The popliteal artery has triphasic flow. The proximal anterior tibial artery has biphasic flow. The mid anterior tibial artery has biphasic flow. The distal anterior tibial artery has triphasic flow. The posterior tibial artery has triphasic flow. The mid peroneal artery has biphasic flow. Left Lower Arterial Duplex The distal external iliac artery has triphasic flow. The common femoral artery has triphasic flow. The profunda femoris artery has biphasic flow. The superficial femoral artery has triphasic flow. The popliteal artery has triphasic flow. The proximal anterior tibial artery has biphasic flow. The mid anterior tibial artery has biphasic flow. The distal anterior tibial artery has triphasic flow. The posterior tibial artery has triphasic flow. The mid peroneal artery has biphasic flow. Access Analyst Details A borjas scale, color and doppler analysis ultrasound was performed. During the study longitudinal views were obtained. Pulsed wave doppler was performed. us Yue VIVAR CV VASCULAR PROCEDURES Final Result * Vascular US duplex lower extremity venous insufficiency bilateral (08/04/2024 2:11 PM EDT) Left fem mid reflux 928 ms CV VAS LAB Left GSK marce 0.26 cm CV VAS LAB Left GSDC marce 0.32 cm CV VAS LAB Left GSMT marce 0.30 cm CV VAS LAB Left GSPC marce 0.36 cm CV VAS LAB Left GSPT marce 0.43 cm CV VAS LAB Left pop reflux 683 ms CV VAS LAB Left SFJ Diameter 0.44 cm CV VAS LAB Left SSMC marce 0.18 cm CV VAS LAB Left SSPC marce 0.15 cm CV VAS LAB Right GSK marce 0.33 cm CV VAS LAB Right GSDC marce 0.30 cm CV VAS LAB Right GSMT marce 0.24 cm CV VAS LAB Right GSPC marce 0.28 cm CV VAS LAB Right GSPT marce 0.28 cm CV VAS LAB Right SFJ Diameter 0.53 cm CV VAS LAB Right SSMC marce 0.26 cm CV VAS LAB Right SSPC marce 0.35 cm CV VAS LAB Right SPJ Diameter 0.68 cm CV VAS LAB Left GSPT reflux 822 ms CV VAS LAB Left GSMT reflux 517 ms CV VAS LAB Left GSK reflux 4,245 ms CV VAS LAB Left GSPC reflux 1,383 ms CV VAS LAB Anatomical Region Laterality Modality Vascular, Abdomen Ultrasound Narrative 08/07/2024 11:57 AM EDT Right: 1. ??The right lower extremity veins are compressible and there is no evidence of DVT in the right lower extremity venous system. 2. The GSV and SSV has no clinically significant reflux. Left: 1. ??The left lower extremity veins are compressible and there is no evidence of DVT in the left lower extremity venous system. 2. The GSV has clinically significant reflux of 0.8 seconds in the proximal thigh, 0.5 seconds in the mid thigh, 4.2 seconds at the level of left knee, 1.3 seconds in the left upper calf. 3. The SSV has no significant reflux. ?? 4. ??The deep femoral vein has reflux of 0.9 seconds and popliteal vein has mild reflux of 0.6 seconds. Right Lower Venous No evidence of deep vein thrombosis in the common femoral, deep femoral, proximal femoral, mid femoral, distal femoral, popliteal, greater saphenous, small saphenous, posterior tibial and peroneal veins of the right leg. The vessels showed compressibility. Interrogation showed phasic and spontaneous Doppler signals. Right Venous Insufficiency Duplex The exam was performed with the patient in reverse Trendelenburg. Left Lower Venous No evidence of deep vein thrombosis in the common femoral, deep femoral, proximal femoral, mid femoral, distal femoral, popliteal, greater saphenous, small saphenous, posterior tibial and peroneal veins of the left leg. The vessels showed compressibility. Interrogation showed phasic and spontaneous Doppler signals. Left Venous Insufficiency Duplex The exam was performed with the patient in reverse trendelenburg. Access Analyst Details A borjas scale, color and doppler analysis ultrasound was performed. During the study longitudinal and transverse views were obtained. Pulsed wave doppler was performed. us Yue VIVAR CV VASCULAR PROCEDURES Final Result from Last 3 Months Insurance [employer] MED[employer] Member Subscriber Plan / Payer (Ef fective 2021-Present) Name:Quincy Aviles Relation to Subscriber:Self Name:Quincy Aviles Payer ID:[id number] Group ID:[id number] Type:Not on file Address: [place] [facility] [place] [address] Care Teams Vp Marketing Relationship Specialty Start Date End Date Nadia Cortes MD [address] [phone] PCP - General 02/08/24
== END 2024-08-18 11:39 | disposition home or self-care (01) ==
LOC: HO.MRI 11:38
PROVIDERS: PCP Internal Medicine; Visit Provider Registered Nurse Emergency
DX: M54.16 Radiculopathy, lumbar region (principal); N39.42 Incontinence without sensory awareness; N31.9 Neuromuscular dysfunction of bladder, unspecified; M47.816 Spondylosis without myelopathy or radiculopathy, lumbar region
CPT/HCPCS: 72148

== ENCOUNTER → 2024-08-18 11:46 | Outpatient (BNV) | payer OTHER, SELFPAY | PROVIDERS: PCP Internal Medicine; Visit Provider Radiology Diagnostic Radiology | DX: M47.896 Other spondylosis, lumbar region (principal); N28.1 Cyst of kidney, acquired | CPT/HCPCS: 72148 ==

== ENCOUNTER 2024-08-30 13:30 | Outpatient (AMB) | payer OTHER, SELFPAY ==
--- NOTE | 2024-08-30 13:32 | MHC.OFFVIS ---
Vital Signs 08/30/24 13:34 Height 5 ft 5 in Weight 171 lb 15.369 oz BMI 28.6 BP 121/62 Blood Pressure Location Lt brachial Position Sitting Pulse 67 Intake Visit Reasons: Follow up Abd pain Intake Note: Quincy presents in the office as a follow up for abdominal pains. CC: He states he is still having the pains in the stomach. He states that he has a pain in the lower back and about 2 weeks or so ago he had the pains all over that was so bad that it got bloated and he felt like he was very nauseous. Sccm Administrator Required: Yes Allergies No Known Allergies [No Known Allergies*] Allergy (Verified 08/30/24 13:40) HPI HPI Follow up Abd pain: Details: Khmer #Halley, Live HE says that he is very bothered because of frequent diarrhea since his colostomy was re attached. He will rarely have more solid foods but they are still very soft at best and small pieces. He will have liquid stools tid or more. He shows me his surgery. ROV 2 weeks, start carafate 1 tab qhs and titrate as needed.? ? 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 ? ? Medications: New sucralfate (Carafate) 1 g? PO BEDTIME 30 tabs 3RF K91.2 - Postsurgical malabsorption, not elsewhere classified, Z98.890 - Other specified postprocedural states ? CORRESPONDENCE On 08/26/24 @ 19:47 Roseann Sands Wrote To Pt added on 08/30/24. On 08/23/24 @ 17:37 Roseann Sands Wrote To Unfortunately, I have nothing right now but I added him to cancellation list. On 08/19/24 @ 11:10 Gita Denise Wrote To Roseann Sands [phone] pt requesting sooner appt they are having stomach pain aware if pain is bad they need er TODAY'S VISIT Deborah Barahona Live PATIENT HAS BEEN LOST TO FOLLOW-UP SINCE 12/2022 (He shows me his surgery. 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 He had ischemia of the left colon and transverse colostomy which was later reversed. It does not appear that any specific reason for this occurrence was able to be uncovered for example: infection versus thrombus verses vasoconstrictive medications verses inherited hypercoagulability/cardiac causes.) He says a few weeks ago he developed pain in the left and periumbilical abd with N/V/D. When he coughs the pain is sharp. He also has pain in the same area when he eats. They tried Mylanta and Aniyah [place]ry[place]. He wanted to present to the ER but they never picked him up. He is here today with his family and he is hesitant and somewhat vague historian and they try to assist him by filling in the details. They say he had an MRI and they found something but they don't know what. They ahve an appt for 11/01 with them. He is here today with his who is also a pt of mine and another female family member. They do not know his medications they are in a pack. I ask them to bring the medicines with them to the next appt. ? if he is taking carafate, is taking loperimide. ROV 2 weeks. Trial bentyl, he should bring all of his medications with him to the next appointment. [facility] Medical History Acute COVID-19 History of alcohol abuse Illiterate Chronic low back pain Arthritis Allergic rhinitis Necrosis of colon GERD (gastroesophageal reflux disease) High cholesterol HTN (hypertension) Surgical History History of colostomy reversal (06/03/21) History of cystoscopy Hx of colonoscopy Colostomy in place S/P left colectomy (~02/27/21) History of prostate surgery Social History Household Members: Unknown / Unable to assess Housing: Unknown / Unable to assess Do you presently have visiting nurse or other home services: No (from [facility]) Unable to assess alcohol history related to: Unknown Alcohol intake: never Patient Tobacco Use Status: Former Tobacco user Tobacco use type: Cigarette Advance Directives Date on File: 06/03/21 service: No Current occupational status: unemployed Review of Systems Const Denies fatigue, Denies fever(s), Denies night sweats, Denies poor appetite and Denies weight loss Eyes Details: glasses Reports requires corrective lenses ENT Reports Normal hearing present, Denies dental pain, Denies dysphagia, Denies hearing loss, Denies mouth pain, Denies odynophagia, Denies throat swelling, Denies tongue swelling and Reports other (Dentition adequate) Card Reports no additional complaints Resp Reports no additional complaints GI Details: Reports abdominal pain, Denies melena, Denies bloating, Denies hematochezia, Denies constipation, Denies GI cramping, Denies dysphagia, Denies excessive flatus, Denies early satiety, Reports heartburn, Reports diarrhea, Denies nausea, Denies odynophagia, Denies vomiting and Denies hematemesis Musc Reports abnormal gait, Reports back pain and Reports radiating pain into limb Skin/Breast Denies pruritus, Denies lesions, Denies rash and Denies jaundice Neuro Reports Normal hearing present, Denies Abnormal speech present and Reports abnormal gait Endo Denies fatigue Aller/Immun Denies throat swelling and Denies tongue swelling Physical Exam Vital Signs: BMI result Body Mass Index 28.6 Const General: cooperative, no acute distress, well developed and well groomed Nutritional Appearance: well nourished and overweight Orientation/consciousness: oriented to person, oriented to place and oriented to time Limitations: language barrier and ambulation with cane HEENT Head: Yes normocephalic and Yes atraumatic Eyes General: appearance normal, both eyes and all related structures Pupils: Equal, round and reactive pupils present Neck Neck: Yes normal visual inspection and Yes no lymphadenopathy Thyroid: Thyroid normal Resp Effort & Inspection: normal respiratory effort and able to speak in complete sentences Auscultation: clear to auscultation bilaterally Cardio Rate: regular rate Rhythm: regular rhythm Heart sounds: Normal, physiologic split S2 sound present Peripheral pulses: radial pulses present and posterior tibial pulses present GI Inspection: No distended, No Abdominal panniculus present and Yes scar Palpation (GI): Soft to palpation, Tenderness to palpation present (GI) in the LLQ and periumbilically, no guarding, not rigid and No hepatosplenomegaly present Percussion: Yes normal to percussion Auscultation: normal bowel sounds Rectal Exam - Male: Yes deferred Abdomen image: 1. surgical scar 2. umbilical hernia Skin General skin exam: no rashes or lesions noted, turgor normal, skin not dry, no jaundice, No spider nevi and no striae Rashes: no rashes Nails: normal Neuro General: oriented to person, oriented to place and oriented to time Cranial nerves: Yes Equal, round and reactive pupils present and Yes Normal hearing present Speech: No Abnormal speech present Extrem General: Yes normal to inspection, No clubbing, No cyanosis and No edema Psych Appearance: grossly normal and well kempt Mental Status: other Speech and movement: Slowed speech present (Psych) Affect: normal affect Attitude: cooperative Thought process: not confabulating and Impoverished thought process present Thought content: Normal thought content present Insight: Limited insight present (Psych) Judgement: Limited judgement present (Psych) Assessment & Plan Assessment & Plan (1) Abdominal pain: Code(s): R10.9 - Unspecified abdominal pain Category: Medical Qualifiers: Abdominal location: periumbilical Qualified Code(s): R10.33 - Periumbilical pain (2) History of colostomy reversal: Onset Date: 06/03/21 Code(s): Z98.890 - Other specified postprocedural states Category: Surgical (3) Diarrhea: Code(s): R19.7 - Diarrhea, unspecified Category: Medical (4) Nausea and vomiting: Code(s): R11.2 - Nausea with vomiting, unspecified Category: Medical (5) Illiterate: Code(s): Z55.0 - Illiteracy and low-level literacy Category: Social Hx (6) History of alcohol abuse: Code(s): F10.11 - Alcohol abuse, in remission Category: Medical Plan Khmer #Sunil Live PATIENT HAS BEEN LOST TO FOLLOW-UP SINCE 12/2022 (He shows me his surgery. 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 He had ischemia of the left colon and transverse colostomy which was later reversed. It does not appear that any specific reason for this occurrence was able to be uncovered for example: infection versus thrombus verses vasoconstrictive medications verses inherited hypercoagulability/cardiac causes.) He says a few weeks ago he developed pain in the left and periumbilical abd with N/V/D. When he coughs the pain is sharp. He also has pain in the same area when he eats. They tried Mylanta and Aniyah [place]. He wanted to present to the ER but they never picked him up. He is here today with his family and he is hesitant and somewhat vague historian and they try to assist him by filling in the details. They say he had an MRI and they found something but they don't know what. They ahve an appt for 11/01 with them. He is here today with his who is also a pt of mine and another female family member. They do not know his medications they are in a pack. I ask them to bring the medicines with them to the next appt. ? if he is taking carafate, is taking loperimide. ROV 2 weeks. Trial bentyl, he should bring all of his medications with him to the next appointment. Orders: Orders Complete Blood Count Auto Diff Today R10.33 - Periumbilical pain, R11.2 - Nausea with vomiting, unspecified, R19.7 - Diarrhea, unspecified, Z98.890 - Other specified postprocedural states H pylori Ag Stool Today R10.33 - Periumbilical pain, R11.2 - Nausea with vomiting, unspecified, R19.7 - Diarrhea, unspecified, Z98.890 - Other specified postprocedural states Comprehensive Met. Panel Today R10.33 - Periumbilical pain, R11.2 - Nausea with vomiting, unspecified, R19.7 - Diarrhea, unspecified, Z98.890 - Other specified postprocedural states XR abdomen w decubitus Today R10.33 - Periumbilical pain, R11.2 - Nausea with vomiting, unspecified, R19.7 - Diarrhea, unspecified, Z98.890 - Other specified postprocedural states CT abdomen pelvis w IV con Today R10.33 - Periumbilical pain, R11.2 - Nausea with vomiting, unspecified, R19.7 - Diarrhea, unspecified, Z98.890 - Other specified postprocedural states UA CC w/rflx Micro + Cult Today R10.33 - Periumbilical pain, R11.2 - Nausea with vomiting, unspecified, R19.7 - Diarrhea, unspecified, Z98.890 - Other specified postprocedural states Amylase Today R10.33 - Periumbilical pain, R11.2 - Nausea with vomiting, unspecified, R19.7 - Diarrhea, unspecified, Z98.890 - Other specified postprocedural states Lipase Today R10.33 - Periumbilical pain, R11.2 - Nausea with vomiting, unspecified, R19.7 - Diarrhea, unspecified, Z98.890 - Other specified postprocedural states C Reactive Protein Today R10.33 - Periumbilical pain, R11.2 - Nausea with vomiting, unspecified, R19.7 - Diarrhea, unspecified, Z98.890 - Other specified postprocedural states Phosphatidylethanol, Blood Today F10.11 - Alcohol abuse, in remission Ammonia Today F10.11 - Alcohol abuse, in remission, Z55.0 - Illiteracy and low-level literacy Medications: New dicyclomine 20 mg PO QID 30 days 120 tabs 6RF R10.33 - Periumbilical pain, R19.7 - Diarrhea, unspecified Coding Level of Care Code Est Pt Level 4 (87883) Diagnoses Abdominal pain R10.33 Abdominal location: periumbilical History of colostomy reversal Z98.890 Diarrhea R19.7 Nausea and vomiting R11.2 Illiterate Z55.0 History of alcohol abuse F10.11 Time Spent (min) 40
[2024-08-30 13:34] VITALS: BP 121/62; PULSE 67; BMI 28.6
--- OUTSIDE RECORDS SUMMARY | 2024-08-30 15:33 | XMS_ITS | Encounter Summary ---
Author Organization [employer] Address [address] [place] [address] Care Team Providers Care Invasive Manager Name Role Phone Nadia Cortes MD Primary Care Provide r Encounter Details Date Type Department Care Team ([facility] Contact Info) Description 08/30/2024 Orders Only GENERIC EXTERNAL DATA DEPARTMENT Provider, Generic External Data Social History Tobacco Use Types Packs/Day Years [...] Procedure Name Priority Date/Time Associated Diagnosis Comments CBC WITH AUTO DIFFERENTIAL Routine 08/30/2024 2:52 PM EDT AMMONIA (P) Routine 08/30/2024 2:52 PM EDT URINALYSIS, COMPLETE, WITH REFLEX TO CULTURE Routine 08/30/2024 2:43 PM EDT documented in this encounter Results * (ABNORMAL) CBC auto differential (08/30/2024 2:52 PM EDT) White Blood Count 11.2(H) 4.8 - 10.8 X10*3/uL [facility] Red Blood Count 4.58(L) 4.60 - 5.80 X10*6/uL [facility] Hemoglobin 13.6(L) 14.0 - 18.0 g/dl [facility] Hematocrit 42.3 42.0 - 52.0 % [facility] Mean Corpuscular Volume 92.4 80.0 - 98.0 fL [facility] Mean Corpuscular Hemoglobin 29.7 27.0 - 33.0 pg [facility] Mean Corpuscular HGB Conc 32.2 31.0 - 36.0 g/dl [facility] Red Cell Distribution Width 14.2 11.0 - 16.0 % [facility] Platelet Count 198 160 - 400 X10*3/uL [facility] Mean Platelet Volume 11.7 9.4 - 12.4 fL [facility] Neutrophils Percent Auto 76.7(H) 45 - 73 % [facility] Imm Gran Pct Auto 0.5(H) 0.0 - 0.4 % [facility] Lymphocytes Percent Auto 13.0(L) 20 - 40 % [facility] Monocytes Percent Auto 6.8 2 - 11 % [facility] Eosinophils Percent Auto 2.5 0 - 4 % [facility] Basophils Percent Auto 0.5 0 - 2 % [facility] NRBC Pct Auto 0.0 0.0 - 0.2 /100WBC [facility] Neutrophils Absolute Auto 8.6(H) 2.0 - 8.3 x10*3/uL [facility] Imm Gran Abs Auto 0.06(H) 0.00 - 0.03 X10*3/uL [facility] Lymphocytes Absolute Auto 1.5 1.2 - 4.9 X10*3/uL [facility] Monocytes Absolute Auto 0.8 0.1 - 1.2 X10*3/uL [facility] Eosinophils Absolute Auto 0.3 0.0 - 0.4 X10*3/uL [facility] Basophils Absolute Auto 0.1 0.0 - 0.2 X10*3/uL [facility] NRBC Abs Auto 0.000 0.0 - 0.012 X10*3/uL [facility] 08/30/2024 2:52 PM EDT 08/30/2024 2:52 PM EDT us Generic External Data Provider LAB BLOOD ORDERAB LES Final Result Performing Organization Address [facility] Co de Phone Number [facility] [address] [place] [phone] * Ammonia, Plasma (08/30/2024 2:52 PM EDT) Ammonia (P) 43 13 - 55 umol/L [facility] 08/30/2024 2:52 PM EDT 08/30/2024 2:52 PM EDT us Generic External Data Provider LAB BLOOD ORDERAB LES Final Result Performing Organization Address City/[facility] Co de Phone Number [facility] [address] [place] [address] [phone] * (ABNORMAL) Urinalysis, Complete, with Reflex to Culture (08/30/2024 2:43 PM EDT) Color Urine Dark Yellow [facility] Appearance Urine Clear [facility] PH 5.5 5.0 - 9.0 [facility] Glucose Urine UA Negative Negative mg/dL [facility] Urine Blood Trace(A) Negative [facility] Specific [place] - Urine 1.025 1.005 - 1.025 [facility] Urine Protein Negative Neg-Trace mg/dL [facility] Urine Ketones Trace Negative mg/dL [facility] Nitrite Urine Negative Negative [facility] Leukocyte Esterase Urine Negative Negative [facility] RBC Urine 6-10(A) 0 - 2 /HPF [facility] Urine WBC 0-5 0 - 5 /HPF [facility] Urine Squamous Epithelial Cell 0-2 0 - 2 /HPF [facility] Urine Bacteria None Seen None Seen [facility] Hyaline Casts, Urine 0-2 0 - 2 /LPF [facility] 08/30/2024 2:43 PM EDT 08/30/2024 2:59 PM EDT Narrative [facility] - 08/30/2024 3:28 PM EDT [id number], Clean Catch us Generic External Data Provider LAB URINE ORDERAB LES Final Result Performing Organization Address [facility] Co de Phone Number [facility] [address] [place] [phone] [phone] documented in this encounter Visit Diagnoses Not on filedocumented in this encounter Additional Health Concerns Assessment Noted Time PHQ-9 Depression Total Score: 0 12/16/19 23 2:03 PM EDT documented as of this encounter Care Teams Invasive Manager Relationship Specialty Start Date End Date Nadia Cortes MD [address] [place] [address] PCP - General Family Medicine 02/08/19 documented as of this encounter
--- OUTSIDE RECORDS SUMMARY | 2024-08-30 15:33 | XMS_ITS | Encounter Summary ---
Author Organization [employer] Address [address] [place] [address] Care Team Providers Care Distillery Worker Name Role Phone Nadia Cortes MD Primary Care Provide r Reason for Visit * Reason Onset Date Comments Nurse Triage 01/15/2023 Encounter Details Date Type Department Care Team (Late st Contact Info) Description 01/15/2023 Telephone [facility] [address] [place], [place] [phone] Nadia Cortes MD [address] [place] [address] Nurse Triage Social History Tobacco Use Types [...] call , Pt reports will come to [facility] in the morning to be seen. No triage at this call. * Telephone Encounter - Margaret Diaz - 01/15/2023 2:00 PM EDT Symptom: Eye - Pus or Discharge Outcome: Schedule a same-day appointment or talk to a nurse or provider today Reason: Caller denied all higher acuity questions The caller accepted this outcome Patient speaks mohawk Patient walked in reports having left eye discharge, discomfort and itchiness since yesterday. Patient missed 01/15/23 [facility] appt at 1:40 pm. documented in this encounter Plan of Treatment Not on file documented as of this encounter Visit Diagnoses Not on filedocumented in this encounter Additional Health Concerns Assessment Noted Time PHQ-9 Depression Total Score: 0 12/16/19 2:03 PM EDT documented as of this encounter Care Teams Distillery Worker Relationship Specialty Start Date End Date Nadia Cortes MD [address] [place] [phone] PCP - General Family Medicine 02/08/19 documented as of this encounter
--- OUTSIDE RECORDS SUMMARY | 2024-08-30 15:33 | XMS_ITS | Encounter Summary ---
Author Organization [employer] Address [address] [place] [address] Care Team Providers Care Steaming Cabinet Tender Name Role Phone Nadia Cortes MD Primary Care Provide r Reason for Visit * Reason Onset Date Comments PCP change 11/17/2022 Encounter Details Date Type Department Care Team (Late st Contact Info) Description 11/17/2022 Telephone [facility] [address] [place], [place] [phone] Nadia Cortes MD [address] [place] [address] PCP change Social History Tobacco Use Types [...] on filedocumented in this encounter Care Teams Steaming Cabinet Tender Relationship Specialty Start Date End Date Nadia Cortes MD [address] [place] [address] PCP - General Family Medicine 02/08/19 documented as of this encounter
--- OUTSIDE RECORDS SUMMARY | 2024-08-30 15:33 | XMS_ITS | Encounter Summary ---
Author Organization [employer] Address [address] [place] [address] Care Team Providers Care Supervisor Home Economics Name Role Phone Nadia Cortes MD Primary Care Provide r Reason for Visit * Reason Comments Med Refill Encounter Details Date Type Department Care Team (Late st Contact Info) Description 08/30/2024 Refill [facility] [address] [place], [place] [phone] Nadia Cortes MD [address] [place] [address] Seasonal allergies Social History Tobacco Use Types Packs/Day Years [...] as of this encounter Visit Diagnoses Diagnosis Seasonal allergies Allergic rhinitis, cause unspecified documented in this encounter Additional Health Concerns Assessment Noted Time PHQ-9 Depression Total Score: 0 12/16/19 23 2:03 PM EDT documented as of this encounter Care Teams Supervisor Home Economics Relationship Specialty Start Date End Date Nadia Cortes MD [address] [place] [phone] PCP - General Family Medicine 02/08/19 documented as of this encounter
--- OUTSIDE RECORDS SUMMARY | 2024-08-30 15:33 | XMS_ITS | Encounter Summary ---
Author Organization [employer] Address [address] [place] [address] Care Team Providers Care Network Engineer Administrator Name Role Phone Nadia Cortes MD Primary Care Provide r Encounter Details Date Type Department Care Team ([facility] st Contact Info) Description 07/22/[address] [facility] [address] [place], [place] [phone] Nadia Cortes MD [address] [place], [place] [phone] Social History Tobacco Use Types Packs/Day Years [...] documented as of this encounter Care Teams Network Engineer Administrator Relationship Specialty Start Date End Date Nadia Cortes MD [address] [place] [address] PCP - General Family Medicine 02/08/19 documented as of this encounter
--- OUTSIDE RECORDS SUMMARY | 2024-08-30 15:33 | XMS_ITS | Encounter Summary ---
Author Organization [employer] Address [address] [place] [address] Care Team Providers Care Decorator Inspector Name Role Phone Nadia Cortes MD Primary Care Provide r Reason for Visit * Reason Onset Date Comments ER Follow-up 03/11/2024 Encounter Details Date Type Department Care Team ([facility] st Contact Info) Description 03/11/2024 Telephone [facility] [address] [place], [place] [phone] Nadia Cortes MD [address] [place], [place] [phone] ER Follow-up Social History Tobacco Use Types [...] EST Triage call regarding message below [place] [employer] [id number] Alexei. Call made x2 to [phone], with call being dropped no connection made. Call to Juani x1 [phone] without answer. Juani with [facility] calling to report ED visit on: Date: 03/10/24 Hospital: [facility] Seen for: Left foot pain Symptom: Foot or Ankle Pain - Not From Injury Outcome: Schedule an appointment to be seen within 24 hours Reason: Caller denied all higher acuity questions Juani requested to contact pt directly at [phone]. * Telephone Encounter - Jong Sahrma - 03/11/2024 12:05 PM EST Juani with [facility] calling to report ED visit on: Date: 03/10/24 Hospital: [facility] Seen for: Left foot pain Symptom: Foot or Ankle Pain - Not From Injury Outcome: Schedule an appointment to be seen within 24 hours Reason: Caller denied all higher acuity questions Juani requested to contact pt directly at [phone]. documented in this encounter Plan of Treatment Not on file documented as of this encounter Visit Diagnoses Not on filedocumented in this encounter Additional Health Concerns Assessment Noted Time PHQ-9 Depression Total Score: 0 12/16/19 23 2:03 PM EDT documented as of this encounter Care Teams Decorator Inspector Relationship Specialty Start Date End Date Nadia Cortes MD [address] [place] [address] PCP - General Family Medicine 02/08/19 documented as of this encounter
--- OUTSIDE RECORDS SUMMARY | 2024-08-30 15:33 | XMS_ITS | Encounter Summary ---
Author Organization [employer] Address [address] 7[address] [place] [address] Care Team Providers Care Career Development Associate Name Role Phone Nadia Cortes MD Primary Care Provide r Reason for Visit * Reason Comments Med Refill Encounter Details Date Type Department Care Team (Late st Contact Info) Description 11/19/2023 Refill [facility] MEDICINE [address] [place], [place] [phone] Nadia Cortes MD [address] [place], [place] [phone] Chronic bilateral low back pain with sciatica, [...] documented as of this encounter Care Teams Career Development Associate Relationship Specialty Start Date End Date Nadia Cortes MD [address] [place] [address] PCP - General Family Medicine 02/08/19 documented as of this encounter
--- OUTSIDE RECORDS SUMMARY | 2024-08-30 15:33 | XMS_ITS | Clinical Summary ---
Author Organization [employer] Address [address] [facility] 7t [place] [address] Care Team Providers Care Road Roller Operator Name Role Phone Nadia Cortes MD [...] EVERY MORNING 90 tablet 1 4 Active dextran 70-hypromellose (artificial tears) 0.1-0.3 % ophthalmic solutionIndicati ons:Dry eye Administer 1 drop into both eyes if needed in the morning, at noon, and at bedtime for dry eyes. 30 mL 1 5 026 Active Active Problems Problem Noted Date Diagnosed Date PAD (peripheral artery disease) 08/16/2024 Overview (08/16/2024): See vascular studies in media 08/11/24 from [facility] Associates right lower extremity LAUREN borderline [...] Encounters Date Type Department Care Team Description 08/30/2024 Orders Only GENERIC EXTERNAL DATA DEPARTMENT Provider, Generic External Data 08/30/2024 Refill [facility] CHC MED & PEDS [address] [place] [address] Nadia Cortes MD Seasonal allergies 08/19/2024 Telephone [facility] MEDICINE [address] [place] [address] Nadia Cortes MD Nurse Triage 08/18/2024 Orders Only [facility] External Provider, [facility] 07/14/2024 Orders Only [facility] MEDICINE [address] [place] [address] Nadia Cortes MD Diminished vision (Primary Dx); Dry eye 07/08/2024 Telephone [facility] MEDICINE [address] [place] [address] Nadia Cortes MD Results 07/07/2024 2:00 PM EST Office Visit [facility] MEDICINE [address] [place] [address] Nadia Cortes MD Chronic bilateral low back pain, unspecified whether sciatica present (Primary Dx); Venous insufficiency; Diminished vision; Dry eye 07/07/2024 Telephone [facility] OPTOMETRY [address] [place] [address] TimiJose Migueln, OD 07/07/2024 Travel 07/06/2024 Telephone [facility] MEDICINE [address] [place] [address] Nadia Cortes MD Referral 07/06/2024 Telephone [facility] MEDICINE [address] [place] [address] Nadia Cortes MD Nurse Triage from Last [...] t he electric, gas, oil or water [employer] threatened to shut off services in your [...] TO CULTURE Routine 08/30/2024 2:43 PM EDT MR LUMBAR SPINE WO CONTRAST Routine 08/18/2024 12:12 PM EDT XR LUMBAR SPINE 2-3 VIEWS Routine 07/07/2024 3:07 PM EST Chronic bilateral low back pain, unspecified whether sciatica present HEMOGLOBIN A1C Routine 08/12/2023 8:51 AM EDT Primary hypertension Prediabetes LIPID PANEL, STANDARD Routine 08/12/2023 8:51 AM EDT Primary hypertension Prediabetes from Last 3 Months or Most Recently Relevant to Health Maintenance Results * (ABNORMAL) CBC auto differential (08/30/2024 2:52 PM EDT) White Blood Count 11.2(H) 4.8 - 10.8 X10*3/uL [facility] Red Blood Count 4.58(L) 4.60 - 5.80 X10*6/uL [facility] Hemoglobin 13.6(L) 14.0 - 18.0 g/dl [facility] Hematocrit 42.3 42.0 - 52.0 % [facility] Mean Corpuscular Volume 92.4 80.0 - 98.0 fL [facility] Mean Corpuscular Hemoglobin 29.7 27.0 - 33.0 pg [facility] Mean Corpuscular HGB Conc 32.2 31.0 - 36.0 g/dl [facility] Red Cell Distribution Width 14.2 11.0 - 16.0 % [facility] Platelet Count 198 160 - 400 X10*3/uL [facility] Mean Platelet Volume 11.7 9.4 - 12.4 fL [facility] Neutrophils Percent Auto 76.7(H) 45 - 73 % [facility] Imm Gran Pct Auto 0.5(H) 0.0 - 0.4 % [facility] Lymphocytes Percent Auto 13.0(L) 20 - 40 % [facility] Monocytes Percent Auto 6.8 2 - 11 % [facility] Eosinophils Percent Auto 2.5 0 - 4 % [facility] Basophils Percent Auto 0.5 0 - 2 % [facility] NRBC Pct Auto 0.0 0.0 - 0.2 /100WBC [facility] Neutrophils Absolute Auto 8.6(H) 2.0 - 8.3 x10*3/uL [facility] Imm Gran Abs Auto 0.06(H) 0.00 - 0.03 X10*3/uL [facility] Lymphocytes Absolute Auto 1.5 1.2 - 4.9 X10*3/uL [facility] Monocytes Absolute Auto 0.8 0.1 - 1.2 X10*3/uL [facility] Eosinophils Absolute Auto 0.3 0.0 - 0.4 X10*3/uL [facility] Basophils Absolute Auto 0.1 0.0 - 0.2 X10*3/uL [facility] NRBC Abs Auto 0.000 0.0 - 0.012 X10*3/uL [facility] 08/30/2024 2:52 PM EDT 08/30/2024 2:52 PM EDT us Generic External Data Provider LAB BLOOD ORDERAB LES Final Result [facility] [address] [place] [phone] * Ammonia, Plasma (08/30/2024 2:52 PM EDT) Ammonia (P) 43 13 - 55 umol/L [facility] 08/30/2024 2:52 PM EDT 08/30/2024 2:52 PM EDT us Generic External Data Provider LAB BLOOD ORDERAB LES Final Result Performing Organization Address City/[facility]/ZIP Co de Phone Number [facility] [address] [place] [phone] * (ABNORMAL) Urinalysis, Complete, with Reflex to Culture (08/30/2024 2:43 PM EDT) Color Urine Dark Yellow [facility] Appearance Urine Clear [facility] PH 5.5 5.0 - 9.0 [facility] Glucose Urine UA Negative Negative mg/dL [facility] Urine Blood Trace(A) Negative [facility] Specific [place] - Urine 1.025 1.005 - 1.025 [facility] Urine Protein Negative Neg-Trace mg/dL [facility] Urine Ketones Trace Negative mg/dL [facility] Nitrite Urine Negative Negative [facility] Leukocyte Esterase Urine Negative Negative [facility] RBC Urine 6-10(A) 0 - 2 /HPF [facility] Urine WBC 0-5 0 - 5 /HPF [facility] Urine Squamous Epithelial Cell 0-2 0 - 2 /HPF [facility] Urine Bacteria None Seen None Seen [facility] Hyaline Casts, Urine 0-2 0 - 2 /LPF [facility] 08/30/2024 2:43 PM EDT 08/30/2024 2:59 PM EDT Narrative [facility] - 08/30/2024 3:28 PM EDT [id number], Clean Catch us Generic External Data Provider LAB URINE ORDERAB LES Final Result Performing Organization Address [facility]/ZIP Co de Phone Number [facility] [address] [place] [phone] * MR Lumbar Spine w/o Contrast (08/18/2024 12:12 PM EDT) Anatomical Region Laterality Modality Spine, L-spine Magnetic Resonan ce 08/18/2024 12:1 2 PM EDT Narrative 08/18/2024 1:28 PM EDT ? [facility] ?[address] ?[place] [address] ? Magnetic Resonance Report ? Signed ? Patient: Tita Harris,Da ?MR#: [id number] ?? [id number] ? : 1950 ?Acct:[id number] ? Age/Sex: 74 / M ?ADM Date: 08/18/24 ? Loc: HO.MRI ? Attending Dr: Iris Doan APRN, BAND MAKER ? Ordering Physician: Iris Doan APRN BAND MAKER ?? Date of Service: 08/18/24 ?? Procedure(s): MR lumbar spine wo con ?? Accession Number(s): [id number] ? cc: Nadia Cortes MD; Iris Doan APRN, BAND MAKER ? EXAMINATION: ?? MR LUMBAR SPINE WITHOUT [...] LUMBOSACRAL JUNCTION: ?? -Normal. There are 5 dfe-pyc-yiqxcim lumbar-type vertebral bodies. ? VERTEBRAL BODIES/BONE MARROW: [...] DD/ 1212 ? TD/TT: 08/18/24 1229 ? Cell Feed Department Supervisor: ? Procedure Note Pamela, Patrica - 08/18/[address] [address] Magnetic Resonance Report Signed Patient: Quincy Aviles [facility]#: [id number] : 3Acct:[id number] Age/Sex: 74 / MADM Date: 08/18/24 Loc: HO.MRI Attending Dr: Iris Doan APRN, BAND MAKER Ordering Physician: Iris Doan APRN, BAND MAKER Date of Service: 08/18/24 Procedure(s): MR lumbar spine wo con Accession Number(s): [id number] cc: Nadia Cortes MD; Iris Doan APRN, BAND MAKER EXAMINATION: MR LUMBAR SPINE WITHOUT CONTRAST CLINICAL [...] subluxations. LUMBOSACRAL JUNCTION: -Normal. There are 5 lgd-nyz-hwtrhsl lumbar-type vertebral bodies. VERTEBRAL BODIES/BONE MARROW: -There [...] 08/18/24 1324 DD/ 1212 TD/TT: 08/18/24 1229 Cell Feed Department Supervisor: [facility] External Provider IMG MRI PROCEDURES Final Result * XR Lumbar Spine 2-3 Views (07/07/2024 3:07 PM EST) Anatomical Region Laterality Modality Spine, L-spine Radiographic Felipa ging 07/07/2024 3:07 PM EST Narrative 07/07/2024 4:40 PM EST ?[facility] [facility] ?[address] ?[place] [address] ?XRay Report ? Signed ? Patient: Tita Harris,Da ?MR#: [id number] ?? [id number] ? : 1950 ?Acct:[id number] ? Age/Sex: 74 / M ?ADM Date: 07/07/24 ? Loc: HO.HHCX ? Attending Dr: Nadia Hedrick MD ? Ordering Physician: Nadia Cortes MD ?? Date of Service: 07/07/24 ?? Procedure(s): XR lumbar spine 2-3V ?? Accession Number(s): [id number] ? cc: Nadia Cortes MD ? EXAMINATION: [...] Signed By: ?<Electronically signed by Uriel S MD Kayla in OV> ?07/07/24 1637 ? DD/ 1507 ? TD/TT: 07/07/24 1540 ? Cell Feed Department Supervisor: MSM ? Procedure Note Patrica Santiago - 07/07/2024 [facility] [address] [place] [address] XRay Report Signed Patient: Quincy Aviles [facility]#: [id number] : 3Acct:[id number] Age/Sex: 74 / MADM Date: 07/07/24 Loc: HO.HHCX Attending Dr: Nadia Hedrick MD Ordering Physician: Nadia Cortes MD Date of Service: 07/07/24 Procedure(s): XR lumbar spine 2-3V Accession Number(s): [id number] cc: Nadia Cortes MD EXAMINATION: XR LUMBOSACRAL [...] by: Uriel Garza MD 07/07/2024 04:37 PM [facility] Dictated By: Uriel Garza MD Signed By: <Electronically signed by Uriel Garza MD in OV> 07/07/24 1637 DD/ 1507 TD/TT: 07/07/24 1540 Cell Feed Department Supervisor: [facility] us Nadia Hedrick MD IMG XR PROCEDURES Fin al Result * Hemoglobin A1c (08/12/2023 8:51 AM EDT) Hemoglobin A1c 5.6 <6.0 % [facility] Comment:Hemoglobin A1C Refer ence Range Adults: 4.8 - 6.0 % Non diabetic: < 6.0 % Goal: < 7.0 %Additional Action Suggested: > 8.0 %Note: Hemoglobin A1c results are invalid for patients with abnormal amounts of HbF. Blood transfusions may impact the HbA1c concentration in the patient sample. Estimated Average Glucose 114 mg/dL [facility] Comment:eAG = Estimated ave rage glucose which is %A1C expressed asaverage glucose, using the formula of the M8N-FkiifxlStsbaus Glucose study (ADAG), Diabetes Care, Vol.31,#8,Dec. 2007 Blood Venous blood specimen / Unknown 08/12/2023 8:51 AM EDT 08/12/2023 11:30 AM EDT us Nadia Hedrick MD LAB BLOOD ORDERABLES Final Result Performing Organization Address [facility]/ZIP Co de Phone Number [facility] [address] [place] [phone] * (ABNORMAL) Lipid Panel, Standard (08/12/2023 8:51 AM EDT) Triglycerides 98 <150 mg/dL [facility] Comment:Desirable Triglyceri de: less than 150 mg/dLBorderline High Triglyceride 150-199 mg/dLHigh Triglyceride: 200-499 mg/dLVery High Triglyceride: greater than or equal to 5OO mg/dL Cholesterol 147 <200 mg/dL [facility] Comment:Desirable Cholestero l: less than 200 mg/dLBorderline High Cholesterol: 200-239 mg/dLHigh Cholesterol: greater than 239 mg/dL LDL Cholesterol Calculated 93 <100 mg/dL [facility] Comment:Desirable LDL: less than 100 mg/dLNear Optimal/Above Optimal LDL: 110- 129 mg/dLBorderline High LDL: 130-159 mg/dLHigh LDL: 160-189 mg/dLVery High LDL: greater than or equal to 190 mg/dL HDL Cholesterol 35(L) >40 mg/dL [facility] Comment:Desirable HDL: great er than 40 mg/dL Note: This HDL assay may give artificially low results in patients with liver disease. Blood Venous blood specimen / Unknown 08/12/2023 8:51 AM EDT 08/12/2023 11:34 AM EDT us Nadia Hedrick MD LAB BLOOD ORDERABLES Final Result Performing Organization Address [facility]/ZIP Co de Phone Number [facility] [address] [place] [phone] from Last 3 Months or Most Recently Relevant to Health Maintenance Insurance * Guarantor: Quincy Aviles Account Type Relation to Patient Date of Phone Billing Address Personal/Family Self [address] [place] [address] [facility] (O D-SNP) [place] [phone] [facility] [employer] (O D-[place]) [place] [phone] * Guarantor: Quincy Aviles Account Type Relation to Patient Date of Phone Billing Address Personal/Family Self [address] [place] [address] * Guarantor: Quincy Aviles Account Type Relation to Patient Date of Phone Billing Address Personal/Family Self [address] [place] [address] * Guarantor: Quincy Aviles Account Type Relation to Patient Date of Phone Billing Address Personal/Family Self [address] [place] [address] [address] Roller Operator Relationship Specialty Start Date End Date Nadia Cortes MD [address] [place] [phone] PCP - General Family Medicine 02/08/19
--- OUTSIDE RECORDS SUMMARY | 2024-08-30 15:33 | XMS_ITS | Encounter Summary ---
Author Organization [facility] Address [address] [place] [phone] Care Team Providers Care Environmental Designer Name Role Phone Nadia Cortes MD Primary Care Provide r Reason for Visit * Reason Comments Foot Pain Nail Problem Encounter Details Date Type Department Care Team (Late st Contact Info) Description 08/25/2024 3:15 PM EDT Office Visit Orthopedic Surgery - [place] [phone] [phone] Oscar Huffman DPM [address] [address] PVD (peripheral vascular disease) (CMS/HCC V24) (Primary Dx); Pain in both feet; Arthritis of both feet; Metatarsalgia of left foot Social History Tobacco Use Types Packs/Day Years Used Date Smoking Tobacco: Never Assessed Sex and Gender Information Value Date Recorded Sex Assigned at Not on file Legal Sex Male 4:38 PM EDT Gender Identity Not on file Sexual Orientation Not on file documented as of this encounter Progress Notes * Oscar Huffman DPM - 08/25/2024 3:15 PM EDT Referring MD: Ryley Last PCP visit: 02/04/2024 IDENTIFIER: @TITLE@ Tita Harris is a 74 y.o. year old male who presents for consultation. CC: Pain in feet HPI: 74-year-old male returns to office with chief complaint of bilateral foot pain. Patient notes that he continues to have severe radiating pain from his back down his legs. Patient notes that he does use topical analgesics with some relief. Patient notes his pain is worse at night than it is during the day. Patient recently had an LAUREN PVR that showed adequate blood flow. Patient is here for evaluation treatment ROS: GENERAL: Pt denies nausea, fever, vomiting, chills, or shortness of breath. Pt in NAD. CARDIOLOGY: pt denies chest pain, palpitations LUNGS: pt denies shortness of breath MUSCULOSKELETAL: See HPI, otherwise no joint pain or swelling, back pain, or muscle pain. SKIN: see HPI, otherwise no lesions, rash or itching NEURO: No persistent headache, weakness or numbness The remainder of the review of systems is noncontributory PAST MEDICAL HISTORY: Patient Active Problem List Diagnosis Abnormal gait Alcohol abuse Allergic rhinitis Arthritis Benign prostatic hyperplasia with urinary frequency Bilateral hearing loss Bilateral leg pain Chronic bilateral low back pain Diminished vision Erectile dysfunction Forgetfulness Gastroesophageal reflux disease Hyperlipidemia Helicobacter pylori gastrointestinal tract infection Hypertension Illiteracy Impaired cognition Microscopic hematuria Prediabetes Polyp of colon Venous insufficiency SOCIAL HISTORY: Social History Tobacco Use Smoking status: Not on file Smokeless tobacco: Not on file Substance Use Topics Alcohol use: Not on file ACTIVE MEDICATIONS: No outpatient medications have been marked as taking for the 08/25/24 encounter (Office Visit) with Oscar Huffman DPM. ALLERGIES: @ALL@ PHYSICAL EXAM: There were no vitals taken for this visit. PODIATRIC EXAMINATION: GENERAL: Patient appears well nourished, with NAD. VASCULAR: Dorsalis pedis pulses are 1/4 bilaterally and Posterior tibial pulses are 0/4 bilaterally. Capillary filling time within normal limits the digits. No pallor on elevation or rubor on dependency. Positive hair growth. Many varicosities. +1 pitting edema. Denies rest pain or claudication pain. NEUROLOGICAL: Sharp/dull sensation intact, protective sensation intact on Kincaid. Multiple peripheral neuropathies bilaterally. ORTHOPEDIC: Good muscle strength 5/5 of all flexors and extensors. Dorsi flexion of ankle ,10 degrees, plantar flexion WNL. No muscle atrophy. Arthritic changes to the midfoot bilaterally with dorsalexostosis that are palpable. Pain on palpation of the submetatarsal 5 position of the left foot. Rigid contractures to digits 2 through 5 bilaterally. DERMATOLOGICAL:.Callus formation to the plantar aspect of the left foot. Normal skin temperature, normal skin turgor. BIOMECHANICS: STJ ROM wnl, MTJ ROM wnl, 1st MPJ ROM wnl. IMPRESSION: 1. PVD (peripheral vascular disease) (CMS/HCC V24) 2. Pain in both feet 3. Arthritis of both feet 4. Metatarsalgia of left foot PLAN: Pt was seen and examined, history reviewed. Patient understands that he has multiple arthritic changes of the midfoot which could be causing flareups at the end of the day after using his feet. Patient was encouraged to use p.o. anti-inflammatory medication to limit the symptomatic flareups and to wear supportive shoes to decrease midfoot pain Patient continues to have some pain to the plantar aspect of the left fifth metatarsal. Patient does not have any callus formation during today's visit patient was encouraged to continue with the offloading pad to decrease return of pain Patient has decreased palpable pulses though his PVRs and ABIs did come back normal. Patient continues to follow-up with vascular team Oscar Huffman DPM documented in this encounter Plan of Treatment Upcoming Encounters Date Type Department Care Team (Late st Contact Info) Description 10/18/2024 2:00 PM EDT Office Visit Vascular Surgery - [place] [address] [facility] [address] [place] [phone] Yue Sidhu PA [address] [facility] [address] [place] [address] 10/31/2024 1:45 PM EDT Office Visit Orthopedic Surgery - [place] [address] [facility] [address] [place] [phone] Oscar Huffman DPM 175 [facility] [address] [place] [address] documented as of this encounter Visit Diagnoses Diagnosis PVD (peripheral vascular disease) ([facility] V24)- Primary Unspecified peripheral vascular disease Pain in both feet Arthritis of both feet Metatarsalgia of left foot documented in this encounter Care Teams Environmental Designer Relationship Specialty Start Date End Date Nadia Cortes MD [address] [phone] PCP - General 02/08/24 documented as of this encounter
--- OUTSIDE RECORDS SUMMARY | 2024-08-30 15:33 | XMS_ITS | Encounter Summary ---
Author Organization [employer] Address [address] [facility] [address] [place] [address] Care Team Providers Care Sanforizer Name Role Phone Nadia Cortes MD Primary Care Provide r Reason for Visit * Reason Onset Date Comments Nurse Triage 10/26/2023 Encounter Details Date Type Department Care Team ([facility] st Contact Info) Description 10/26/2023 Telephone [facility] MED[facility]INE 230 [place], [place] [phone] Nadia Cortes MD 230 [place], [place] [phone] Nurse Triage Social History Tobacco Use Types [...] t he electric, gas, oil or water [employer] threatened to shut off services in [...] 10/26/2023 10:19 AM EDT Triage call with [employer] [place] [id number]. Pt guardian , Deb, answers call and [...] or Pt [facility] Call is dropped. Call is returned and busy. Another customer complaint service supervisor is obtained, [employer] [place] [id number]. Call is resumed and Deb reportsthat Pt has decided to go to [facility]. Pt is on the way [...] stomach pain The caller accepted this outcome Libyan speaker documented in this encounter Plan of Treatment Not on file documented as of this encounter Visit Diagnoses Not on filedocumented in this encounter Additional Health Concerns Assessment Noted Time PHQ-9 Depression Total Score: 0 12/16/19 23 2:03 PM EDT documented as of this encounter Care Teams Sanforizer Relationship Specialty Start Date End Date Nadia Cortes MD [address] [place] [address] PCP - General Family Medicine 02/08/19 documented as of this encounter
--- OUTSIDE RECORDS SUMMARY | 2024-08-30 15:33 | XMS_ITS | Encounter Summary ---
Author Organization [employer] Address [address] [facility] 7[address] [place] [address] Care Team Providers Care Podiatry Professor Name Role Phone Nadia Cortes MD Primary Care Provide r Reason for Visit * Reason Comments Med Refill Encounter Details Date Type Department Care Team (Late st Contact Info) Description 01/05/[address] [facility] MEDICINE [address] [place], [place] [phone] Ida Eisenberg DO 230 [place], [place] [phone] Essential hypertension Social History Tobacco Use Types [...] documented as of this encounter Care Teams Podiatry Professor Relationship Specialty Start Date End Date Nadia Cortes MD 230 [place], [place] [phone] PCP - General Family Medicine 02/08/19 documented as of this encounter
--- OUTSIDE RECORDS SUMMARY | 2024-08-30 15:33 | XMS_ITS | Encounter Summary ---
Author Organization [employer] Address [address] [facility] [address] [address] [facility] [address] [place] [address] Care Team Providers Care State Farm Agent Name Role Phone Nadia Cortes MD Primary Care Provide r Encounter Details Date Type Department Care Team (Latest Contact Info) Description 04/13/2020 Abstract [facility] CONVERSIONS Dental, Provider, DDS Social [...] on filedocumented in this encounter Care Teams State Farm Agent Relationship Specialty Start Date End Date Nadia Cortes MD [address] [place] [phone] PCP - General Family Medicine 02/08/19 documented as of this encounter
--- OUTSIDE RECORDS SUMMARY | 2024-08-30 15:33 | XMS_ITS | Clinical Summary ---
Author Organization 175 [facility] Address 175 [place] [address] Phone Care Team Providers Care Aircraft Engine Cylinder Mechanic Name Role Phone Nadia Cortes MD [...] Encounters Date Type Department Care Team Description 08/25/2024 3:15 PM EDT Office Visit Orthopedic Surgery [facility] [address] [place] [phone] Oscar Huffman DPM PVD (peripheral vascular disease) ([facility] V24) (Primary Dx); Pain in both feet; Arthritis of both feet; Metatarsalgia of left foot 08/11/2024 1:30 PM EDT Ancillary Procedure [facility] Cardiology [facility] [address] [address] PVD (peripheral vascular disease) ([facility] V24) 08/04/2024 1:30 PM EDT Ancillary Procedure [facility] Cardiology [facility] 101 300 [facility] 101 [place] [address] Leg swelling 07/11/2024 2:30 PM EDT Consult Vascular Surgery [facility] 300 [facility] [address] [place] [phone] Yue Sidhu PA Leg swelling (Primary Dx); PVD (peripheral vascular disease) (CMS/HCC V24); Polyneuropathy associated with underlying disease (CMS/HCC [...] PM EDT Office Visit Vascular Surgery - [place] 300 [facility] [address] [place] [address] Yue Sidhu PA 300 [facility] [address] [place] [address] 10/31/2024 1:45 PM EDT Office Visit Orthopedic Surgery [facility] 250 175 [facility] 250 [place] [address] Oscar Huffman, [place] [address] [address] Health Maintenance Due Date Last Done Comments [...] 2:04 PM EDT PVD (peripheral vascular disease) (CMS/[facility] V24) VAS US DUPLEX LOWER EXT VENOUS [...] PSV 53 cm/s CV VAS LAB Left SYSTEM SAFETY ENGINEER prox sys PSV 124 cm/s CV VAS [...] PSV 46 cm/s CV VAS LAB Right SYSTEM SAFETY ENGINEER prox sys PSV 95 cm/s CV VAS [...] The mid peroneal artery has biphasic flow. Air Conditioning Sheet Metal Installer Details A borjas scale, color and doppler [...] performed with the patient in reverse trendelenburg. Air Conditioning Sheet Metal Installer Details A borjas scale, color and doppler analysis ultrasound was performed. During the study longitudinal and transverse views were obtained. Pulsed wave doppler was performed. us Yue VIVAR CV VASCULAR PROCEDURES Final Result from Last 3 Months Insurance [facility] MEDICARE Member Subscriber Plan / Payer (Ef fective 2021-Present) Name:Quincy Avilesio Relation to Subscriber:Self Name:Quincy Aviles Payer ID:[id number] Group ID:[id number] Type:Not on file Address: [place] [address] [address] [phone] Care Teams Aircraft Engine Cylinder Mechanic Relationship Specialty Start Date End Date Nadia Cortes MD [address] [phone] PCP - General 02/08/24
== END 2024-08-30 14:18 | disposition home or self-care (01) ==
LOC: HO.HGI 13:31
PROVIDERS: PCP Internal Medicine; Visit Provider Nurse Practitioner
DX: R10.33 Periumbilical pain (principal); Z98.890 Other specified postprocedural states; R19.7 Diarrhea, unspecified; R11.2 Nausea with vomiting, unspecified; Z55.0 Illiteracy and low-level literacy; F10.11 Alcohol abuse, in remission
CPT/HCPCS: 99214

== ENCOUNTER 2024-08-30 13:30 | Outpatient (REF) | payer OTHER, SELFPAY ==
--- NOTE | ~2024-08-30 | XR_ITS ---
EXAMINATION: XR ABDOMEN WITH DECUBITUS VIEWS CLINICAL INDICATION: R19.7 - Diarrhea, unspecified COMPARISON: None. Correlation made with CT angiogram abdomen and pelvis 02/27/2021. TECHNIQUE: AP abdomen upright and supine. FINDINGS: Bowel gas pattern is normal/nonspecific. There is no focally dilated loop or differential air-fluid levels on the upright radiograph. There is abundant stool seen throughout the colon and rectum consistent with obstipation. No organomegaly or large abdominal mass. There is an amorphous calcification overlying the left lobe of the liver, likely granulomatous liver calcification. The lung bases are clear. No suspicious osseous abnormality. Mild degenerative changes in the lower lumbar spine, bilateral SI joints, and mild to moderate degenerative changes in both hip joints. XR/XR abdomen min 2V IMPRESSION: 1. No acute findings in the abdomen. No bowel obstruction or abnormal bowel dilatation. 2. Obstipation. Electronically signed by: Wilbert Andrade MD 09/02/2024 08:25 AM EDT
[2024-08-30 14:53] LABS: MANUAL DIFF FLAG NO
[2024-08-30 15:00] LABS: Ammonia 43 umol/L (13-55)
[2024-08-30 15:03] LABS: Basophils Absolute Auto 0.1 X10*3/uL (0.0-0.2); Basophils Percent Auto 0.5 % (0-2); Eosinophils Absolute Auto 0.3 X10*3/uL (0.0-0.4); Eosinophils Percent Auto 2.5 % (0-4); Hematocrit 42.3 % (42.0-52.0); Hemoglobin 13.6 g/dl (14.0-18.0); Imm Gran Abs Auto 0.06 X10*3/uL (0.00-0.03); Imm Gran Pct Auto 0.5 % (0.0-0.4); Lymphocytes Absolute Auto 1.5 X10*3/uL (1.2-4.9); Mean Corpuscular HGB Conc 32.2 g/dl (31.0-36.0); Mean Corpuscular Hemoglobin 29.7 pg (27.0-33.0); Mean Corpuscular Volume 92.4 fL (80.0-98.0); Mean Platelet Volume 11.7 fL (9.4-12.4); Monocytes Absolute Auto 0.8 X10*3/uL (0.1-1.2); Monocytes Percent Auto 6.8 % (2-11); Neutrophils Absolute Auto 8.6 x10*3/uL (2.0-8.3); Neutrophils Percent Auto 76.7 % (45-73); Platelet Count 198 X10*3/uL (160-400); Red Blood Count 4.58 X10*6/uL (4.60-5.80); Red Cell Distribution Width 14.2 % (11.0-16.0); White Blood Count 11.2 X10*3/uL (4.8-10.8)
[2024-08-30 15:19] LABS: Appearance Urine Clear; Color Urine Dark Yellow; Glucose Urine UA Negative (Negative); Leukocyte Esterase Urine Negative (Negative); Nitrite Urine Negative (Negative); PH 5.5 (5.0-9.0); Specific Gravity - Urine 1.025 (1.005-1.025); UMIC TRIGGER UACC YES; Urine Blood Trace (Negative); Urine Ketones Trace mg/dL (Negative); Urine Protein Negative (Neg-Trace)
[2024-08-30 15:24] LABS: Bacteria Urine None Seen (None Seen); Hyaline Casts Urine 0-2 /LPF (0-2); Squamous Epithelial Cell Urine 0-2 /HPF (0-2); WBC Urine 0-5 /HPF (0-5)
[2024-08-30 15:52] LABS: Alanine Aminotransferase 19 U/L (0-40); Albumin Level 3.8 g/dL (3.5-5.0); Alkaline Phosphatase 156 U/L (39-117); Amylase 64 U/L (28-100); Anion Gap 9 (12-20); Aspartate Amino Transferase 18 U/L (5-37); Bilirubin Total 0.5 mg/dL (0.0-1.0); Blood Urea Nitrogen 19 mg/dL (9-16); C Reactive Protein 0.75 mg/dL (< or = 0.50); Calcium 8.2 mg/dL (8.4-10.2); Carbon Dioxide 28 mmol/L (22-29); Chloride 108 mmol/L (96-108); Estimated Glomerular Filt Rate > 60; Glucose Random 114 mg/dL (60-115); Lipase 22 U/L (8-78); Potassium 4.3 mmol/L (3.3-5.1); Sodium 141 mmol/L (135-145); Total Protein 6.9 g/dL (6.5-8.0)
--- OUTSIDE RECORDS SUMMARY | 2024-08-30 16:48 | XMS_ITS | Encounter Summary ---
Author Organization [employer] Address [address] [facility] [address] 7t [place] [address] Care Team Providers Care Truck Trailer Final Inspector Name Role Phone Nadia Cortes MD Primary Care Provide r Encounter Details Date Type Department Care Team (Latest Contact Info) Description 04/13/2020 Abstract [facility] CONVERSIONS Dental, Provider, DDS Social History Tobacco [...] on filedocumented in this encounter Care Teams Truck Trailer Final Inspector Relationship Specialty Start Date End Date Nadia Cortes MD [address] [place] [phone] PCP - General Family Medicine 02/08/19 documented as of this encounter
--- OUTSIDE RECORDS SUMMARY | 2024-08-30 16:48 | XMS_ITS | Encounter Summary ---
Author Organization [employer] Address 75 [facility] 7t [place] [address] Care Team Providers Care Regulatory Process Manager Name Role Phone Nadia Cortes MD Primary Care Provide r Reason for Visit * Reason Onset Date Comments PCP change 11/17/2022 Encounter Details Date Type Department Care Team (Late st Contact Info) Description 11/17/2022 Telephone [facility] 230 [place], [place] [phone] Nadia Cortes MD 230 [place] [address] PCP change Social History Tobacco Use Types [...] on filedocumented in this encounter Care Teams Regulatory Process Manager Relationship Specialty Start Date End Date Nadia Cortes MD 230 [place] [address] PCP - General Family Medicine 02/08/19 documented as of this encounter
--- OUTSIDE RECORDS SUMMARY | 2024-08-30 16:48 | XMS_ITS | Encounter Summary ---
Author Organization [employer] Address 75 [facility] 7t [place] [address] Care Team Providers Care Twister Frame Tender Name Role Phone Nadia Cortes MD Primary Care Provide r Reason for Visit * Reason Comments Med Refill Encounter Details Date Type Department Care Team (Late st Contact Info) Description 01/05/2023 Refill [facility] 230 [place], [place] [phone] Ida Eisenberg DO 230 [place], [place] [phone] Essential hypertension Social History Tobacco Use Types [...] documented as of this encounter Care Teams Twister Frame Tender Relationship Specialty Start Date End Date Nadia Cortes MD 230 [place], [place] [phone] PCP - General Family Medicine 02/08/19 documented as of this encounter
--- OUTSIDE RECORDS SUMMARY | 2024-08-30 16:48 | XMS_ITS | Encounter Summary ---
Author Organization [employer] Address [address] [facility] [address] 7t [place] [address] Care Team Providers Care Cat Scan Tech Name Role Phone Nadia Cortes MD Primary Care Provide r Encounter Details Date Type Department Care Team ([facility] Contact Info) Description 08/30/2024 Orders Only GENERIC [...] AUTO DIFFERENTIAL Routine 08/30/2024 2:52 PM EDT C-REACTIVE PROTEIN Routine 08/30/2024 2: 52 PM EDT LIPASE Routine 08/30/2024 2:52 PM EDT AMYLASE Routine 08/30/2024 2:52 PM EDT AMMONIA (P) Routine 08/30/2024 2:52 PM EDT COMPREHENSIVE METABOLIC PANEL Routine 08/30/2024 2:52 PM EDT URINALYSIS, COMPLETE, WITH REFLEX TO CULTURE Routine 08/30/2024 2:43 PM EDT documented in this encounter Results * Lipase (08/30/2024 2:52 PM EDT) Lipase 22 8 - 78 U/L [facility] 08/30/2024 2:52 PM EDT 08/30/2024 2:52 PM EDT us Generic External Data Provider LAB BLOOD ORDERAB LES Final Result [facility] [address] [place] [phone] * Amylase (08/30/2024 2:52 PM EDT) Amylase 64 28 - 100 U/L [facility] 08/30/2024 2:52 PM EDT 08/30/2024 2:52 PM EDT us Generic External Data Provider LAB BLOOD ORDERAB LES Final Result Performing Organization Address [facility] Co de Phone Number [facility] [address] [place] [phone] * (ABNORMAL) C-reactive Protein (08/30/2024 2:52 PM EDT) Pathologist [facility] C Reactive Protein 0.75(H) < or = 0.50 mg/dL [facility] 08/30/2024 2:52 PM EDT 08/30/2024 2:52 PM EDT Generic External Data Provider LAB BLOOD ORDERAB LES Final Result Performing Organization Address [facility] Co de Phone Number [facility] [address] [place] [phone] * (ABNORMAL) Comprehensive Metabolic Panel (08/30/2024 2:52 PM EDT) Pathologist [facility] Sodium 141 135 - 145 mmol/L [facility] Potassium 4.3 3.3 - 5.1 mmol/L [facility] Chloride 108 96 - 108 mmol/L [facility] Carbon Dioxide 28 22 - 29 mmol/L [facility] Anion Gap 9(L) 12 - 20 [facility] Urea Nitrogen (BUN) 19(H) 9 - 16 mg/dL [facility] Creatinine, Serum 0.92 0.5 - 1.4 mg/dL [facility] Estimated Glomerular Filt Rate >60 [facility] Comment:Chronic Kidney Disea se: Estimated GFR < 60 mL/min/1.80p1Eprraf Kidney Disease: Estimated GFR < 15 mL/min/1.73m2 Glucose 114 60 - 115 mg/dL [facility] Calcium 8.2(L) 8.4 - 10.2 mg/dL [facility] Bilirubin, Total 0.5 0.0 - 1.0 mg/dL [facility] Aspartate Amino Transferase 18 5 - 37 U/L [facility] Alanine Aminotransferase 19 0 - 40 U/L [facility] Total Protein 6.9 6.5 - 8.0 g/dL [facility] Albumin Level 3.8 3.5 - 5.0 g/dL [facility] Alkaline Phosphatase 156(H) 39 - 117 U/L [facility] 08/30/2024 2:52 PM EDT 08/30/2024 2:52 PM EDT us Generic External Data Provider LAB BLOOD ORDERAB LES Final Result [facility] [address] [place] [address] [phone] * (ABNORMAL) CBC auto differential (08/30/2024 2:52 PM EDT) White Blood Count 11.2(H) 4.8 - 10.8 X10*3/uL [facility] Red Blood Count 4.58(L) 4.60 - 5.80 X10*6/uL [facility] Hemoglobin 13.6(L) 14.0 - 18.0 g/dl [facility] Hematocrit 42.3 42.0 - 52.0 % [facility] Mean Corpuscular Volume 92.4 80.0 - 98.0 fL [facility] Mean Corpuscular Hemoglobin 29.7 27.0 - 33.0 pg [facility] Mean Corpuscular HGB Conc 32.2 31.0 - 36.0 g/dl [facility] Red Cell Distribution Width 14.2 11.0 - 16.0 % [facility] Platelet Count 198 160 - 400 X10*3/uL [facility] Mean Platelet Volume 11.7 9.4 - 12.4 fL [facility] Neutrophils Percent Auto 76.7(H) 45 - 73 % [facility] Imm Gran Pct Auto 0.5(H) 0.0 - 0.4 % [facility] Lymphocytes Percent Auto 13.0(L) 20 - 40 % [facility] Monocytes Percent Auto 6.8 2 - 11 % [facility] Eosinophils Percent Auto 2.5 0 - 4 % [facility] Basophils Percent Auto 0.5 0 - 2 % [facility] NRBC Pct Auto 0.0 0.0 - 0.2 /100WBC [facility] Neutrophils Absolute Auto 8.6(H) 2.0 - 8.3 x10*3/uL [facility] Imm Gran Abs Auto 0.06(H) 0.00 - 0.03 X10*3/uL [facility] Lymphocytes Absolute Auto 1.5 1.2 - 4.9 X10*3/uL [facility] Monocytes Absolute Auto 0.8 0.1 - 1.2 X10*3/uL [facility] Eosinophils Absolute Auto 0.3 0.0 - 0.4 X10*3/uL [facility] Basophils Absolute Auto 0.1 0.0 - 0.2 X10*3/uL [facility] NRBC Abs Auto 0.000 0.0 - 0.012 X10*3/uL [facility] 08/30/2024 2:52 PM EDT 08/30/2024 2:52 PM EDT us Generic External Data Provider LAB BLOOD ORDERAB LES Final Result Performing Organization Address City/[facility]/ZIP Co de Phone Number [facility] [address] [place] [phone] * Ammonia, Plasma (08/30/2024 2:52 PM EDT) Ammonia (P) 43 13 - 55 umol/L [facility] 08/30/2024 2:52 PM EDT 08/30/2024 2:52 PM EDT us Generic External Data Provider LAB BLOOD ORDERAB LES Final Result Performing Organization Address City/[facility]/ZIP Co de Phone Number [facility] [address] [place] [address] [phone] * (ABNORMAL) Urinalysis, Complete, with Reflex to Culture (08/30/2024 2:43 PM EDT) Color Urine Dark Yellow [facility] Appearance Urine Clear [facility] PH 5.5 5.0 - 9.0 [facility] Glucose Urine UA Negative Negative mg/dL [facility] Urine Blood Trace(A) Negative [facility] Specific [place] - Urine 1.025 1.005 - 1.025 [facility] Urine Protein Negative Neg-Trace mg/dL [facility] Urine Ketones Trace Negative mg/dL [facility] Nitrite Urine Negative Negative [facility] Leukocyte Esterase Urine Negative Negative [facility] RBC Urine 6-10(A) 0 - 2 /HPF [facility] Urine WBC 0-5 0 - 5 /HPF [facility] Urine Squamous Epithelial Cell 0-2 0 - 2 /HPF [facility] Urine Bacteria None Seen None Seen [facility] Hyaline Casts, Urine 0-2 0 - 2 /LPF [facility] 08/30/2024 2:43 PM EDT 08/30/2024 2:59 PM EDT Narrative [facility] - 08/30/2024 3:28 PM EDT [id number], Clean Catch us Generic External Data Provider LAB URINE ORDERAB LES Final Result Performing Organization Address [facility] Co de Phone Number [facility] [address] [place] [address] [phone] documented in this encounter Visit Diagnoses Not on filedocumented in this encounter Additional Health Concerns Assessment Noted Time PHQ-9 Depression Total Score: 0 12/16/19 23 2:03 PM EDT documented as of this encounter Care Teams Cat Scan Tech Relationship Specialty Start Date End Date Nadia Cortes MD 230 [place] [address] PCP - General Family Medicine 02/08/19 documented as of this encounter
--- OUTSIDE RECORDS SUMMARY | 2024-08-30 16:48 | XMS_ITS | Encounter Summary ---
Author Organization [employer] Address 75 [facility] 7t [place] [address] Care Team Providers Care Production Quality Manager Name Role Phone Nadia Cortes MD Primary Care Provide r Reason for Visit * Reason Onset Date Comments ER Follow-up 03/11/2024 Encounter Details Date Type Department Care Team ([facility] st Contact Info) Description 03/11/2024 Telephone [facility] 230 [place], [place] [phone] Nadia Cortes MD 230 [place], [place] [phone] ER Follow-up Social History Tobacco Use Types [...] EST Triage call regarding message below [place] [employer] [id number] Alexei. Call made x2 to [phone], with call being dropped no connection made. Call to Juani x1 ext [phone] without answer. Juani with [facility] calling to report ED visit on: Date: 03/10/24 Hospital: [facility] Seen for: Left foot pain Symptom: Foot or Ankle Pain - Not From Injury Outcome: Schedule an appointment to be seen within 24 hours Reason: Caller denied all higher acuity questions Juani requested to contact pt directly at [phone]. * Telephone Encounter - Jong Sharma - 03/11/2024 12:05 PM EST Juani with [facility] calling to report ED visit on: Date: 03/10/24 Hospital: [facility] Seen for: Left foot pain Symptom: Foot or Ankle Pain - Not From Injury Outcome: Schedule an appointment to be seen within 24 hours Reason: Caller denied all higher acuity questions Juani requested to contact pt directly at [phone]. documented in this encounter Plan of Treatment Not on file documented as of this encounter Visit Diagnoses Not on filedocumented in this encounter Additional Health Concerns Assessment Noted Time PHQ-9 Depression Total Score: 0 12/16/19 23 2:03 PM EDT documented as of this encounter Care Teams Production Quality Manager Relationship Specialty Start Date End Date Ndaia Cortes MD 230 [place] [address] PCP - General Family Medicine 02/08/19 documented as of this encounter
--- OUTSIDE RECORDS SUMMARY | 2024-08-30 16:48 | XMS_ITS | Encounter Summary ---
Author Organization [employer] Address [address] [facility] [address] 7t [place] [address] Care Team Providers Care Cloth Finishing Range Operator Name Role Phone Nadia Cortes MD Primary Care Provide r Reason for Visit * Reason Comments Med Refill Encounter Details Date Type Department Care Team (Late st Contact Info) Description 08/30/2024 Refill [facility] [address] [place], [place] [phone] Nadia Cortes MD 230 [place] [address] Seasonal allergies Social History Tobacco Use Types [...] documented as of this encounter Care Teams Cloth Finishing Range Operator Relationship Specialty Start Date End Date Nadia Cortes MD [address] [place] [phone] PCP - General Family Medicine 02/08/19 documented as of this encounter
--- OUTSIDE RECORDS SUMMARY | 2024-08-30 16:48 | XMS_ITS | Encounter Summary ---
Author Organization [employer] Address [address] [facility] [address] 7t [place] [address] Care Team Providers Care Tobacco Grader Name Role Phone Nadia Cortes MD Primary Care Provide r Encounter Details Date Type Department Care Team ([facility] st Contact Info) Description 07/22/2023 Telephone [facility] 230 [place], [place] [phone] Nadia Cortes MD 230 [place], [place] [phone] Social History Tobacco Use Types Packs/Day Years [...] documented as of this encounter Care Teams Tobacco Grader Relationship Specialty Start Date End Date Nadia Cortes MD 230 [place] [address] PCP - General Family Medicine 02/08/19 documented as of this encounter
--- OUTSIDE RECORDS SUMMARY | 2024-08-30 16:48 | XMS_ITS | Encounter Summary ---
Author Organization [employer] Address [address] [facility] [address] 7t [place] [address] Care Team Providers Care Line Locator Name Role Phone Nadia Cortes MD Primary Care Provide r Reason for Visit * Reason Onset Date Comments Nurse Triage 01/15/2023 Encounter Details Date Type Department Care Team (Late st Contact Info) Description 01/15/2023 Telephone [facility] MEDICINE 230 [place], [place] [phone] Nadia Cortes MD 230 [place] [address] Nurse Triage Social History Tobacco Use Types [...] call , Pt reports will come to [facility] in the morning to be seen. No triage at this call. * Telephone Encounter - Margaret Diaz - 01/15/2023 2:00 PM EDT Symptom: Eye - Pus or Discharge Outcome: Schedule a same-day appointment or talk to a nurse or provider today Reason: Caller denied all higher acuity questions The caller accepted this outcome Patient speaks german Patient walked in reports having left eye discharge, discomfort and itchiness since yesterday. Patient missed 01/15/23 [facility] appt at 1:40 pm. documented in this encounter Plan of Treatment Not on file documented as of this encounter Visit Diagnoses Not on filedocumented in this encounter Additional Health Concerns Assessment Noted Time PHQ-9 Depression Total Score: 0 12/16/19 2:03 PM EDT documented as of this encounter Care Teams Line Locator Relationship Specialty Start Date End Date Nadia Cortes MD [address] [place] [address] PCP - General Family Medicine 02/08/19 documented as of this encounter
--- OUTSIDE RECORDS SUMMARY | 2024-08-30 16:48 | XMS_ITS | Clinical Summary ---
Author Organization 175 [facility] Address 175 [place] [address] Phone Care Team Providers Care Para Professional Name Role Phone Nadia Cortes MD Primary [...] 3:15 PM EDT Office Visit Orthopedic Surgery [facility] [address] [place] [phone] Oscar Huffman DPM PVD (peripheral vascular disease) ([facility] V24) (Primary Dx); Pain in both feet; Arthritis of both feet; Metatarsalgia of left foot 08/11/2024 1:30 PM EDT Ancillary Procedure [facility] Cardiology [facility] [address] [phone] PVD (peripheral vascular disease) ([facility] V24) 08/04/2024 1:30 PM EDT Ancillary Procedure [facility] Cardiology [facility] 101 300 [facility] 101 [place] [address] Leg swelling 07/11/2024 2:30 PM EDT Consult Vascular Surgery [facility] 300 [facility] [address] [place] [phone] Yue Sidhu PA Leg swelling (Primary Dx); [...] PM EDT Office Visit Vascular Surgery - [place] 300 [facility] [address] [place] [address] Yue Sidhu PA 300 [facility] [address] [place] [address] 10/31/2024 1:45 PM EDT Office Visit Orthopedic Surgery [facility] 250 175 [facility] 250 [place] [address] Oscar Huffman, [place] [address] [address] Health Maintenance Due Date Last Done Comments [...] 2:04 PM EDT PVD (peripheral vascular disease) (CMS/[facility] V24) VAS US DUPLEX LOWER EXT VENOUS [...] PSV 53 cm/s CV VAS LAB Left UPHOLSTERY CUTTER prox sys PSV 124 cm/s CV VAS [...] PSV 46 cm/s CV VAS LAB Right UPHOLSTERY CUTTER prox sys PSV 95 cm/s CV VAS [...] The mid peroneal artery has biphasic flow. Kick Press Setter Details A borjas scale, color and doppler [...] performed with the patient in reverse trendelenburg. Kick Press Setter Details A borjas scale, color and doppler analysis ultrasound was performed. During the study longitudinal and transverse views were obtained. Pulsed wave doppler was performed. us Yue VIVAR CV VASCULAR PROCEDURES Final Result from Last 3 Months Insurance [facility] MEDICARE Member Subscriber Plan / Payer (Ef fective 2021-Present) Name:Quincy Avilesio Relation to Subscriber:Self Name:Quincy Aviles Payer ID:[id number] Group ID:[id number] Type:Not on file Address: [place] [address] [address] [phone] Care Teams Para Professional Relationship Specialty Start Date End Date Nadia Cortes MD [address] [phone] PCP - General 02/08/24
--- OUTSIDE RECORDS SUMMARY | 2024-08-30 16:49 | XMS_ITS | Encounter Summary ---
Author Organization [facility] Address [address] [place] [phone] Care Team Providers Care Real Estate Clerk Name Role Phone Nadia Cortes MD Primary Care Provide r Reason for Visit * Reason Comments Foot Pain Nail Problem Encounter Details Date Type Department Care Team (Late st Contact Info) Description 08/25/2024 3:15 PM EDT Office Visit Orthopedic Surgery - [place] [address] [phone] Oscar Huffman DPM [address] [address] PVD (peripheral vascular disease) (CMS/HCC V24) (Primary [...] Sharp/dull sensation intact, protective sensation intact on [place]. Multiple peripheral neuropathies bilaterally. ORTHOPEDIC: Good muscle [...] PM EDT Office Visit Vascular Surgery - [place] 300 [facility] 210 [place] [address] Yue Sidhu PA 300 [facility] 210 [place] [address] 10/31/2024 1:45 PM EDT Office Visit Orthopedic Surgery - [place] 250 175 [facility] 250 [place] [address] Oscar Huffman DPM 175 [facility] 250 [place] [address] documented as of this encounter Visit Diagnoses Diagnosis PVD (peripheral vascular disease) ([facility] V24)- Primary Unspecified peripheral vascular disease Pain in both feet Arthritis of both feet Metatarsalgia of left foot documented in this encounter Care Teams Real Estate Clerk Relationship Specialty Start Date End Date Nadia Cortes MD [address] [phone] PCP - General 02/08/24 documented as of this encounter
--- OUTSIDE RECORDS SUMMARY | 2024-08-30 16:49 | XMS_ITS | Clinical Summary ---
Author Organization [employer] Address [address] [facility] 7[address] [place] [address] Care Team Providers Care Special Ed Assistant Name Role Phone Nadia Cortes MD [...] See vascular studies in media 08/11/24 from [facility] right lower extremity LAUREN [...] DEPARTMENT Provider, Generic External Data 08/30/2024 Refill [facility] CHC MED & PEDS [address] [place] [address] Nadia Cortes MD Seasonal allergies 08/19/2024 Telephone [facility] MEDICINE [address] [place] [address] Nadia Cortes MD Nurse Triage 08/18/2024 Orders Only [facility] External Provider, [facility] 07/14/2024 Orders Only [facility] MEDICINE [address] [place] [address] Nadia Cortes MD Diminished vision (Primary Dx); Dry eye 07/08/2024 Telephone [facility] MEDICINE [address] [place] [address] Nadia Cortes MD Results 07/07/2024 2:00 PM EST Office Visit [facility] MEDICINE [address] [place] [address] Nadia Cortes MD Chronic bilateral low back pain, unspecified whether sciatica present (Primary Dx); Venous insufficiency; Diminished vision; Dry eye 07/07/2024 Telephone [facility] OPTOMETRY [address] [place] [address] TimiJose Migueln, OD 07/07/2024 Travel 07/06/2024 Telephone [facility] MEDICINE [address] [place] [address] Nadia Cortes MD Referral 07/06/2024 Telephone [facility] MEDICINE [address] [place] [address] Nadia Cortes MD Nurse Triage from Last [...] t he electric, gas, oil or water [employer] threatened to shut off services in your [...] Procedure Name Priority Date/Time Associated Diagnosis Comments LIPASE Routine 08/30/2024 2:52 PM EDT AMYLASE Routine 08/30/2024 2:52 PM EDT C-REACTIVE PROTEIN Routine 08/30/2024 2: 52 PM EDT COMPREHENSIVE METABOLIC PANEL Routine 08/30/2024 2:52 PM EDT CBC WITH AUTO DIFFERENTIAL Routine 08/30/2024 2:52 [...] Blood Count 11.2(H) 4.8 - 10.8 X10*3/uL [facility] Red Blood Count 4.58(L) 4.60 - 5.80 X10*6/uL [facility] Hemoglobin 13.6(L) 14.0 - 18.0 g/dl [facility] Hematocrit 42.3 42.0 - 52.0 % [facility] Mean Corpuscular Volume 92.4 80.0 - 98.0 fL [facility] Mean Corpuscular Hemoglobin 29.7 27.0 - 33.0 pg [facility] Mean Corpuscular HGB Conc 32.2 31.0 - 36.0 g/dl [facility] Red Cell Distribution Width 14.2 11.0 - 16.0 % [facility] Platelet Count 198 160 - 400 X10*3/uL [facility] Mean Platelet Volume 11.7 9.4 - 12.4 fL [facility] Neutrophils Percent Auto 76.7(H) 45 - 73 % [facility] Imm Gran Pct Auto 0.5(H) 0.0 - 0.4 % [facility] Lymphocytes Percent Auto 13.0(L) 20 - 40 % [facility] Monocytes Percent Auto 6.8 2 - 11 % [facility] Eosinophils Percent Auto 2.5 0 - 4 % [facility] Basophils Percent Auto 0.5 0 - 2 % [facility] NRBC Pct Auto 0.0 0.0 - 0.2 /100WBC [facility] Neutrophils Absolute Auto 8.6(H) 2.0 - 8.3 x10*3/uL [facility] Imm Gran Abs Auto 0.06(H) 0.00 - 0.03 X10*3/uL [facility] Lymphocytes Absolute Auto 1.5 1.2 - 4.9 X10*3/uL [facility] Monocytes Absolute Auto 0.8 0.1 - 1.2 X10*3/uL [facility] Eosinophils Absolute Auto 0.3 0.0 - 0.4 X10*3/uL [facility] Basophils Absolute Auto 0.1 0.0 - 0.2 X10*3/uL [facility] NRBC Abs Auto 0.000 0.0 - 0.012 X10*3/uL [facility] 08/30/2024 2:52 PM EDT 08/30/2024 2:52 PM EDT us Generic External Data Provider LAB BLOOD ORDERAB LES Final Result Performing Organization Address [facility] Phone Number [facility] [address] [place] [phone] * (ABNORMAL) C-reactive Protein (08/30/2024 2:52 PM EDT) C Reactive Protein 0.75(H) < or = 0.50 mg/dL [facility] 08/30/2024 2:5 2 PM EDT 08/30/2024 2:52 PM EDT us Generic External Data Provider LAB BLOOD ORDERAB LES Final Result Performing Organization Address [facility] Number [facility] [address] [place] [phone] * Lipase (08/30/2024 2:52 PM EDT) Lipase 22 8 - 78 U/L [facility] 08/30/2024 2:52 PM EDT 08/30/2024 2:52 PM EDT us Generic External Data Provider LAB BLOOD ORDERAB LES Final Result Performing Organization Address [facility] Phone Number [facility] [address] [place] [phone] * Amylase (08/30/2024 2:52 PM EDT) Amylase 64 28 - 100 U/L [facility] 08/30/2024 2:52 PM EDT 08/30/2024 2:52 PM EDT us Generic External Data Provider LAB BLOOD ORDERAB LES Final Result [facility] [address] [place] [phone] * Ammonia, Plasma (08/30/2024 2:52 PM EDT) Ammonia (P) 43 13 - 55 umol/L [facility] 08/30/2024 2:52 PM EDT 08/30/2024 2:52 PM EDT us Generic External Data Provider LAB BLOOD ORDERAB LES Final Result [facility] [address] [place] [address] [phone] * (ABNORMAL) Comprehensive Metabolic Panel (08/30/2024 2:52 PM EDT) Pathologist [facility] Sodium 141 135 - 145 mmol/L [facility] Potassium 4.3 3.3 - 5.1 mmol/L [facility] Chloride 108 96 - 108 mmol/L [facility] Carbon Dioxide 28 22 - 29 mmol/L [facility] Anion Gap 9(L) 12 - 20 [facility] Urea Nitrogen (BUN) 19(H) 9 - 16 mg/dL [facility] Creatinine, Serum 0.92 0.5 - 1.4 mg/dL [facility] Estimated Glomerular Filt Rate >60 [facility] Comment:Chronic Kidney Disea se: Estimated GFR < 60 mL/min/1.07q1Piebpo Kidney Disease: Estimated GFR < 15 mL/min/1.73m2 Glucose 114 60 - 115 mg/dL [facility] Calcium 8.2(L) 8.4 - 10.2 mg/dL [facility] Bilirubin, Total 0.5 0.0 - 1.0 mg/dL [facility] Aspartate Amino Transferase 18 5 - 37 U/L [facility] Alanine Aminotransferase 19 0 - 40 U/L [facility] Total Protein 6.9 6.5 - 8.0 g/dL [facility] Albumin Level 3.8 3.5 - 5.0 g/dL [facility] Alkaline Phosphatase 156(H) 39 - 117 U/L [facility] 08/30/2024 2:52 PM EDT 08/30/2024 2:52 PM EDT us Generic External Data Provider LAB BLOOD ORDERAB LES Final Result Performing Organization Address [facility] Co de Phone Number [facility] [address] [place] [phone] * (ABNORMAL) Urinalysis, Complete, with Reflex to Culture (08/30/2024 2:43 PM EDT) Color Urine Dark Yellow [facility] Appearance Urine Clear [facility] PH 5.5 5.0 - 9.0 [facility] Glucose Urine UA Negative Negative mg/dL [facility] Urine Blood Trace(A) Negative [facility] Specific Spencer - Urine 1.025 1.005 - 1.025 [facility] Urine Protein Negative Neg-Trace mg/dL [facility] Urine Ketones Trace Negative mg/dL [facility] Nitrite Urine Negative Negative [facility] Leukocyte Esterase Urine Negative Negative [facility] RBC Urine 6-10(A) 0 - 2 /HPF [facility] Urine WBC 0-5 0 - 5 /HPF [facility] Urine Squamous Epithelial Cell 0-2 0 - 2 /HPF [facility] Urine Bacteria None Seen None Seen [facility] Hyaline Casts, Urine 0-2 0 - 2 /LPF [facility] 08/30/2024 2:43 PM EDT 08/30/2024 2:59 PM EDT Narrative [facility] - 08/30/2024 3:28 PM EDT [id number], [employer] us Generic External Data Provider LAB URINE ORDERAB LES Final Result Performing Organization Address [facility] Co de Phone Number [facility] [address] [place] [phone] * MR Lumbar Spine w/o Contrast (08/18/2024 12:12 PM EDT) Anatomical Region Laterality Modality Spine, L-spine Magnetic Resonan ce 08/18/2024 12:1 2 PM EDT Narrative 08/18/2024 1:28 PM EDT ? [facility] ?[address] ?[place] [address] ? Magnetic Resonance Report ? Signed ? Patient: Tita Quincy Harris A ?MR#: [id number] ?? [id number] ? : 1950 ?Acct:[id number] ? Age/Sex: 74 / M ?ADM Date: 08/18/24 ? Loc: HO.MRI ? Attending Dr: Iris Doan APRN PHYSICAL THERAPIST CENTER MANAGER ? Ordering Physician: Iris Doan APRN, CNP ?? Date of Service: 08/18/24 ?? Procedure(s): MR lumbar spine wo con ?? Accession Number(s): [id number] ? cc: Nadia Cortes MD; Iris Doan APRN, CNP ? EXAMINATION: ?? MR LUMBAR SPINE WITHOUT [...] LUMBOSACRAL JUNCTION: ?? -Normal. There are 5 dbt-djc-[id number] lumbar-type vertebral bodies. ? VERTEBRAL BODIES/BONE MARROW: [...] DD/ 1212 ? TD/TT: 08/18/24 1229 ? Osteopathic Physician: ? Procedure Note Patrica Santiago - 08/18/[address] [address] Magnetic Resonance Report Signed Patient: Quincy Aviles [facility]#: [id number] : 3Acct:[id number] Age/Sex: 74 / MADM Date: 08/18/24 Loc: HO.MRI Attending Dr: Iris Doan APRN, PHYSICAL THERAPIST CENTER MANAGER Ordering Physician: Iris Doan APRN, CLAIR Date of Service: 08/18/24 Procedure(s): MR lumbar spine wo con Accession Number(s): [id number] cc: Nadia Cortes MD; Iris Doan REFERENCE DATA EXPERT, PHYSICAL THERAPIST CENTER MANAGER EXAMINATION: MR LUMBAR SPINE WITHOUT CONTRAST CLINICAL [...] subluxations. LUMBOSACRAL JUNCTION: -Normal. There are 5 nks-amc-euffjlo lumbar-type vertebral bodies. VERTEBRAL BODIES/BONE MARROW: -There [...] 08/18/24 1324 DD/ 1212 TD/TT: 08/18/24 1229 Osteopathic Physician: [facility] External Provider IMG MRI PROCEDURES Final Result * XR Lumbar Spine 2-3 Views (07/07/2024 3:07 PM EST) Anatomical Region Laterality Modality Spine, L-spine Radiographic Felipa ging 07/07/2024 3:07 PM EST Narrative 07/07/2024 4:40 PM EST ?[facility] ?[address] ?[place] [address] ?XRay Report ? Signed ? Patient: Tita Harris,Da ?MR#: [id number] ?? [id number] ? : 1950 ?Acct:[id number] ? Age/Sex: 74 / M ?ADM Date: 07/07/24 ? Loc: HO.HHCX ? Attending Dr: Nadia Hedrick MD ? Ordering Physician: Nadia Cortes MD ?? Date of Service: 07/07/24 ?? Procedure(s): XR lumbar spine 2-3V ?? Accession Number(s): [id number] ? cc: Nadia Cortes MD ? EXAMINATION: [...] DD/ 1507 ? TD/TT: 07/07/24 1540 ? Osteopathic Physician: MSM ? Procedure Note Patrica Santiago - 07/07/2024 [facility] [address] [place] [address] XRay Report Signed Patient: Quincy Aviles [facility]#: [id number] : 3Acct:[id number] Age/Sex: 74 / MADM Date: 07/07/24 Loc: HO.HHCX Attending Dr: Nadia Hedrick MD Ordering Physician: Nadia Cortes MD Date of Service: 07/07/24 Procedure(s): XR lumbar spine 2-3V Accession Number(s): [id number] cc: Nadia Cortes MD EXAMINATION: XR LUMBOSACRAL [...] by: Uriel Garza MD 07/07/2024 04:37 PM [facility] Dictated By: Uriel Garza MD Signed By: <Electronically signed by Uriel Garza MD in OV> 07/07/24 1637 DD/ 1507 TD/TT: 07/07/24 1540 Osteopathic Physician: [facility] us Nadia Hedrick MD IMG XR PROCEDURES Fin al Result * Hemoglobin A1c (08/12/2023 8:51 AM EDT) Hemoglobin A1c 5.6 <6.0 % [facility] Comment:Hemoglobin A1C Refer ence Range Adults: 4.8 - 6.0 % Non diabetic: < 6.0 % Goal: < 7.0 %Additional Action Suggested: > 8.0 %Note: Hemoglobin A1c results are invalid for patients with abnormal amounts of HbF. Blood transfusions may impact the HbA1c concentration in the patient sample. Estimated Average Glucose 114 mg/dL [facility] Comment:eAG = Estimated ave rage glucose which is %A1C expressed asaverage glucose, using the formula of the V8K-AnnzfmzLndldlp Glucose study (ADAG), Diabetes Care, Vol.31,#8,2007 Blood Venous blood specimen / Unknown 08/12/2023 8:51 AM EDT 08/12/2023 11:30 AM EDT us Nadia Hedrick MD LAB BLOOD ORDERABLES Final Result Performing Organization Address [facility]/ZIP Co de Phone Number [facility] [address] [place] [phone] * (ABNORMAL) Lipid Panel, Standard (08/12/2023 8:51 AM EDT) Triglycerides 98 <150 mg/dL [facility] Comment:Desirable Triglyceri de: less than 150 mg/dLBorderline High Triglyceride 150-199 mg/dLHigh Triglyceride: 200-499 mg/dLVery High Triglyceride: greater than or equal to 5OO mg/dL Cholesterol 147 <200 mg/dL [facility] Comment:Desirable Cholestero l: less than 200 mg/dLBorderline High Cholesterol: 200-239 mg/dLHigh Cholesterol: greater than 239 mg/dL LDL Cholesterol Calculated 93 <100 mg/dL [facility] Comment:Desirable LDL: less than 100 mg/dLNear Optimal/Above Optimal LDL: 110- 129 mg/dLBorderline High LDL: 130-159 mg/dLHigh LDL: 160-189 mg/dLVery High LDL: greater than or equal to 190 mg/dL HDL Cholesterol 35(L) >40 mg/dL [facility] Comment:Desirable HDL: great er than 40 mg/dL Note: This HDL assay may give artificially low results in patients with liver disease. Blood Venous blood specimen / Unknown 08/12/2023 8:51 AM EDT 08/12/2023 11:34 AM EDT us Nadia Hedrick MD LAB BLOOD ORDERABLES Final Result Performing Organization Address [facility]/ZIP Co de Phone Number [facility] [address] [place] [address] [phone] from Last 3 Months or Most Recently Relevant to Health Maintenance Insurance [address] [place] [facility] [employer] (O D-SNP) [place] [id number] [facility] [employer] (O D-SNP) * Guarantor: Quincy Aviles Account Type Relation to Patient Date of Phone Billing Address Personal/Family Self [address] [place] [address] Care Teams Special Ed Assistant Relationship Specialty Start Date End Date Nadia Cortes MD [address] [place] [phone] PCP - General Family Medicine 02/08/19
--- OUTSIDE RECORDS SUMMARY | 2024-08-30 16:49 | XMS_ITS | Encounter Summary ---
Author Organization [employer] Address [address] [place] [address] Care Team Providers Care Demi Chef Name Role Phone Nadia Cortes MD Primary Care Provide r Reason for Visit * Reason Comments Med Refill Encounter Details Date Type Department Care Team (Late st Contact Info) Description 11/19/[address] [facility] MEDICINE [address] [place], [place] [phone] Nadia Cortes MD [address] [place], [place] [phone] Chronic bilateral low back pain with sciatica, [...] documented as of this encounter Care Teams Demi Chef Relationship Specialty Start Date End Date Nadia Cortes MD [address] [place] [address] PCP - General Family Medicine 02/08/19 documented as of this encounter
--- OUTSIDE RECORDS SUMMARY | 2024-08-30 16:49 | XMS_ITS | Encounter Summary ---
Author Organization [employer] Address [address] [place] [address] Care Team Providers Care Tractor Mechanic Name Role Phone Nadia Cortes MD Primary Care Provide r Reason for Visit * Reason Onset Date Comments Nurse Triage 10/26/2023 Encounter Details Date Type Department Care Team ([facility] st Contact Info) Description 10/26/2023 Telephone [facility] MEDICINE [address] [place], [place] [phone] Nadia Cortes MD [address] [place], [place] [phone] Nurse Triage Social History Tobacco Use Types [...] t he electric, gas, oil or water [employer] threatened to shut off services in your [...] 10/26/2023 10:19 AM EDT Triage call with [employer] Seasonal ID [id number]. Pt guardian , Deb, answers call and [...] or [facility] Call is dropped. Call is returned and busy. Another spanish medical interpreter is obtained, [employer] Seasonal ID [id number]. Call is resumed and Deb reportsthat Pt has decided to go to [facility] at [facility]. Pt is on the way there at [...] stomach pain The caller accepted this outcome Northern Irish speaker documented in this encounter Plan of Treatment Not on file documented as of this encounter Visit Diagnoses Not on filedocumented in this encounter Additional Health Concerns Assessment Noted Time PHQ-9 Depression Total Score: 0 12/16/19 23 2:03 PM EDT documented as of this encounter Care Teams Tractor Mechanic Relationship Specialty Start Date End Date Nadia Cortes MD [address] [place] [address] PCP - General Family Medicine 02/08/19 documented as of this encounter
[2024-09-05 11:20] LABS: Phosphatidylethanol 16:0-18:1 NEGATIVE; Phosphatidylethanol 16:0-18:2 NEGATIVE
== END 2024-08-30 13:31 | disposition home or self-care (01) ==
LOC: HO.XRAY 13:30
PROVIDERS: PCP Internal Medicine; Visit Provider Nurse Practitioner
DX: R10.33 Periumbilical pain (principal); R19.7 Diarrhea, unspecified; R11.2 Nausea with vomiting, unspecified; F10.11 Alcohol abuse, in remission; Z98.890 Other specified postprocedural states; Z55.0 Illiteracy and low-level literacy
CPT/HCPCS: 36415; 74019; 74021; 80053; 80321; 81001; 81003; 82140; 82150; 83690; 85025; 86140; 99212

== ENCOUNTER → 2024-08-30 15:00 | Outpatient (BNV) | payer OTHER, SELFPAY | PROVIDERS: PCP Internal Medicine; Visit Provider Radiology Diagnostic Radiology | DX: K59.00 Constipation, unspecified (principal) | CPT/HCPCS: 74019 ==

== ENCOUNTER 2024-09-01 13:30 | Outpatient (AMB) | payer OTHER, SELFPAY ==
--- NOTE | 2024-09-01 13:33 | HO.SPINEOV ---
Vital Signs 09/01/24 13:50 Height 5 ft 5 in Weight 171 lb BMI 28.5 Intake Visit Reasons: spinal stenosis Intake Note: Mr. Tita Harris is here today c/o Low back pain and Difficulty with walking Clearance Coordinator Required: Yes Clearance Coordinator Services: Clearance Coordinator Present Clearance Coordinator Name: Jennifer Willett LM Allergies No Known Allergies [No Known Allergies*] Allergy (Verified 09/01/24 13:49) Physical Exam Vital Signs: BMI result Body Mass Index 28.5 Assessment & Plan Assessment & Plan (1) Lumbar spondylosis: Code(s): M47.816 - Spondylosis without myelopathy or radiculopathy, lumbar region Category: Medical Plan Dear Iris, Thank you for referring Mr Tita Harris to our office today. This visit was done with the help of ski production supervisor Jennifer Horn. He is a very nice 74-year-old gentleman who has had a longstanding history of back pain, that he thinks started sometime around 2020. It may or may not have been related to some kind of abdominal surgery he had for hernia repair. He has also developed pain that radiates down both of his legs, right greater than left. The pain starts in his buttocks and thighs and radiates down into his calves and feet. More recently he has developed some kind of incontinence issue as well wear when he stands and walks he will have urine leak out without any specific warning. He was sent down today for evaluation with an MRI showing degenerative disc disease and foraminal stenosis. To this point he has really had no dedicated conservative treatment. Denies any treatment with physical therapy, chiropractic, injections, acupuncture. The only thing he has been given his Tylenol. The pain is aggravated with standing walking but does not necessarily go away when he sits down. PMH: He is a history of hypertension, high cholesterol, alcohol abuse, multiple large abdominal surgeries, it is unclear exactly what these were done for, the patient has a hard time giving me any degree of details about what was going on with his abdomen but it looks like there has been some kind of hernia repair as well according to him in his . He does not report any heart attacks or strokes, kidney disease, diabetes. Social hx: He was a very heavy drinker at 1 point, he also was a smoker but after 1 of his abdominal surgeries he gave all this up. He could not exactly remember when. Medications: The patient could not remember his medical medication list, but according to the records, Tylenol, amlodipine, aspirin, atorvastatin, diclofenac, dicyclomine, Colace, lisinopril, loratadine, omeprazole, Carafate, Flomax, vitamin-C Allergies: None Physical exam: He is awake alert oriented, he is here with his , he is able to slowly stand up out of a chair independently get up on the examining table with some discomfort but was able to complete the task independently. Strength and reflexes both normal with the exception of some mild hip weakness in the right hip flexion muscle groups which appeared secondary to pain, reflexes normal at the patella and the Achilles. Imaging review: There is a lumbar MRI done at [facility] showing severe degenerative disc disease at L5-S1 with almost complete disc collapse. It is unclear if this is auto fused. There is mild to moderate central stenosis at L4-5 but no meaningful compression of the nerves that I can see. Impression: 74-year-old gentleman presents for evaluation of back pain bilateral lower extremity pain and more recently developed incontinence issues. His MRI does not show any meaningful compression of nerves in the central canal to suggests this is anything to do with a cauda equina syndrome etc.. I am not exactly sure what is causing it, but it is nothing that needs decompression surgery. He does have arthritis of the disc at L5-S1 where there is for the most part collapse with the whole disc. Whether or not this is causing his back pain, I am not sure but certainly could play a role. To this point he has had no dedicated conservative treatment on his lumbar spine, so obviously we would need to have that completed 1st before we could offer him any kind of surgery. I am going to send him back up to your office to complete treatment with conservative measures and if he is still no better after that feel free to send him back and we would be happy to re-evaluate. Thank you for allowing us to care for your patient. The total time spent with this visit with this patient was 45 minutes reviewing history, physical exam, lumbar imaging review, and implementation of treatment plan or further diagnostic testing Eyal Evans MD,PhD [facility] Coding Level of Care Code New Pt Level 4 (24372) Diagnoses Lumbar spondylosis M47.816
[2024-09-01 13:50] VITALS: BMI 28.5
--- OUTSIDE RECORDS SUMMARY | 2024-09-01 15:50 | XMS_ITS | Encounter Summary ---
Author Organization [employer] [facility] Address [address] [place] [address] Care Team Providers Care Developing Machine Operator Name Role Phone Nadia Cortes MD Primary Care Provide r Encounter Details Date Type Department Care Team (Latest Contact Info) Description 04/13/2020 Abstract [facility] CONVERSIONS Dental, Provider, DDS Social History [...] on filedocumented in this encounter Care Teams Developing Machine Operator Relationship Specialty Start Date End Date Nadia Cortes MD [address] [place] [phone] PCP - General Family Medicine 02/08/19 documented as of this encounter
--- OUTSIDE RECORDS SUMMARY | 2024-09-01 15:50 | XMS_ITS | Encounter Summary ---
Author Organization [employer] Address [address] [facility] 7t [place] [address] Care Team Providers Care Medical Detailist Name Role Phone Nadia Cortes MD Primary Care Provide r Reason for Visit * Reason Comments Med Refill Encounter Details Date Type Department Care Team (Late st Contact Info) Description 01/05/2023 Refill [facility] MEDICINE 230 [place], [place] [phone] Ida Eisenberg DO 230 [place], [place] [phone] Essential hypertension Social History Tobacco Use Types [...] documented as of this encounter Care Teams Medical Detailist Relationship Specialty Start Date End Date Nadia Cortes MD 230 [place], [place] [phone] PCP - General Family Medicine 02/08/19 documented as of this encounter
--- OUTSIDE RECORDS SUMMARY | 2024-09-01 15:50 | XMS_ITS | Encounter Summary ---
Author Organization [employer] Address [address] [address] [facility] [address] 7t [place] [address] Care Team Providers Care Net Mvc Developer Name Role Phone Nadia Cortes MD Primary Care Provide r Reason for Visit * Reason Onset Date Comments Nurse Triage 01/15/2023 Encounter Details Date Type Department Care Team (Late st Contact Info) Description 01/15/2023 Telephone [facility] MED[facility]INE 230 [place], [place] [phone] Nadia Cortes MD 230 [place] [address] Nurse Triage Social History Tobacco Use Types [...] call , Pt reports will come to [facility] in the morning to be seen. No triage at this call. * Telephone Encounter - Margaret Diaz - 01/15/2023 2:00 PM EDT Symptom: Eye - Pus or Discharge Outcome: Schedule a same-day appointment or talk to a nurse or provider today Reason: Caller denied all higher acuity questions The caller accepted this outcome Patient speaks bulgarian Patient walked in reports having left eye discharge, discomfort and itchiness since yesterday. Patient missed 01/15/23 [facility] appt at 1:40 pm. documented in this encounter Plan of Treatment Not on file documented as of this encounter Visit Diagnoses Not on filedocumented in this encounter Additional Health Concerns Assessment Noted Time PHQ-9 Depression Total Score: 0 12/16/19 2:03 PM EDT documented as of this encounter Care Teams Net Mvc Developer Relationship Specialty Start Date End Date Nadia Cortes MD [address] [place] [phone] PCP - General Family Medicine 02/08/19 documented as of this encounter
--- OUTSIDE RECORDS SUMMARY | 2024-09-01 15:50 | XMS_ITS | Clinical Summary ---
Author Organization 175 [facility] Address 175 [place] [address] Phone Care Team Providers Care Cleaner And Dyer Name Role Phone Nadia Cortes MD Primary [...] 3:15 PM EDT Office Visit Orthopedic Surgery [facility] [address] [place] [phone] Oscar Huffman DPM PVD (peripheral vascular disease) ([facility] V24) (Primary Dx); Pain in both feet; Arthritis of both feet; Metatarsalgia of left foot 08/11/2024 1:30 PM EDT Ancillary Procedure [facility] Cardiology [facility] [address] [phone] PVD (peripheral vascular disease) ([facility] V24) 08/04/2024 1:30 PM EDT Ancillary Procedure [facility] Cardiology [facility] 101 300 [facility] 101 [place] [phone] Leg swelling 07/11/2024 2:30 PM EDT Consult Vascular Surgery [facility] [address] [facility] [address] [place] [phone] Yue Sidhu PA Leg swelling (Primary Dx); [...] PM EDT Office Visit Vascular Surgery - [facility] [address] [facility] [address] [place] [address] Yue Sidhu PA [address] [facility] [address] [place] [address] 10/31/2024 1:45 PM EDT Office Visit Orthopedic Surgery [facility] 250 175 [facility] 250 [place] [address] Oscar Huffman, [place] [address] [address] Health Maintenance Due Date Last Done Comments [...] 2:04 PM EDT PVD (peripheral vascular disease) ([facility] V24) VAS US DUPLEX LOWER EXT VENOUS [...] PSV 53 cm/s CV VAS LAB Left INSURANCE INSTRUCTOR prox sys PSV 124 cm/s CV VAS [...] PSV 46 cm/s CV VAS LAB Right INSURANCE INSTRUCTOR prox sys PSV 95 cm/s CV VAS [...] The mid peroneal artery has biphasic flow. Security Lead Details A borjas scale, color and doppler [...] performed with the patient in reverse trendelenburg. Security Lead Details A borjas scale, color and doppler analysis ultrasound was performed. During the study longitudinal and transverse views were obtained. Pulsed wave doppler was performed. us Yue VIVAR CV VASCULAR PROCEDURES Final Result from Last 3 Months Insurance [facility] MEDICARE Member Subscriber Plan / Payer (Ef fective 2021-Present) Name:Quincy Avilesio Relation to Subscriber:Self Name:Quincy Aviles Payer ID:[id number] Group ID:[id number] Type:Not on file Address: [place] [address] [address] [phone] Care Teams Cleaner And Dyer Relationship Specialty Start Date End Date Nadia Cortes MD [address] [phone] PCP - General 02/08/24
--- OUTSIDE RECORDS SUMMARY | 2024-09-01 15:50 | XMS_ITS | Encounter Summary ---
Author Organization [employer] Address [address] [facility] [address] 7[address] [place] [address] Care Team Providers Care Custodial Services Manager Name Role Phone Nadia Cortes MD Primary Care Provide r Encounter Details Date Type Department Care Team ([facility] Contact Info) Description 08/30/2024 Orders Only GENERIC [...] EDT) Lipase 22 8 - 78 U/L [facility] 08/30/2024 2:52 PM EDT 08/30/2024 2:52 PM EDT us Generic External Data Provider LAB BLOOD ORDERAB LES Final Result [facility] [address] [place] [phone] * Amylase (08/30/2024 2:52 PM EDT) Amylase 64 28 - 100 U/L [facility] 08/30/2024 2:52 PM EDT 08/30/2024 2:52 PM EDT us Generic External Data Provider LAB BLOOD ORDERAB LES Final Result Performing Organization Address [facility] Co de Phone Number [facility] [address] [place] [phone] * (ABNORMAL) C-reactive Protein (08/30/2024 2:52 PM EDT) Pathologist [facility] C Reactive Protein 0.75(H) < or = 0.50 mg/dL [facility] 08/30/2024 2:52 PM EDT 08/30/2024 2:52 PM EDT Generic External Data Provider LAB BLOOD ORDERAB LES Final Result Performing Organization Address [facility] Co de Phone Number [facility] [address] [place] [phone] * (ABNORMAL) Comprehensive Metabolic Panel (08/30/2024 2:52 PM EDT) Pathologist [facility] Sodium 141 135 - 145 mmol/L [facility] Potassium 4.3 3.3 - 5.1 mmol/L [facility] Chloride 108 96 - 108 mmol/L [facility] Carbon Dioxide 28 22 - 29 mmol/L [facility] Anion Gap 9(L) 12 - 20 [facility] Urea Nitrogen (BUN) 19(H) 9 - 16 mg/dL [facility] Creatinine, Serum 0.92 0.5 - 1.4 mg/dL [facility] Estimated Glomerular Filt Rate >60 [facility] Comment:Chronic Kidney Disea se: Estimated GFR < 60 mL/min/1.99d8Pqkshm Kidney Disease: Estimated GFR < 15 mL/min/1.73m2 Glucose 114 60 - 115 mg/dL [facility] Calcium 8.2(L) 8.4 - 10.2 mg/dL [facility] Bilirubin, Total 0.5 0.0 - 1.0 mg/dL [facility] Aspartate Amino Transferase 18 5 - 37 U/L [facility] Alanine Aminotransferase 19 0 - 40 U/L [facility] Total Protein 6.9 6.5 - 8.0 g/dL [facility] Albumin Level 3.8 3.5 - 5.0 g/dL [facility] Alkaline Phosphatase 156(H) 39 - 117 U/L [facility] 08/30/2024 2:52 PM EDT 08/30/2024 2:52 PM EDT us Generic External Data Provider LAB BLOOD ORDERAB LES Final Result [facility] [address] [place] [phone] * (ABNORMAL) CBC auto differential (08/30/2024 2:52 PM EDT) White Blood Count 11.2(H) 4.8 - 10.8 X10*3/uL [facility] Red Blood Count 4.58(L) 4.60 - 5.80 X10*6/uL [facility] Hemoglobin 13.6(L) 14.0 - 18.0 g/dl [facility] Hematocrit 42.3 42.0 - 52.0 % [facility] Mean Corpuscular Volume 92.4 80.0 - 98.0 fL [facility] Mean Corpuscular Hemoglobin 29.7 27.0 - 33.0 pg [facility] Mean Corpuscular HGB Conc 32.2 31.0 - 36.0 g/dl [facility] Red Cell Distribution Width 14.2 11.0 - 16.0 % [facility] Platelet Count 198 160 - 400 X10*3/uL [facility] Mean Platelet Volume 11.7 9.4 - 12.4 fL [facility] Neutrophils Percent Auto 76.7(H) 45 - 73 % [facility] Imm Gran Pct Auto 0.5(H) 0.0 - 0.4 % [facility] Lymphocytes Percent Auto 13.0(L) 20 - 40 % [facility] Monocytes Percent Auto 6.8 2 - 11 % [facility] Eosinophils Percent Auto 2.5 0 - 4 % [facility] Basophils Percent Auto 0.5 0 - 2 % [facility] NRBC Pct Auto 0.0 0.0 - 0.2 /100WBC [facility] Neutrophils Absolute Auto 8.6(H) 2.0 - 8.3 x10*3/uL [facility] Imm Gran Abs Auto 0.06(H) 0.00 - 0.03 X10*3/uL [facility] Lymphocytes Absolute Auto 1.5 1.2 - 4.9 X10*3/uL [facility] Monocytes Absolute Auto 0.8 0.1 - 1.2 X10*3/uL [facility] Eosinophils Absolute Auto 0.3 0.0 - 0.4 X10*3/uL [facility] Basophils Absolute Auto 0.1 0.0 - 0.2 X10*3/uL [facility] NRBC Abs Auto 0.000 0.0 - 0.012 X10*3/uL [facility] 08/30/2024 2:52 PM EDT 08/30/2024 2:52 PM EDT us Generic External Data Provider LAB BLOOD ORDERAB LES Final Result Performing Organization Address City/[facility]/ZIP Co de Phone Number [facility] [address] [place] [phone] * Ammonia, Plasma (08/30/2024 2:52 PM EDT) Ammonia (P) 43 13 - 55 umol/L [facility] 08/30/2024 2:52 PM EDT 08/30/2024 2:52 PM EDT us Generic External Data Provider LAB BLOOD ORDERAB LES Final Result Performing Organization Address [facility]/ZIP Co de Phone Number [facility] [address] [place] [phone] * (ABNORMAL) Urinalysis, Complete, with Reflex to Culture (08/30/2024 2:43 PM EDT) Color Urine Dark Yellow [facility] Appearance Urine Clear [facility] PH 5.5 5.0 - 9.0 [facility] Glucose Urine UA Negative Negative mg/dL [facility] Urine Blood Trace(A) Negative [facility] Specific Mobile - Urine 1.025 1.005 - 1.025 [facility] Urine Protein Negative Neg-Trace mg/dL [facility] Urine Ketones Trace Negative mg/dL [facility] Nitrite Urine Negative Negative [facility] Leukocyte Esterase Urine Negative Negative [facility] RBC Urine 6-10(A) 0 - 2 /HPF [facility] Urine WBC 0-5 0 - 5 /HPF [facility] Urine Squamous Epithelial Cell 0-2 0 - 2 /HPF [facility] Urine Bacteria None Seen None Seen [facility] Hyaline Casts, Urine 0-2 0 - 2 /LPF [facility] 08/30/2024 2:43 PM EDT 08/30/2024 2:59 PM EDT Narrative [facility] - 08/30/2024 3:28 PM EDT [id number], Clean Catch us Generic External Data Provider LAB URINE ORDERAB LES Final Result Performing Organization Address [facility] Co de Phone Number [facility] [address] [place] [phone] documented in this encounter Visit Diagnoses Not on filedocumented in this encounter Additional Health Concerns Assessment Noted Time PHQ-9 Depression Total Score: 0 12/16/19 23 2:03 PM EDT documented as of this encounter Care Teams Custodial Services Manager Relationship Specialty Start Date End Date Nadia Cortes MD 230 [place] [address] PCP - General Family Medicine 02/08/19 documented as of this encounter
--- OUTSIDE RECORDS SUMMARY | 2024-09-01 15:50 | XMS_ITS | Encounter Summary ---
Author Organization [employer] Address [address] [facility] 7t [place] [address] Care Team Providers Care Nuclear Equipment Operator Name Role Phone Nadia Cortes MD Primary Care Provide r Reason for Visit * Reason Onset Date Comments PCP change 11/17/2022 Encounter Details Date Type Department Care Team (Late st Contact Info) Description 11/17/2022 Telephone [facility] MEDICINE 230 [place], [place] [phone] Nadia Cortes MD 230 [place] [address] PCP change Social History Tobacco Use Types [...] on filedocumented in this encounter Care Teams Nuclear Equipment Operator Relationship Specialty Start Date End Date Nadia Cortes MD [address] [place] [address] PCP - General Family Medicine 02/08/19 documented as of this encounter
--- OUTSIDE RECORDS SUMMARY | 2024-09-01 15:50 | XMS_ITS | Encounter Summary ---
Author Organization [employer] Address [address] [facility] [address] [place] [address] Care Team Providers Care Tile Installer Name Role Phone Nadia Cortes MD Primary Care Provide r Encounter Details Date Type Department Care Team ([facility] st Contact Info) Description 07/22/2023 Telephone [facility] MEDICINE 230 [place], [place] [phone] Nadia Cortes MD 230 [place], [place] [phone] Social History Tobacco Use Types Packs/Day Years [...] documented as of this encounter Care Teams Tile Installer Relationship Specialty Start Date End Date Nadia Cortes MD 230 [place] [address] PCP - General Family Medicine 02/08/19 documented as of this encounter
--- OUTSIDE RECORDS SUMMARY | 2024-09-01 15:50 | XMS_ITS | Encounter Summary ---
Author Organization [employer] Address [address] [facility] [address] [facility] [address] [place] [address] Care Team Providers Care Maintenance Controller Name Role Phone Nadia Cortes MD Primary Care Provide r Reason for Visit * Reason Comments Med Refill Encounter Details Date Type Department Care Team (Late st Contact Info) Description 08/30/2024 Refill [facility] [address] [place], [place] [phone] Nadia Cortes MD 230 [place] [address] Seasonal allergies Social History Tobacco Use Types [...] documented as of this encounter Care Teams Maintenance Controller Relationship Specialty Start Date End Date Nadia Cortes MD [address] [place] [phone] PCP - General Family Medicine 02/08/19 documented as of this encounter
--- OUTSIDE RECORDS SUMMARY | 2024-09-01 15:51 | XMS_ITS | Encounter Summary ---
Author Organization [employer] Address [address] [facility] [address] [place] [address] Care Team Providers Care Wheelchair Van Driver Name Role Phone Nadia Cortes MD Primary Care Provide r Reason for Visit * Reason Onset Date Comments Nurse Triage 10/26/2023 Encounter Details Date Type Department Care Team ([place] [facility] st Contact Info) Description 10/26/2023 Telephone [facility] MEDICINE 230 [place], [place] [phone] Nadia Cortes MD 230 [place], [place] [phone] Nurse Triage Social History Tobacco Use Types [...] t he electric, gas, oil or water [employer] threatened to shut off services in your [...] 10/26/2023 10:19 AM EDT Triage call with ffk environment Fur Floor Worker [place] [id number]. Pt guardian , Deb, answers call and [...] or [facility] Call is dropped. Call is returned and busy. Another diplomatic interpreter is obtained, ffk environment Fur Floor Worker [place] [id number]. Call is resumed and Deb reportsthat Pt has decided to go to [facility] at [facility]. Pt is on the way there [...] stomach pain The caller accepted this outcome Hebrew speaker documented in this encounter Plan of Treatment Not on file documented as of this encounter Visit Diagnoses Not on filedocumented in this encounter Additional Health Concerns Assessment Noted Time PHQ-9 Depression Total Score: 0 12/16/19 23 2:03 PM EDT documented as of this encounter Care Teams Wheelchair Van Driver Relationship Specialty Start Date End Date Nadia Cortes MD 230 [place] [address] PCP - General Family Medicine 02/08/19 documented as of this encounter
--- OUTSIDE RECORDS SUMMARY | 2024-09-01 15:51 | XMS_ITS | Clinical Summary ---
Demographics Address [address] [facility] [address] [place] [address] Work Phone Mobile Phone Preferred Language es Marital Status Single Samaritan Affiliation Unknown Race Other Race Ethnic Group or Author Organization [employer] Address [address] [facility] 7[address] [place] [address] Care Team Providers Care Stress Test Technician Name Role Phone Nadia Cortes MD Primary Care Provide r Allergies No known active allergies Medications Blood Pressure Monitoring (Omron 3 Series BP Monitor) device USE TO CHECK BLOOD PRESSURE 1-2 TIMES EVERY DAY 08/16/19 22 Active SUMAtriptan (Imitrex) 25 MG tabletIndicatio ns:Cluster headache, not intractable, unspecified chronicity pattern TAKE 1 TABLET BY MOUTH AT ONSET OF MIGRAINE. MAY REPEAT ONCE AFTER 2 HOURS IF NEEDED. NO MORE THAN 2 TABLETS DAILY 9 tablet 11/08/19 23 Active fluticasone (Flonase) 50 MCG/ACT nasal sprayIndication s:COVID-19,Mildred l URI USE 1 SPRAY IN EACH NOSTRIL EVERY MORNING 16 g 01/03/20 23 Active sucralfate (Carafate) 1 g tablet Take 1 g by mouth at bedtime. 12/13/19 23 Active gabapentin (Neurontin) 100 MG capsuleIndicati ons:Chronic bilateral low back pain with sciatica, sciatica laterality unspecified TAKE 1 CAPSULE BY MOUTH THREE TIMES DAILY 270 capsule 1 06/02/19 24 Active polyethylene glycol, PEG, 3350 (MiraLax) 17 GM/SCOOP powder 17 grams in 8-12 oz fluid like water at bedtime prn constipation 527 g 2 10/26/19 24 Active Nirmatrelvir&Ri tonavir 300/100 (Paxlovid, 300/100,) 20 x 150 MG & 10 x 100MG tablet therapy packIndications :Infection caused by 2019 Novel Coronavirus Take 3 tablets by mouth 2 times daily. Take 2 tabs (300mg of nirmatrelvir) and 1 tab (100mg of ritonavir) PO BID for 5 days. No renal failure. Possible medication interactions reviewed. 30 each 12/22/19 24 Active atorvastatin (Lipitor) 40 MG tabletIndicatio ns:Primary hypertension Take 1 tablet (40 mg) by mouth Once per day. 30 tablet 11 02/04/20 24 2024 Active docusate sodium (Colace) 100 MG capsule TAKE 1 TABLET BY MOUTH TWICE DAILY NEEDED FOR CONSTIPATION 180 capsule 3 02/29/20 24 Active Aspirin Low Dose 81 MG EC tablet TAKE 1 TABLET BY MOUTH EVERY MORNING 90 tablet 3 03/03/20 24 Active tamsulosin (Flomax) 0.4 MG 24 hr capsuleIndicati ons:Benign prostatic hyperplasia, unspecified whether lower urinary tract symptoms present TAKE 1 CAPSULE BY MOUTH EVERY MORNING 90 capsule 3 03/03/20 24 Active omeprazole (PriLOSEC) [address] capsule TAKE 1 CAPSULE BY MOUTH EVERY MORNING BEFORE BREAKFAST 90 capsule 1 04/05/20 24 Active lisinopril 20 MG tabletIndicatio ns:Primary hypertension TAKE 1 TABLET BY MOUTH EVERY MORNING 90 tablet 1 04/05/20 24 Active Multiple Vitamins-Minera ls (PreserVision AREDS 2) capsuleIndicati ons: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 30 mL 1 07/08/19 25 2025 Active loratadine (Claritin) 10 MG tabletIndicatio ns:Seasonal allergies TAKE 1 TABLET BY MOUTH EVERY MORNING NEEDED FOR ALLERGIES 90 tablet 1 09/01/19 25 Active loratadine (Claritin) 10 MG tabletIndicatio ns:Seasonal allergies TAKE 1 TABLET BY MOUTH EVERY MORNING NEEDED FOR ALLERGIES 90 tablet 1 03/04/20 24 2024 Discontinued Active Problems Problem Noted Date Diagnosed Date PAD (peripheral artery disease) 08/16/2024 Overview (08/16/2024): See vascular studies in media 08/11/24 from [facility] right lower extremity LAUREN borderline [...] DEPARTMENT Provider, Generic External Data 08/30/2024 Refill [facility] [address] [place] [address] Nadia Cortes MD Seasonal allergies 08/19/2024 Telephone [facility] [address] [place] [address] Nadia Cortes MD Nurse Triage 08/18/2024 Orders Only [facility] External Provider, [facility] 07/14/2024 Orders Only [facility] [address] [place] [phone] Nadia Cortes MD Diminished vision (Primary Dx); Dry eye 07/08/[address] [address] Nadia Cotres MD Results 07/07/2024 2:00 PM EST Office Visit [address] [address] Nadia Cortes MD Chronic bilateral low back pain, unspecified whether sciatica present (Primary Dx); Venous insufficiency; Diminished vision; Dry eye 07/07/2024 Telephone [facility] [address] [place] [address] Nelsy Capellan, OD 07/07/2024 Travel 07/06/2024 Telephone [facility] [address] [place] [address] Nadia Cortes MD Referral 07/06/[address] [address] Nadia Cortes MD Nurse Triage from Last [...] Blood Count 11.2(H) 4.8 - 10.8 X10*3/uL [facility] Red Blood Count 4.58(L) 4.60 - 5.80 X10*6/uL [facility] Hemoglobin 13.6(L) 14.0 - 18.0 g/dl [facility] Hematocrit 42.3 42.0 - 52.0 % [facility] Mean Corpuscular Volume 92.4 80.0 - 98.0 fL [facility] Mean Corpuscular Hemoglobin 29.7 27.0 - 33.0 pg [facility] Mean Corpuscular HGB Conc 32.2 31.0 - 36.0 g/dl [facility] Red Cell Distribution Width 14.2 11.0 - 16.0 % [facility] Platelet Count 198 160 - 400 X10*3/uL [facility] Mean Platelet Volume 11.7 9.4 - 12.4 fL [facility] Neutrophils Percent Auto 76.7(H) 45 - 73 % [facility] Imm Gran Pct Auto 0.5(H) 0.0 - 0.4 % [facility] Lymphocytes Percent Auto 13.0(L) 20 - 40 % [facility] Monocytes Percent Auto 6.8 2 - 11 % [facility] Eosinophils Percent Auto 2.5 0 - 4 % [facility] Basophils Percent Auto 0.5 0 - 2 % [facility] NRBC Pct Auto 0.0 0.0 - 0.2 /100WBC [facility] Neutrophils Absolute Auto 8.6(H) 2.0 - 8.3 x10*3/uL [facility] Imm Gran Abs Auto 0.06(H) 0.00 - 0.03 X10*3/uL [facility] Lymphocytes Absolute Auto 1.5 1.2 - 4.9 X10*3/uL [facility] Monocytes Absolute Auto 0.8 0.1 - 1.2 X10*3/uL [facility] Eosinophils Absolute Auto 0.3 0.0 - 0.4 X10*3/uL [facility] Basophils Absolute Auto 0.1 0.0 - 0.2 X10*3/uL [facility] NRBC Abs Auto 0.000 0.0 - 0.012 X10*3/uL [facility] 08/30/2024 2:52 PM EDT 08/30/2024 2:52 PM EDT Generic External Data Provider LAB BLOOD ORDERAB LES Final Result Performing Organization Address [facility] Co de Phone Number [facility] [address] [place] [phone] * (ABNORMAL) C-reactive Protein (08/30/2024 2:52 PM EDT) C Reactive Protein 0.75(H) < or = 0.50 mg/dL [facility] 08/30/2024 2:52 PM EDT 08/30/2024 2:52 PM EDT us Generic External Data Provider LAB BLOOD ORDERAB LES Final Result Performing Organization Address [facility] de Phone Number [facility] [address] [place] [phone] * Lipase (08/30/2024 2:52 PM EDT) Lipase 22 8 - 78 U/L [facility] 08/30/2024 2:52 PM EDT 08/30/2024 2:52 PM EDT Generic External Data Provider LAB BLOOD ORDERAB LES Final Result Performing Organization Address [facility] de Phone Number [facility] [address] [place] [phone] * Amylase (08/30/2024 2:52 PM EDT) Amylase 64 28 - 100 U/L [facility] 08/30/2024 2:52 PM EDT 08/30/2024 2:52 PM EDT us Generic External Data Provider LAB BLOOD ORDERAB LES Final Result Performing Organization Address [facility]/ZIP Co de Phone Number [facility] [address] [place] [phone] * Ammonia, Plasma (08/30/2024 2:52 PM EDT) Ammonia (P) 43 13 - 55 umol/L [facility] 08/30/2024 2:52 PM EDT 08/30/2024 2:52 PM EDT Generic External Data Provider LAB BLOOD ORDERAB LES Final Result Performing Organization Address [facility] Co de Phone Number [facility] [address] [place] [phone] * (ABNORMAL) Comprehensive Metabolic Panel (08/30/2024 2:52 PM EDT) Sodium 141 135 - 145 mmol/L [facility] Potassium 4.3 3.3 - 5.1 mmol/L [facility] Chloride 108 96 - 108 mmol/L [facility] Carbon Dioxide 28 22 - 29 mmol/L [facility] Anion Gap 9(L) 12 - 20 [facility] Urea Nitrogen (BUN) 19(H) 9 - 16 mg/dL [facility] Creatinine, Serum 0.92 0.5 - 1.4 mg/dL [facility] Estimated Glomerular Filt Rate >60 [facility] Comment:Chronic Kidney Disea se: Estimated GFR < 60 mL/min/1.19c4Mwieou Kidney Disease: Estimated GFR < 15 mL/min/1.73m2 Glucose 114 60 - 115 mg/dL [facility] Calcium 8.2(L) 8.4 - 10.2 mg/dL [facility] Bilirubin, Total 0.5 0.0 - 1.0 mg/dL [facility] Aspartate Amino Transferase 18 5 - 37 U/L [facility] Alanine Aminotransferase 19 0 - 40 U/L [facility] Total Protein 6.9 6.5 - 8.0 g/dL [facility] Albumin Level 3.8 3.5 - 5.0 g/dL [facility] Alkaline Phosphatase 156(H) 39 - 117 U/L [facility] 08/30/2024 2:52 PM EDT 08/30/2024 2:52 PM EDT us Generic External Data Provider LAB BLOOD ORDERAB LES Final Result [facility] [address] [place] [address] [phone] * (ABNORMAL) Urinalysis, Complete, with Reflex to Culture (08/30/2024 2:43 PM EDT) Color Urine Dark Yellow [facility] Appearance Urine Clear [facility] PH 5.5 5.0 - 9.0 [facility] Glucose Urine UA Negative Negative mg/dL [facility] Urine Blood Trace(A) Negative [facility] Specific [place] - Urine 1.025 1.005 - 1.025 [facility] Urine Protein Negative Neg-Trace mg/dL [facility] Urine Ketones Trace Negative mg/dL [facility] Nitrite Urine Negative Negative [facility] Leukocyte Esterase Urine Negative Negative [facility] RBC Urine 6-10(A) 0 - 2 /HPF [facility] Urine WBC 0-5 0 - 5 /HPF [facility] Urine Squamous Epithelial Cell 0-2 0 - 2 /HPF [facility] Urine Bacteria None Seen None Seen [facility] Hyaline Casts, Urine 0-2 0 - 2 /LPF [facility] 08/30/2024 2:43 PM EDT 08/30/2024 2:59 PM EDT Narrative [facility] - 08/30/2024 3:28 PM EDT [id number], Clean Catch us Generic External Data Provider LAB URINE ORDERAB LES Final Result [facility] [address] [place] [address] [phone] * MR Lumbar Spine w/o Contrast (08/18/2024 12:12 PM EDT) Anatomical Region Laterality Modality Spine, L-spine Magnetic Resonan ce 08/18/2024 12:1 2 PM EDT Narrative 08/18/2024 1:28 PM EDT ? [facility] ?[address] ?[place] [address] ? Magnetic Resonance Report ? Signed ? Patient: Tita Quincy Harris ?MR#: [id number] ?? [id number] ? : 1950 ?Acct:[id number] ? Age/Sex: 74 / M ?ADM Date: 08/18/24 ? Loc: HO.MRI ? Attending Dr: Iris Doan APRN DRAWER IN PLAIN LOOM ? Ordering Physician: Iris Doan APRN, CNP ?? Date of Service: 08/18/24 ?? Procedure(s): MR lumbar spine wo con ?? Accession Number(s): [id number] ? cc: Nadia Cortes MD; Iris Doan APRN DRAWER IN PLAIN LOOM ? EXAMINATION: ?? MR LUMBAR SPINE WITHOUT [...] LUMBOSACRAL JUNCTION: ?? -Normal. There are 5 vzx-xov-dwkqcvd lumbar-type vertebral bodies. ? VERTEBRAL BODIES/BONE MARROW: [...] Andrade MD ??08/18/2024 01:24 PM EDT RP ?? Workstation: [id number] ? Dictated By: ?Wilbert Andrade MD ? Signed By: ?<Electronically signed by Wilbert Andrade MD in OV> ?08/18/24 1324 ? DD/ 1212 ? TD/TT: 08/18/24 1229 ? Type Inspector: ? Procedure Note Patrica Santiago - 08/18/[address] [address] Magnetic Resonance Report Signed Patient: Quincy Aviles AMR#: [id number] : 3Acct:[id number] Age/Sex: 74 / MADM Date: 08/18/24 Loc: HO.MRI Attending Dr: Iris Doan APRN, CNP Ordering Physician: Iris Doan APRN, CNP Date of Service: 08/18/24 Procedure(s): MR lumbar spine wo con Accession Number(s): [id number] cc: Nadia Cortes MD; Iris Doan APRN, CLAIR EXAMINATION: MR LUMBAR SPINE WITHOUT CONTRAST CLINICAL [...] subluxations. LUMBOSACRAL JUNCTION: -Normal. There are 5 zlw-ktj-hlrizyr lumbar-type vertebral bodies. VERTEBRAL BODIES/BONE MARROW: -There [...] 08/18/24 1324 DD/ 1212 TD/TT: 08/18/24 1229 Type Inspector: [facility] External Provider IMG MRI PROCEDURES Final Result * XR Lumbar Spine 2-3 Views (07/07/2024 3:07 PM EST) Anatomical Region Laterality Modality Spine, L-spine Radiographic Felipa ging 07/07/2024 3:07 PM EST Narrative 07/07/2024 4:40 PM EST ?[facility] ?[address] ?[place] [address] ?XRay Report ? Signed ? Patient: Tita Harris,Da ?MR#: [id number] ?? [id number] ? : 1950 ?Acct:[id number] ? Age/Sex: 74 / M ?ADM Date: 07/07/24 ? Loc: HO.HHCX ? Attending Dr: Nadia Hedrick MD ? Ordering Physician: Nadia Cortes MD ?? Date of Service: 07/07/24 ?? Procedure(s): XR lumbar spine 2-3V ?? Accession Number(s): [id number] ? cc: Nadia Cortes MD ? EXAMINATION: [...] DD/ 1507 ? TD/TT: 07/07/24 1540 ? Type Inspector: MSM ? Procedure Note Pamela, Image - 07/07/2024 [facility] [address] [place] [address] XRay Report Signed Patient: Quincy Aviles AMR#: [id number] : 3Acct:[id number] Age/Sex: 74 / MADM Date: 07/07/24 Loc: HO.HHX Attending Dr: Nadia Hedrick MD Ordering Physician: Nadia Cortes MD Date of Service: 07/07/24 Procedure(s): XR lumbar spine 2-3V Accession Number(s): [id number] cc: Nadia Cortes MD EXAMINATION: XR LUMBOSACRAL [...] by: Uriel Garza MD 07/07/2024 04:37 PM [facility] Dictated By: Uriel Garza MD Signed By: <Electronically signed by Uriel Garza MD in OV> 07/07/24 1637 DD/ 1507 TD/TT: 07/07/24 1540 Type Inspector: TABITHA us Nadia Hedrick MD IMG XR PROCEDURES Fin al Result * Hemoglobin A1c (08/12/2023 8:51 AM EDT) Hemoglobin A1c 5.6 <6.0 % [facility] Comment:Hemoglobin A1C Refer ence Range Adults: 4.8 - 6.0 % Non diabetic: < 6.0 % Goal: < 7.0 %Additional Action Suggested: > 8.0 %Note: Hemoglobin A1c results are invalid for patients with abnormal amounts of HbF. Blood transfusions may impact the HbA1c concentration in the patient sample. Estimated Average Glucose 114 mg/dL [facility] Comment:eAG = Estimated ave rage glucose which is %A1C expressed asaverage glucose, using the formula of the C8Q-IljioueBrgimno Glucose study (ADAG), Diabetes Care, Vol.31,#8,Dec. 2007 Blood Venous blood specimen / Unknown 08/12/2023 8:51 AM EDT 08/12/2023 11:30 AM EDT us Nadia Hedrick MD LAB BLOOD ORDERABLES Final Result [facility] [address] [place] [phone] * (ABNORMAL) Lipid Panel, Standard (08/12/2023 8:51 AM EDT) Triglycerides 98 <150 mg/dL [facility] Comment:Desirable Triglyceri de: less than 150 mg/dLBorderline High Triglyceride 150-199 mg/dLHigh Triglyceride: 200-499 mg/dLVery High Triglyceride: greater than or equal to 5OO mg/dL Cholesterol 147 <200 mg/dL [facility] Comment:Desirable Cholestero l: less than 200 mg/dLBorderline High Cholesterol: 200-239 mg/dLHigh Cholesterol: greater than 239 mg/dL LDL Cholesterol Calculated 93 <100 mg/dL [facility] Comment:Desirable LDL: less than 100 mg/dLNear Optimal/Above Optimal LDL: 110- 129 mg/dLBorderline High LDL: 130-159 mg/dLHigh LDL: 160-189 mg/dLVery High LDL: greater than or equal to 190 mg/dL HDL Cholesterol 35(L) >40 mg/dL [facility] Comment:Desirable HDL: great er than 40 mg/dL Note: This HDL assay may give artificially low results in patients with liver disease. Blood Venous blood specimen / Unknown 08/12/2023 8:51 AM EDT 08/12/2023 11:34 AM EDT us Nadia Hedrick MD LAB BLOOD ORDERABLES Final Result [facility] [address] [place] [address] [phone] from Last 3 Months or Most Recently Relevant to Health Maintenance Insurance * Guarantor: Quincy Aviles Account Type Relation to Patient Date of Phone Billing Address Personal/Family Self [address] [place] [address] [facility] [employer] [employer] (O D-SNP) [facility] [employer] [employer] (O D-SNP) * Guarantor: Quincy Aviles Account Type Relation to Patient Date of Phone Billing Address Personal/Family Self [address] [place] [address] * Guarantor: Quincy Aviles Account Type Relation to Patient Date of Phone Billing Address Personal/Family Self [address] [place] [address] * Guarantor: Quincy Aviles Account Type Relation to Patient Date of Phone Billing Address Personal/Family Self [address] [place] [address] Care Teams Stress Test Technician Relationship Specialty Start Date End Date Naida Cortes MD [address] [place] [address] PCP - General Family Medicine 02/08/19
--- OUTSIDE RECORDS SUMMARY | 2024-09-01 15:51 | XMS_ITS | Encounter Summary ---
Author Organization [employer] Address [address] [facility] 7t [place] [address] Care Team Providers Care Pediatric Critical Care Nurse Name Role Phone Nadia Cortes MD Primary Care Provide r Reason for Visit * Reason Onset Date Comments ER Follow-up 03/11/2024 Encounter Details Date Type Department Care Team ([facility] st Contact Info) Description 03/11/2024 Telephone [facility] [address] [place], [place] [phone] Nadia Cortes MD [address] [place], [place] [phone] ER Follow-up Social History Tobacco Use Types [...] EST Triage call regarding message below with [employer] [id number] Alexei. Call made x2 to [phone], with call being dropped no connection made. Call to Juani [phone] without answer. Juani with [facility] calling to report ED visit on: Date: 03/10/24 Hospital: [facility] Seen for: Left foot pain Symptom: Foot or Ankle Pain - Not From Injury Outcome: Schedule an appointment to be seen within 24 hours Reason: Caller denied all higher acuity questions Juani requested to contact pt directly at [phone]. * Telephone Encounter - Jong Sharma - 03/11/2024 12:05 PM EST Juani with [facility] calling to report ED visit on: Date: 03/10/24 Hospital: [facility] Seen for: Left foot pain Symptom: Foot or Ankle Pain - Not From Injury Outcome: Schedule an appointment to be seen within 24 hours Reason: Caller denied all higher acuity questions Juani requested to contact pt directly at [phone]. documented in this encounter Plan of Treatment Not on file documented as of this encounter Visit Diagnoses Not on filedocumented in this encounter Additional Health Concerns Assessment Noted Time PHQ-9 Depression Total Score: 0 12/16/19 23 2:03 PM EDT documented as of this encounter Care Teams Pediatric Critical Care Nurse Relationship Specialty Start Date End Date Nadia Cortes MD [address] [place] [address] PCP - General Family Medicine 02/08/19 documented as of this encounter
--- OUTSIDE RECORDS SUMMARY | 2024-09-01 15:51 | XMS_ITS | Encounter Summary ---
Author Organization [employer] Address [address] [place] [address] Care Team Providers Care Executive Assistant To President Name Role Phone Nadia Cortes MD Primary Care Provide r Reason for Visit * Reason Comments Med Refill Encounter Details Date Type Department Care Team (Late st Contact Info) Description 11/19/2023 Refill [facility] [address] [place], [place] [phone] Nadia Cortes MD [address] [place], [place] [phone] Chronic bilateral low back pain with sciatica, [...] documented as of this encounter Care Teams Executive Assistant To President Relationship Specialty Start Date End Date Nadia Cortes MD [address] [place] [address] PCP - General Family Medicine 02/08/19 documented as of this encounter
== END 2024-09-01 14:37 | disposition home or self-care (01) ==
LOC: HO.HNS 13:31
PROVIDERS: PCP Internal Medicine; Referring Provider Registered Nurse Emergency; Visit Provider Physician Assistant
DX: M47.816 Spondylosis without myelopathy or radiculopathy, lumbar region (principal)
CPT/HCPCS: 99204

== ENCOUNTER → 2024-09-01 13:30 | Outpatient (BNVA) | payer OTHER, SELFPAY | PROVIDERS: PCP Internal Medicine; Referring Provider Registered Nurse Emergency; Visit Provider Physician Assistant | DX: M47.816 Spondylosis without myelopathy or radiculopathy, lumbar region (principal) | CPT/HCPCS: 99202 ==

== ENCOUNTER 2024-09-28 10:40 | Outpatient (REF) | payer OTHER, SELFPAY ==
--- OUTSIDE RECORDS SUMMARY | 2024-09-28 11:45 | XMS_ITS | Encounter Summary ---
Author Organization [employer] Address [address] [place] [address] Care Team Providers Care Retail Special Event Associate Name Role Phone Nadia Cortes MD Primary Care Provide r Encounter Details Date Type Department Care Team (Latest Contact Info) Description 04/13/2020 Abstract [facility] CONVERSIONS Dental, Provider, DDS Social History [...] on filedocumented in this encounter Care Teams Retail Special Event Associate Relationship Specialty Start Date End Date Nadia Cortes MD [address] [place] [phone] PCP - General Family Medicine 02/08/19 documented as of this encounter
[2024-09-28 12:27] LABS: Appearance Urine Clear; Color Urine Yellow; Glucose Urine UA Negative (Negative); Leukocyte Esterase Urine Trace (Negative); Nitrite Urine Negative (Negative); PH 5.5 (5.0-9.0); Specific Gravity - Urine 1.025 (1.005-1.025); UMIC TRIGGER UACC YES; Urine Blood Negative (Negative); Urine Ketones Trace mg/dL (Negative); Urine Protein Negative (Neg-Trace)
[2024-09-28 12:37] LABS: Alanine Aminotransferase 16 U/L (0-40); Albumin Level 4.1 g/dL (3.5-5.0); Alkaline Phosphatase 131 U/L (39-117); Anion Gap 10 (12-20); Aspartate Amino Transferase 23 U/L (5-37); Bilirubin Total 0.7 mg/dL (0.0-1.0); Blood Urea Nitrogen 20 mg/dL (9-16); Calcium 8.4 mg/dL (8.4-10.2); Carbon Dioxide 27 mmol/L (22-29); Chloride 107 mmol/L (96-108); Estimated Glomerular Filt Rate > 60; Glucose Random 104 mg/dL (60-115); Potassium 3.9 mmol/L (3.3-5.1); Sodium 140 mmol/L (135-145); Total Protein 6.8 g/dL (6.5-8.0)
[2024-09-28 13:16] LABS: Bacteria Urine Trace (None Seen); Hyaline Casts Urine 0-2 /LPF (0-2); RBC Urine 0-2 /HPF (0-2); Squamous Epithelial Cell Urine 0-2 /HPF (0-2); WBC Urine 0-5 /HPF (0-5)
== END 2024-09-28 10:41 | disposition home or self-care (01) ==
LOC: HO.LAB 10:40
PROVIDERS: Visit Provider Nurse Practitioner
DX: R10.33 Periumbilical pain (principal)
CPT/HCPCS: 36415; 80053; 81001; 81003

== ENCOUNTER 2024-10-06 13:33 | Outpatient (REF) | payer OTHER, SELFPAY ==
--- NOTE | ~2024-10-06 | CT_ITS ---
CLINICAL HISTORY: R19.7 - Diarrhea, unspecified CT abdomen and pelvis with contrast Comparison: None Findings: The lung bases are clear. There is cholelithiasis. There is no evidence of cholecystitis. 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 The patient is status post partial colectomy. There is an umbilical hernia containing a small nubbin of colon as well as a small bowel loop. There is no evidence of obstruction. Liquid stool is not identified. There is no colonic wall thickening. Pelvic contents unremarkable. Normal appendix. The bones are intact. 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 IMPRESSION: 1. Umbilical hernia containing a nubbin of colon and small bowel without evidence of obstruction. 2. Cholelithiasis. 3. 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 This document has been electronically signed by: Umesh Huang MD on 10/07/2024 08:47:55
--- OUTSIDE RECORDS SUMMARY | 2024-10-06 16:03 | XMS_ITS | Encounter Summary ---
Author Organization [employer] Address [address] [address] [place] [address] Care Team Providers Care [employer] Principal Name Role Phone Nadia Cortes MD Primary Care Provide r Encounter Details Date Type Department Care Team (Latest Contact Info) Description 04/13/2020 Abstract [facility] CONVERSIONS Dental, Provider, DDS Social History Tobacco [...] on filedocumented in this encounter Care Teams [employer] Principal Relationship Specialty Start Date End Date Nadia Cortes MD [address] [place] [phone] PCP - General Family Medicine 02/08/19 documented as of this encounter
[2024-10-06] MEDS: Barium Sulfate Oral (Mocha) 450 ML ORAL.SUSP 900 ML PO (16:12)
[2024-10-06] MEDS: iohexoL 350 MG/ML 100 ML INFUS..BTL 85 ML IV (16:13)
== END 2024-10-06 13:34 | disposition home or self-care (01) ==
LOC: HO.CT 13:33
PROVIDERS: PCP Internal Medicine; Visit Provider Nurse Practitioner
DX: R10.33 Periumbilical pain (principal); R19.7 Diarrhea, unspecified; R11.2 Nausea with vomiting, unspecified; Z98.890 Other specified postprocedural states
CPT/HCPCS: 74177; Q9967

== ENCOUNTER → 2024-10-06 13:35 | Outpatient (BNV) | payer OTHER, SELFPAY | PROVIDERS: PCP Internal Medicine; Visit Provider Radiology Diagnostic Radiology | DX: K42.9 Umbilical hernia without obstruction or gangrene (principal); K80.20 Calculus of gallbladder without cholecystitis without obstruction | CPT/HCPCS: 74177 ==

== ENCOUNTER 2024-10-12 12:39 | Outpatient (AMB) | payer OTHER, SELFPAY ==
--- NOTE | 2024-10-12 12:38 | MHC.OFFVIS ---
Vital Signs 10/12/24 13:14 Height 5 ft 5 in Weight 172 lb BMI 28.6 BP 104/62 Blood Pressure Location Lt brachial Position Sitting Pulse 80 Pulse Source Pulse Oximeter Pulse Oximetry (%) 98 Oxygen Delivery Method Room Air Intake Visit Reasons: Abd. pain and diarrhea Intake Note: Established patient for mgmt of chronic abd pain. Labs + imaging done. CC; C.O. abd pain and swelling (umbilical / lower abd), exacerbation upon intake of solids. Pt denies any additional sx at this time. Protection Manager Required: Yes Protection Manager Services: Protection Manager Present Protection Manager Name: Margarito [id number] [place] [facility] [place] Interpreted: clinical only Accompanied by: Family/Other Allergies No Known Allergies [No Known Allergies*] Allergy (Verified 10/12/24 12:40) Medication List - Last Reconciled 10/12/24 by NETTIE Nielsen acetaminophen 650 mg PO Q4H PRN amlodipine 10 mg PO DAILY aspirin 1 tab PO DAILY atorvastatin 40 mg PO DAILY diclofenac sodium 3% 1 appl topical BID dicyclomine 20 mg PO QID 30 days docusate sodium mg PO BID PRN lisinopril 20 mg PO DAILY loperamide (Imodium A-D) 2 mg PO Q6H PRN loratadine 10 mg PO QAM PRN omeprazole 40 mg PO DAILY sucralfate (Carafate) 1 g PO BEDTIME tamsulosin 0.4 mg PO DAILY vit C,J-Pc-zjubv-lutein-zeaxan 250-90-40-1 mg (PreserVision AREDS-2) 1 cap PO HPI HPI Abd. pain and diarrhea: Details: Assessment & Plan (1) Abdominal pain: Code(s): R10.9 - Unspecified abdominal pain Category: Medical Qualifiers: Abdominal location: periumbilical Qualified Code(s): R10.33 - Periumbilical pain (2) History of colostomy reversal: Onset Date: 06/03/21 Code(s): Z98.890 - Other specified postprocedural states Category: Surgical (3) Diarrhea: Code(s): R19.7 - Diarrhea, unspecified Category: Medical (4) Nausea and vomiting: Code(s): R11.2 - Nausea with vomiting, unspecified Category: Medical (5) Illiterate: Code(s): Z55.0 - Illiteracy and low-level literacy Category: Social Hx (6) History of alcohol abuse: Code(s): F10.11 - Alcohol abuse, in remission Category: Medical Plan [facility] PATIENT HAS BEEN LOST TO FOLLOW-UP SINCE 12/2022 (He shows me his surgery. 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 He had ischemia of the left colon and transverse colostomy which was later reversed. It does not appear that any specific reason for this occurrence was able to be uncovered for example: infection versus thrombus verses vasoconstrictive medications verses inherited hypercoagulability/cardiac causes.) He says a few weeks ago he developed pain in the left and periumbilical abd with N/V/D. When he coughs the pain is sharp. He also has pain in the same area when he eats. They tried Mylanta and An[place]. He wanted to present to the ER but they never picked him up. He is here today with his family and he is hesitant and somewhat vague historian and they try to assist him by filling in the details. They say he had an MRI and they found something but they don't know what. They have an appt for 11/01 with them. He is here today with his who is also a pt of mine and another female family member. They do not know his medications they are in a pack. I ask them to bring the medicines with them to the next appt. ? if he is taking carafate, is taking loperimide. ROV 2 weeks. Trial bentyl, he should bring all of his medications with him to the next appointment. Orders: Orders Complete Blood Count Auto Diff Today R10.33 - Periumbilical pain, R11.2 - Nausea with vomiting, unspecified, R19.7 - Diarrhea, unspecified, Z98.890 - Other specified postprocedural states H pylori Ag Stool Today R10.33 - Periumbilical pain, R11.2 - Nausea with vomiting, unspecified, R19.7 - Diarrhea, unspecified, Z98.890 - Other specified postprocedural states Comprehensive Met. Panel Today R10.33 - Periumbilical pain, R11.2 - Nausea with vomiting, unspecified, R19.7 - Diarrhea, unspecified, Z98.890 - Other specified postprocedural states XR abdomen w decubitus Today R10.33 - Periumbilical pain, R11.2 - Nausea with vomiting, unspecified, R19.7 - Diarrhea, unspecified, Z98.890 - Other specified postprocedural states CT abdomen pelvis w IV con Today R10.33 - Periumbilical pain, R11.2 - Nausea with vomiting, unspecified, R19.7 - Diarrhea, unspecified, Z98.890 - Other specified postprocedural states UA CC w/rflx Micro + Cult Today R10.33 - Periumbilical pain, R11.2 - Nausea with vomiting, unspecified, R19.7 - Diarrhea, unspecified, Z98.890 - Other specified postprocedural states Amylase Today R10.33 - Periumbilical pain, R11.2 - Nausea with vomiting, unspecified, R19.7 - Diarrhea, unspecified, Z98.890 - Other specified postprocedural states Lipase Today R10.33 - Periumbilical pain, R11.2 - Nausea with vomiting, unspecified, R19.7 - Diarrhea, unspecified, Z98.890 - Other specified postprocedural states C Reactive Protein Today R10.33 - Periumbilical pain, R11.2 - Nausea with vomiting, unspecified, R19.7 - Diarrhea, unspecified, Z98.890 - Other specified postprocedural states Phosphatidylethanol, Blood Today F10.11 - Alcohol abuse, in remission Ammonia Today F10.11 - Alcohol abuse, in remission, Z55.0 - Illiteracy and low-level literacy Medications: New dicyclomine 20 mg PO QID 30 days 120 tabs 6RF R10.33 - Periumbilical pain, R19.7 - Diarrhea, unspecified LABS: Laboratory Tests 08/30/24 09/28/24 14:52 11:04 WBC 11.2 H RBC 4.58 L Hgb 13.6 L Hct 42.3 MCV 92.4 Plt Count 198 Estimated GFR > 60 Total Bilirubin 0.7 AST 23 ALT 16 Alkaline Phosphatase 131 H Ammonia 43 C-Reactive Protein 0.75 H Amylase 64 Lipase 22 PEth 16:0/18.1 (POPEth) NEGATIVE Laboratory Tests 08/30/24 14:52 Ammonia 43 The H pylori stool was not completed X-RAY OF THE ABDOMEN WITH DECUBITUS 08/2024 FINDINGS: Bowel gas pattern is normal/nonspecific. There is no focally dilated loop or differential air-fluid levels on the upright radiograph. There is abundant stool seen throughout the colon and rectum consistent with obstipation. No organomegaly or large abdominal mass. There is an amorphous calcification overlying the left lobe of the liver, likely granulomatous liver calcification. The lung bases are clear. No suspicious osseous abnormality. Mild degenerative changes in the lower lumbar spine, bilateral SI joints, and mild to moderate degenerative changes in both hip joints. XR/XR abdomen min 2V IMPRESSION: 1. No acute findings in the abdomen. No bowel obstruction or abnormal bowel dilatation. 2. Obstipation. CAT SCAN OF THE ABDOMEN THEN IT PELVIS 10/07/2024 Findings: The lung bases are clear. There is cholelithiasis. There is no evidence of cholecystitis. 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 The patient is status post partial colectomy. There is an umbilical hernia containing a small nubbin of colon as well as a small bowel loop. There is no evidence of obstruction. Liquid stool is not identified. There is no colonic wall thickening. Pelvic contents unremarkable. Normal appendix. The bones are intact. 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 IMPRESSION: 1. Umbilical hernia containing a nubbin of colon and small bowel without evidence of obstruction. 2. Cholelithiasis. 3. 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 This document has been electronically signed by: Umesh Huang MD on 10/07/2024 08:47:55 TODAY'S VISIT [place] [facility]Buddy Here with and female family member ? Colonoscopy last in 2010 His periumbilical pain continues, it is described as always there, but worse with eating and lifting anything and coughing. He also continues to have diarrhea and is taking OTC imodium (uncertain if he still has carafate as I have not seen him since 2022). Theyi also do not know if he received the bentyl. His N/V has resolved. BRING ALL MEDICINE TO NEXT VISIT. He has not had a colonoscopy since 2010, and he still has most of his colon right sided left. He had a TA in 2010. He has had nothing since his partial colectomy. He denies any card or respiratory problems NO anesthesia or sedation problems. No ID problems. Return office visit along with his Deb. [facility] Medical History (Updated 10/12/24 @ 17:36 by NETTIE Nielsen) Severe sepsis Colitis Diarrhea Acute COVID-19 History of alcohol abuse Illiterate Chronic low back pain Arthritis Allergic rhinitis Necrosis of colon GERD (gastroesophageal reflux disease) High cholesterol HTN (hypertension) Surgical History (Updated 10/12/24 @ 12:50 by NETTIE Nielsen) History of colostomy reversal (06/03/21) History of cystoscopy Hx of colonoscopy Colostomy in place S/P left colectomy (~02/27/21) History of prostate surgery Social History Household Members: Unknown / Unable to assess Housing: Unknown / Unable to assess Do you presently have visiting nurse or other home services: No (from [facility]) Unable to assess alcohol history related to: Unknown Alcohol intake: never Patient Tobacco Use Status: Former Tobacco user Tobacco use type: Cigarette Advance Directives Date on File: 06/03/21 service: No Current occupational status: unemployed Review of Systems Const Denies fatigue, Denies fever(s), Denies night sweats, Denies poor appetite and Denies weight loss ENT Reports Normal hearing present, Denies dental pain, Denies dysphagia, Denies hearing loss, Denies mouth pain, Denies odynophagia, Denies throat swelling, Denies tongue swelling and Reports other (Dentition adequate) Card Reports no additional complaints Resp Reports no additional complaints GI Details: Reports abdominal pain, Denies melena, Denies bloating, Denies hematochezia, Denies constipation, Denies GI cramping, Denies dysphagia, Denies excessive flatus, Denies early satiety, Reports heartburn, Denies diarrhea, Denies nausea, Denies odynophagia, Denies vomiting and Denies hematemesis Musc Reports back pain and Reports myalgias Skin/Breast Denies pruritus, Denies lesions, Denies rash and Denies jaundice Neuro Reports Normal hearing present and Denies Abnormal speech present Endo Denies fatigue Aller/Immun Denies throat swelling and Denies tongue swelling Physical Exam Vital Signs: Last Vital Signs Pulse 80 10/12/24 13:14 BP 104/62 10/12/24 13:14 Pulse Ox 98 10/12/24 13:14 Oxygen Delivery Method Room Air 10/12/24 13:14 BMI result Body Mass Index 28.6 Const General: cooperative, no acute distress, well developed and well groomed Nutritional Appearance: average body habitus and well nourished Orientation/consciousness: oriented to person, oriented to place and oriented to time Limitations: language barrier and other limitations HEENT Head: Yes normocephalic and Yes atraumatic Eyes General: appearance normal, both eyes and all related structures Pupils: Equal, round and reactive pupils present Neck Neck: Yes normal visual inspection and Yes no lymphadenopathy Thyroid: Thyroid normal Resp Effort & Inspection: normal respiratory effort and able to speak in complete sentences Auscultation: clear to auscultation bilaterally Cardio Rate: regular rate Rhythm: regular rhythm Heart sounds: Normal, physiologic split S2 sound present Peripheral pulses: radial pulses present and posterior tibial pulses present GI Inspection: No distended, No Abdominal panniculus present and Yes visible herniation (UMBILICAL) Palpation (GI): Soft to palpation, Tenderness to palpation present (GI) periumbilically, no guarding, not rigid and No hepatosplenomegaly present Percussion: Yes normal to percussion Auscultation: normal bowel sounds Rectal Exam - Male: Yes deferred Skin General skin exam: no rashes or lesions noted, turgor normal, skin not dry, no jaundice, No spider nevi and no striae Rashes: no rashes Nails: normal Neuro General: oriented to person, oriented to place and oriented to time Cranial nerves: Yes Equal, round and reactive pupils present and Yes Normal hearing present Speech: No Abnormal speech present Extrem General: Yes normal to inspection, No clubbing, No cyanosis and No edema Psych Appearance: grossly normal and well kempt Mental Status: mental status grossly normal Speech and movement: Normal speech and movement present Affect: normal affect Attitude: cooperative Thought process: Circumstantial thought process present and not confabulating Thought content: Normal thought content present Insight: Poor insight present (Psych) Judgement: Poor judgement present (Psych) Assessment & Plan Assessment & Plan (1) Nausea and vomiting: Code(s): R11.2 - Nausea with vomiting, unspecified Category: Medical (2) Abdominal pain: Code(s): R10.9 - Unspecified abdominal pain Category: Medical Qualifiers: Abdominal location: periumbilical Qualified Code(s): R10.33 - Periumbilical pain (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, not elsewhere classified Category: Medical (4) Illiterate: Code(s): Z55.0 - Illiteracy and low-level literacy Category: Medical (5) Gallstones: Code(s): K80.20 - Calculus of gallbladder without cholecystitis without obstruction Category: Medical (6) Umbilical hernia: Comment: Small fat containing with very small amount of colon on CT 10/2024 Code(s): K42.9 - Umbilical hernia without obstruction or gangrene Category: Medical (7) GERD (gastroesophageal reflux disease): Code(s): K21.9 - Gastro-esophageal reflux disease without esophagitis Category: Medical (8) Tubular adenoma of colon: Comment: 2010 Code(s): D12.6 - Benign neoplasm of colon, unspecified Category: Medical (9) Pre-op examination: Code(s): Z01.818 - Encounter for other preprocedural examination Category: Medical Plan [place] #Buddy Here with and female family member ? Colonoscopy last in 2010 His periumbilical pain continues, it is described as always there, but worse with eating and lifting anything and coughing. He also continues to have diarrhea and is taking OTC imodium (uncertain if he still has carafate as I have not seen him since 2022). Theyi also do not know if he received the bentyl. His N/V has resolved. BRING ALL MEDICINE TO NEXT VISIT. He has not had a colonoscopy since 2010, and he still has most of his colon right sided left. He had a TA in 2010. He has had nothing since his partial colectomy. He denies any card or respiratory problems NO anesthesia or sedation problems. No ID problems. Return office visit along with his Deb. Orders: Orders NM hepatobiliary w pharm Today K80.20 - Calculus of gallbladder without cholecystitis without obstruction, R10.33 - Periumbilical pain Colonoscopy - GI Use Only Today D12.6 - Benign neoplasm of colon, unspecified Referrals General Surgery Referral K42.9 - Umbilical hernia without obstruction or gangrene, K80.20 - Calculus of gallbladder without cholecystitis without obstruction, R10.33 - Periumbilical pain Medications: New bisacodyl (Dulcolax (bisacodyl)) 10 mg (2 x 5 mg) PO BEDTIME 4 tabs 0RF 2 days peg 3350-electrolytes 236-22.74-6.74 -5.86 gram (Golytely) until fecal effluent is clear; do not exceed a total volume of 2,000 mL 240 mL PO Q10M 4,000 mL 0RF 1 day Z12.11 - Encounter for screening for malignant neoplasm of colon Changed From omeprazole 1 cap PO DAILY K21.9 - Gastro-esophageal reflux disease without esophagitis To omeprazole 40 mg PO DAILY 30 caps 6RF K21.9 - Gastro-esophageal reflux disease without esophagitis Refilled sucralfate (Carafate) 1 g PO BEDTIME 30 tabs 6RF K91.2 - Postsurgical malabsorption, not elsewhere classified, Z98.890 - Other specified postprocedural states Coding Level of Care Code Est Pt Level 4 (28445) Diagnoses Nausea and vomiting R11.2 Abdominal pain R10.33 Abdominal location: periumbilical Short bowel syndrome K91.2 Illiterate Z55.0 Gallstones K80.20 Umbilical hernia K42.9 GERD (gastroesophageal reflux disease) K21.9 Tubular adenoma of colon D12.6 Pre-op examination Z01.818
[2024-10-12 13:14] VITALS: BP 104/62; PULSE 80; O2SAT 98; BMI 28.6
--- OUTSIDE RECORDS SUMMARY | 2024-10-12 14:07 | XMS_ITS | Encounter Summary ---
Author Organization [employer] Address [address] [place] [address] Care Team Providers Care Quality Assurance Manager Name Role Phone Nadia Cortes MD Primary Care Provide r Encounter Details Date Type Department Care Team (Latest Contact Info) Description 04/13/2020 Abstract [facility] CONVERSIONS Dental, Provider, DDS Social [...] on filedocumented in this encounter Care Teams Quality Assurance Manager Relationship Specialty Start Date End Date Nadia Cortes MD [address] [place] [id number] PCP - General Family Medicine 02/08/19 documented as of this encounter
== END 2024-10-12 14:08 | disposition home or self-care (01) ==
LOC: HO.HGI 12:39
PROVIDERS: PCP Internal Medicine; Visit Provider Nurse Practitioner
DX: R11.2 Nausea with vomiting, unspecified (principal); R10.33 Periumbilical pain; K91.2 Postsurgical malabsorption, not elsewhere classified; Z55.0 Illiteracy and low-level literacy; K80.20 Calculus of gallbladder without cholecystitis without obstruction; K42.9 Umbilical hernia without obstruction or gangrene; K21.9 Gastro-esophageal reflux disease without esophagitis; D12.6 Benign neoplasm of colon, unspecified
CPT/HCPCS: 99214

== ENCOUNTER → 2024-10-12 12:39 | Outpatient (BNVA) | payer OTHER, SELFPAY | PROVIDERS: PCP Internal Medicine; Visit Provider Nurse Practitioner | DX: Z01.818 Encounter for other preprocedural examination (principal); D12.6 Benign neoplasm of colon, unspecified; R10.33 Periumbilical pain; K91.2 Postsurgical malabsorption, not elsewhere classified; R11.2 Nausea with vomiting, unspecified; K80.20 Calculus of gallbladder without cholecystitis without obstruction; K42.9 Umbilical hernia without obstruction or gangrene; K21.9 Gastro-esophageal reflux disease without esophagitis; Z98.890 Other specified postprocedural states; Z55.0 Illiteracy and low-level literacy | CPT/HCPCS: 99212 ==

== ENCOUNTER 2024-11-09 13:11 | Outpatient (RCR) | payer OTHER, SELFPAY | END 2024-11-09 15:59 | disposition home or self-care (01) | LOC: HO.PT 13:11 | PROVIDERS: PCP Internal Medicine; Visit Provider Internal Medicine | DX: M54.50 Low back pain, unspecified (principal); G89.29 Other chronic pain | CPT/HCPCS: 97110; 97161; 97162 ==

== ENCOUNTER → 2024-11-18 10:33 | Outpatient (REF) | payer OTHER, SELFPAY ==
--- NOTE | ~2024-11-18 | NM_ITS ---
EXAMINATION: NM HEPATOBILIARY WITH PHARM HISTORY: K80.20 - Calculus of gallbladder without cholecystitis without obstruction. TECHNIQUE: An hepatobiliary scan was performed following the intravenous administration of 5 mCi technetium 99m-mebrofenin. Sequential images were obtained over 90 minutes. Subsequently, the patient received 1.6 microgram of IV CCK over 30 minutes and additional imaging was performed. COMPARISON: Correlation is made with a CT of the abdomen with contrast dated 10/06/2024. FINDINGS: There is normal uptake and excretion of the radiopharmaceutical by the liver. Gallbladder activity is noted at 70 minutes. Common bile duct activity is seen at 6 minutes. Small bowel activity is noted at 12 minutes. After the administration of intravenous CCK, the estimated gallbladder ejection fraction is 7%, which is low (normal 35-80%). NM/NM hepatobiliary w pharm IMPRESSION: No evidence of cystic duct obstruction. Abnormally low gallbladder ejection fraction of 7% is suggestive of biliary dyskinesia. Electronically signed by: Cristian Galeano MD 11/18/2024 02:34 PM EDT
--- OUTSIDE RECORDS SUMMARY | 2024-11-18 11:01 | XMS_ITS | Clinical Summary ---
Author Organization [address] [facility] Address [address] [place] [address] Phone Care Team Providers Care Security System Analyst Name Role Phone Nadia Cortes MD [...] Encounters Date Type Department Care Team Description 10/31/2024 1:45 PM EDT Office Visit Orthopedic Surgery [facility] [address] [phone] Oscar Huffman DPM PVD (peripheral vascular disease) ([facility] V24) (Primary Dx); Pain in both feet; Arthritis of both feet; Metatarsalgia of left foot 10/18/2024 2:00 PM EDT Office Visit Vascular Surgery [facility] [address] [facility] [address] [place] [address] Yue Sidhu PA PAD (peripheral artery disease) ([facility] V24) (Primary Dx); Chronic bilateral low back pain, unspecified whether sciatica present; Leg swelling 08/25/2024 3:15 PM EDT Office Visit Orthopedic Surgery [facility] [address] [phone] Oscar Huffman DPM PVD (peripheral vascular disease) ([facility] V24) (Primary Dx); Pain in both feet; Arthritis of both feet; Metatarsalgia of left foot from Last 3 Months Social History Tobacco Use Types Packs/Day Years Used Date Smoking Tobacco: Never Assessed Sex and Gender Information Value Date Recorded Sex Assigned at Not on file Legal Sex Male 4:38 PM EDT Gender Identity Not on file Sexual Orientation Not on file Last Filed Vital Signs Vital Sign Reading Time Taken Comments Blood Pressure 119/74 10/18/2024 1:49 PM EDT Pulse 74 10/18/2024 1:49 PM EDT Temperature - - Respiratory Rate - - Oxygen Saturation - - Inhaled Oxygen Concentration - - Weight 79.4 kg (175 lb) 10/31/2024 2:10 PM EDT Height 172.7 cm (5' 7.99 ) 10/31/2024 2:10 PM ED T Body Mass Index 26.61 10/31/2024 2:10 PM EDT Plan of Treatment Upcoming Encounters Date Type Department Care Team (Late st Contact Info) Description 01/23/2025 2:00 PM EDT Office Visit Orthopedic Surgery - [facility] [address] [phone] Oscar Huffman DPM 175 [facility] 250 [place] [address] 09/01/2025 12:00 PM EDT Ancillary Procedure [facility] [address] [facility] [address] [place] [address] 10/18/2025 1:00 PM EDT Office Visit Vascular Surgery - [facility] [address] [facility] [address] [place] [phone] Isa Ching MD 300 [facility] [address] [place] [address] Health Maintenance Due Date Last Done Comments Hepatitis A Vaccines (1 of 2 - Risk 2-dose series) 1971 RSV Immunization Adult Patients (1 - Risk 60-74 years 1-dose series) 2012 Zoster Vaccines (2 of 3) 11/13/2016 09/18/2016 DTaP,Tdap,and Td Vaccines (3 - Td or Tdap) 07/21/2023 07/20/2013, 02/26/2010 Abdominal Aortic Aneurysm (AAA) Screen 02/28/2024 Colorectal Cancer Screening: Colonoscopy 02/28/2024 Depression Screening 02/28/2024 12/15/2022 Falls Risk Assessment 02/28/2024 Hepatitis C Screening 02/28/2024 Medicare Annual Wellness Visit 02/28/2024 Social Influencers of Health Screening 02/28/2024 COVID-19 Vaccine ( season) 2024 02/04/2024, 09/07/2020, 08/10/2020 Influenza Vaccine (#1) 2025 , 01/31/2022, 02/08/2021, Additional history exists Hypertension/CHF/CAD Annual BMP Blood Test 08/30/2025 08/30/2024 Cholesterol Screening (Lipid Panel) 08/11/2028 08/12/2023 Pneumococcal Vaccine: 50+ Years Completed 12/15/2022, 11/13/2016, 02/26/2010 HIB Vaccines Aged Out No longer eligi [...] patient's age to complete this topic Insurance [facility] MEDIC[facility] Member Subscriber Plan / Payer (Ef fective 2021-Present) Name:Quincy Aviles Relation to Subscriber:Self Name:Quincy Aviles Payer ID:[id number] Group ID:[id number] Type:Not on file Address: [place] [address] [id number] Care Teams Security System Analyst Relationship Specialty Start Date End Date Nadia Cortes MD [address] [phone] PCP - General 02/08/24
== END ==
LOC: HO.NUCMED 10:33
PROVIDERS: PCP Internal Medicine; Visit Provider Nurse Practitioner
DX: K80.20 Calculus of gallbladder without cholecystitis without obstruction (principal); R10.33 Periumbilical pain
CPT/HCPCS: 78227; A9537; J2805

== ENCOUNTER → 2024-11-18 10:35 | Outpatient (BNV) | payer OTHER, SELFPAY | PROVIDERS: PCP Internal Medicine; Visit Provider Radiology Diagnostic Radiology | DX: R93.2 Abnormal findings on diagnostic imaging of liver and biliary tract (principal) | CPT/HCPCS: 78227 ==

== ENCOUNTER 2024-12-30 14:51 | Outpatient (AMB) | payer OTHER, SELFPAY ==
--- OUTSIDE RECORDS SUMMARY | 2024-12-30 14:53 | XMS_ITS | Clinical Summary ---
Author Organization 175 [facility] Address 175 [place] [address] Phone Care Team Providers Care Furniture Repair Technician Name Role Phone Nadia Cortes MD [...] PM EDT Office Visit Orthopedic Surgery - [place] [address] [facility] [address] [place] [phone] Oscar Huffman DPM PVD (peripheral vascular disease) ([facility] V24) (Primary Dx); Pain in both feet; Arthritis of both feet; Metatarsalgia of left foot 10/18/2024 2:00 PM EDT Office Visit Vascular Surgery [facility] [address] [place] [phone] Yue Sidhu PA PAD (peripheral artery disease) ([facility] V24) (Primary Dx); Chronic bilateral low back pain, unspecified whether sciatica present; Leg swelling from Last 3 Months Social History Tobacco [...] PM EDT Office Visit Orthopedic Surgery - [place] 250 175 [facility] [address] [place] [address] Oscar Huffman DPM 230 [place] [address] 09/01/2025 12:00 PM EDT Ancillary Procedure [facility] - [facility] [address] 300 [facility] 101 [place] [address] 10/18/2025 1:00 PM EDT Office Visit Vascular Surgery - [place] 300 [facility] [address] [place] [address] Isa Ching MD 230 [place] [address] Health Maintenance Due Date Last Done Comments Hepatitis A Vaccines (1 of 2 - Risk 2-dose series) 1971 RSV Immunization Adult Patients (1 - Risk 60-74 years 1-dose series) 2012 Zoster Vaccines (2 of 3) 11/13/2016 09/18/2016 DTaP,Tdap,and Td Vaccines (3 - Td or Tdap) 07/21/2023 07/20/2013, 02/26/2010 Abdominal Aortic Aneurysm (AAA) Screen 02/28/2024 Colorectal Cancer Screening: Colonoscopy 02/28/2024 Falls Risk Assessment 02/28/2024 Hepatitis C Screening 02/28/2024 Medicare Annual Wellness Visit 02/28/2024 Social Influencers of Health Screening 02/28/2024 Depression Screening 05/04/2024 COVID-19 Vaccine ( season) 2024 02/04/2024, 09/07/2020, [...] Subscriber Plan / Payer (Ef fective 2021-Present) Name:Tita HarrisQuincy Relation to Subscriber:Self Name:Tita HarrisQuincy Payer ID:[id number] Group ID:[id number] Type:Not on file Address: [place] [facility] [address] [place] [id number] Care Teams Furniture Repair Technician Relationship Specialty Start Date End Date Nadia Cortes MD [address] [phone] PCP - General 02/08/24
--- NOTE | 2024-12-30 15:06 | MHC.OFFVIS ---
Intake Visit Reasons: Abd pain, diarrhea Intake Note: Est pt for mgmt of chronic abd pain and fecal abn. Provider roomed this pt due to the pt showing up suddenly / unexpectedly with another pt. Pt originally expected as a no show but came in late. 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, not elsewhere classified Category: Medical (4) Illiterate: Code(s): Z55.0 - Illiteracy and low-level literacy Category: Medical (5) Gallstones: Code(s): K80.20 - Calculus of gallbladder without cholecystitis without obstruction Category: Medical (6) Umbilical hernia: Comment: Small fat containing with very small amount of colon on CT 10/2024 Code(s): K42.9 - Umbilical hernia without obstruction or gangrene Category: Medical (7) GERD (gastroesophageal reflux disease): Code(s): K21.9 - Gastro-esophageal reflux disease without esophagitis Category: Medical (8) Tubular adenoma of colon: Comment: 2010 Code(s): D12.6 - Benign neoplasm of colon, unspecified Category: Medical (9) Pre-op examination: Code(s): Z01.818 - Encounter for other preprocedural examination Category: Medical Plan [place] #Buddy Here with and female family member ? Colonoscopy last in 2010 His periumbilical pain continues, it is described as always there, but worse with eating and lifting anything and coughing. He also continues to have diarrhea and is taking OTC imodium (uncertain if he still has carafate as I have not seen him since 2022). Theyi also do not know if he received the bentyl. His N/V has resolved. BRING ALL MEDICINE TO NEXT VISIT. He has not had a colonoscopy since 2010, and he still has most of his colon right sided left. He had a TA in 2010. He has had nothing since his partial colectomy. He denies any card or respiratory problems NO anesthesia or sedation problems. No ID problems. Return office visit along with his Deb. Orders: Orders NM hepatobiliary w pharm Today K80.20 - Calculus of gallbladder without cholecystitis without obstruction, R10.33 - Periumbilical pain Colonoscopy - GI Use Only Today D12.6 - Benign neoplasm of colon, unspecified Referrals General Surgery Referral K42.9 - Umbilical hernia without obstruction or gangrene, K80.20 - Calculus of gallbladder without cholecystitis without obstruction, R10.33 - Periumbilical pain Medications: New bisacodyl (Dulcolax (bisacodyl)) 10 mg (2 x 5 mg) PO BEDTIME 4 tabs 0RF 2 days peg 3350-electrolytes 236-22.74-6.74 -5.86 gram (Golytely) until fecal effluent is clear; do not exceed a total volume of 2,000 mL 240 mL PO Q10M 4,000 mL 0RF 1 day Z12.11 - Encounter for screening for malignant neoplasm of colon Changed From omeprazole 1 cap PO DAILY K21.9 - Gastro-esophageal reflux disease without esophagitis To omeprazole 40 mg PO DAILY 30 caps 6RF K21.9 - Gastro-esophageal reflux disease without esophagitis Refilled sucralfate (Carafate) 1 g PO BEDTIME 30 tabs 6RF K91.2 - Postsurgical malabsorption, not elsewhere classified, Z98.890 - Other specified postprocedural states HIDA SCAN 11/18/2024 FINDINGS: There is normal uptake and excretion of the radiopharmaceutical by the liver. Gallbladder activity is noted at 70 minutes. Common bile duct activity is seen at 6 minutes. Small bowel activity is noted at 12 minutes. After the administration of intravenous CCK, the estimated gallbladder ejection fraction is 7%, which is low (normal 35-80%). NM/NM hepatobiliary w pharm IMPRESSION: No evidence of cystic duct obstruction. Abnormally low gallbladder ejection fraction of 7% is suggestive of biliary dyskinesia. COLONOSCOPY BIOPSY TODAY'S VISIT [place] # Yuly Oneal He is here today with his who also has an appointment with me and a female family member who appears to be a daughter. We review the HIDA scan I let him know that he has biliary dyskinesia that is likely causing his abdominal pain. He says he received the Creon and he is taking it, but it is not in the medication they present to me today and both he and his are extremely unreliable in terms of their medication reporting. However, it does not seem that he has had an improvement while on the Creon, if he is on the Creon. I did let him know that he should see general surgery to consider an elective cholecystectomy going forward. I put the referral in today and gave them the phone number to call. In the meantime, he is on omeprazole, sucralfate, and Creon. He has not yet heard to schedule the colonoscopy, which is normal but he is in line. Return office visit in 6 months COLONOSCOPY BIOPSY [facility] Medical History (Updated 11/22/24 @ 09:06 by NETTIE Nielsen) Severe sepsis Colitis Diarrhea Acute COVID-19 History of alcohol abuse Illiterate Chronic low back pain Arthritis Allergic rhinitis Necrosis of colon GERD (gastroesophageal reflux disease) High cholesterol HTN (hypertension) Surgical History (Updated 10/12/24 @ 12:50 by NETTIE Nielsen) History of colostomy reversal (06/03/21) History of cystoscopy Hx of colonoscopy Colostomy in place S/P left colectomy (~02/27/21) History of prostate surgery Social History Household Members: Unknown / Unable to assess Housing: Unknown / Unable to assess Do you presently have visiting nurse or other home services: No (from [facility]) Unable to assess alcohol history related to: Unknown Alcohol intake: never Patient Tobacco Use Status: Former Tobacco user Tobacco use type: Cigarette Advance Directives Date on File: 06/03/21 service: No Current occupational status: unemployed Review of Systems Const Denies fatigue, Denies fever(s), Denies night sweats, Denies poor appetite and Denies weight loss Eyes Details: Is glasses Reports requires corrective lenses ENT Reports Normal hearing present, Denies dental pain, Denies dysphagia, Denies hearing loss, Denies mouth pain, Denies odynophagia, Denies throat swelling, Denies tongue swelling and Reports other (Dentition adequate) Card Reports no additional complaints Resp Reports no additional complaints GI Details: Reports abdominal pain, Denies melena, Denies bloating, Denies hematochezia, Denies constipation, Denies GI cramping, Denies dysphagia, Denies excessive flatus, Denies early satiety, Reports heartburn, Denies diarrhea, Reports nausea, Denies odynophagia, Reports vomiting and Denies hematemesis Skin/Breast Denies pruritus, Denies lesions, Denies rash and Denies jaundice Neuro Reports Normal hearing present and Denies Abnormal speech present Endo Denies fatigue Aller/Immun Denies throat swelling and Denies tongue swelling Physical Exam Const General: cooperative, no acute distress, well developed and well groomed Nutritional Appearance: average body habitus and well nourished Orientation/consciousness: oriented to person, oriented to place and oriented to time Limitations: language barrier and other limitations HEENT Head: Yes normocephalic and Yes atraumatic Eyes General: appearance normal, both eyes and all related structures Pupils: Equal, round and reactive pupils present Neck Neck: Yes normal visual inspection and Yes no lymphadenopathy Thyroid: Thyroid normal Resp Effort & Inspection: normal respiratory effort and able to speak in complete sentences Auscultation: clear to auscultation bilaterally Cardio Rate: regular rate Rhythm: regular rhythm Heart sounds: Normal, physiologic split S2 sound present Peripheral pulses: radial pulses present and posterior tibial pulses present GI Inspection: No distended, No Abdominal panniculus present and Yes scar Palpation (GI): Soft to palpation, nontender, no guarding, not rigid, No hepatosplenomegaly present and Hernia present umbilical Percussion: Yes normal to percussion Auscultation: normal bowel sounds Rectal Exam - Male: Yes deferred Abdomen image:  1. Surgical scars Skin General skin exam: no rashes or lesions noted, turgor normal, skin not dry, no jaundice, No spider nevi and no striae Rashes: no rashes Nails: normal Neuro General: oriented to person, oriented to place and oriented to time Cranial nerves: Yes Equal, round and reactive pupils present and Yes Normal hearing present Speech: No Abnormal speech present Extrem General: Yes normal to inspection, No clubbing, No cyanosis and No edema Psych Thought process: Normal thought process present and not confabulating Thought content: Normal thought content present Insight: Good insight present (Psych) Judgement: Good judgement present (Psych) Assessment & Plan Assessment & Plan (1) Biliary dyskinesia: Comment: HIDA scan shows gallbladder ejection fraction of 7% Code(s): K82.8 - Other specified diseases of gallbladder Category: Medical (2) Gallstones: Code(s): K80.20 - Calculus of gallbladder without cholecystitis without obstruction Category: Medical (3) Nausea and vomiting: Code(s): R11.2 - Nausea with vomiting, unspecified Category: Medical (4) GERD (gastroesophageal reflux disease): Code(s): K21.9 - Gastro-esophageal reflux disease without esophagitis Category: Medical (5) Short bowel syndrome: Code(s): 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 We review the HIDA scan I let him know that he has biliary dyskinesia that is likely causing his abdominal pain. He says he received the Creon and he is taking it, but it is not in the medication they present to me today and both he and his are extremely unreliable in terms of their medication reporting. However, it does not seem that he has had an improvement while on the Creon, if he is on the Creon. I did let him know that he should see general surgery to consider an elective cholecystectomy going forward. I put the referral in today and gave them the phone number to call. In the meantime, he is on omeprazole, sucralfate, and Creon. HIS IS QUITE FIXATED ON HIS umbilical hernia but I again educated them that it is not in trapping anything and it is not the source of his pain so far as we can see on imaging studies. They need to concentrate on the gallbladder as this clearly would be a source of pain. He has not yet heard to schedule the colonoscopy, which is normal but he is in line. Return office visit in 6 months COLONOSCOPY BIOPSY Coding Level of Care Code Est Pt Level 4 (03840) Diagnoses Biliary dyskinesia K82.8 Gallstones K80.20 Nausea and vomiting R11.2 GERD (gastroesophageal reflux disease) K21.9 Short bowel syndrome K91.2 Tubular adenoma of colon D12.6 Umbilical hernia K42.9 Time Spent (min) 34
== END 2024-12-30 16:35 | disposition home or self-care (01) ==
LOC: HO.HGI 14:51
PROVIDERS: PCP Internal Medicine; Visit Provider Nurse Practitioner
DX: K82.8 Other specified diseases of gallbladder (principal); K80.20 Calculus of gallbladder without cholecystitis without obstruction; R11.2 Nausea with vomiting, unspecified; K21.9 Gastro-esophageal reflux disease without esophagitis; K91.2 Postsurgical malabsorption, not elsewhere classified; D12.6 Benign neoplasm of colon, unspecified; K42.9 Umbilical hernia without obstruction or gangrene
CPT/HCPCS: 99214

== ENCOUNTER → 2024-12-30 14:51 | Outpatient (BNVA) | payer OTHER, SELFPAY | PROVIDERS: PCP Internal Medicine; Visit Provider Nurse Practitioner | DX: K82.8 Other specified diseases of gallbladder (principal); K80.20 Calculus of gallbladder without cholecystitis without obstruction; R11.2 Nausea with vomiting, unspecified; K21.9 Gastro-esophageal reflux disease without esophagitis; K91.2 Postsurgical malabsorption, not elsewhere classified; D12.6 Benign neoplasm of colon, unspecified; K42.9 Umbilical hernia without obstruction or gangrene | CPT/HCPCS: 99212 ==

== ENCOUNTER 2025-02-21 08:55 | Outpatient (AMB) | payer OTHER, SELFPAY ==
--- NOTE | 2025-02-21 08:57 | A.OFFVIS_ITS ---
Vital Signs 02/21/25 09:04 Height 5 ft 5 in Weight 175 lb 2 oz BMI 29.1 BP 140/68 H Blood Pressure Location Rt brachial Position Sitting Pulse 77 Intake Visit Reasons: Gallbladder problems Intake Note: This patient presents for an assessment for gallbladder problems. Pt c/o; RUQ pain, reports he was advised he has a hernia in the navel- reports pain, occasional nausea, no vomiting. Criminal Justice Lawyer Required: Yes Criminal Justice Lawyer Language: Music Agent Services: Criminal Justice Lawyer Present Criminal Justice Lawyer Name: Louis Information Interpreted: non-clinical & clinical Accompanied by: Sister in-law Allergies No Known Allergies (No Known Allergies*) Allergy (Verified 02/21/25 09:05) Medication List - Last Reconciled 02/21/25 by Jose Riddle MD acetaminophen 650 mg PO Q4H PRN amlodipine 10 mg PO DAILY aspirin 1 tab PO DAILY atorvastatin 40 mg PO DAILY bisacodyl (Dulcolax (bisacodyl)) 10 mg (2 x 5 mg) PO BEDTIME 2 days diclofenac sodium 3% 1 appl topical BID dicyclomine 20 mg PO QID 30 days docusate sodium mg PO BID PRN slpstl-qnlibupy-pthnztn (pork) 36,000-114,000- 180,000 unit (Creon) 2 caps PO BID lisinopril 20 mg PO DAILY loperamide (Imodium A-D) 2 mg PO Q6H PRN loratadine 10 mg PO QAM PRN omeprazole 40 mg PO DAILY peg 3350-electrolytes 236-22.74-6.74 -5.86 gram (Golytely) 240 mL PO Q10M 1 day sucralfate (Carafate) 1 g PO BEDTIME tamsulosin 0.4 mg PO DAILY vit C,M-Up-gwhlt-lutein-zeaxan 250-90-40-1 mg (PreserVision AREDS-2) 1 cap PO HPI Comments Details: 74-year-old male patient presenting with complaints of an incisional hernia in the umbilicus and gallbladder dysfunction causing pain in the right upper quadrant. Patient has a previous history of ischemic left colon and previously underwent a left colectomy with colostomy (02/27/2021) followed by colostomy closure performed (06/03/2021). He now notes a lump in the umbilicus which causes discomfort especially when lifting. He has some nausea without vomiting. The pain radiates into the back. Workup with CT of the abdomen and pelvis revealed an umbilical hernia with transverse colon as well as small bowel within the hernia sac. Gallstones were noted in the gallbladder without evidence of wall thickening. Subsequent HIDA scan revealed normal filling of the gallbladder however the ejection fraction was 7% suggestive of biliary dyskinesia. He presents today to discuss repair of the umbilical hernia and laparoscopic cholecystectomy possible open. [facility] Medical History Severe sepsis Colitis Diarrhea Acute COVID-19 History of alcohol abuse Illiterate Chronic low back pain Arthritis Allergic rhinitis Necrosis of colon GERD (gastroesophageal reflux disease) High cholesterol HTN (hypertension) Surgical History History of colostomy reversal (06/03/21) History of cystoscopy Hx of colonoscopy Colostomy in place S/P left colectomy (~02/27/21) History of prostate surgery Social History Household Members: Unknown / Unable to assess Housing: Unknown / Unable to assess Do you presently have visiting nurse or other home services: No (from [facility]) Unable to assess alcohol history related to: Unknown Alcohol intake: never Patient Tobacco Use Status: Former Tobacco user Tobacco use type: Cigarette Advance Directives Date on File: 06/03/21 service: No Current occupational status: unemployed Review of Systems Const All systems reviewed & are unremarkable except as noted in HPI and below Physical Exam Vital Signs: Last Vital Signs Pulse 77 02/21/25 09:04 BP 140/68 H 02/21/25 09:04 BMI result Body Mass Index 29.1 Const General: cooperative and no acute distress Nutritional Appearance: well nourished Orientation/consciousness: patient oriented x3 Limitations: no limitations HEENT Head: Yes normocephalic and Yes atraumatic Ears: hearing grossly normal bilaterally Resp Effort & Inspection: normal respiratory effort, no audible wheezes, no cough and no respiratory distress Cardio Jugular venous distension: no JVD GI Other: 4 cm umbilical hernia which is easily reducible, with no overlying skin changes. Abdomen is soft and nondistended, flat. Midline incision is otherwise intact. Tender in the right upper quadrant with a positive Orellana sign. Inspection: Yes normal to inspection Skin Other: Warm, dry, no rash Neuro General: patient oriented x3 Extrem General: Yes no clubbing, cyanosis or edema Assessment & Plan Assessment & Plan (1) Umbilical hernia: Comment: Small fat containing with very small amount of colon on CT 10/2024 Code(s): K42.9 - Umbilical hernia without obstruction or gangrene Category: Medical (2) Gallstones: Code(s): K80.20 - Calculus of gallbladder without cholecystitis without obstruction Category: Medical (3) Biliary dyskinesia: Comment: HIDA scan shows gallbladder ejection fraction of 7% Code(s): K82.8 - Other specified diseases of gallbladder Category: Medical Plan 74-year-old male patient presenting with a combination of an umbilical hernia following his previous colon surgery as well as biliary dyskinesia as described by the HIDA scan. I recommended repair of the umbilical hernia possibly with mesh as well as laparoscopic or possible open cholecystectomy. I reviewed the procedure, risks (bleeding, infection, pain, scarring, injury to surrounding organs, recurrent hernia) and benefits. After discussion of the procedure, risks, and alternatives, he consents to a repair of the umbilical hernia with mesh, laparoscopic or possible open cholecystectomy. This will be performed as a short-stay surgery at his earliest convenience. Coding Level of Care Code New Pt Level 4 (61770) Diagnoses Umbilical hernia K42.9 Gallstones K80.20 Biliary dyskinesia K82.8
[2025-02-21 09:04] VITALS: BP 140/68; PULSE 77; BMI 29.1
== END 2025-02-21 09:30 | disposition home or self-care (01) ==
LOC: HO.HGS 08:56
PROVIDERS: PCP Internal Medicine; Visit Provider Surgery
DX: K42.9 Umbilical hernia without obstruction or gangrene (principal); K80.20 Calculus of gallbladder without cholecystitis without obstruction; K82.8 Other specified diseases of gallbladder
CPT/HCPCS: 99204

== ENCOUNTER → 2025-02-21 08:55 | Outpatient (BNVA) | payer OTHER, SELFPAY | PROVIDERS: PCP Internal Medicine; Visit Provider Surgery | DX: K42.9 Umbilical hernia without obstruction or gangrene (principal); K80.20 Calculus of gallbladder without cholecystitis without obstruction; K82.8 Other specified diseases of gallbladder | CPT/HCPCS: 99202 ==

== ENCOUNTER 2025-03-08 08:03 | Day surgery (SDC) | payer OTHER, SELFPAY ==
--- OUTSIDE RECORDS SUMMARY | 2025-02-23 18:08 | XMS_ITS | Clinical Summary ---
Author Organization 175 [facility] Address 175 [place] [address] Phone Care Team Providers Care Seed Trucker Name Role Phone Nadia Cortes MD Primary [...] Encounters Date Type Department Care Team Description 01/23/2025 2:00 PM EDT Office Visit Orthopedic Surgery - [address] [phone] Oscar Huffman DPM PVD (peripheral vascular disease) ([facility] V24) (Primary Dx); Pain in both [...] Care Team (Late st Contact Info) Description 04/24/2025 1:30 PM EST Office Visit Orthopedic Surgery - [place] [address] 175 [facility] [address] [place] [phone] Oscar Huffman, DPM [address] [place] [address] [place] [address] 09/01/2025 12:00 PM EDT Ancillary Procedure [facility] [address] [place] [phone] 10/18/2025 1:00 PM EDT Office Visit Vascular Surgery - [place] [address] [place] [phone] Isa Ching MD [address] [place] [phone] Health Maintenance Due Date Last Done Comments Colorectal Cancer Screening: Colonoscopy 1950 Hepatitis A Vaccines (1 of 2 - Risk 2-dose series) 1971 RSV Immunization Adult Patients (1 - Risk 50-74 years 1-dose series) 2002 Zoster Vaccines (2 of 3) 11/13/2016 09/18/2016 DTaP,Tdap,and Td Vaccines (3 - Td or Tdap) 07/21/2023 07/20/2013, 02/26/2010 Abdominal Aortic Aneurysm (AAA) Screen 02/28/2024 Falls Risk Assessment 02/28/2024 Hepatitis C Screening 02/28/2024 Medicare Annual Wellness Visit 02/28/2024 Social Influencers of Health Screening 02/28/2024 Depression Screening 05/04/2024 COVID-19 Vaccine ( season) 2025 02/04/2024, 09/07/2020, 08/10/2020 Influenza Vaccine (#1) 2025 [...] patient's age to complete [place] [address] [facility] MEDICARE Member Subscriber Plan / Payer (Ef fective 2021-Present) Name:Quincy Aviles Relation to Subscriber:Self Name:Quincy Aviles Payer ID:[id number] Group ID:[id number] Type:Not on file Address: [address] [facility] [address] [id number] Care Teams Seed Trucker Relationship Specialty Start Date End Date Nadia Cortes MD [address] [place] [phone] PCP - General 02/08/24
[2025-03-03 13:19] VITALS: BP 126/64; PULSE 66; RESP 16; O2SAT 99; BMI 27.5
--- NOTE | 2025-03-03 13:29 | HO.ANESPROP2 ---
Documented by User: Shanthi Majano NP 03/03/25 13:59 HPI - Anesthesia Eval Consult details Narrative: 74 yr old male for Cholecystectomy Laparoscopic,possible open; Repair Hernia Umbilical Reducible with mesh, scheduled for 03/08/25, seen in PAT 03/03/25 No recent illness. No CP or SOB with walking & stair climbing, physical activity limited due to pain in legs. GERD: controlled, occasional PPI use PMFSH Active Problems Active Problems: All Active Problems Biliary dyskinesia (Acute) Pre-op examination (Acute) Tubular adenoma of colon (Acute) Umbilical hernia (Acute) Gallstones (Acute) Nausea and vomiting (Acute) Spinal stenosis (Acute) Neurogenic bladder (Acute) Lumbar spondylosis (Acute) Urinary incontinence without sensory awareness (Acute) Lumbar radiculopathy (Acute) Short bowel syndrome (Acute) Leukocytosis (Acute) Abdominal pain (Acute) HTN (hypertension) (Acute) High cholesterol (Acute) GERD (gastroesophageal reflux disease) (Acute) Illiterate (Acute) History of alcohol abuse (Acute) Past Medical History Medical History Back pain Severe sepsis Colitis Diarrhea Acute COVID-19 History of alcohol abuse Illiterate Chronic low back pain Arthritis Allergic rhinitis Necrosis of colon GERD (gastroesophageal reflux disease) High cholesterol HTN (hypertension) Family History Family history of problems with anesthesia: No Surgical History Surgical History History of colostomy reversal (06/03/21) History of cystoscopy Hx of colonoscopy Colostomy in place S/P left colectomy (02/27/21) History of prostate surgery History of Problems with Anesthesia: No Social History Social History Household Members: Significant Other Housing: Apartment Are you a primary career guidance counselor to a significant other at home: No Do you presently have visiting nurse or other home services: Yes ([employer] 3 hours per day) Alcohol intake: never Patient Tobacco Use Status: Former Tobacco user Tobacco use type: Cigarette Smoked in Last 30 Days: No Use of substances other than those prescribed or required for medical reasons: No Have you been hit, kicked, punched, or otherwise hurt by someone within the past year? If so, by whom?: No Are you DNR?: No Advance Directives: No Advance Directives Information Provided: Yes Advance Directives on File: No Advance Directives Date on File: 06/03/21 service: No Current occupational status: unemployed Meds Allergies Allergy/AdvReac Type Severity Reaction Status Date / Time No Known Allergies (No Known Allergy Verified 03/03/25 13:51 Allergies*) Home Medications ?Medication ?Instructions ?Recorded ?Confirmed ?Last Taken ?Type aspirin 81 mg tablet,delayed 1 tab PO DAILY 02/27/21 03/03/25 02/26/21 History release acetaminophen 325 mg tablet 650 mg PO Q4H PRN pain or fever 05/27/21 03/03/25 Unknown History tamsulosin 0.4 mg capsule 0.4 mg PO DAILY 07/12/21 03/03/25 Unknown History amlodipine 10 mg tablet 10 mg PO DAILY 08/30/24 03/03/25 Unknown History atorvastatin 40 mg tablet 40 mg PO DAILY 08/30/24 03/03/25 Unknown History docusate sodium 100 mg capsule mg PO BID PRN constipation 08/30/24 02/21/25 Unknown History lisinopril 20 mg tablet 20 mg PO DAILY 08/30/24 03/03/25 Unknown History loratadine 10 mg tablet 10 mg PO QAM PRN allergies 08/30/24 03/03/25 Unknown History vit C 250 mg-vit E 90 mg-zinc 40 1 cap PO BID 08/30/24 03/03/25 Unknown History mg-copper 1 [id number] capsule (PreserVision AREDS-2) loperamide 2 mg tablet (Imodium 2 mg PO Q6H PRN Diarrhea 10/12/24 03/03/25 Unknown History A-D) Exam Pertinent Lab Results Pertinent Lab Results: Laboratory Tests 08/30/24 09/28/24 14:52 11:04 WBC 11.2 H RBC 4.58 L Hgb 13.6 L Hct 42.3 Plt Count 198 Sodium 140 Potassium 3.9 BUN 20 H Creatinine 1.06 Airway Mallampati Class: II TM Dist: >3cm Neck ROM: Full Partial: Upper and Lower Heart: RRR Lungs: CTAB Assessment and Plan Final Anesthetic Review Family History of Problems with Anesthesia: No History of Problems with Anesthesia: No Documented by User: Aurelio Moreira MD 03/08/25 10:09 [facility] Past Medical History Medical History Back pain Severe sepsis Colitis Diarrhea Acute COVID-19 History of alcohol abuse Illiterate Chronic low back pain Arthritis Allergic rhinitis Necrosis of colon GERD (gastroesophageal reflux disease) High cholesterol HTN (hypertension) Surgical History Surgical History History of colostomy reversal (06/03/21) History of cystoscopy Hx of colonoscopy Colostomy in place S/P left colectomy (02/27/21) History of prostate surgery Social History Social History Household Members: Significant Other Housing: Apartment Are you a primary career guidance counselor to a significant other at home: No Do you presently have visiting nurse or other home services: Yes ([employer] 3 hours per day) Alcohol intake: never Patient Tobacco Use Status: Former Tobacco user Tobacco use type: Cigarette Smoked in Last 30 Days: No Use of substances other than those prescribed or required for medical reasons: No Have you been hit, kicked, punched, or otherwise hurt by someone within the past year? If so, by whom?: No Are you DNR?: No Advance Directives: No Advance Directives Information Provided: Yes Advance Directives on File: No Advance Directives Date on File: 06/03/21 service: No Current occupational status: unemployed Meds Allergies Allergy/AdvReac Type Severity Reaction Status Date / Time No Known Allergies (No Known Allergy Verified 03/03/25 13:51 Allergies*) Home Medications ?Medication ?Instructions ?Recorded ?Confirmed ?Last Taken ?Type aspirin 81 mg tablet,delayed 1 tab PO DAILY 02/27/21 03/03/25 02/26/21 History release acetaminophen 325 mg tablet 650 mg PO Q4H PRN pain or fever 05/27/21 03/03/25 Unknown History tamsulosin 0.4 mg capsule 0.4 mg PO DAILY 07/12/21 03/03/25 Unknown History amlodipine 10 mg tablet 10 mg PO DAILY 08/30/24 03/03/25 Unknown History atorvastatin 40 mg tablet 40 mg PO DAILY 08/30/24 03/03/25 Unknown History docusate sodium 100 mg capsule mg PO BID PRN constipation 08/30/24 02/21/25 Unknown History lisinopril 20 mg tablet 20 mg PO DAILY 08/30/24 03/03/25 Unknown History loratadine 10 mg tablet 10 mg PO QAM PRN allergies 08/30/24 03/03/25 Unknown History vit C 250 mg-vit E 90 mg-zinc 40 1 cap PO BID 08/30/24 03/03/25 Unknown History mg-copper 1 [id number] capsule (PreserVision AREDS-2) loperamide 2 mg tablet (Imodium 2 mg PO Q6H PRN Diarrhea 10/12/24 03/03/25 Unknown History A-D) Exam Exam Date and Time: 03/08/25 Assessment and Plan Assessment Anesthesia Assessment: Anesthesia Plan Discussed and Chart Reviewed Final Anesthetic Review NPO: Yes ASA Class: III Final Preanesthetic Review: No Changes in Pt Med Stat, Meds/Allgs Chart Reviewed, Consent Obtained/Reviewed and Anes Risks/Benef Reviewed Patient Risk: Low Procedure Risk: Low Anesthetic Plan Anesthetic Plan: GA Disposition: Standard PACU
[2025-03-08 08:48] VITALS: BP 124/72; PULSE 61; RESP 16; TEMP 36.3; O2SAT 97
--- NOTE | 2025-03-08 10:15 | MHC.SHP ---
Pre-Procedural Eval Section A - 24 Hr Update-Section A only Date of Service: 03/08/25 The patient is an INPATIENT: No Changes since office visit: Yes Patient answered all questions; No Cold of Flu in the past 2 weeks, No New Medical Problems and No Changes in Medication The patient has been examined within 24 hours of the surgical procedure. The History & Physical has been completed within 30 days and I have reviewed it.: Yes Section B - Complete if H&P > 30 days Chief Complaint: Umbilical hernia w/o obstruction or gangrene,gallb Allergies: Allergies Allergy/AdvReac Type Severity Reaction Status Date / Time No Known Allergies (No Known Allergy Verified 03/03/25 13:51 Allergies*) Plan Diagnosis/Plan: Unchanged I have reviewed the history and physical and performed a pertinent physical examination on my patient. No changes have occurred unless specified. Time Spent With Patient Time: Total time managing care of this patient today ____ minutes.
[2025-03-08 11:52] VITALS: BP 123/65; PULSE 76; RESP 19; TEMP 37.2; O2SAT 93
--- NOTE | 2025-03-08 11:53 | P.OP_ITS ---
Operative Note Operative Note Date of Service: 03/08/25 Narrative: Preoperative diagnosis: Chronic cholecystitis, cholelithiasis, umbilical hernia Postoperative diagnosis: Same Procedure: Laparoscopic cholecystectomy, primary repair of umbilical hernia Surgeon: Jose Riddle MD Mold Operator: Marlee Mixon PA-C Anesthesia: General endotracheal Indications for procedure: 74-year-old male patient with a previous history of necrotic descending and sigmoid colon, s/p left and sigmoid colectomy with colostomy followed by colostomy closure in 2021 now presenting with complaints of abdominal pain, right upper quadrant found to have a positive HIDA scan for biliary dyskinesia/chronic cholecystitis. He also has a large umbilical hernia which is reducible measuring approximately 5 cm in diameter. Operative findings: Dense adhesions from prior surgery. 5 cm umbilical hernia, reducible Specimen: gallbladder, hernia sac Estimated blood loss: 5 mL Complications: None Procedure details: Patient was brought to the OR and placed in a supine position. After administering general anesthesia the patient's abdomen was prepped with ChloraPrep and draped in a sterile fashion. A surgical time-out was called the consent confirmed. Patient received preoperative antibiotics and Venodyne boots were in place. Local anesthesia consisting of 0.5% Sensorcaine without epinephrine was infiltrated in a periumbilical region. A 2 cm midline incision was made over the previous incision around the umbilicus and carried out through subcutaneous tissue and up to the hernia sac. The hernia sac was then dissected circumferentially down to fascial defect. Peritoneum was then entered using a Metzenbaum scissors and a 12 mm trocar inserted. This was secured using a pursestring of 0 Polysorb suture. The abdomen was insufflated to a pressure 15 mmHg with CO2. Dense adhesions were noted in the abdominal cavity however a window was identified leading to the right upper quadrant to visualize the liver edge and gallbladder. Three 5 mm trocars were then placed under direct vision in the right upper quadrant, 1 for dissection and 2 for retraction of the gallbladder. The patient was placed in reverse Trendelenburg positioning and rotated to the left. The gallbladder was grasped with the fundus and retracted cephalad by the healthcare administrative assistant. The infundibulum was then grasped and retracted away from the liver bed, also by the healthcare administrative assistant. The Dolphin dissected was then used by the surgeon to dissect the peritoneum off the infundibulum to reveal the junction with the cystic duct. Cystic artery was noted slightly medial and posterior to the cystic duct. After obtaining a critical view the cystic duct was doubly clipped and divided. The cystic artery was then doubly clipped and divided. The gallbladder was then dissected off the liver bed using electrocautery with an L hook. Hemostasis was assured all times using the electrocautery. When the gallbladder is completely dissected off the liver bed was placed in an Endo- Catch bag and brought out through the epigastric incision. The gallbladder was sent to pathology for further examination. Gallbladder fossa was then irrigated with saline solution. Good hemostasis was identified. No evidence of bile leak was identified. CO2 was evacuated and all trocars removed. The fascial edges of the umbilical hernia were then further defined using electrocautery. The hernia sac was dissected and excised. This was sent as a specimen to pathology. Fascial edges were then reapproximated using [id number] 0 Polysorb sutures. The fascial defect measuring approximately 5 cm length. Wounds were then irrigated with saline solution and suctioned dry. Umbilical skin was then reapproximated to the fascial edge using a 3-0 Polysorb suture. Dermis was closed using interrupted 3-0 Polysorb sutures. Skin was closed in all incisions using a subcuticular 4 0 Polysorb suture by both the surgeon and healthcare administrative assistant. Sterile dressings consisting of Steri-Strips, 2 x 2 gauze, and Tegaderm were then applied. The patient tolerated the procedure well. Sponge instrument and needle counts reported as correct. The patient was transferred to PACU in stable condition.
[2025-03-08 11:57] VITALS: BP 125/64; PULSE 76; RESP 22; O2SAT 94
[2025-03-08 12:02] VITALS: BP 128/64; PULSE 66; RESP 22; O2SAT 93
[2025-03-08 12:07] VITALS: BP 128/66; PULSE 64; RESP 20; O2SAT 94
[2025-03-08 12:22] VITALS: BP 123/61; PULSE 71; RESP 20; TEMP 36.6; O2SAT 94
== END 2025-03-08 13:13 | disposition home or self-care (01) ==
PROVIDERS: PCP Internal Medicine; Visit Provider Surgery
PROC: 0FT44ZZ Resection of Gallbladder, Percutaneous Endoscopic Approach (ICD-10-PCS; CPT 47562; principal; 2025-03-08 10:10)
PROC: (CPT 47562; 2025-03-08 10:10)
DX: K80.10 Calculus of gallbladder with chronic cholecystitis without obstruction (principal); K42.9 Umbilical hernia without obstruction or gangrene; K52.9 Noninfective gastroenteritis and colitis, unspecified; Z90.49 Acquired absence of other specified parts of digestive tract; Z86.19 Personal history of other infectious and parasitic diseases; K21.9 Gastro-esophageal reflux disease without esophagitis; G89.29 Other chronic pain; M54.50 Low back pain, unspecified; I10 Essential (primary) hypertension; E78.00 Pure hypercholesterolemia, unspecified; F10.11 Alcohol abuse, in remission; Z79.899 Other long term (current) drug therapy; Z79.82 Long term (current) use of aspirin; Z87.891 Personal history of nicotine dependence
CPT/HCPCS: 47562; 49593; 88302; 88304; J0131; J0525; J1100; J1171; J2003; J2405; J2704; J3010

== ENCOUNTER → 2025-03-08 08:03 | Outpatient (BNV) | payer OTHER, SELFPAY | PROVIDERS: PCP Internal Medicine; Visit Provider Surgery | DX: K80.10 Calculus of gallbladder with chronic cholecystitis without obstruction (principal); K42.9 Umbilical hernia without obstruction or gangrene | CPT/HCPCS: 47562 ==

== ENCOUNTER 2025-03-20 09:50 | Outpatient (AMB) | payer OTHER, SELFPAY ==
--- NOTE | 2025-03-20 09:54 | A.OFFVIS_ITS ---
Vital Signs 03/20/25 10:02 Height 5 ft 8 in Weight 177 lb 11.081 oz BMI 27.0 BP 149/69 H Blood Pressure Location Lt brachial Position Sitting Pulse 85 Intake Visit Reasons: s/p lap ender poss open Intake Note: Patient is seen in office for post op assessment post laparoscopic cholecystectomy, primary repair of umbilical hernia. Pt c/o: denies any concerns surgery:03/08/25 ([facility]) Animal Care Assistant Required: Yes Animal Care Assistant Language: Bobbin Coil Winder Services: Animal Care Assistant Present Animal Care Assistant Name: Elyse DOMINIQUE Information Interpreted: non-clinical & clinical Undercutter: Undercutter Present Accompanied by: Family/Other Allergies No Known Allergies (No Known Allergies*) Allergy (Verified 03/20/25 09:57) HPI HPI s/p lap ender poss open: Details: In-house interpreter used for this evaluation. Patient reports he is doing well, denying pain. Has no concerns. His diet and bowel function are at baseline. he has no concerns. Has been avoiding heavy lifting. [facility] Medical History Back pain Severe sepsis Colitis Diarrhea Acute COVID-19 History of alcohol abuse Illiterate Chronic low back pain Arthritis Allergic rhinitis Necrosis of colon GERD (gastroesophageal reflux disease) High cholesterol HTN (hypertension) Surgical History (Updated 03/21/25 @ 08:45 by Wild Flores PA-C) History of laparoscopic cholecystectomy (03/08/25) History of colostomy reversal (06/03/21) History of cystoscopy Hx of colonoscopy Colostomy in place S/P left colectomy (02/27/21) History of prostate surgery Social History Household Members: Significant Other Housing: Apartment Are you a primary body care manager to a significant other at home: No Do you presently have visiting nurse or other home services: Yes ([employer] 3 hours per day) Alcohol intake: never Patient Tobacco Use Status: Former Tobacco user Tobacco use type: Cigarette Advance Directives Date on File: 06/03/21 service: No Current occupational status: unemployed Physical Exam Vital Signs: Last Vital Signs Pulse 85 03/20/25 10:02 BP 149/69 H 03/20/25 10:02 BMI result Body Mass Index 27.0 Const General: comfortable and no acute distress Orientation/consciousness: patient oriented x3 GI Other: incision sites well healed, no erythema, nontender Inspection: No distended Palpation (GI): Soft to palpation and nontender Neuro General: patient oriented x3 Assessment & Plan Assessment & Plan (1) History of laparoscopic cholecystectomy: Onset Date: 03/08/25 Comment: primary repair of umbilical hernia- Jose Riddle MD Code(s): Z90.49 - Acquired absence of other specified parts of digestive tract Category: Medical Plan 74-year-old male s/p laparoscopic cholecystectomy and umbilical hernia repair on 03/08/[address] Rdidle returning to the office for routine follow up. Patient doing very well he has no concerns. Denies abdominal pain. Denies nausea or vomiting. Appetite and bowel function at baseline. He has been avoiding heavy lifting. No issues with ambulation. On exam his abdomen is soft and benign, incision sites are healing well. No concern for infection at this time. We will continue with activity restrictions no heavy lifting greater than 15-20 lb for at least one-month. Patient will return in 2-3 weeks for re- evaluation. He can return sooner with any questions or concerns. Coding Level of Care Code Global (67411) Diagnoses History of laparoscopic cholecystectomy Z90.49
[2025-03-20 10:02] VITALS: BP 149/69; PULSE 85; BMI 27.0
== END 2025-03-20 10:12 | disposition home or self-care (01) ==
LOC: HO.HGS 09:50
PROVIDERS: PCP Internal Medicine
DX: Z90.49 Acquired absence of other specified parts of digestive tract (principal)
CPT/HCPCS: 99024

== ENCOUNTER → 2025-03-20 09:50 | Outpatient (BNVA) | payer OTHER, SELFPAY | PROVIDERS: PCP Internal Medicine | DX: Z98.890 Other specified postprocedural states (principal); Z90.49 Acquired absence of other specified parts of digestive tract | CPT/HCPCS: 99212 ==